=== PATIENT | female | born 1940 | race Caucasian/White ===

== ENCOUNTER 2018-10-04 12:28 | Emergency (ER) | payer OTHER ==
--- OUTSIDE RECORDS SUMMARY | 2018-10-04 12:30 | XMS REPORT | Clinical Summary ---
:1940 Author Organization [facility] Address [address] [place] [address] Care Team Providers Name Role Phone Unavailable Primary Care Provider Unavailable Allergies Not on File Medications Not on file Active Problems Not on file Social History Tobacco Use Types Packs/Day Years Used Date Never Assessed Sex Assigned at Date Recorded Not on file Job Start Date Occupation Industry Not on file Not on file Not on file Travel History Travel Start Travel End No recent travel history available. Last Filed Vital Signs Not on file Plan of Treatment Not on file Results Not on fileafter 10/03/2017 Insurance Payer Benefit Plan / Group Subscriber ID Type Phone Address MEDICARE MEDICARE A B xxxxxxxxx Medicare AETNA - MGD CARE AETNA INDEMNITY NON CONTR xxxxxxxxx Comm
--- OUTSIDE RECORDS SUMMARY | 2018-10-04 12:30 | XMS REPORT | Clinical Summary ---
:1940 Author Organization [facility] Address [address] [place] [id number] Care Team Providers Name Role Phone Asked, No Pcp Primary Care Provider Unavailable Allergies Active Allergy Reactions Severity Noted Date Comments Morphine 04/05/2016 Red spots on the skin Oxycodone [id number] 04/05/2016 Red spots on the face and body Cholestyramine (With Sugar) GI Intolerance High 04/06/2016 NAUSEA AND BLOATING Seldane High 04/05/2016 Medications Medication Sig Dispensed Refills Start Date End Date Status aspirin (ECOTRIN) 81 Take 81 mg by mouth 0 Active MG enteric coated daily. tablet cholecalciferol, Take 5,000 Units by 0 Active vitamin D3, (VITAMIN mouth daily. D3) 5,000 unit capsule temazepam (RESTORIL) Take 30 mg by mouth 0 Active 30 mg capsule nightly as needed for sleep. simethicone (MYLICON) Chew 1 tablet (80 30 tablet 1 04/09/2016 Active 80 MG chewable tablet mg total) every 6 (six) hours as needed for flatulence for up to 30 doses. Active Problems Problem Noted Date COPD (chronic obstructive pulmonary disease) with acute bronchitis 10/24/2016 Orthostatic hypotension 04/07/2016 Chest pain 04/05/2016 COPD (chronic obstructive pulmonary disease) 04/05/2016 HTN (hypertension) 04/05/2016 Neuropathy 04/05/2016 Diarrhea due to malabsorption 04/05/2016 Hypokalemia 04/05/2016 Immunizations Name Dates Previously Given Next Due INFLUENZA QUAD PF 04/09/2016 Pneumococcal Conjugate 13-Valent 04/09/2016 Family History Medical History Relation Name Comments Aortic aneurysm Brother Cancer Brother Heart disease Brother Cancer Father Aortic aneurysm Mother Arrhythmia Sister Relation Name Status Comments Brother Alive Father Mother Sister Alive Social History Tobacco Use Types Packs/Day Years Used Date Former Smoker Quit: 04/05/2004 Smokeless Tobacco: Never Used Alcohol Use Drinks/Week oz/Week Comments No Sex Assigned at Date Recorded Not on file Job Start Date Occupation Industry Not on file Not on file Not on file Travel History Travel Start Travel End No recent travel history available. Last Filed Vital Signs Not on file Plan of Treatment Health Maintenance Due Date Last Done Comments SHINGLES VACCINES (#1) 02/23/1988 PNEUMOCOCCAL POLYSACCHARIDE VACCINE AGE 65 AND OVER 2003 65+ PNEUMOCOCCAL VACCINE (2 of 2 - PPSV23) 04/09/2017 04/09/2016 INFLUENZA VACCINE 12/23/2018 04/09/2016 Implants Implanted Type Area Industrial Chemist Device Identifier Shelf Expiration Model / Serial Date / Lot Staple Staple Results Not on fileafter 10/03/2017 Insurance Payer Benefit Plan / Group Subscriber ID Type Phone Address AETNA AETNA HMO,POS,EPO, MC/EC xxxxxxxxx HMO MEDICARE MEDICARE PART A AND B xxxxxxxxxx Medicare [place], [place] Advance Directives Patient has advance care planning documents, and code status on file. For more information, please contact:Jose Luis Blackman[address] [place] [address] Code Status Date Activated Date Inactivated Comments Full Code 10/24/2016 12:22 AM 10/25/2016 12:21 AM Code Status decision reached by: Patient Full Code 04/05/2016 12:37 AM 04/09/2016 5:26 PM Code Status decision reached by: Patient
[2018-10-04 14:12] LABS: Absolute Lymphocytes (CBC) 1.6 K/uL (0.7-4.9); Absolute Monocytes 0.7 K/uL (0.1-1.3); Absolute Neutrophil 3.2 K/uL (1.8-8.0); Eosinophils % 3.4 % (0-4.4); Hematocrit 45.5 % (36.0-45.0); Lymphocytes % 28.6 % (15.3-44.8); MPV 8.1 fL (7.6-11.3); Monocytes % 11.5 % (3.3-12.3); RBC Red Blood Cell Count 4.88 M/uL (3.86-4.86)
[2018-10-04 14:13] LABS: ALT/SGPT 21 U/L (12-78); AST/SGOT 18 U/L (15-37); Albumin 3.9 g/dL (3.4-5.0); Alkaline Phosphatase 88 U/L (45-117); BUN Blood Urea Nitrogen 14 mg/dL (7-18); Bicarbonate 32 mmol/L (21-32); Bilirubin Direct < 0.1 mg/dL (0-0.2); Bilirubin Total 0.4 mg/dL (0.2-1.0); Glucose Level 119 mg/dL (74-106); Lipase 101 U/L (73-393); Potassium 4.5 mmol/L (3.5-5.1); Protein, Total 7.3 g/dL (6.4-8.2); Sodium Level 139 mmol/L (136-145)
[2018-10-04] MEDS ORDERED: FAMOTIDINE 20 MG/2 ML VIAL IV ONE (14:16)
[2018-10-04] MEDS ORDERED: ONDANSETRON 4 MG/2 ML VIAL ONE (14:16)
[2018-10-04] MEDS ORDERED: NA CHLORIDE 0.9% 500 ML ONE ×2 (14:16→19:35)
--- NOTE | 2018-10-04 15:02 | RAD REPORT ---
EXAM DESCRIPTION: CTAbdomen Pelvis W Contrast - 10/04/2018 2:48 pm CLINICAL HISTORY: Abdominal pain. ABD PAIN COMPARISON: Abdomen Pelvis W Contrast dated 07/22/2016; Abdomen Pelvis W Contrast dated 05/27/2016; Abdomen Pelvis W Contrast dated 05/20/2016; Abdomen Pelvis W Contrast dated 05/02/2016 TECHNIQUE: Biphasic CT imaging of the abdomen and pelvis was performed with 100 ml non-ionic IV cont rast. All CT scans are performed using dose optimization technique as appropriate and may include automated exposure control or mA/KV adjustment according to patient size. FINDINGS: Emphysematous changes are present. Multiple liver cysts are present of varying size. No aggressive liver lesion. Cholecystectomy clips. The spleen, pancreas, adrenal glands and kidneys are within normal limits. Infrarenal abdominal aortic aneurysm is present measuring 4.6 cm in AP dimension, increased from 06/26 at which time it measured 3.9 cm. No bowel obstruction, free air, free fluid or abscess. Prominent sigmoid diverticulosis coli is prese nt without diverticulitis. The appendix is not identified as a discrete structure, however, no second brian findings of appendicitis are identified. No evidence of significant lymphadenopathy. Moderate lumbar degenerative changes. IMPRESSION: Interval increase in size of infrarenal abdominal aortic aneurysm since comparative stud y. There is no CT evidence of aneurysm leakage at this time. Prominent sigmoid diverticulosis coli without diverticulitis.
[2018-10-04 15:22] LABS: Urine Bacteria <20 /HPF (<20); Urine Culture Reflex Order NOT NEEDED; Urine RBC <5 /HPF (NONE SEEN)
[2018-10-04 16:31] LABS: Urine Blood NEGATIVE (NEG); Urine Glucose NEGATIVE (NEG); Urine Protein NEGATIVE (NEG); Urine Specific Gravity 1.015 (1.005-1.030)
[2018-10-04] MEDS ORDERED: PROMETHAZINE 25 MG/ML VIAL ONE (16:42)
[2018-10-04] MEDS ORDERED: NA CHLORIDE 0.9% 100 ML IV ONE (16:42)
[2018-10-04 16:47] LABS: Protime INR 1.05
[2018-10-04 17:05] LABS: Magnesium 2.1 mg/dL (1.8-2.4); NT PRO-BNP 174 pg/mL (<450); Troponin (Emerg Dept Use Only) < 0.02 ng/mL (0.0-0.045)
--- NOTE | 2018-10-04 17:27 | RAD REPORT ---
EXAM DESCRIPTION: RAD - Chest Single View - 10/04/2018 5:21 pm CLINICAL HISTORY: weakness, low sats Chest pain. COMPARISON: Chest Single View dated 05/27/2016; Chest Single View dated 05/19/2016; CHEST PA AND LAT 2 VIEW dated 03/08/2013 FINDINGS: Portable technique limits examination quality. The lungs are grossly clear. The heart is normal in size. No displaced fractures. IMPRESSION: No acute intrathoracic process suspected.
--- NOTE | 2018-10-04 19:09 | EKG ---
Test Date: 2018-10-04 Test Time: 16:59:49 Bow Maker Gift Wrapping: STEWART MEASUREMENT RESULTS: Intervals: Rate: 68 WY: 172 QRSD: 70 QT: 384 QTc: 408 Blanchard: P: 76 WY: 172 QRS: 75 T: 76 INTERPRETIVE STATEMENTS: Normal sinus rhythm Normal ECG Compared to ECG 05/27/2016 20:56:16 Ventricular premature complex(es) no longer present Electronically Signed On 10-04-18 19:09:18 CDT by Ronny De La Fuente
--- NOTE | 2018-10-04 19:40 | EDPHYS ---
Physician Documentation [facility] Name: Rena Schuler Age: 78 yrs Sex: Female : 1940 Arrival Date: 10/04/2018 Time: 12:30 Bed 23 Private MD: Marlys Worrell R ED Physician Leo Cox HPI: 10/04 17:46 This 78 yrs old Female presents to ER via Ambulatory with complaints of wa Abdominal Pain, Vomiting. 17:46 The patient presents to the emergency department with nausea, that is moderate. Onset: wa The symptoms/episode began/occurred 1 week(s) ago, vomit x 1 yesterday. Possible causes: unknown. The symptoms are aggravated by nothing. The symptoms are alleviated by nothing. Associated signs and symptoms: Pertinent positives: nausea, generalized weakness, Pertinent negatives: fever. Severity of symptoms: At their worst the symptoms were moderate in the emergency department the symptoms are unchanged. The patient has experienced a previous episode, per daughter, was dx'd with diverticulitis at that time. The patient has not recently seen a physician. states has not felt well all week. Historical: - Allergies: 12:52 Codeine; rb1 12:52 Morphine; rb1 12:52 All pain medications; rb1 - PMHx: 12:52 Hypertension; TIA; rb1 12:55 COPD; rb1 - PSHx: 12:52 back surgery; Hysterectomy; Cholecystectomy; Thyroidectomy; eye sx; stomach; stem cells;rb1 - Immunization history:: Adult Immunizations up to date. - Social history:: Smoking status: Patient/guardian denies using tobacco. - Ebola Screening: : No symptoms or risks identified at this time. - Family history:: not pertinent. - Hospitalizations: : No recent hospitalization is reported. ROS: 18:02 Constitutional: Negative for fever, chills, and weight loss, Eyes: Negative for injury, wa pain, redness, and discharge, ENT: Negative for injury, pain, and discharge, Neck: Negative for injury, pain, and swelling, Cardiovascular: Negative for chest pain, palpitations, and edema, Respiratory: Negative for shortness of breath, cough, wheezing, and pleuritic chest pain, Back: Negative for injury and pain, : Negative for injury, bleeding, discharge, and swelling, MS/Extremity: Negative for injury and deformity, Skin: Negative for injury, rash, and discoloration, Neuro: Negative for headache, weakness, numbness, tingling, and seizure, Psych: Negative for depression, anxiety, suicide ideation, homicidal ideation, and hallucinations. 18:02 Abdomen/GI: Positive for nausea, vomiting, Negative for abdominal pain, diarrhea. 18:02 All other systems are negative. Exam: 18:04 Constitutional: This is a well developed, well nourished patient who is awake, alert, wa and in no acute distress. Head/Face: Normocephalic, atraumatic. Eyes: Pupils equal round and reactive to light, extra-ocular motions intact. Lids and lashes normal. Conjunctiva and sclera are non-icteric and not injected. Cornea within normal limits. Periorbital areas with no swelling, redness, or edema. ENT: Nares patent. No nasal discharge, no septal abnormalities noted. Tympanic membranes are normal and external auditory canals are clear. Oropharynx with no redness, swelling, or masses, exudates, or evidence of obstruction, uvula midline. Mucous membranes moist. Neck: Trachea midline, no thyromegaly or masses palpated, and no cervical lymphadenopathy. Supple, full range of motion without nuchal rigidity, or vertebral point tenderness. No Meningismus. Chest/axilla: Normal chest wall appearance and motion. Nontender with no deformity. No lesions are appreciated. Cardiovascular: Regular rate and rhythm with a normal S1 and S2. No gallops, murmurs, or rubs. Normal PMI, no JVD. No pulse deficits. Respiratory: Lungs have equal breath sounds bilaterally, clear to auscultation and percussion. No rales, rhonchi or wheezes noted. No increased work of breathing, no retractions or nasal flaring. Back: No spinal tenderness. No costovertebral tenderness. Full range of motion. Skin: Warm, dry with normal turgor. Normal color with no rashes, no lesions, and no evidence of cellulitis. MS/ Extremity: Pulses equal, no cyanosis. Neurovascular intact. Full, normal range of motion. Neuro: Awake and alert, GCS 15, oriented to person, place, time, and situation. Cranial nerves II-XII grossly intact. Motor strength 5/5 in all extremities. Sensory grossly intact. Cerebellar exam normal. Normal gait. Psych: Awake, alert, with orientation to person, place and time. Behavior, mood, and affect are within normal limits. 18:04 Abdomen/GI: Inspection: abdomen appears normal, Bowel sounds: normal, in all quadrants, Palpation: abdomen is soft and non-tender, in all quadrants, soft, nontender, in all quadrants. Vital Signs: 12:52 BP 147 / 97; Pulse 73; Resp 17; Temp 97.6(O); Pulse Ox 94% on R/A; Weight 70.76 kg; rb1 Height 5 ft. 9 in. (175.26 cm); Pain 3/10; 16:44 BP 162 / 94 RA Supine; Pulse 72; Resp 17 S; Pulse Ox 94% on R/A; rv 16:56 Temp 98.5(O); lt1 17:00 BP 168 / 85 RA Supine; Pulse 69; Resp 18 S; Pulse Ox 94% on R/A; rv 17:30 BP 146 / 99; Pulse 66; Resp 15; Pulse Ox 94% ; rv 18:00 BP 164 / 90; Pulse 67; Resp 15; Pulse Ox 94% ; rv 18:30 BP 158 / 81; Pulse 66; Resp 15; Pulse Ox 94% ; rv 19:30 BP 163 / 79 Supine; Pulse 68; Resp 16 S; Pulse Ox 94% on R/A; rv 12:52 Body Mass Index 23.04 (70.76 kg, 175.26 cm) rb1 MDM: 13:22 Patient medically screened. wa 18:05 Differential diagnosis: Nonspecific abd pain, gastritis, cholecystitis, pancreatitis, wa diverticulitis. Data reviewed: vital signs, nurses notes. 19:34 Test interpretation: by ED physician or midlevel provider: EKG: HR 68. nml sinus. no wa zonal ischemia. axis nml. 19:36 Test interpretation: by ED physician or midlevel provider: labs noted wnl. CT wa abd/pelvis: no acute process. diverticulosis. Response to treatment: the patient's symptoms have markedly improved after treatment. ED course: improved with IV phenergan. fluid bolus given. will d/c with close f/u. has appt with Dr. Garner (GI) in 2 days. understands to return for rapidly worsening concerns. . 10/04 13:23 Order name: Basic Metabolic Panel; Complete Time: 16:08 aj 10/04 13:23 Order name: CBC with Diff; Complete Time: 16:08 10/04 13:23 Order name: Creatinine for Radiology; Complete Time: 16:08 10/04 13:23 Order name: Hepatic Function; Complete Time: 16:08 10/04 13:23 Order name: Lipase; Complete Time: 16:08 10/04 13:59 Order name: Urine Microscopic Only; Complete Time: 16:08 in 10/04 14:00 Order name: CT Abd/Pelvis - W/Contrast; Complete Time: 15:06 in 10/04 15:03 Order name: Urine Dipstick--Ancillary (enter results); Complete Time: 17:27 10/04 16:24 Order name: Magnesium; Complete Time: 17:27 in 10/04 16:24 Order name: NT PRO-BNP; Complete Time: 17:27 in 10/04 16:24 Order name: PT-INR; Complete Time: 17:27 in 10/04 16:24 Order name: Troponin (emerg Dept Use Only); Complete Time: 17:27 in 10/04 16:24 Order name: XRAY Chest (1 view); Complete Time: 17:46 10/04 13:23 Order name: IV Saline Lock; Complete Time: 13:44 10/04 13:23 Order name: Labs collected and sent; Complete Time: 13:44 10/04 13:59 Order name: Urine Dipstick-Ancillary (obtain specimen); Complete Time: 15:06 in 10/04 16:24 Order name: EKG; Complete Time: 16:25 in 10/04 16:24 Order name: Cardiac monitoring; Complete Time: 16:49 in 10/04 16:24 Order name: EKG - Nurse/Tech; Complete Time: 17:15 in 10/04 16:24 Order name: O2 Per Protocol; Complete Time: 16:48 in 10/04 16:24 Order name: O2 Sat Monitoring; Complete Time: 16:48 in Administered Medications: 14:07 Drug: Pepcid 20 mg Route: IVP; Site: left antecubital; aj 16:00 Follow up: Response: Nausea is decreased rv 14:08 Drug: NS 0.9% 500 ml Route: IV; Rate: bolus; Site: left antecubital; aj 17:15 Follow up: IV Status: Completed infusion; IV Intake: 500ml rv 14:08 Drug: Zofran 4 mg Route: IVP; Site: left antecubital; aj 17:16 Follow up: Response: Nausea is decreased rv 16:36 Drug: Phenergan 12.5 mg {Note: incorporated in 100ml of NS, run as bolus.} Route: IVP; rv Site: left antecubital; 17:19 Follow up: Response: Marked relief of symptoms rv 19:22 Drug: NS 0.9% 500 ml Route: IV; Rate: bolus; Site: left antecubital; ca1 20:09 Follow up: Urine output 310 ml; Response: No adverse reaction; IV Status: Completed ca1 infusion 20:19 Follow up: IV Status: Completed infusion; IV Intake: 500ml rv Disposition: 10/04/18 19:39 Discharged to Home. Impression: Acute abdominal pain, acute nausea. - Condition is Stable. - Discharge Instructions: Nausea and Vomiting, Adult, [id number], Nausea, Adult, [id number]. - Prescriptions for promethazine 12.5 mg Oral tablet - take 1 tablet by ORAL route 3 times per day As needed; 20 tablet. Pepcid 20 mg Oral Tablet - take 1 tablet by ORAL route once daily for 10 days; 10 tablet. - Medication Reconciliation Form, Thank You Letter, Antibiotic Education, Prescription Opioid Use form. - Follow up: Parth Garner MD; When: 1 - 2 days; Reason: Re-evaluation by your physician. - Problem is new. - Symptoms have improved. - Notes: follow up with Dr. Garner per your appointment in 2 days. return here immediately if rapidly worsening concerns Signatures: Dispatcher [employer] Augusta Marinelli RN RN aj Barber, Rebecca RN RN rb1 Leo Cox MD MD wa Vicente, Ronaldo, RN RN rv Veronica Browne RN RN ca1 Corrections: (The following items were deleted from the chart) 20:20 19:39 10/04/2018 19:39 Discharged to Home. Impression: Acute abdominal pain; acute rv nausea. Condition is Stable. Forms are Medication Reconciliation Form, Thank You Letter, Antibiotic Education, Prescription Opioid Use. Follow up: Parth Garner; When: 1 - 2 days; Reason: Re-evaluation by your physician. Problem is new. Symptoms have improved. wa
--- NOTE | 2018-10-04 19:40 | ER ---
Nurse's Notes [facility] Name: Rena Schuler Age: 78 yrs Sex: Female : 1940 Arrival Date: 10/04/2018 Time: 12:30 Bed 23 Private MD: Marlys Worrell R Diagnosis: Acute abdominal pain;acute nausea Presentation: 10/04 12:49 Presenting complaint: Patient states: c/o abdominal pain RUQ and RLQ radiates to the rb1 back, nausea, vomiting started last night x 2, diarrhea. Diarrhea normal for pt. Denies fever. Transition of care: patient was not received from another setting of care. Onset of symptoms was September 27, 2018. Risk Assessment: Do you want to hurt yourself or someone else? Patient reports no desire to harm self or others. 12:49 Method Of Arrival: Ambulatory rb1 12:49 Acuity: THIEN 3 rb1 16:48 Initial Sepsis Screen: Does the patient meet any 2 criteria? No. Patient's initial rv sepsis screen is negative. Does the patient have a suspected source of infection? No. Patient's initial sepsis screen is negative. Care prior to arrival: None. Triage Assessment: 12:52 General: Appears in no apparent distress. comfortable, Behavior is calm, cooperative. rb1 12:55 Neuro: Level of Consciousness is awake, alert, obeys commands, Oriented to person, rb1 place, time, situation. Cardiovascular: Capillary refill < 3 seconds is brisk in bilateral fingers. Respiratory: Airway is patent Respiratory effort is even, unlabored, Respiratory pattern is regular, symmetrical. GI: Reports diarrhea, nausea, vomiting. Derm: Skin is pink, warm \T\ dry. Historical: - Allergies: 12:52 Codeine; rb1 12:52 Morphine; rb1 12:52 All pain medications; rb1 - PMHx: 12:52 Hypertension; TIA; rb1 12:55 COPD; rb1 - PSHx: 12:52 back surgery; Hysterectomy; Cholecystectomy; Thyroidectomy; eye sx; stomach; stem cells;rb1 - Immunization history:: Adult Immunizations up to date. - Social history:: Smoking status: Patient/guardian denies using tobacco. - Ebola Screening: : No symptoms or risks identified at this time. - Family history:: not pertinent. - Hospitalizations: : No recent hospitalization is reported. Screenin:47 Abuse screen: Denies threats or abuse. Denies injuries from another. Nutritional rv screening: No deficits noted. Tuberculosis screening: No symptoms or risk factors identified. Fall Risk None identified. Assessment: 13:49 General: Appears in no apparent distress. comfortable, Behavior is calm, cooperative, aj appropriate for age. Pain: Complains of pain in abdomen. Neuro: Level of Consciousness is awake, alert, obeys commands, Oriented to person, place, time, situation, Appropriate for age. Respiratory: Airway is patent Respiratory effort is even, unlabored, Respiratory pattern is regular, symmetrical. GI: Abdomen is flat, Bowel sounds present X 4 quads. Abd is soft Abdomen is tender to palpation in right lower quadrant and left lower quadrant. Derm: Skin is intact, is healthy with good turgor, Skin is pink, warm \T\ dry. normal. 16:46 Reassessment: Patient appears in no apparent distress at this time. Patient and/or rv family updated on plan of care and expected duration. Pain level reassessed. Patient is alert, oriented x 3, equal unlabored respirations, skin warm/dry/pink. nausea starting to comeback again. doing cardiac work up after Dr. Cox explained the results and plan of care. 18:51 Reassessment: Patient appears in no apparent distress at this time. Patient and/or rv family updated on plan of care and expected duration. Pain level reassessed. Patient is alert, oriented x 3, equal unlabored respirations, skin warm/dry/pink. awaiting for Dr Cox to talk to patient and family. Patient states feeling better. Vital Signs: 12:52 BP 147 / 97; Pulse 73; Resp 17; Temp 97.6(O); Pulse Ox 94% on R/A; Weight 70.76 kg; rb1 Height 5 ft. 9 in. (175.26 cm); Pain 3/10; 16:44 BP 162 / 94 RA Supine; Pulse 72; Resp 17 S; Pulse Ox 94% on R/A; rv 16:56 Temp 98.5(O); lt1 17:00 BP 168 / 85 RA Supine; Pulse 69; Resp 18 S; Pulse Ox 94% on R/A; rv 17:30 BP 146 / 99; Pulse 66; Resp 15; Pulse Ox 94% ; rv 18:00 BP 164 / 90; Pulse 67; Resp 15; Pulse Ox 94% ; rv 18:30 BP 158 / 81; Pulse 66; Resp 15; Pulse Ox 94% ; rv 19:30 BP 163 / 79 Supine; Pulse 68; Resp 16 S; Pulse Ox 94% on R/A; rv 12:52 Body Mass Index 23.04 (70.76 kg, 175.26 cm) rb1 ED Course: 12:30 Patient arrived in ED. mr 12:30 Marlys Worrell MD is Private Physician. mr 12:51 Triage completed. rb1 12:55 Arm band placed on right wrist. rb1 13:07 Augusta Ibanez, RN is Primary Nurse. aj 13:22 Leo Cox MD is Attending Physician. wa 13:44 Initial lab(s) drawn, by ma, sent to lab. Inserted saline lock: 22 gauge in left lt1 forearm, using aseptic technique. 14:[address] vm2 14:48 CT Abd/Pelvis - W/Contrast In Process Unspecified. EDMS 14:50 CT completed. Patient tolerated procedure well. Patient moved back from CT. vm2 15:00 Patient has correct armband on for positive identification. Bed in low position. Call rv light in reach. Side rails up X 1. Adult w/ patient. court recording monitor on. Pulse ox on. NIBP on. 15:05 Urine Dipstick--Ancillary (enter results) Sent. lt1 15:06 Urine Microscopic Only Sent. lt1 16:39 by ma, sent to lab. additional blood work. rv 16:59 EKG done, by mathematical engineering technician. reviewed by Leo Cox MD. sm3 17:21 XRAY Chest (1 view) In Process Unspecified. EDMS 19:38 Parth Garner MD is Referral Physician. wa 20:14 No provider procedures requiring assistance completed. IV discontinued, intact, ca1 bleeding controlled, No redness/swelling at site. Pressure dressing applied. Administered Medications: 14:07 Drug: Pepcid 20 mg Route: IVP; Site: left antecubital; aj 16:00 Follow up: Response: Nausea is decreased rv 14:08 Drug: NS 0.9% 500 ml Route: IV; Rate: bolus; Site: left antecubital; aj 17:15 Follow up: IV Status: Completed infusion; IV Intake: 500ml rv 14:08 Drug: Zofran 4 mg Route: IVP; Site: left antecubital; aj 17:16 Follow up: Response: Nausea is decreased rv 16:36 Drug: Phenergan 12.5 mg {Note: incorporated in 100ml of NS, run as bolus.} Route: IVP; rv Site: left antecubital; 17:19 Follow up: Response: Marked relief of symptoms rv 19:22 Drug: NS 0.9% 500 ml Route: IV; Rate: bolus; Site: left antecubital; ca1 20:09 Follow up: Urine output 310 ml; Response: No adverse reaction; IV Status: Completed ca1 infusion 20:19 Follow up: IV Status: Completed infusion; IV Intake: 500ml rv Intake: 17:15 IV: 500ml; Total: 500ml. rv 20:19 IV: 500ml; Total: 1000ml. rv Output: 20:09 Urine: 310ml; Total: 310ml. ca1 Outcome: 19:39 Discharge ordered by . co 20:14 Discharged to home via wheelchair. ca1 20:14 Condition: stable 20:14 Discharge instructions given to patient, Instructed on discharge instructions, follow up and referral plans. medication usage, Demonstrated understanding of instructions, follow-up care, medications, Prescriptions given X 2. 20:20 Patient left the ED. rv Signatures: Dispatcher [employer] Augusta Marinelli, Elidia Guaman RN, Rebecca RN RN rb1 Yuliet Guzmán 2 Leo Cox MD MD wa Montes, Shakira 3 Trevor Ortega RN RN rv Acob, Cheryl, RN RN ca1 Tran, Leah 1
[2018-10-05 03:32] VITALS: O2SAT 94
[2018-10-05 03:34] VITALS: TEMP 98.5
[2018-10-05 03:41] VITALS: BP 163/79
== END 2018-10-04 20:20 | disposition home or self-care (01) ==
LOC: ER 12:28
DX: R10.9 Unspecified abdominal pain (principal); I10 Essential (primary) hypertension; Z88.5 Allergy status to narcotic agent
CPT/HCPCS: 96361; 93005; 85025; 80048; 36415; 83735; 85610; 80076; 84484; 83690; 83880; 74177; 71045; 96375; 96374; 99285; Q9967; J2550; J2405; 81003; 81015

== ENCOUNTER 2019-04-17 09:28 | Emergency (ER) | payer OTHER ==
[2019-04-17] MEDS ORDERED: PROMETHAZINE 25 MG TABLET ONE (09:51)
[2019-04-17] MEDS ORDERED: HYDROMORPHONE HCL 0.5 MG/0.5 ML INJ ONE ×2 (10:22→14:27)
[2019-04-17 12:06] LABS: Absolute Lymphocytes (CBC) 1.3 K/uL (0.7-4.9); Basophils % 0.9 % (0-1.3); Hematocrit 41.7 % (36.0-45.0); Lymphocytes % 16.3 % (15.3-44.8); MPV 8.1 fL (7.6-11.3); RBC Red Blood Cell Count 4.36 M/uL (3.86-4.86)
[2019-04-17 13:04] LABS: ALT/SGPT 31 U/L (12-78); AST/SGOT 37 U/L (15-37); Albumin 3.3 g/dL (3.4-5.0); Alkaline Phosphatase 72 U/L (45-117); BUN Blood Urea Nitrogen 13 mg/dL (7-18); Bicarbonate 32 mmol/L (21-32); Bilirubin Total 0.4 mg/dL (0.2-1.0); Glucose Level 123 mg/dL (74-106); Potassium 4.1 mmol/L (3.5-5.1); Protein, Total 6.3 g/dL (6.4-8.2); Sodium Level 139 mmol/L (136-145); Troponin (Emerg Dept Use Only) < 0.02 ng/mL (0.0-0.045)
--- NOTE | 2019-04-17 13:05 | RAD REPORT ---
EXAM DESCRIPTION: RAD - Elbow Right 3 View - 04/17/2019 10:32 am CLINICAL HISTORY: Fall, right elbow pain COMPARISON: None. FINDINGS: No fracture is identified and no elevated posterior fat pad. There is no dislocation or pe riosteal reaction noted. No foreign body or other soft tissue abnormality. Subtle cortical changes to the articular surface of the radius are noted but not sufficient for fracture diagnosis at this time . IMPRESSION: Negative right elbow examination. Repeat imaging in 7 days recommended if the patient continues to have symptoms concerning for fractur e.
--- NOTE | 2019-04-17 13:10 | RAD REPORT ---
EXAM DESCRIPTION: RAD - Forearm Left - 04/17/2019 10:32 am CLINICAL HISTORY: Fall, left arm and wrist pain COMPARISON: None. FINDINGS: Distal radius and ulna fractures are detailed on wrist report. Remainder the left forearm shows no acute finding. No suspicious finding at the elbow joint.
--- NOTE | 2019-04-17 13:21 | RAD REPORT ---
EXAM DESCRIPTION: RAD - Wrist Left 3 View - 04/17/2019 10:32 am CLINICAL HISTORY: Fall, wrist pain COMPARISON: None. FINDINGS: Transverse fractures of the distal radius and ulna are present. Radius fracture fragment s hows 40 degree dorsal angulation and impaction on the dorsal margin. There is no dislocation or perio steal reaction noted. No foreign body or other soft tissue abnormality. IMPRESSION: Distal radius and ulna fractures as detailed.
--- NOTE | 2019-04-17 14:26 | RAD REPORT ---
EXAM DESCRIPTION: CT - Head C Spine Hai Ybarra - 04/17/2019 1:52 pm CLINICAL HISTORY: Fall, head, neck, chest and abdomen pain COMPARISON: None. TECHNIQUE: Axial [address] head images were obtained. Axial [address] cervical spine images were obtaine d with sagittal and coronal reconstruction images reviewed. During dynamic enhancement of 100mL non-i onic contrast, axial 5 mm images of the chest, abdomen and pelvis were obtained. All CT scans are performed using dose optimization technique as appropriate and may include automated exposure control or mA/KV adjustment according to patient size. FINDINGS: No intracranial hemorrhage, mass or edema. No midline shift or abnormal fluid collection. Prominent atrophy and chronic ischemic changes are present. Ventricles are in proportion to volume lo ss. Chronic ischemic change can mask nonhemorrhagic CVA. Mastoid air cells and paranasal sinuses are clear. No skull fracture. CT cervical spine imaging shows normal height. Normal alignment of the vertebrae. Disc space narrowin g is present throughout the cervical spine. Posterior endplate spurring at C4-5 and C5-6 causes centr al canal narrowing. There is significant bony foraminal encroachment at C5-6 bilaterally and on the l eft at C6-7. No paraspinal mass or hematoma seen. Central canal detail is inherently limited. Concern s for traumatic disc herniation or traumatic cord injury can be further addressed with MR imaging. Thyroid nodularity is present not fully assessed. Left lobe of the thyroid may be absent. CT chest sh ows no pneumothorax, pulmonary contusion or pleural fluid collection. No mediastinal hematoma and the aorta and pulmonary arteries are unremarkable. No chest will mass or abnormal axillary finding. No d isplaced rib fracture or other significant bony finding. The patient has nonacute thrombus change in the aortic arch. No acute thoracic aortic finding seen. No pericardial thickening or effusion. Air d ensities are present in the soft tissues lateral aspect of each proximal upper extremity. This could be from puncture wound or from medication administration. This needs correlation with history. CT abdomen and pelvis show no injury to solid abdominal viscera. Gallbladder is absent. No abnormal b iliary tree dilatation. No acute bowel injury. Diverticulosis is present without diverticulitis. No f ree air, free fluid or abnormal stranding in the peritoneal or retroperitoneal spaces. Mural thrombus is scattered in the abdominal aorta. There is a large infrarenal abdominal aortic aneurysm. Mural th rombus fills approximately 80% of the aneurysm cross-sectional area. Aneurysm is 4.9 cm AP x 4.7 cm T R. No aneurysm leakage or rupture findings. Right common iliac origins stenosis is present. No iliac aneurysm. . No urinary bladder abnormality. Disc and bony degenerative changes are present. Moderately prominent L4-5 and L5-S1 disc, endplate an d facet degenerative changes are present. No pathologic bone process. IMPRESSION: Moderate atrophy and advanced chronic ischemic changes are present with no hemorrhage, e tabitha or acute intracranial finding. Chronic ischemic change can mask nonhemorrhagic CVA. Cervical spine degenerative changes are present with no acute finding seen. No acute traumatic CT chest finding. Patient has air densities in the bilateral upper extremities. Th is could be penetrating injury if this matches history. These may be medication injection sites as we ll. No traumatic injury in the abdomen or pelvis. Patient has a 4.9 centimeter abdominal aortic aneurysm with mural thrombus filling the majority of the lumen. No acute aortic finding seen.
[2019-04-17] MEDS ORDERED: PROMETHAZINE 25 MG/ML VIAL ONE (14:43)
[2019-04-17] MEDS ORDERED: PROPOFOL 200 MG/20 ML VIAL IV ONE (14:54)
[2019-04-17] MEDS ORDERED: NA CHLORIDE 0.9% 500 ML ONE (15:20)
[2019-04-17] MEDS ORDERED: TETANUS & DIPHTHERIA TOX,ADULT 0.5 ML VIAL ONE (17:37)
--- NOTE | 2019-04-17 17:40 | RAD REPORT ---
EXAM DESCRIPTION: RAD - Wrist Left 3 View - 04/17/2019 4:59 pm CLINICAL HISTORY: Distal radius and ulna fracture COMPARISON: Left wrist same date FINDINGS: A three-view left wrist examination was performed. Reduction maneuvers have been performed . Cast material is in place. Distal radius and ulna fracture again identified. Reduction maneuvers result in improved alignment an d positioning of the fracture fragments. IMPRESSION: Post reduction maneuver show improved anatomic alignment and position of the fracture fr agments.
--- NOTE | 2019-04-17 18:00 | EDPHYS ---
Physician Documentation [facility] Name: Rena Schuler Age: 79 yrs Sex: Female : 1940 Arrival Date: 04/17/2019 Time: 09:32 Bed 16 Private MD: ED Physician Rakesh Jovel HPI: 04/17 09:37 This 79 yrs old Female presents to ER via EMS with complaints of Fall Injury. jmm 09:37 Details of fall: The patient fell from an upright position. Onset: The symptoms/episode jmm began/occurred acutely, just prior to arrival. Associated injuries: The patient sustained. This is an 79 year old female with a history of COPD, HTN, TIA, diverticulitis that presents to the ED with complaints of left wrist pain, right elbow pain after a fall which occurred just prior to arrival. 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 Denies LOC, denies headache. Patient does not take anticoagulants. . Historical: - Allergies: 09:41 all pain medications; sv 09:41 Codeine; sv 09:41 Morphine; sv 09:41 "I can have Dilaudid for a couple of days and then it makes me nauseous"; sv - PMHx: 09:41 COPD; Hypertension; TIA; Diverticulitis; sv - PSHx: 09:41 Hysterectomy; Cholecystectomy; Thyroidectomy; back surgery; eye sx; stomach; stem cells;sv - Immunization history:: Adult Immunizations up to date. - Social history:: Smoking status: Patient/guardian denies using tobacco. - Immunization history: Last tetanus immunization: unknown. - Ebola Screening: : No symptoms or risks identified at this time. ROS: 09:37 Constitutional: Negative for fever, chills, and weight loss, Neck: Negative for injury, jmm pain, and swelling, Cardiovascular: Negative for chest pain, palpitations, and edema, Respiratory: Negative for shortness of breath, cough, wheezing, and pleuritic chest pain, Abdomen/GI: Negative for abdominal pain, nausea, vomiting, diarrhea, and constipation, Back: Negative for injury and pain. 09:37 MS/extremity: Positive for injury or acute deformity, pain. 09:37 All other systems are negative. Exam: 09:37 Constitutional: This is a well developed, well nourished patient who is awake, alert, jmm and in no acute distress. Head/Face: atraumatic. Eyes: EOMI, no conjunctival erythema appreciated ENT: Moist Mucus Membranes 09:37 Neck: C-spine: appears grossly normal. 09:37 Cardiovascular: Rate: normal, Rhythm: regular, Pulses: no pulse deficits are appreciated. 09:37 Respiratory: the patient does not display signs of respiratory distress, Respirations: normal, Breath sounds: are clear throughout. 09:37 Abdomen/GI: Inspection: abdomen appears normal, Bowel sounds: normal, Palpation: abdomen is soft and non-tender, in all quadrants. 09:37 Back: ROM is normal. 09:37 Musculoskeletal/extremity: ROM: intact in all extremities, deformity noted to the left forearm, full radial pulse, compartments are soft, NVI. . 09:37 Skin: Appearance: Color: normal in color. 09:37 Neuro: Orientation: is normal, Mentation: is normal, Memory: is normal. 09:37 Psych: Behavior/mood is pleasant, cooperative. Vital Signs: 09:37 BP 138 / 112; Pulse 83; Resp 20; Temp 97.3; Pulse Ox 97% ; Weight 68.95 kg; Height 5 sv ft. 9 in. (175.26 cm); Pain 10/10; 11:12 BP 139 / 65; Pulse 66; Resp 20; Temp 97.8; Pulse Ox 98% on R/A; mh5 12:05 BP 139 / 82; Pulse 66; Resp 18; Pulse Ox 99% on R/A; mh5 13:17 BP 146 / 84; Pulse 65; Resp 17 S; Pulse Ox 98% on R/A; ca1 14:30 BP 136 / 74; Pulse 71; Resp 18 S; Pulse Ox 96% on R/A; ca1 15:06 BP 155 / 68; Pulse 69; Resp 17; Temp 97.5(TE); Pulse Ox 97% on R/A; lt1 16:16 BP 159 / 75; Pulse 71; Resp 24; Temp 97.6(TE); Pulse Ox 95% on 4 lpm NC; ca1 16:40 BP 133 / 68; Pulse 64; Resp 17 S; Pulse Ox 100% on 4 lpm NC; ca1 17:30 BP 136 / 75; Pulse 66; Resp 20 S; Pulse Ox 100% on 3 lpm NC; ca1 18:17 BP 142 / 68; Pulse 65; Resp 17 S; Pulse Ox 100% on R/A; ca1 09:37 Body Mass Index 22.45 (68.95 kg, 175.26 cm) sv 16:16 Pre-procedure VS ca1 16:40 post procedure VS ca1 Layland Coma Score: 09:38 Eye Response: spontaneous(4). Verbal Response: oriented(5). Motor Response: obeys sv commands(6). Total: 15. Trauma Score (Adult): 09:38 Eye Response: spontaneous(1); Verbal Response: oriented(1); Motor Response: obeys sv commands(2); Systolic BP: > 89 mm Hg(4); Respiratory Rate: 10 to 29 per min(4); Cirstina Score: 15; Trauma Score: 12 Procedures: 16:35 Splinting: Splint applied to dorsal aspect of left wrist using francisco wrap, sling, wrist [facility] splint, sugar tong. applied by tech. Examined by me, post splint application: neurovascular intact, 2+ distal pulses palpable, brisk capillary refill noted, Patient tolerated well. 16:35 Reduction: of the left wrist, using traction, manipulation, Immobilized with wrist m splint, Patient tolerated well. Post reduction film - reveals improved alignment. MDM: 09:37 Patient medically screened. [facility] 17:55 Data reviewed: vital signs, nurses notes. Counseling: I had a detailed discussion with stefanie the patient and/or guardian regarding: the historical points, exam findings, and any diagnostic results supporting the discharge/admit diagnosis, lab results, radiology results, the need for outpatient follow up, to return to the emergency department if symptoms worsen or persist or if there are any questions or concerns that arise at home. ED course: After administration of dilaudid patient developed chest pain and abdominal pain which she described as gas like. Ct imaging did not reveal an acute processes. I discussed the AAA with the patient whom had previous knowledge of similar sized anerysm. Reduction went well with improved aligned. Family given compartment syndrome return precautions. They will follow up with ortho otherwise for further evaluation. . 04/17 11:32 Order name: CBC with Diff; Complete Time: 12:09 [facility] 04/17 11:32 Order name: CMP; Complete Time: 13:09 [facility] 04/17 09:43 Order name: Forearm Left XRAY; Complete Time: 13:22 [facility] 04/17 09:43 Order name: Wrist Left (3 View) XRAY; Complete Time: 13:22 [facility] 04/17 10:03 Order name: Elbow Right 3 View XRAY; Complete Time: 13:09 [facility] 04/17 11:32 Order name: Troponin (emerg Dept Use Only); Complete Time: 13:09 [facility] 04/17 11:32 Order name: CT Traumagram (Head C Spine CAP W Con); Complete Time: 14:25 [facility] 04/17 16:35 Order name: Wrist Left (3 View) XRAY; Complete Time: 17:50 [facility] 04/17 11:32 Order name: Saline Lock; Complete Time: 11:42 [facility] 04/17 12:10 Order name: Labs - recollect needed; Complete Time: 12:35 ms 04/17 14:38 Order name: Conscious Sedation; Complete Time: 15:13 [facility] Administered Medications: 09:55 Drug: Promethazine 25 mg Route: PO; sv 10:25 Follow up: Response: No adverse reaction; Pain is unchanged, physician notified ca1 10:27 Drug: Dilaudid 0.5 mg {Note: RASS - 0.} Route: IM; Site: right deltoid; ca1 11:00 Follow up: Response: No adverse reaction; Pain is decreased; RASS: Alert and Calm (0) ca1 14:30 Drug: Dilaudid 0.5 mg {Note: RASS - 0.} Route: IVP; Site: right upper arm; ca1 15:30 Follow up: Response: No adverse reaction; Pain is decreased; RASS: Alert and Calm (0) ca1 14:34 CANCELLED (Duplicate Order): Propranolol 1 mg IVP once; over 1 minute [facility] 14:43 Drug: Phenergan 12.5 mg Route: IVP; Site: right antecubital; ca1 16:49 Follow up: Response: No adverse reaction; Nausea is decreased ca1 16:19 Drug: Propofol 0.5 mg/kg {Note: 30mg given per VO.} Route: IVP; Site: right upper arm; ca1 17:29 Follow up: Response: No adverse reaction ca1 17:35 Drug: Tetanus-Diphtheria Toxoid Adult 0.5 ml {Lining [employer]rap [employer]: [employer] Exp: ca1 10/28/2020. Lot #: [id number]. } Route: IM; Site: right deltoid; 17:56 Follow up: Response: No adverse reaction ca1 Disposition: 04/18 07:33 Co-signature as Attending Physician, Rakesh Jovel MD I agree with the assessment and kdr plan of care. PA/DIGITAL FORENSICS EXAMINER's history reviewed, patient interviewed, and examined. Disposition: 04/17/19 17:59 Discharged to Home. Impression: Colles' fracture of left radius, Ulnar Fracture. - Condition is Stable. - Discharge Instructions: Radial Fracture, Ulnar Fracture. - Prescriptions for Tylenol- Codeine #3 300-30 mg Oral Tablet - take 0.5 tablet by ORAL route every 6 hours As needed; 20 tablet. promethazine 25 mg Oral Tablet - take 1 tablet by ORAL route every 6 hours As needed; 20 tablet. - Medication Reconciliation Form, Thank You Letter, Antibiotic Education, Prescription Opioid Use form. - Follow up: Lane Salmon MD; When: 2 - 3 days; Reason: Recheck today's complaints, Continuance of care, Re-evaluation by your physician. Signatures: Dispatcher [employer] Antoinette Barahona, RN RN Rakesh Munguia MD MD kdr Mickail, Joel, PA PA jmm Villarreal, Maria ms Acob, Cheryl, RN RN ca1 Corrections: (The following items were deleted from the chart) 04/17 14:34 14:33 Propranolol 1 mg IVP once; over 1 minute ordered. stefanie watts 18:21 17:59 04/17/2019 17:59 Discharged to Home. Impression: Colles' fracture of left radius; ca1 Ulnar Fracture. Condition is Stable. Forms are Medication Reconciliation Form, Thank You Letter, Antibiotic Education, Prescription Opioid Use. Follow up: Dr. Lane Salmon; When: 2 - 3 days; Reason: Recheck today's complaints, Continuance of care, Re-evaluation by your physician. amanda
--- NOTE | 2019-04-17 18:00 | ER ---
Nurse's Notes [facility] Name: Rena Schuler Age: 79 yrs Sex: Female : 1940 Arrival Date: 04/17/2019 Time: 09:32 Bed 16 Private MD: Diagnosis: Colles' fracture of left radius;Ulnar Fracture Presentation: 04/17 09:24 Presenting complaint: EMS states: is moving and she tripped over her bed frame and fell sv straight forward and hit her left wrist and arm, laceration noted to the left upper arm and swelling to the left wrist. Denies LOC. Care prior to arrival: Splint applied. Mechanism of Injury: Fall from standing position. Trauma event details: Injury occurred in the [facility], Injury occurred: at home. Injury occurred: April 17, 2019. 09:24 Acuity: THIEN 2 sv 09:24 Method Of Arrival: EMS: [facility] sv 09:45 Transition of care: patient was not received from another setting of care. Onset of sv symptoms was April 17, 2019. Risk Assessment: Do you want to hurt yourself or someone else? Patient reports no desire to harm self or others. Initial Sepsis Screen: Does the patient meet any 2 criteria? No. Patient's initial sepsis screen is negative. Does the patient have a suspected source of infection? No. Patient's initial sepsis screen is negative. Trauma Activation: Not Applicable Physician: ED Physician; Name: ; Notified At: ; Arrived At: Physician: General Surgeon; Name: ; Notified At: ; Arrived At: Physician: Radiology; Name: ; Notified At: ; Arrived At: Physician: Respiratory; Name: ; Notified At: ; Arrived At: Physician: Lab; Name: ; Notified At: ; Arrived At: Historical: - Allergies: 09:41 all pain medications; sv 09:41 Codeine; sv 09:41 Morphine; sv 09:41 "I can have Dilaudid for a couple of days and then it makes me nauseous"; sv - PMHx: 09:41 COPD; Hypertension; TIA; Diverticulitis; sv - PSHx: 09:41 Hysterectomy; Cholecystectomy; Thyroidectomy; back surgery; eye sx; stomach; stem cells;sv - Immunization history:: Adult Immunizations up to date. - Social history:: Smoking status: Patient/guardian denies using tobacco. - Immunization history: Last tetanus immunization: unknown. - Ebola Screening: : No symptoms or risks identified at this time. Screenin:47 Abuse screen: Denies threats or abuse. Denies injuries from another. Nutritional sv screening: No deficits noted. Tuberculosis screening: No symptoms or risk factors identified. Fall Risk No fall in past 12 months (0 pts). No secondary diagnosis (0 pts). No IV (0 pts). Ambulatory Aid- None/Bed Rest/Nurse Assist (0 pts). Gait- Normal/Bed Rest/Wheelchair (0 pts) Mental Status- Oriented to own ability (0 pts). Total Ashby Fall Scale indicates No Risk (0-24 pts). Primary Survey: 09:24 NO uncontrolled hemorrhage observed. A: The patient is alert. Airway: patent, No sv supplemental oxygen in use on arrival. Oral cavity: clear, Trachea midline. Breathing/Chest: Respiratory pattern: regular, Respiratory effort: spontaneous, unlabored, Chest inspection: symmetrical rise and fall of the chest. Circulation: Pulses: palpable right radial artery and left radial artery. Skin color: pink, Skin temperature: warm, dry. Disability Alert. Exposure/Environment: All clothing and personal items were removed. Forensic evidence collection is not deemed to be indicated at this time. Items placed in patient belonging bag. There is no evidence of uncontrolled external bleeding. No obvious injuries are noted at this time. A warming method has been applied: A warm blanket has been provided to the patient. 10:30 Reassessment Airway Airway Patent Breathing/Chest Respiratory pattern Regular ca1 Respiratory effort Spontaneous Unlabored Breath sounds Clear Chest inspection Symmetrical Circulation Heart tones Present Pulses Palpable Color [place] Temperature Warm Dry Disability Alert. Secondary Survey: 09:24 HEENT: No deficits noted. Gastrointestinal: No deficits noted. : No deficits noted. sv No signs and/or symptoms were reported regarding the genitourinary system. Musculoskeletal: Range of motion: limited in left wrist Swelling present in dorsal aspect of left wrist. Injury Description: Abrasion sustained to anterior aspect of left ankle was sustained 30-60 minutes ago. Laceration sustained to left bicep is clean, 0.5 to 2.5 cm long, not bleeding, was sustained 30-60 minutes ago. Assessment: 09:55 Reassessment: Pt reporting that she cannot bend her right arm and family is requesting sv an xray. Informed Mack MARY. 10:00 General: Appears in no apparent distress. Behavior is calm, cooperative, appropriate ca1 for age. Pain: Complains of pain in left arm Pain currently is 10 out of 10 on a pain scale. 10:05 Reassessment: Patient appears in no apparent distress at this time. Patient is alert, ca1 oriented x 3, equal unlabored respirations, skin warm/dry/pink. Xray at bedside. 10:25 Reassessment: Pt c/o pain on L arm, requested for a shot of pain meds. Notified ca1 provider. Meds ordered and given. 11:22 Reassessment: Pt c/o abdominal discomfort. Stated, "I think its gas, I belched but it's ca1 still there". Notified provider, no order at this time. 11:24 Reassessment: Patient appears in no apparent distress at this time. Patient and/or ca1 family updated on plan of care and expected duration. Pain level reassessed. Patient is alert, oriented x 3, equal unlabored respirations, skin warm/dry/pink. Pending Xray reading. 11:25 Reassessment: USMAN Giron at bedside. ca1 12:29 Reassessment: denture laboratory technician at bedside for recollect. ca1 12:42 Reassessment: Patient appears in no apparent distress at this time. Patient is alert, ca1 oriented x 3, equal unlabored respirations, skin warm/dry/pink. 13:40 Reassessment: Patient appears in no apparent distress at this time. Patient is alert, ca1 oriented x 3, equal unlabored respirations, skin warm/dry/pink. 14:32 Reassessment: Patient appears in no apparent distress at this time. Patient is alert, ca1 oriented x 3, equal unlabored respirations, skin warm/dry/pink. C/O L arm pain. 10. Notified provider, order given. 14:40 Reassessment: PT vomited once after adm of Dilaudid. Notified provider. Order given. ca1 15:15 Reassessment: Conscious sedation consent signed. ca1 16:00 Reassessment: Patient appears in no apparent distress at this time. Patient is alert, ca1 oriented x 3, equal unlabored respirations, skin warm/dry/pink. Pending close reduction with conscious sedation. 16:40 Reassessment: Conscious sedation done. Monitored pt at bedside. Pt tolerated procedure ca1 well. See conscious sedation flow sheet. 16:55 Reassessment: Xray at bedside for post reduction Xrays. ca1 17:10 Reassessment: Pt states, "left hand and fingers are bluer than the R and feels like it ca1 has less circulation". Checked for cap refill, <3 sec., motion and sensation intact. Notified provider. Removed fracnisco wrap at this time. 17:57 Reassessment: Patient appears in no apparent distress at this time. Splint redone by ca1 Cathy ergonomics technician per order by provider. Pt tolerated well. Circulation, sensation, motion intact. Cap refill <3 sec. Skin pink, warm and dry. Reassessment:. Vital Signs: 09:37 BP 138 / 112; Pulse 83; Resp 20; Temp 97.3; Pulse Ox 97% ; Weight 68.95 kg; Height 5 sv ft. 9 in. (175.26 cm); Pain 10/10; 11:12 BP 139 / 65; Pulse 66; Resp 20; Temp 97.8; Pulse Ox 98% on R/A; mh5 12:05 BP 139 / 82; Pulse 66; Resp 18; Pulse Ox 99% on R/A; mh5 13:17 BP 146 / 84; Pulse 65; Resp 17 S; Pulse Ox 98% on R/A; ca1 14:30 BP 136 / 74; Pulse 71; Resp 18 S; Pulse Ox 96% on R/A; ca1 15:06 BP 155 / 68; Pulse 69; Resp 17; Temp 97.5(TE); Pulse Ox 97% on R/A; lt1 16:16 BP 159 / 75; Pulse 71; Resp 24; Temp 97.6(TE); Pulse Ox 95% on 4 lpm NC; ca1 16:40 BP 133 / 68; Pulse 64; Resp 17 S; Pulse Ox 100% on 4 lpm NC; ca1 17:30 BP 136 / 75; Pulse 66; Resp 20 S; Pulse Ox 100% on 3 lpm NC; ca1 18:17 BP 142 / 68; Pulse 65; Resp 17 S; Pulse Ox 100% on R/A; ca1 09:37 Body Mass Index 22.45 (68.95 kg, 175.26 cm) sv 16:16 Pre-procedure VS ca1 16:40 post procedure VS ca1 Cristina Coma Score: 09:38 Eye Response: spontaneous(4). Verbal Response: oriented(5). Motor Response: obeys sv commands(6). Total: 15. Trauma Score (Adult): 09:38 Eye Response: spontaneous(1); Verbal Response: oriented(1); Motor Response: obeys sv commands(2); Systolic BP: > 89 mm Hg(4); Respiratory Rate: 10 to 29 per min(4); Cristina Score: 15; Trauma Score: 12 ED Course: 09:30 Thermoregulation: warm blanket given to patient. sv 09:32 Patient arrived in ED. sv 09:34 Antoinette Polanco, RN is Primary Nurse. sv 09:36 Mack Do PA is PHCP. jmm 09:36 Rakesh Jovel MD is Attending Physician. jmm 09:37 Triage completed. sv 09:41 Nurse Practitioner and/or Physician Video Technician to see patient. sv 09:45 Patient has correct armband on for positive identification. Bed in low position. Call sv light in reach. Side rails up X2. Adult w/ patient. 09:46 Arm band placed on. sv 09:46 Patient maintains SpO2 saturation greater than 95% on room air. sv 10:02 Report given to Veronica CHOWDHURY. sv 10:05 Veronica Browne, RN is Primary Nurse. ca1 10:33 Forearm Left XRAY In Process Unspecified. EDMS 10:33 Wrist Left (3 View) XRAY In Process Unspecified. EDMS 10:33 Elbow Right 3 View XRAY In Process Unspecified. EDMS 11:38 Initial lab(s) drawn, by me, sent to lab. Inserted saline lock: 22 gauge in right upper ca1 arm, using aseptic technique. Blood collected. 11:43 Radiology exam delayed due to lab results not completed at this time. (BUN/Creatinine). mw3 12:35 Lab(s) recollected, by laborer drying department, sent to lab. ca1 12:36 Radiology exam delayed due to lab results not completed at this time. (BUN/Creatinine). mw3 13:52 CT completed. Patient tolerated procedure well. Patient moved back from CT. mw3 13:53 CT Traumagram (Head C Spine CAP W Con) In Process Unspecified. EDMS 15:19 Consent for conscious sedation explained by physician, signed by patient. ca1 16:38 Orthoglass splint: Sugar tong splint applied on left arm. 5 16:39 Assist provider with fracture care of left arm Fracture is closed. Obvious deformity is ca1 noted. Circulation, motor and sensation is intact. Set up for procedure. Performed by Mack MARY Reduced with physical manipulation. Immobilized with cast Post immobilization, circulation, motor and sensation remain intact. Patient tolerated well. 16:39 Assist provider with reduction of left wrist using manipulation, Set up for procedure. ca1 Performed by Mack MARY Immobilized with Sugar tong splint Patient tolerated well. 17:00 Wrist Left (3 View) XRAY In Process Unspecified. EDMS 17:26 Wound care: to abrasion, located on anterior aspect of left shoulder was cleaned with ca1 Betadine, Patient tolerated well. Applied steri-strips on lac. 17:58 Lane Salmon MD is Referral Physician. jmm 18:15 IV discontinued, intact, bleeding controlled, No redness/swelling at site. Pressure ca1 dressing applied. Administered Medications: 09:55 Drug: Promethazine 25 mg Route: PO; sv 10:25 Follow up: Response: No adverse reaction; Pain is unchanged, physician notified ca1 10:27 Drug: Dilaudid 0.5 mg {Note: RASS - 0.} Route: IM; Site: right deltoid; ca1 11:00 Follow up: Response: No adverse reaction; Pain is decreased; RASS: Alert and Calm (0) ca1 14:30 Drug: Dilaudid 0.5 mg {Note: RASS - 0.} Route: IVP; Site: right upper arm; ca1 15:30 Follow up: Response: No adverse reaction; Pain is decreased; RASS: Alert and Calm (0) ca1 14:34 CANCELLED (Duplicate Order): Propranolol 1 mg IVP once; over 1 minute m 14:43 Drug: Phenergan 12.5 mg Route: IVP; Site: right antecubital; ca1 16:49 Follow up: Response: No adverse reaction; Nausea is decreased ca1 16:19 Drug: Propofol 0.5 mg/kg {Note: 30mg given per VO.} Route: IVP; Site: right upper arm; ca1 17:29 Follow up: Response: No adverse reaction ca1 17:35 Drug: Tetanus-Diphtheria Toxoid Adult 0.5 ml {Engineering Operator: [employer]. Exp: ca1 10/28/2020. Lot #: [id number]. } Route: IM; Site: right deltoid; 17:56 Follow up: Response: No adverse reaction ca1 Intake: 09:38 PO: 0ml; Total: 0ml. sv Output: 09:38 Urine: 0ml; Total: 0ml. sv Outcome: 17:59 Discharge ordered by MD. watts 18:18 Discharged to home via wheelchair, with family. ca1 18:18 Condition: stable 18:18 Discharge instructions given to patient, family, Instructed on discharge instructions, follow up and referral plans. medication usage, wound care. 18:18 Patient's length of stay in the Emergency Department was greater than 2 hours. Pt c/o abdominal pain, additional tests ordered. Also waited for official xray resultsPatient's length of stay extended due to 18:21 Patient left the ED. ca1 Signatures: Dispatcher [employer] Antoinette Barahona RN RN Mack Cruz PA PA jmm Martinez, Maria 5 Kala Jones 3 Veronica Browne RN RN ca1 Alexandrea, Colette lt1 Corrections: (The following items were deleted from the chart) 11:43 11:42 Inserted saline lock: 22 gauge in right upper arm, using aseptic technique. Blood ca1 collected. ca1 11:43 11:42 Initial lab(s) drawn, by me, sent to lab. ca1 ca1 15:16 14:32 Reassessment: Patient appears in no apparent distress at this time. Patient is ca1 alert, oriented x 3, equal unlabored respirations, skin warm/dry/pink. ca1 16:53 16:46 Reassessment: ca1 ca1
[2019-04-17 19:51] VITALS: TEMP 97.6
[2019-04-17 19:53] VITALS: O2SAT 100
[2019-04-17 19:56] VITALS: BP 142/68
== END 2019-04-17 18:21 | disposition home or self-care (01) ==
LOC: ER 09:28
PROC: 0PSJXZZ Reposition Left Radius, External Approach (ICD-10-PCS; principal; 2019-04-17)
PROC: 0PSLXZZ Reposition Left Ulna, External Approach (ICD-10-PCS; 2019-04-17)
DX: S52.532A Colles' fracture of left radius, initial encounter for closed fracture (principal); S52.202A Unspecified fracture of shaft of left ulna, initial encounter for closed fracture; W19.XXXA Unspecified fall, initial encounter; Y93.89 Activity, other specified; Y92.009 Unspecified place in unspecified non-institutional (private) residence as the place of occurrence of the external cause; I10 Essential (primary) hypertension; J44.9 Chronic obstructive pulmonary disease, unspecified; Z23 Encounter for immunization; Z88.5 Allergy status to narcotic agent; Z88.6 Allergy status to analgesic agent
CPT/HCPCS: 85025; 36415; 84484; 80053; 70450; 72125; 71260; 74177; 73080; 73090; 73110 ×2; 90714; 96372; 99285; 25605; Q9967; J2704; J2550; J1170 ×2; J7040; Q0169

== ENCOUNTER 2020-06-01 11:38 | Inpatient (IN) | payer OTHER ==
--- OUTSIDE RECORDS SUMMARY | 2020-06-01 11:40 | XMS REPORT | Clinical Summary ---
:1940 Author Organization [facility] Address [address] [place] [id number] Care Team Providers Name Role Phone Unavailable Primary Care Provider Unavailable Allergies Not on File Medications Not on file Active Problems Not on file Social History Tobacco Use Types Packs/Day Years Used Date Never Assessed Sex Assigned at Date Recorded Not on file Last Filed Vital Signs Not on file Plan of Treatment Not on file Results Not on fileafter 06/01/2019 Insurance Payer Benefit Plan / Subscriber ID Effective Dates Phone Addre ss Type Group MEDICARE MEDICARE A B [id number] Effective for Med icare all dates [employer]ET[employer] - MGD CARE AETNA INDEMNITY [id number] 2013-Present Comm NON CONTR
--- OUTSIDE RECORDS SUMMARY | 2020-06-01 11:40 | XMS REPORT | Continuity of Care Document ---
:1940 Author Organization [facility] t Address [address] [place] [address] Care Team Providers Name Role Phone Asked, Pcp Primary Care Physician Unavailable Problems Condition Condition Condition Status Onset Resolution Last Treating Co mments Source Name Details Category Date Date Treatment Clinician Date COPD COPD Disease Active [place] (chronic (chronic 10-24 Method i obstructiv obstructiv 00:00: st e e 00 pulmonary pulmonary disease) disease) with acute with acute bronchitis bronchitis Orthostati Orthostati Disease Active 2015-05 H aggie rubio 06-07 [facility] hypotensio hypotensio 00:00: st n n 00 Chest pain Chest pain Disease Active 2015-05 H aggie 06-05 Methodi 00:00: st 00 COPD COPD Disease Active 2015-05 [place] (chronic (chronic 06-05 Method i obstructiv obstructiv 00:00: st e e 00 pulmonary pulmonary disease) disease) HTN HTN Disease Active 2015-05 [place] (hypertens (hypertens 06-05 Me thodi ion) ion) 00:00: st 00 Neuropathy Neuropathy Disease Active 2015-05 H aggie 06-05 Methodi 00:00: st 00 Diarrhea Diarrhea Disease Active 2015-05 [place] due to due to 06-05 [facility] malabsorpt malabsorpt 00:00: st ion ion 00 Hypokalemi Hypokalemi Disease Active 2015-05 H aggie melendez a 06-05 Methodi 00:00: st 00 Allergies, Adverse Reactions, Alerts Allergy Allergy Status Severity Reaction(s) Onset Inactive Treating Comm ents Source Name Type Date Date Clinician Mehul Propensi Active GI 2015-05 NAUSEA [place] ramine ty to Intolerance 06-06 AND Metho di (With adverse 00:00: BLOATING st Sugar) reaction 00 s to drug Morphine Propensi Active 2015-05 Red spots Meng ston ty to 06-05 on the Methodi adverse 00:00: skin st reaction 00 s to drug Oxycodon Propensi Active 2015-05 Red spots Meng ston e ty to 06-05 on the Methodi Hcl-Oxyc adverse 00:00: face and st odone-As reaction 00 body a s to drug Seldane Propensi Active Severe 2015-05 [place] ty to 06-05 Methodi adverse 00:00: st reaction 00 s to drug codeine Adverse Active Info Not [facility] Reaction Available [facility] ent [facility] MORPHINE Adverse Active Info Not [facility] Reaction Available [facility] [place][note 2] Family History Family Member Diagnosis Comments Start Date Stop Date Source Natural brother Aortic aneurysm [place] Yarsanism Natural brother Cancer [facility] ethodist Natural brother Heart disease [place] Yars[place] Natural father [facility] Natural mother Aortic aneurysm [place] Yarsanism Natural sister [facility] Social History Social Habit Start Date Stop Date Quantity Comments Source Sex Assigned At [facility] Tobacco use and 2016-10-24 2016-10-24 Never used [facility] ethodi exposure 00:00:00 00:00:00 Alcohol intake 2016-10-24 2016-10-24 [facility]:00 non-drinker of alcohol (finding) History of 2004-04-05 [facility] use 00:[facility]:00 Smoking Status Start Date Stop Date Source Former smoker 2016-10-24 00:00:00 2016-10-24 00:00:00 [facility] Medications Ordered Filled Start Stop Current Ordering Indication Dosage Frequency Signature Comments Components Source Medication Medication Date Date Medication? Clinician (SIG) Name Name aspirin Yes 81mg QD Take 81 mg [place] (ECOTRIN) 10-24 by mouth Method i 81 MG 20:16: daily. st enteric 06 coated tablet cholecalcif Yes 5000U QD Take 5,000 Amaya raven, 6-02 Units by Methodi vitamin D3, 20:16: mouth st (VITAMIN 06 daily. D3) 5,000 unit capsule temazepam Yes 30mg QD Take 30 mg [place] (RESTORIL) 6-02 by mouth Metho di 30 mg 20:16: nightly as st capsule 06 needed for sleep. simethicone 2015-05 Yes 80mg Q6H Chew 1 [place] (MYLICON) 1-16 tablet (80 Meth nils 80 MG 00:00: mg total) st chewable 00 every 6 tablet (six) hours as needed for flatulence for up to 30 doses. [address]icort Symbicort Yes Lane TAKE [address] [facility] [place] PUFFS BY [facility] TWICE A l DAY Outpati ent Clinics Potassium Potassium Yes Lane TAKE [address] [facility] [address] Chloride Chloride [place] TABLET BY [facility] MOUTH [facility] EVERY DAY l Outpati ent Clinics Promethazin Promethazin Yes Lane TAKE [address] [facility] e HCl e HCl [place] TABLET BY [facility] EVERY 6 l HOURS Outpati NEEDED FOR ent NAUSEA Clinics Famotidine Famotidine Yes Lane TAKE [address] [facility] [place] TABLET BY [facility] EVERY DAY l FOR 5 DAYS Outpati ent Clinics Metoprolol Metoprolol Yes Lane TAKE 1/[address] Succinate Succinate [place] TABLET BY [facility] ER ER MOUTH [facility] EVERY DAY l Outpati ent Clinics Amlodipine Amlodipine Yes Lane TAKE [address] [facility] [address] Besylate Besylate [place] TABLET BY [facility] - MOUTH [facility] EVERY l MORNING Outpati ent Clinics Gabapentin Gabapentin Yes Lane TAKE [address] [facility] [place] TABLET BY [facility] THREE l TIMES A Outpati DAY ent Clinics Ventolin Ventolin Yes Lane INHALE [address] [facility] HFA HFA [place] PUFFS BY [facility] EVERY 4 TO l 6 HOURS Outpati ent Clinics Acetaminoph Acetaminoph Yes Lane (Schedule [facility] en-Codeine en-Codeine [place] III Drug) [place] - #3 #3 TAKE 1/2 [facility] TABLET BY l MOUTH Outpati EVERY 6 ent HOURS Clinics NEEDED FOR PAIN CONTROL Temazepam Temazepam Yes Lane (Schedule [facility] IV Drug) [place] - TAKE ONE [facility] CAPSULE BY l MOUTH Outpati EVERY DAY ent Clinics Magnesium Magnesium Yes Lane TAKE [address] [facility] Oxide Oxide [place] TABLET BY [facility] EVERY DAY l Outpati ent Clinics Immunizations Ordered Immunization Filled Immunization Date Status Commen ts Source Name Name Pneumococcal 2016-04-09 Completed [place] Conjugate 13-[facility]ent 00:00:00 Metho dist FLUZONE QUAD PF 2016-04-09 Completed [place] 00:00:00 Yarsanism Procedures This patient has no known procedures. Plan of Care Planned Activity Planned Date Details Comments Source Future Scheduled 2019-12-24 INFLUENZA VACCINE [place] Y[place]ism Test 00:00:00 [code = INFLUENZA VACCINE] Future Scheduled 2017-04-09 65+ PNEUMOCOCCAL [place] Yarsanism Test 00:00:00 VACCINE (2 of 2 - PPSV23) [code = 65+ PNEUMOCOCCAL VACCINE (2 of 2 - PPSV23)] Future Scheduled 1988-02-23 SHINGLES VACCINES (#1) H [facility] Yarsanism Test 00:00:00 [code = SHINGLES VACCINES (#1)] Future Scheduled 1954 COVID-19 VACCINE (#1) Ho [facility] Yarsanism Test 00:00:00 [code = COVID-19 VACCINE (#1)] Encounters Start End Encounter Admission Attending Care Care Encounter Source Date/Time Date/Time Type Type Clinicians Facility Department ID 2020-05-21 2020-05-21 Outpatient [facility] [id number] [facility] 2020-04-27 2020-04-27 [facility] [id number] 2019-07-05 2019-07-05 Outpatient Andrew Rothman [id number] 11:[facility] 2019-06-02 2019-06-02 Outpatient Andrew Rothman [id number] 11:[facility]00 11:00[facility]00 [facility] 2019-05-13 2019-05-13 Outpatient Andrew Rothman [id number] 10:[facility]:00 10:00:00 [facility] 2019-04-26 2019-04-26 Outpatient Andrew Rothman [id number] 10:30:00 10:30:00 [facility] Clinics Results This patient has no known results.
--- OUTSIDE RECORDS SUMMARY | 2020-06-01 11:40 | XMS REPORT | Clinical Summary ---
:1940 Author Organization [facility] Address [address] [place] [id number] Care Team Providers Name Role Phone Asked, No Pcp Primary Care Provider Unavailable Allergies Active Allergy Reactions Severity Noted Date Comments Morphine 04/05/2016 Red spots on th e skin Oxycodone [id number] 04/05/2016 Red spots on the face and [...] Date COPD (chronic obstructive pulmonary disease) with acut e bronchitis 10/24/2016 Orthostatic hypotension 04/07/2016 Chest pain 04/05/2016 COPD (chronic obstructive pulmonary disease) 6 HTN (hypertension) 04/05/2016 Neuropathy 04/05/2016 Diarrhea due to malabsorption 04/05/2016 Hypokalemia 04/05/2016 Immunizations Name Administration Dates Next Due FLUZONE QUAD PF 04/09/2016 Pneumococcal Conjugate 13-Valent 04/09/2016 Surgical History Surgery Date Site/Laterality Comments BACK SURGERY ABDOMINAL SURGERY CHOLECYSTECTOMY EYE SURGERY Medical History Medical History Date Comments Hypertension COPD (chronic obstructive pulmonary disease) (HCC) Peptic ulceration TIA (transient ischemic attack) Back pain L4-L5 surgery Neuropathy of the right leg Aortic aneurysm (HCC) Family History Medical History Relation Name Comments Aortic aneurysm Brother Cancer Brother Heart disease Brother Cancer Father Aortic aneurysm Mother Arrhythmia Sister Relation Name Status Comments Brother Alive Father Mother Sister Alive Social History Tobacco Use Types Packs/Day Years Used Date Former Smoker Quit: 04/05/20 04 Smokeless Tobacco: Never Used Alcohol Use Drinks/Week oz/Week Comments No Sex Assigned at Date Recorded Not on file Last Filed Vital Signs Not on file Plan of Treatment Health Maintenance Due Date Last Done Comments COVID-19 VACCINE (#1) 1956 SHINGLES VACCINES (#1) 02/23/1988 65+ PNEUMOCOCCAL VACCINE (2 of 2 - PPSV23) 04/09/201704/09 INFLUENZA VACCINE 12/24/2019 04/09/2016 Implants Implanted Type Area [facility] Manager Device Identifier Shelf Exp iration Model / Serial Date / Lot Staple Staple Results Not on fileafter 06/01/2019 Insurance Payer Benefit Plan / Subscriber ID Effective Dates Phone Addre ss Type Group AETNA AETNA HMO,POS,EPO, [id number] 2002-Present HMO [facility] MEDICARE MEDICARE PART A [id number] 2003-Present [place] B Advance Directives For more information, please contact: [phone] Type Date Recorded Patient Cashier Payments Received Explanati on Advance Directives, Living Will and Medical Power of Oyster Planter Advance Directives, 02/17/2020 2:54 AM Living Will and Medical Power of Oyster Planter Code Status Date Activated Date Inactivated Comments Full Code 10/24/2016 12:22 AM 10/25/2016 12:21 AM Code Status decision reached by: Patient Full Code 04/05/2016 12:37 AM 04/09/2016 5:26 PM Code Status decision reached by: Patient
--- OUTSIDE RECORDS SUMMARY | 2020-06-01 11:40 | XMS REPORT ---
:1940 Author Organization [facility] Address [address] , [address] [place] [address] Care Team Providers Name Role Phone Lane Salmon Unavailable [phone] PROBLEMS No Information ALLERGIES Allergen (clinical drug Drug/Non Drug Allergy Reaction Allergy Type Onset Date Status ingredient) documented on EMR Sulfa Unknown Drug Allergy Active meperidine Demerol([facility] Unknown Drug Allergy Active Code:[address]-12) NSAIDS Unknown Drug Allergy Active morphine MORPHINE Unknown Drug Allergy Active codeine codeine Unknown Drug Allergy Active ENCOUNTERS from 1940 to 2020-04-30 Encounter Location Date Provider Diagnosis [facility] [address], [address] [place] Pain in joint of [facility] [address] [place], left foot M25.572 [facility] [address] and Closed displaced fract ure of proximal pha lanx of lesser toe o f left foot, init ial encounter S92.5 12A IMMUNIZATIONS No Information SOCIAL HISTORY Tobacco Use: Social History Observation Description Date Details (start date - stop date) Former Smoker Sex Assigned At : Social History Observation Description Sex Assigned At Unknown Alcohol Screen Question Answer Notes Did you have a drink containing alcohol in the past year? No Points 0 Interpretation Negative Tobacco Use/Smoking Question Answer Notes Are you a former smoker Additional Findings: Tobacco Non-User Current non-smoker REASON FOR REFERRAL No Information VITAL SIGNS Height 69 in Apr, Weight 153 lbs Apr, Temperature 97.3 degrees Fahrenheit Apr, BMI 22.59 kg/m2 Apr, Blood pressure systolic 122 mm Hg Apr, Blood pressure diastolic 84 mm Hg Apr, MEDICATIONS Medication SIG (Take, Route, Notes Start Date End Date Status Frequency, Duration) MAGnesium-Oxide Not-Takin g Magnesium Oxide 400 MG TAKE 1 TABLET BY MOUTH Not-Taking EVERY DAY Oral for 90 Acetaminophen-Codeine #3 (Schedule III Drug) Not-Taking 300-30 MG TAKE 1/2 TABLET BY MOUTH EVERY 6 HOURS NEEDED FOR PAIN CONTROL Oral for 10 Promethazine HCl 25 MG TAKE 1 TABLET BY MOUTH Active EVERY 6 HOURS NEEDED FOR NAUSEA Oral for 5 Ventolin HFA 108 (90 Base) INHALE 2 PUFFS BY Not-Taking MCG/ACT MOUTH EVERY 4 TO 6 HOURS Inhalation for 90 Nitrofurantoin Monohyd No t-Taking Macro Symbicort 160-4.5 MCG/ACT TAKE 2 PUFFS BY MOUTH Not-Taking TWICE A DAY Inhalation for 90 Famotidine 20 MG TAKE 1 TABLET BY MOUTH Not-Taking EVERY DAY FOR 5 DAYS Oral for 5 Metoprolol Succinate ER 25 TAKE 1/2 TABLET BY Active MG MOUTH EVERY DAY Oral for 90 Potassium Chloride Belinda ER TAKE 1 TABLET BY MOUTH Not-Taking 20 MEQ EVERY DAY Oral for 90 Amlodipine Besylate 2.5 MG TAKE 1 TABLET BY MOUTH Active EVERY MORNING Oral for 90 Temazepam 30 MG (Schedule IV Drug) A ctive TAKE ONE CAPSULE BY MOUTH EVERY DAY Oral for 30 Tylenol # 3 Active Gabapentin 600 MG TAKE 1 TABLET BY MOUTH Not-Taking THREE TIMES A DAY Oral for 90 PROCEDURES No Information RESULTS No Results REASON FOR VISIT F/U NEW PROB: LT FOOT FX- XRAT AT ALTUS +1 MEDICAL (GENERAL) HISTORY Type Description Date Medical History COPD Medical History HTN Medical History TIA Medical History diverticulitis Medical History kidney Surgical History hysterectomy Surgical History thyroidectomy Surgical History cholecystectomy Surgical History back surgery x 2 L4/5 & stem cells Surgical History eye surgery Surgical History stomach sx Goals Section No Information Health Concerns No Information MEDICAL EQUIPMENT No Information MENTAL STATUS No Information FUNCTIONAL STATUS No Information ASSESSMENTS Encounter Date Diagnosis Assessment Notes Treatment Notes Treatm ent Clinical Notes Apr, Pain in joint of left foot (ICD-10 - M25.572) Apr, Closed displaced -proceed with closed fracture of treatment proximal phalanx -3-5th toes charles of lesser toe of taped and placed in left foot, hard sole shoe initial encounter -f/u in 2 weeks for (ICD-10 - reevaluation and S92.512A) xrays of the left foot PLAN OF TREATMENT Treatment Notes Assessment Notes Clinical Notes Closed displaced fracture of -proceed with closed treatment- 3-5th proximal phalanx of lesser toe of toes charles taped and place d in hard left foot, initial encounter sole shoe-f/u in 2 weeks for reevaluation and xrays of the left foot Treatment Notes Test Name Order Date X-RAY EXAM FOOT MIN 3 VIEWS ([id number]) 2020-04-30 Next Appt Details 3 Weeks Reason: Provider Name:Lane Salmon, 2020-05-21 1 1:15:00 AM, [address], [address], [place], [address], Insurance Providers Payer Name Payer Address Payer Insured Patient Coverage Cover age Phone Name Relationship to Start Date End Date Insured MEDICARE Attn Part B [id number] Selina Schuler [employer] Claims [id number] [facility] [id number] AETNA [address] [phone] Selina Schuler [facility] [address] [phone]
--- OUTSIDE RECORDS SUMMARY | 2020-06-01 11:40 | XMS REPORT ---
:1940 Author Organization [facility] Address [address] [facility] [address], [address] [place] [address] Care Team Providers Name Role Phone aLne Salmon Unavailable [phone] PROBLEMS No Information ALLERGIES Allergen (clinical drug Drug/Non Drug Allergy Reaction Allergy Type Onset Date Status ingredient) documented on EMR Sulfa Unknown Drug Allergy Active meperidine Demerol([facility] NAMED [facility] Unknown Drug Allergy Active Code:[address]-96) NSAIDS Unknown Drug Allergy Active morphine MORPHINE Unknown Drug Allergy Active codeine codeine Unknown Drug Allergy Active ENCOUNTERS from 1940 to 2020-05-21 Encounter Location Date Provider Diagnosis [facility] [address] [facility] [address] [facility] [place] [address] IMMUNIZATIONS No Information SOCIAL HISTORY Tobacco Use: [...] REASON FOR REFERRAL No Information VITAL SIGNS No information MEDICATIONS Medication SIG (Take, Route, Notes Start [...] Information RESULTS No Results REASON FOR VISIT No Information MEDICAL (GENERAL) HISTORY Type Description Date Medical [...] No Information FUNCTIONAL STATUS No Information ASSESSMENTS No Information PLAN OF TREATMENT Next Appt Details Provider Name:Lane Salmon, 2020-06-12 1 1:00:00 AM, [address], [place], [address], Insurance Providers Payer Name Payer Address Payer Insured Patient Coverage Cover age Phone Name Relationship to Start Date End Date Insured AETNA [address] [phone] [place] self [place] [address] [phone] MEDICARE Attn Part B [id number] [employer] self [employer] Claims [address] [facility] [phone]
[2020-06-01 13:19] LABS: Basophils % 0.5 % (0-1.3); Hematocrit 38.7 % (36.0-45.0); Lymphocytes % 28.9 % (15.3-44.8); MPV 8.2 fL (7.6-11.3); RBC Red Blood Cell Count 4.05 M/uL (3.86-4.86)
[2020-06-01 13:24] LABS: ALT/SGPT 32 U/L (12-78); Albumin 2.8 g/dL (3.4-5.0); Alkaline Phosphatase 60 U/L (45-117); BUN Blood Urea Nitrogen 14 mg/dL (7-18); Bicarbonate 27 mmol/L (21-32); Bilirubin Direct < 0.1 mg/dL (0-0.2); Bilirubin Total 0.4 mg/dL (0.2-1.0); Glucose Level 110 mg/dL (74-106); Lipase 236 U/L (73-393); Protein, Total 6.7 g/dL (6.4-8.2); Sodium Level 136 mmol/L (136-145)
[2020-06-01 13:27] LABS: AST/SGOT 37 U/L (15-37); Potassium 3.4 mmol/L (3.5-5.1)
--- NOTE | 2020-06-01 13:27 | RAD REPORT ---
EXAM DESCRIPTION: RAD - Chest Single View - 06/01/2020 1:03 pm CLINICAL HISTORY: DYSPNEA Chest pain. COMPARISON: Chest Single View dated 10/04/2018; Chest Single View dated 05/27/2016; Chest Single View d ated 05/19/2016; CHEST PA AND LAT 2 VIEW dated 03/08/2013 FINDINGS: Portable technique limits examination quality. Mild interstitial opacities are present in both lung bases, greater on the right likely representing viral pneumonitis. The heart is normal in size. No displaced fractures.
[2020-06-01 13:42] LABS: Blood Morphology Comment NOT SEEN (NOT SEEN); Platelet Estimate ADEQ
--- NOTE | 2020-06-01 14:02 | EDPHYS ---
Physician Documentation [facility] Name: Rena Schuler Age: 80 yrs Sex: Female : 1940 Arrival Date: 06/01/2020 Time: 11:41 Bed 17 Private MD: ED Physician Ernst Sheldon HPI: 06/01 13:48 This 80 yrs old Female presents to ER via EMS with complaints of Weakness, jr8 hypotension, COPD Exacerbation. 13:49 The patient has shortness of breath at rest. Onset: The symptoms/episode began/occurred jr8 gradually, 1 week(s) ago. Duration: The symptoms are continuous. The patient's shortness of breath is aggravated by exertion. Associated signs and symptoms: The patient has no apparent associated signs or symptoms. Severity of symptoms: At their worst the symptoms were moderate in the emergency department the symptoms are unchanged. The patient has not experienced similar symptoms in the past. The patient has not recently seen a physician. Patient diagnosed with COVID 5 days ago. Stated since then has had increased difficulty with breathing, fatigue, and diarrhea. EMS called today after family got concerned that she was having extreme difficulty with walking. Family was having to help her everywhere in the house . Historical: - Allergies: 11:53 "I can have Dilaudid for a couple of days and then it makes me nauseous"; tw2 11:53 all pain medications; tw2 11:53 Codeine; tw2 11:53 Morphine; tw2 - PMHx: 11:53 COPD; Diverticulitis; Hypertension; TIA; tw2 - PSHx: 11:53 Hysterectomy; Cholecystectomy; Thyroidectomy; back surgery; eye sx; stomach; stem cells;tw2 - Immunization history:: Adult Immunizations. - Social history:: Smoking status: . ROS: 13:49 Eyes: Negative for injury, pain, redness, and discharge, ENT: Negative for injury, jr8 pain, and discharge, Neck: Negative for injury, pain, and swelling, Cardiovascular: Negative for chest pain, palpitations, and edema, Back: Negative for injury and pain, MS/Extremity: Negative for injury and deformity, Skin: Negative for injury, rash, and discoloration. 13:49 Constitutional: Positive for fatigue, malaise. 13:49 Respiratory: Positive for cough, dyspnea on exertion, shortness of breath. 13:49 Abdomen/GI: Positive for diarrhea. 13:49 Neuro: Positive for dizziness. Exam: 13:49 Eyes: Pupils equal round and reactive to light, extra-ocular motions intact. Lids and jr8 lashes normal. Conjunctiva and sclera are non-icteric and not injected. Cornea within normal limits. Periorbital areas with no swelling, redness, or edema. ENT: Nares patent. No nasal discharge, no septal abnormalities noted. Tympanic membranes are normal and external auditory canals are clear. Oropharynx with no redness, swelling, or masses, exudates, or evidence of obstruction, uvula midline. Mucous membranes moist. Neck: Trachea midline, no thyromegaly or masses palpated, and no cervical lymphadenopathy. Supple, full range of motion without nuchal rigidity, or vertebral point tenderness. No Meningismus. Cardiovascular: Regular rate and rhythm with a normal S1 and S2. No gallops, murmurs, or rubs. Normal PMI, no JVD. No pulse deficits. Abdomen/GI: Soft, non-tender, with normal bowel sounds. No distension or tympany. No guarding or rebound. No evidence of tenderness throughout. Back: No spinal tenderness. No costovertebral tenderness. Full range of motion. Skin: Warm, dry with normal turgor. Normal color with no rashes, no lesions, and no evidence of cellulitis. MS/ Extremity: Pulses equal, no cyanosis. Neurovascular intact. Full, normal range of motion. Neuro: Awake and alert, GCS 15, oriented to person, place, time, and situation. Cranial nerves II-XII grossly intact. Motor strength 5/5 in all extremities. Sensory grossly intact. Cerebellar exam normal. Normal gait. 13:49 Respiratory: the patient does not display signs of respiratory distress, Respirations: tachypnea, that is mild, Breath sounds: are clear throughout. Vital Signs: 11:45 BP 119 / 72; Pulse 85; Resp 19; Temp 99.1(TE); Pulse Ox 98% on R/A; tw2 12:24 BP 136 / 68 LA Supine; Pulse 78; Resp 18; Pulse Ox 93% on R/A; dh3 12:26 BP 123 / 73 LA Sitting; Pulse 88; Resp 19; Pulse Ox 95% on R/A; dh3 12:28 BP 104 / 59 LA Standing; Pulse 93; Resp 23; Pulse Ox 92% on R/A; dh3 12:50 BP 104 / 59; Pulse 81; Resp 17; Pulse Ox 90% on R/A; tw2 13:50 BP 116 / 71; Pulse 79; Resp 19; Pulse Ox 100% on 2 lpm NC; tw2 14:50 BP 118 / 99; Pulse 74; Resp 19; Pulse Ox 100% on 2 lpm NC; tw2 15:50 BP 109 / 56; Pulse 76; Resp 17; Pulse Ox 95% on 2 lpm NC; tw2 16:50 BP 109 / 56; Pulse 79; Resp 17; Pulse Ox 98% on 2 lpm NC; tw2 17:50 BP 125 / 76; Pulse 76; Resp 19; Pulse Ox 98% on 2 lpm NC; tw2 18:32 BP 126 / 77; Pulse 100; Resp 18; Pulse Ox 89% on 2 lpm NC; tw2 12:50 provider notified. placed on o2 via nc at 2L at this time, will continue to monitor. tw2 MDM: 11:41 Patient medically screened. jr8 13:56 Data reviewed: vital signs, nurses notes, lab test result(s), EKG, radiologic studies, jr8 plain films. 13:58 Data interpreted: Pulse oximetry: on room air is 90 %. Interpretation: hypoxia. jr8 Counseling: I had a detailed discussion with the patient and/or guardian regarding: the historical points, exam findings, and any diagnostic results supporting the discharge/admit diagnosis, lab results, radiology results, the need for further work-up and treatment in the hospital. 06/01 11:53 Order name: Urine Microscopic Only 8 06/01 11:53 Order name: Lactate; Complete Time: 13:46 8 06/01 11:53 Order name: BMP; Complete Time: 13:46 jr8 06/01 11:53 Order name: C-Reactive Protein; Complete Time: 13:46 8 06/01 11:53 Order name: CBC with Diff; Complete Time: 13:46 8 06/01 11:53 Order name: LFT's; Complete Time: 13:46 jr8 06/01 11:53 Order name: Lipase; Complete Time: 13:46 jr8 06/01 13:42 Order name: Manual Differential; Complete Time: 13:46 EDMS 06/01 16:07 Order name: C-Reactive Protein EDMS 06/01 16:07 Order name: C-Reactive Protein EDMS 06/01 16:07 Order name: Ferritin EDMS 06/01 16:07 Order name: Ferritin EDMS 06/01 16:43 Order name: COVID-19 em1 06/01 18:19 Order name: CORONAVIRUS EDMS 06/01 11:53 Order name: CXR XRAY; Complete Time: 13:46 jr8 06/01 11:53 Order name: Cardiac monitoring; Complete Time: 13:08 8 06/01 11:53 Order name: Droplet/Contact Precautions; Complete Time: 12:25 jr8 06/01 11:53 Order name: IV Start; Complete Time: 13:8 06/01 11:53 Order name: Labs collected and sent; Complete Time: 13:10 8 06/01 11:53 Order name: O2 Per Protocol; Complete Time: 12:25 jr8 06/01 11:53 Order name: O2 Sat Monitoring; Complete Time: 13:8 06/01 11:53 Order name: Orthostatics; Complete Time: 13:00 Administered Medications: 14:14 Drug: SOLU-Medrol 125 mg Route: IVP; Site: left hand; tw2 15:06 Follow up: Response: No adverse reaction tw2 Disposition: 06/02 07:01 Co-signature as Attending Physician, Ernst Sheldon MD. rn Disposition: 06/01/20 14:01 Hospitalization ordered by Uriah Obrien for Inpatient Admission. Preliminary diagnosis are Coronavirus infection, unspecified, Viral pneumonia, unspecified, Dehydration, Hypoxia. - Bed requested for Telemetry/MedSurg (Inpatient). - Status is Inpatient Admission. tw2 - Condition is Stable. - Problem is new. - Symptoms have improved. Signatures: Dispatcher [employer] [facility] Ernst Sheldon MD MD rn Roszak, Josh, PA PA jr8 Ariane Hobson RN RN tw2 Enriqueta Head Corrections: (The following items were deleted from the chart) 06/01 17:11 14:01 Hospitalization Ordered by Uriah Obrien DO for Inpatient Admission. Preliminary eb diagnosis is Coronavirus infection, unspecified; Viral pneumonia, unspecified; Dehydration; Hypoxia. Bed requested for Telemetry/MedSurg (Inpatient). Status is Inpatient Admission. Condition is Stable. Problem is new. Symptoms have improved. jr8 19:02 17:11 06/01/2020 14:01 Hospitalization Ordered by Uriah Obrien DO for Inpatient tw2 Admission. Preliminary diagnosis is Coronavirus infection, unspecified; Viral pneumonia, unspecified; Dehydration; Hypoxia. Bed requested for Telemetry/MedSurg (Inpatient). Status is Inpatient Admission. Condition is Stable. Problem is new. Symptoms have improved. eb
--- NOTE | 2020-06-01 14:02 | ER ---
Nurse's Notes [facility] Name: Rena Schuler Age: 80 yrs Sex: Female : 1940 Arrival Date: 06/01/2020 Time: 11:41 Bed 17 Private MD: Diagnosis: Coronavirus infection, unspecified;Viral pneumonia, unspecified;Dehydration;Hypoxia Presentation: 06/01 11:45 Chief complaint: EMS states: pt from home states she is not feeling well for a few days tw2 now, she is weak and tired, tested POSITIVE for Covid 5 days ago, she has hx of COPD, does not use oxygen at home, but she desats really quick with any movement, she is orthostatic positive, we started NS she got about 100 ml, we put her on 2l NC. Coronavirus screen: Client presents with at least one sign or symptom that may indicate coronavirus-19. Standard/surgical mask placed on the client. Provider contacted for isolation considerations. Client reports previous positive COVID test result. tested positive 5 days ago. Coronavirus screen: diarrhea, difficulty breathing, fatigue, muscle pain. Ebola Screen: Patient denies travel to an Ebola-affected area in the 21 days before illness onset. Initial Sepsis Screen: Does the patient meet any 2 criteria? Yes Does the patient have a suspected source of infection? No. Patient's initial sepsis screen is negative. Risk Assessment: Do you want to hurt yourself or someone else? Patient reports no desire to harm self or others. Onset of symptoms was June 01, 2020. 11:45 Method Of Arrival: EMS: [facility] tw2 11:45 Acuity: THIEN 3 tw2 11:46 Note provider at bedside at this time. tw2 Triage Assessment: 11:53 General: Appears in no apparent distress. pt texting on phone, sitting up in bed, nad. tw2 General: Behavior is calm, cooperative, appropriate for age. Pain: Denies pain. 11:53 EENT: No signs and/or symptoms were reported regarding the EENT system. Neuro: Level of tw2 Consciousness is awake, alert, obeys commands, Oriented to person, place, time, situation. Cardiovascular: Capillary refill < 3 seconds Patient's skin is warm and dry. Respiratory: Reports shortness of breath at rest on exertion cough that is non-productive, persistent. GI: Reports nausea, vomiting, "weakness from going to the bathroom so much". : No signs and/or symptoms were reported regarding the genitourinary system. Derm: Skin is fragile, is thin, Skin is dry. Musculoskeletal: Range of motion: intact in all extremities. Historical: - Allergies: 11:53 "I can have Dilaudid for a couple of days and then it makes me nauseous"; tw2 11:53 all pain medications; tw2 11:53 Codeine; tw2 11:53 Morphine; tw2 - PMHx: 11:53 COPD; Diverticulitis; Hypertension; TIA; tw2 - PSHx: 11:53 Hysterectomy; Cholecystectomy; Thyroidectomy; back surgery; eye sx; stomach; stem cells;tw2 - Immunization history:: Adult Immunizations. - Social history:: Smoking status: . Screenin:51 Abuse screen: Denies threats or abuse. Nutritional screening: No deficits noted. tw2 Tuberculosis screening: No symptoms or risk factors identified. Fall Risk Secondary diagnosis (15 points) impaired mobility. Assessment: 12:49 Reassessment: see triage assessment. tw2 12:50 Reassessment: Patient appears in no apparent distress at this time. Patient and/or tw2 family updated on plan of care and expected duration. Pain level reassessed. 13:50 Reassessment: Patient appears in no apparent distress at this time. Patient and/or tw2 family updated on plan of care and expected duration. Pain level reassessed. with the oxygen on Patient states feeling better. 14:27 Reassessment: provider Dr. Obrien at bedside at this time. tw2 15:30 Reassessment: Patient appears in no apparent distress at this time. Patient and/or tw2 family updated on plan of care and expected duration. Pain level reassessed. 16:30 Reassessment: Patient appears in no apparent distress at this time. Patient and/or tw2 family updated on plan of care and expected duration. Pain level reassessed. 17:30 Reassessment: Patient appears in no apparent distress at this time. No changes from tw2 previously documented assessment. Patient and/or family updated on plan of care and expected duration. Pain level reassessed. 18:16 Reassessment: Patient appears in no apparent distress at this time. Patient and/or tw2 family updated on plan of care and expected duration. Pain level reassessed. Patient states feeling better. 19:00 Reassessment: Patient appears in no apparent distress at this time. No changes from tw2 previously documented assessment. Patient and/or family updated on plan of care and expected duration. Pain level reassessed. Vital Signs: 11:45 BP 119 / 72; Pulse 85; Resp 19; Temp 99.1(TE); Pulse Ox 98% on R/A; tw2 12:24 BP 136 / 68 LA Supine; Pulse 78; Resp 18; Pulse Ox 93% on R/A; dh3 12:26 BP 123 / 73 LA Sitting; Pulse 88; Resp 19; Pulse Ox 95% on R/A; dh3 12:28 BP 104 / 59 LA Standing; Pulse 93; Resp 23; Pulse Ox 92% on R/A; dh3 12:50 BP 104 / 59; Pulse 81; Resp 17; Pulse Ox 90% on R/A; tw2 13:50 BP 116 / 71; Pulse 79; Resp 19; Pulse Ox 100% on 2 lpm NC; tw2 14:50 BP 118 / 99; Pulse 74; Resp 19; Pulse Ox 100% on 2 lpm NC; tw2 15:50 BP 109 / 56; Pulse 76; Resp 17; Pulse Ox 95% on 2 lpm NC; tw2 16:50 BP 109 / 56; Pulse 79; Resp 17; Pulse Ox 98% on 2 lpm NC; tw2 17:50 BP 125 / 76; Pulse 76; Resp 19; Pulse Ox 98% on 2 lpm NC; tw2 18:32 BP 126 / 77; Pulse 100; Resp 18; Pulse Ox 89% on 2 lpm NC; tw2 12:50 provider notified. placed on o2 via nc at 2L at this time, will continue to monitor. tw2 ED Course: 11:41 Patient arrived in ED. tw2 11:41 Bertrand Garcia PA is PHCP. jr8 11:41 Ernst Sheldon MD is Attending Physician. jr8 11:50 Call light in reach. Side rails up X 1. Side rails up X2. Pulse ox on. NIBP on. tw2 11:52 Triage completed. tw2 11:54 Arm band placed on. tw2 11:55 Ariane Hobson, LUCIANA is Primary Nurse. tw2 12:52 Initial lab(s) drawn, by me, sent to lab. 3 13:04 CXR XRAY In Process Unspecified. EDMS 13:08 Maintain EMS IV. Dressing intact. Site clean \\T\\ dry. Gauge \\T\\ site: 22 g LEFT hand. tw 2 13:58 Uriah Obrien DO is Hospitalizing Provider. jr8 18:52 Report given to LUCIANA Vizcarra. tw2 19:02 No provider procedures requiring assistance completed. Patient admitted, IV remains in tw2 place. Administered Medications: 14:14 Drug: SOLU-Medrol 125 mg Route: IVP; Site: left hand; tw2 15:06 Follow up: Response: No adverse reaction tw2 Outcome: 14:01 Decision to Hospitalize by Provider. jr8 19:02 Patient left the ED. tw2 19:02 Admitted to Med/surg accompanied by tech, via wheelchair, Report called to LUCIANA Vizcarra tw2 19:02 Condition: stable 19:02 Instructed on the need for admit. Signatures: Dispatcher [employer] EDMS Bertrand Garcia PA PA jr8 Ariane Hobson RN RN tw2 Elaine Guardado 3 Corrections: (The following items were deleted from the chart) 12:55 12:50 BP 104 / 59; Pulse 81bpm; Resp 17bpm; Pulse Ox 90% RA; provider notified.; tw2 tw2 13:00 11:53 Pain: Denies pain. tw2 tw2 18:33 18:16 Reassessment: Patient appears in no apparent distress at this time. Patient tw2 and/or family updated on plan of care and expected duration. Pain level reassessed. tw2
[2020-06-01] MEDS ORDERED: METHYLPREDNISOLONE 125 MG INJ ONE (14:21)
--- NOTE | 2020-06-01 16:11 | P.HP ---
Certification for Inpatient Patient admitted to: Observation With expected LOS: <2 Midnights Patient will require the following post-hospital care: None Practitioner: I am a practitioner with admitting privileges, knowledge of patient current condition, hospital course, and medical plan of care. Services: Services provided to patient in accordance with Admission requirements found in Title 42 Section 412.3 of the Code of Federal Regulations Patient History Date of Service: 06/01/20 Primary Care Provider: Dr. Brown Reason for admission: Shortness of breath History of Present Illness: 80-year-old female with history of COPD, hypertension. Patient presented with increasing shortness of breath, diarrhea. Patient recently found positive for COVID. Patient reports some recent fever, chills. Poor intake noted. Patient came to the ER for further evaluation. In the ER patient was evaluated. Patient was somewhat tachypneic. Patient required oxygen in the ER. Chest x-ray showed evidence of COVID infection. CRP 49. White count 3.5, hemoglobin 13. Sodium 136, potassium 3.4. GFR 50 poor. Glucose 110. Patient was treated in the emergency room. Patient admitted for observation. When I saw the patient ER, patient appeared stable. Somewhat dehydrated. Allergies acetaminophen [From Lortab] Allergy (Verified 07/25/16 08:39) Nausea/Vomiting aspirin [From Percodan] Allergy (Verified 07/25/16 08:39) Hives/Rash codeine Allergy (Verified 05/03/16 00:40) Hives/Rash hydrocodone [From Lortab] Allergy (Verified 07/25/16 08:39) Nausea/Vomiting meloxicam Allergy (Verified 07/25/16 08:39) Nausea/Vomiting morphine Allergy (Verified 05/03/16 00:40) Hives/Rash oxycodone [From Percodan] Allergy (Verified 07/25/16 08:39) Hives/Rash propoxyphene [From Darvocet-N] Allergy (Verified 07/25/16 08:39) Nausea/Vomiting pseudoephedrine [From Seldane-D] Allergy (Verified 07/25/16 08:39) Anaphylaxis terfenadine [From Seldane-D] Allergy (Verified 07/25/16 08:39) Anaphylaxis zolpidem [From Ambien] Allergy (Verified 07/25/16 08:39) Nausea/Vomiting pentazocine [From Talwin] Adverse Reaction (Verified 07/25/16 08:39) Nausea/Vomiting Home medications list reviewed: Yes Home Medications: Aspirin [Adult Low Dose Aspirin EC] 1 tab PO BEDTIME 05/03/16 Metoprolol Succinate [Toprol Xl*] 12.5 mg PO BEDTIME 05/03/16 Temazepam 1 tab PO BEDTIME 05/03/16 Vit D3` 1,000 mg PO BEDTIME 05/03/16 Magnesium Oxide [Mag 0X*] 400 mg PO BID #60 tab 05/07/16 Potassium Bicarbonate/Cit AC [Potassium 25 Meq Tablet Eff] 25 meq PO BID #60 tablet.eff 05/07/16 Pantoprazole [Protonix Tab*] 40 mg PO DAILYAC #30 tab 05/29/16 Albuterol Sulfate [Proair Hfa] 1 puff PO Q6HR PRN 07/25/16 - Past Medical/Surgical History Diabetic: No -: Hypertension -: COPD -: abd aneurysm -: back surgery -: hysterectomy -: cholecystectomy -: thryroidectomy -: eye surgery Psychosocial/ Personal History: Patient lives at home - Family History Family History: Reviewed- Non-Contributory - Family History Father Notes: aneurysm Mother Notes: aneurysm - Social History Smoking Status: Unknown if ever smoked Alcohol use: No CD- Drugs: No Caffeine use: No Place of Residence: Home Review of Systems General: Fever, Weakness, Malaise, As per HPI Eyes: Unremarkable ENT: Unremarkable Respiratory: Cough, Shortness of Breath, SOB with Excertion, As per HPI Cardiovascular: Unremarkable Gastrointestinal: Diarrhea, As per HPI Genitourinary: Unremarkable Musculoskeletal: Unremarkable Integumentary: Unremarkable Neurological: Unremarkable Lymphatics: Unremarkable Physical Examination - Physical Exam General: Alert, In no apparent distress, Oriented x3, Cooperative HEENT: Atraumatic, Other (Dry mucous membranes) Neck: Supple Respiratory: Expiratory wheezes Cardiovascular: Normal pulses, Regular rate/rhythm Gastrointestinal: Normal bowel sounds, Soft and benign, Non-distended, No tenderness, No masses, No rebound, No guarding Musculoskeletal: No erythema, No tenderness, No warmth Integumentary: No tenderness/swelling Neurological: Normal speech, Normal strength at 5/5 x4 extr, Normal tone, Normal affect - Studies Laboratory Data (last 24 hrs) 06/01/20 12:52: WBC 3.5 L, Hgb 13.0, Hct 38.7, Plt Count 235 06/01/20 12:52: Sodium 136, Potassium 3.4 L, BUN 14, Creatinine 0.99, Glucose 110 H, Total Bilirubin 0.4, AST 37, ALT 32, Alkaline Phosphatase 60, Lipase 236 Assessment and Plan - Plan Impression: Shortness of breath secondary to Bilateral COVID pneumonia and COPD exacerbation Diarrhea likely viral Hypertension Plan: Patient will be admitted for further evaluation and observation. Will continue oxygen. Wean off oxygen. Maintain sats above 93%. Will provide incentive spirometer. Will start IV fluids. Will continue with IV steroids and COPD treatment. Provide medication for blood pressure. Will start lactobacillus and vitamin supplementation. Will continue monitor and assess. Anticipate improvement over the next 24 hr. If patient improved consider discharge tomorrow with the possibility of home oxygen. Will consult pulmonology to further evaluate. Discharge Plan: Home Plan to discharge in: 24 Hours - Advance Directives Does patient have a Living Will: Yes Does patient have a Durable POA for Healthcare: Yes - Code Status/Comfort Care Code Status Assessed: Yes (Patient full code) Time Spent Managing Pts Care (In Minutes): 55
[2020-06-01] MEDS ORDERED: ONDANSETRON 4 MG/2 ML VIAL IV PRN (19:30)
[2020-06-01] MEDS ORDERED: TEMAZEPAM 15 MG CAP PO PRN (19:30)
[2020-06-01] MEDS ORDERED: ALBUTEROL 2.5 MG/3 ML NEB SOL NEB PRN (19:30)
[2020-06-01] MEDS ORDERED: IPRATROPIUM BROM 0.5MG/2.5ML NEB PRN (19:30)
[2020-06-01] MEDS: ASCORBIC ACID 500 MG TABLET PO SCH (20:57)
[2020-06-01] MEDS: DULERA 100/5 (MOMETASONE/FORMOTEROL) INHALER IH SCH (21:00)
[2020-06-01] MEDS: NA CHLORIDE 0.9% 1,000 ML IV SCH (21:16)
[2020-06-01] MEDS: LACTOBACILLUS/ACIDOPHILUS TAB PO SCH (23:23)
[2020-06-02] MEDS: METHYLPREDNISOLONE 40 MG INJ IV SCH ×3 (00:11→22:32)
[2020-06-02 01:32] VITALS: BMI 22.2
[2020-06-02 04:44] LABS: Absolute Lymphocytes (CBC) 0.4 K/uL (0.7-4.9); Basophils % 0.4 % (0-1.3); Hematocrit 36.9 % (36.0-45.0); Lymphocytes % 30.7 % (15.3-44.8); MPV 8.1 fL (7.6-11.3); RBC Red Blood Cell Count 3.87 M/uL (3.86-4.86)
[2020-06-02 05:10] LABS: Ferritin 214.8 ng/mL (8-388); Potassium 4.4 mmol/L (3.5-5.1)
[2020-06-02] MEDS ORDERED: METOPROLOL TAR 25 MG TAB PO SCH (06:00)
[2020-06-02] MEDS ORDERED: LOPERAMIDE HCL 2 MG CAPSULE PO PRN (06:07)
--- NOTE | 2020-06-02 08:46 | P.DS ---
Admission Date: 06/01/20 Discharge Date: 06/02/20 Primary Care Provider: Dr. Brown Disposition: ROUTINE DISCHARGE Discharge Condition: GOOD Reason for Admission: Shortness of breath Consultations: Pulmonary-Dr. Chan Procedures: COVID: Positive CXR: FINDINGS: Portable technique limits examination quality. Mild interstitial opacities are present in both lung bases, greater on the right likely representing viral pneumonitis. The heart is normal in size. No displaced fractures. Medical problem list: Shortness of breath secondary to Bilateral COVID pneumonia and COPD exacerbation Chronic diarrhea likely IBS Hypertension GERD Brief History of Present Illness: 80-year-old female with history of COPD, hypertension. Patient presented with increasing shortness of breath, diarrhea. Patient recently found positive for COVID. Patient reports some recent fever, chills. Poor intake noted. Patient came to the ER for further evaluation. In the ER patient was evaluated. Patient was somewhat tachypneic. Patient required oxygen in the ER. Chest x-ray showed evidence of COVID infection. CRP 49. White count 3.5, hemoglobin 13. Sodium 136, potassium 3.4. GFR 50 poor. Glucose 110. Patient was treated in the emergency room. Patient admitted for observation. When I saw the patient ER, patient appeared stable. Somewhat dehydrated. Hospital Course: Patient presented with dyspnea and diarrhea. Patient found to be positive for COVID pneumonia. Patient with underlying COPD. Patient reports chronic history of diarrhea. She is seen multiple specialists for this. Patient was admitted for treatment. This included IV fluids, IV steroids and COPD medication. The patient has improved. Diarrhea stable. Patient not requiring any oxygen. At discharge patient will continue with prednisone 10 mg 1 pill twice daily for 7 days then 1 pill once daily for 7 days. For her COPD patient will continue with Dulera 2 puffs twice daily and Pro air 2 puffs 3 times a day as needed for shortness of breath. Patient may continue with folic acid 1 mg daily, vitamin-C 3 times a day, vitamin-D once daily, zinc once daily. Patient will continue with COVID guidelines on isolation. Recommend follow up with pulmonology in 1 week to follow up this hospitalization and continue her care. As mentioned above patient with chronic diarrhea/GERD. Patient has seen multiple specialists including GI. Recommend to continue with Protonix 40 mg daily. Will also recommend to continue lactobacillus twice daily or patient may continue with yogurt at home. Recommend follow the patient to further address her condition and likely evaluate for IBS. Encourage oral intake. Patient with hypertension. This appears stable this time. Patient may continue with metoprolol XL 12.5 mg at bedtime. Recommend to maintain blood pressure less than 130/80. Hold blood pressure medication if systolic less than 110 or heart rate less than 50. Patient may continue her other medications including temazepam 30 mg at bedtime. May hold if with increase sedation. list Vital Signs/Physical Exam: Temp Pulse Resp BP Pulse Ox 97.3 F 74 18 133/76 95 06/02/20 04:00 06/02/20 05:15 06/02/20 04:00 06/02/20 05:15 06/02/20 04:00 General: Alert, In no apparent distress, Oriented x3, Cooperative HEENT: Atraumatic Neck: Supple Respiratory: Other (Patient breathing appropriately. No need for supplemental oxygen) Cardiovascular: Normal pulses, Regular rate/rhythm Gastrointestinal: Normal bowel sounds, Soft and benign, Non-distended Neurological: Normal speech, Normal strength at 5/5 x4 extr, Normal tone, Normal affect Laboratory Data at Discharge: WBC 1.2 K/uL (4.3-10.9) L* D 06/02/20 04:00 Hgb 12.4 g/dL (12.0-15.0) 06/02/20 04:00 Hct 36.9 % (36.0-45.0) 06/02/20 04:00 Plt Count 214 K/uL (152-406) 06/02/20 04:00 Sodium 137 mmol/L (136-145) 06/02/20 04:00 Potassium 4.4 mmol/L (3.5-5.1) 06/02/20 04:00 BUN 15 mg/dL (7-18) 06/02/20 04:00 Creatinine 0.84 mg/dL (0.55-1.3) 06/02/20 04:00 Glucose 181 mg/dL (74-106) H 06/02/20 04:00 Magnesium 2.0 mg/dL (1.8-2.4) 06/02/20 04:00 Total Bilirubin 0.4 mg/dL (0.2-1.0) 06/01/20 12:52 AST 37 U/L (15-37) 06/01/20 12:52 ALT 32 U/L (12-78) 06/01/20 12:52 Alkaline Phosphatase 60 U/L (45-117) 06/01/20 12:52 Lipase 236 U/L (73-393) 06/01/20 12:52 Home Medications: Aspirin [Adult Low Dose Aspirin EC] 1 tab PO BEDTIME 05/03/16 Metoprolol Succinate [Toprol Xl*] 12.5 mg PO BEDTIME 05/03/16 Temazepam 1 tab PO BEDTIME 05/03/16 Magnesium Oxide [Mag 0X*] 400 mg PO BID #60 tab 05/07/16 Pantoprazole [Protonix Tab*] 40 mg PO DAILYAC #30 tab 05/29/16 Albuterol Sulfate [Proair Hfa] 2 puff PO Q6HR PRN #1 06/02/20 Ascorbic Acid [Vitamin C*] 500 mg PO TID #90 tablet 06/02/20 Cholecalciferol (Vitamin D3) [Vitamin D 1000 Iu Tab*] 2,000 unit PO DAILY #60 tab 06/02/20 Folic Acid 1 mg PO DAILY #30 tablet 06/02/20 Lactobacillus Acidophilus [Acidophilus Lactobacilli] 1 each PO BID #30 capsule 06/02/20 Mometasone/Formoterol [Dulera 100 Mcg/5 Mcg Inhaler] 2 puff IH BID #1 inhaler 06/02/20 Zinc Sulfate [Zinc Sulfate*] 220 mg PO DAILY #30 cap 06/02/20 predniSONE [Deltasone*] 10 mg PO SEECOM #21 tab 06/02/20 New Medications: Lactobacillus Acidophilus [Acidophilus Lactobacilli] 1 each PO BID #30 capsule predniSONE [Deltasone*] 10 mg PO SEECOM #21 tab Mometasone/Formoterol [Dulera 100 Mcg/5 Mcg Inhaler] 2 puff IH BID #1 inhaler Folic Acid 1 mg PO DAILY #30 tablet Albuterol Sulfate [Proair Hfa] 2 puff PO Q6HR PRN #1 PRN Reason: Wheezing Ascorbic Acid [Vitamin C*] 500 mg PO TID #90 tablet Cholecalciferol (Vitamin D3) [Vitamin D 1000 Iu Tab*] 2,000 unit PO DAILY #60 tab Zinc Sulfate [Zinc Sulfate*] 220 mg PO DAILY #30 cap Patient Discharge Instructions: Follow up with PCP in 1 week to follow up hospitalization. Patient presented with dyspnea and diarrhea. Patient found to be positive for COVID pneumonia. Patient with underlying COPD. Patient reports chronic history of diarrhea. She is seen multiple specialists for this. Patient was admitted for treatment. This included IV fluids, IV steroids and COPD medication. The patient has improved. Diarrhea stable. Patient not requiring any oxygen. At discharge patient will continue with prednisone 10 mg 1 pill twice daily for 7 days then 1 pill once daily for 7 days. For her COPD patient will continue with Dulera 2 puffs twice daily and Pro air 2 puffs 3 times a day as needed for shortness of breath. Patient may continue with folic acid 1 mg daily, vitamin-C 3 times a day, vitamin-D once daily, zinc once daily. Patient will continue with COVID guidelines on isolation. Recommend follow up with pulmonology in 1 week to follow up this hospitalization and continue her care. As mentioned above patient with chronic diarrhea/GERD. Patient has seen multiple specialists including GI. Recommend to continue with Protonix 40 mg daily. Will also recommend to continue lactobacillus twice daily or patient may continue with yogurt at home. Recommend follow the patient to further address her condition and likely evaluate for IBS. Encourage oral intake. Patient with hypertension. This appears stable this time. Patient may continue with metoprolol XL 12.5 mg at bedtime. Recommend to maintain blood pressure less than 130/80. Hold blood pressure medication if systolic less than 110 or heart rate less than 50. Patient may continue her other medications including temazepam 30 mg at bedtime. May hold if with increase sedation. list Diet: AHA Activity: Fall precautions Followup: Unknown,U [Primary Care Provider] - Time spent managing pt's care (in minutes): 55
[2020-06-02] MEDS ORDERED: AMLODIPINE 5 MG TAB PO SCH (09:00)
[2020-06-02] MEDS ORDERED: NA CHLORIDE 0.9% 250 ML IV ONE (11:06)
[2020-06-02] MEDS: DULERA 100/5 (MOMETASONE/FORMOTEROL) INHALER IH SCH (11:15)
[2020-06-02] MEDS: LACTOBACILLUS/ACIDOPHILUS TAB PO SCH ×2 (11:16→22:31)
[2020-06-02] MEDS: FAMOTIDINE 20 MG TAB PO SCH (11:16)
[2020-06-02] MEDS: VITAMIN D 1000 UNIT TAB PO SCH (11:16)
[2020-06-02] MEDS: ASCORBIC ACID 500 MG TABLET PO SCH ×3 (11:17→22:32)
[2020-06-02] MEDS: ENOXAPARIN 40 MG/0.4 ML SQ SCH (11:17)
[2020-06-02] MEDS: ZINC SULFATE 220 MG CAP PO SCH (11:17)
[2020-06-02] MEDS: FOLIC ACID 1 MG TABLET PO SCH (11:17)
[2020-06-02] MEDS: ACETAMINOPHEN 500 MG TAB PO PRN ×2 (13:14→22:32)
[2020-06-02] MEDS: PROMETHAZINE INJ 25 MG/ML AMP IV PRN (13:14)
[2020-06-02] MEDS: NA CHLORIDE 0.9% 1,000 ML IV SCH (13:53)
[2020-06-02] MEDS ORDERED: DIPHENOX/ATROP SULF 1 TAB PO PRN (14:19)
[2020-06-02 20:52] LABS: Urine Appearance CLEAR; Urine Bilirubin NEGATIVE (NEG); Urine Blood NEGATIVE (NEG); Urine Color YELLOW; Urine Glucose TRACE (NEG); Urine Protein TRACE (NEG); Urine Specific Gravity 1.015 (1.005-1.030); Urine Urobilinogen 0.2 mg/dL (0.2-1.0)
[2020-06-02 20:54] LABS: Urine Microscopic Reflex ORDER UMIC
[2020-06-02] MEDS ORDERED: MIDODRINE HCL 5 MG TABLET PO SCH (21:00)
[2020-06-02 21:22] LABS: Urine Bacteria <20 /HPF (<20); Urine RBC <5 /HPF (NONE SEEN)
[2020-06-02] MEDS: MAGNESIUM OXIDE 400 MG TAB PO SCH (22:31)
[2020-06-03] MEDS: NA CHLORIDE 0.9% 1,000 ML IV SCH (03:02)
[2020-06-03 05:08] LABS: Absolute Lymphocytes (CBC) 0.4 K/uL (0.7-4.9); Basophils % 0.2 % (0-1.3); Hematocrit 33.3 % (36.0-45.0); Lymphocytes % 6.9 % (15.3-44.8); MPV 8.2 fL (7.6-11.3); RBC Red Blood Cell Count 3.54 M/uL (3.86-4.86)
[2020-06-03 05:25] LABS: C-Reactive Protein 18.3 mg/L (<3.00); Ferritin 164.3 ng/mL (8-388); Potassium 3.2 mmol/L (3.5-5.1)
--- NOTE | 2020-06-03 07:26 | EKG ---
Test Date: 2020-06-02 Test Time: 10:14:42 Physical Therapy Aides Teacher: ARIT MEASUREMENT RESULTS: Intervals: Rate: 93 DC: 168 QRSD: 138 QT: 428 QTc: 532 [place]: P: 89 DC: 168 QRS: -36 T: 114 INTERPRETIVE STATEMENTS: Sinus rhythm with fusion complexes Left axis deviation Left bundle branch block Abnormal ECG Compared to ECG 10/04/2018 16:59:49 Fusion complex(es) now present Left-axis deviation now present Left bundle-branch block now present Electronically Signed On 06-03-20 07:24:11 WHEEL TRUER by Tanner Sorensen
[2020-06-03] MEDS ORDERED: NA CHLORIDE 0.9% 250 ML IV ONE (08:00)
[2020-06-03] MEDS: LACTOBACILLUS/ACIDOPHILUS TAB PO SCH (08:22)
[2020-06-03] MEDS: FAMOTIDINE 20 MG TAB PO SCH (08:22)
[2020-06-03] MEDS: ENOXAPARIN 40 MG/0.4 ML SQ SCH (08:22)
[2020-06-03] MEDS: FOLIC ACID 1 MG TABLET PO SCH (08:23)
[2020-06-03] MEDS: METHYLPREDNISOLONE 40 MG INJ IV SCH (08:23)
[2020-06-03] MEDS: ZINC SULFATE 220 MG CAP PO SCH (08:23)
[2020-06-03] MEDS: ASCORBIC ACID 500 MG TABLET PO SCH ×2 (08:23→14:00)
[2020-06-03] MEDS: MAGNESIUM OXIDE 400 MG TAB PO SCH (08:23)
[2020-06-03] MEDS: MIDODRINE HCL 5 MG TABLET PO SCH ×2 (08:23→14:01)
[2020-06-03] MEDS: VITAMIN D 1000 UNIT TAB PO SCH (08:24)
[2020-06-03] MEDS: DULERA 100/5 (MOMETASONE/FORMOTEROL) INHALER IH SCH (08:25)
[2020-06-03] MEDS: PROMETHAZINE INJ 25 MG/ML AMP IV PRN (08:54)
[2020-06-03] MEDS ORDERED: POTASSIUM CL SA 10 MEQ TAB PO ONE (09:00)
[2020-06-03 11:19] VITALS: O2SAT 97
--- NOTE | 2020-06-03 13:06 | P.PN ---
Subjective Date of Service: 06/03/20 Primary Care Provider: Dr. Brown Chief Complaint: Shortness of breath Subjective: Improving Physical Examination - Vital Signs Temperature: 97.7 F Blood Pressure: 132/71 Pulse: 76 Respirations: 18 Pulse Ox (%): 91 - Physical Exam General: Alert, In no apparent distress, Oriented x3, Cooperative HEENT: Atraumatic Neck: Supple Respiratory: Clear to auscultation bilaterally, Normal air movement Cardiovascular: Normal pulses, Regular rate/rhythm Gastrointestinal: Normal bowel sounds, Soft and benign, Non-distended Neurological: Normal speech, Normal strength at 5/5 x4 extr, Normal tone, Normal affect - Studies Medications List Reviewed: Yes Assessment & Plan Discharge Plan: Home Plan to discharge in: 24 Hours Physician Review Additional Text: Medical problem list: Shortness of breath secondary to Bilateral COVID pneumonia and COPD exacerbation Orthostatic hypotension Chronic diarrhea likely IBS Hypertension GERD Plan: Shortness of breath secondary to Bilateral COVID pneumonia and COPD exacerbation: Patient has done well. Patient on room-air. Continue with current medications. Patient with orthostatic hypotension history. Norvasc and metoprolol have been discontinued. Midodrine has been added. Blood pressure improved. Patient given IV fluids last night. Continue to encourage oral intake. Physical therapy to assess today. If stable and moving appropriately without significant dizziness and no significant orthostatic changes then will discharge home. Case discussed with patient. If the patient remains then will continue with current plan of care and discharge tomorrow with home health and physical therapy. I will turn the service over to the hospitalist team tomorrow. I will go plan of care with him. Orthostatic hypotension: Patient now on Midodrine. The patient off amlodipine and metoprolol. Physical therapy to evaluate. Possible discharge later today.. Chronic diarrhea likely IBS: This has resolved. Continue with current management Hypertension: Amlodipine and metoprolol have been discontinued. GERD: Continue medication Time Spent Managing Pts Care (In Minutes): 55
--- NOTE | 2020-06-03 15:44 | P.DS ---
Admission Date: 06/02/20 Discharge Date: 06/03/20 Primary Care Provider: Dr. Brown Disposition: ROUTINE DISCHARGE Discharge Condition: GOOD Reason for Admission: Shortness of breath Consultations: Pulmonary-Dr. Chan Procedures: COVID: Positive CXR: FINDINGS: Portable technique limits examination quality. Mild interstitial opacities are present in both lung bases, greater on the right likely representing viral pneumonitis. The heart is normal in size. No displaced fractures. Medical problem list: Shortness of breath secondary to Bilateral COVID pneumonia and COPD exacerbation Orthostatic hypotension Chronic diarrhea likely IBS Hypertension GERD LBBB Brief History of Present Illness: 80-year-old female with history of COPD, hypertension. Patient presented with increasing shortness of breath, diarrhea. Patient r ecently found positive for COVID. Patient reports some recent fever, chills. Poor intake noted. Patient came to the ER for further evaluation. In the ER patient was evaluated. Patient was somewhat tachypneic. Patient required oxygen in the ER. Chest x-ray showed evidence of COVID infection. CRP 49. White count 3.5, hemoglobin 13. Sodium 136, potassium 3.4. GFR 50 poor. Glucose 110. Patient was treated in the emergency room. Patient admitted for observation. When I saw the patient ER, patient appeared stable. Somewhat dehydrated. Hospital Course: Patient presented with dyspnea and diarrhea. Patient found to be positive for COVID pneumonia. Patient with underlying COPD. Patient reports chronic history of diarrhea. She is seen multiple specialists for this. Patient was admitted for treatment. This included IV fluids, IV steroids and COPD medication. The patient has improved. Diarrhea stable. Patient not requiring any oxygen. At discharge patient will continue with prednisone 10 mg 1 pill twice daily for 7 days then 1 pill once daily for 7 days. For her COPD patient will continue with Dulera 2 puffs twice daily and Pro air 2 puffs 3 times a day as needed for shortness of breath. Patient may continue with folic acid 1 mg daily, vitamin-C 3 times a day, vitamin-D once daily, zinc once daily. Patient will continue with COVID guidelines on isolation. Recommend follow up with pulmonology in 1 week to follow up this hospitalization and continue her care. Patient has history of orthostatic hypotension. Patient was orthostatic during the course of her stay. Patient received IV fluids. Medications reviewed. Patient has been taking blood pressure medication including amlodipine and metoprolol. Both medications were discontinued. Midodrine 10 mg one pill 3 times a day was added. Blood pressure is now stable. Recommend to monitor blood pressure daily. If blood pressure is above 140/90 then she may need to hold her dose of Midodrine. Patient worked with physical therapy. Patient has recovered well. Physical therapy recommends walker at home. Education on orthostatics hypotension will be provided. Patient will need to be deliberate when sitting or standing. When she sits up to stand or gets out of bed to stand she will need to wait for at least 30 seconds to a min before she ambulates. Patient may require assistance initially then utilize walker. Recommend follow up with her PCP to consider home health and physical therapy at home. As mentioned above patient with chronic diarrhea/GERD. Patient has seen multiple specialists including GI. Recommend to continue with Protonix 40 mg daily. Will also recommend to continue lactobacillus twice daily or patient may continue with yogurt at home. Recommend follow the patient to further address her condition and likely evaluate for IBS. Encourage oral intake. Patient with history of hypertension. Both medications amlodipine and metoprolol have been discontinued due to orthostatic hypotension. Recommend to monitor blood pressure daily. Patient now on Midodrine. If blood pressure remains elevated then patient may be taken off Midodrine and 1 medication can be restarted but will need to monitor this closely with the help of her PCP. Patient may continue her other medications including temazepam 30 mg at bedtime. May hold if with increase sedation. Vital Signs/Physical Exam: Temp Pulse Resp BP Pulse Ox 97.7 F 76 18 132/71 91 06/03/20 13:06 06/03/20 13:06 06/03/20 13:06 06/03/20 13:06 06/03/20 13:06 General: Alert, In no apparent distress, Oriented x3, Cooperative HEENT: Atraumatic Neck: Supple Respiratory: Clear to auscultation bilaterally, Normal air movement Cardiovascular: Normal pulses, Regular rate/rhythm Gastrointestinal: Normal bowel sounds, Soft and benign, Non-distended, No masses, No rebound, No guarding Neurological: Normal speech, Normal strength at 5/5 x4 extr, Normal tone, Normal affect Laboratory Data at Discharge: WBC 5.9 K/uL (4.3-10.9) D 06/03/20 04:42 Hgb 11.3 g/dL (12.0-15.0) L 06/03/20 04:42 Hct 33.3 % (36.0-45.0) L 06/03/20 04:42 Plt Count 242 K/uL (152-406) 06/03/20 04:42 Sodium 140 mmol/L (136-145) 06/03/20 04:42 Potassium 3.2 mmol/L (3.5-5.1) L 06/03/20 04:42 BUN 15 mg/dL (7-18) 06/03/20 04:42 Creatinine 0.92 mg/dL (0.55-1.3) 06/03/20 04:42 Glucose 203 mg/dL (74-106) H 06/03/20 04:42 Magnesium 2.0 mg/dL (1.8-2.4) 06/02/20 04:00 Total Bilirubin 0.4 mg/dL (0.2-1.0) 06/01/20 12:52 AST 37 U/L (15-37) 06/01/20 12:52 ALT 32 U/L (12-78) 06/01/20 12:52 Alkaline Phosphatase 60 U/L (45-117) 06/01/20 12:52 Troponin I < 0.02 ng/mL (0.0-0.045) 06/02/20 10:45 Lipase 236 U/L (73-393) 06/01/20 12:52 Home Medications: Aspirin [Adult Low Dose Aspirin EC] 1 tab PO BEDTIME 05/03/16 Temazepam 1 tab PO BEDTIME 05/03/16 Magnesium Oxide [Mag 0X*] 400 mg PO BID #60 tab 05/07/16 Pantoprazole [Protonix Tab*] 40 mg PO DAILYAC #30 tab 05/29/16 Albuterol Sulfate [Proair Hfa] 2 puff PO Q6HR PRN #1 06/02/20 Ascorbic Acid [Vitamin C*] 500 mg PO TID #90 tablet 06/02/20 Cholecalciferol (Vitamin D3) [Vitamin D 1000 Iu Tab*] 2,000 unit PO DAILY #60 tab 06/02/20 Folic Acid 1 mg PO DAILY #30 tablet 06/02/20 Lactobacillus Acidophilus [Acidophilus Lactobacilli] 1 each PO BID #30 capsule 06/02/20 Mometasone/Formoterol [Dulera 100 Mcg/5 Mcg Inhaler] 2 puff IH BID #1 inhaler 06/02/20 Zinc Sulfate [Zinc Sulfate*] 220 mg PO DAILY #30 cap 06/02/20 predniSONE [Deltasone*] 10 mg PO SEECOM #21 tab 06/02/20 Midodrine HCl 10 mg PO TID #90 tablet 06/03/20 New Medications: Lactobacillus Acidophilus [Acidophilus Lactobacilli] 1 each PO BID #30 capsule predniSONE [Deltasone*] 10 mg PO SEECOM #21 tab Mometasone/Formoterol [Dulera 100 Mcg/5 Mcg Inhaler] 2 puff IH BID #1 inhaler Folic Acid 1 mg PO DAILY #30 tablet Midodrine HCl 10 mg PO TID #90 tablet Albuterol Sulfate [Proair Hfa] 2 puff PO Q6HR PRN #1 PRN Reason: Wheezing Ascorbic Acid [Vitamin C*] 500 mg PO TID #90 tablet Cholecalciferol (Vitamin D3) [Vitamin D 1000 Iu Tab*] 2,000 unit PO DAILY #60 tab Zinc Sulfate [Zinc Sulfate*] 220 mg PO DAILY #30 cap Patient Discharge Instructions: Patient presented with dyspnea and diarrhea. Patient found to be positive for COVID pneumonia. Patient with underlying COPD. Patient reports chronic history of diarrhea. She is seen multiple specialists for this. Patient was admitted for treatment. This included IV fluids, IV steroids and COPD medication. The patient has improved. Diarrhea stable. Patient not requiring any oxygen. At discharge patient will continue with prednisone 10 mg 1 pill twice daily for 7 days then 1 pill once daily for 7 days. For her COPD patient will continue with Dulera 2 puffs twice daily and Pro air 2 puffs 3 times a day as needed for shortness of breath. Patient may continue with folic acid 1 mg daily, vitamin-C 3 times a day, vitamin-D once daily, zinc once daily. Patient will continue with COVID guidelines on isolation. Recommend follow up with pulmonology in 1 week to follow up this hospitalization and continue her care. Patient has history of orthostatic h ypotension. Patient was orthostatic during the course of her stay. Patient received IV fluids. Medications reviewed. Patient has been taking blood pressure medication including amlodipine and metoprolol. Both medications were discontinued. Midodrine 10 mg one pill 3 times a day was added. Blood pressure is now stable. Recommend to monitor blood pressure daily. If blood pressure is above 140/90 then she may need to hold her dose of Midodrine. Patient worked with physical therapy. Patient has recovered well. Physical therapy recommends walker at home. Education on orthostatic hypotension will be provided. Patient will need to be deliberate when sitting or standing. When she sits up to stand or gets out of bed to stand she will need to wait for at least 30 seconds to a min before she ambulates. Patient may require assistance initially then utilize walker. Recommend follow up with her PCP to consider home health and physical therapy at home. As mentioned above patient with chronic diarrhea/GERD. Patient has seen multiple specialists including GI. Recommend to continue with Protonix 40 mg daily. Will also recommend to continue lactobacillus twice daily or patient may continue with yogurt at home. Recommend follow the patient to further address her condition and likely evaluate for IBS. Encourage oral intake. Patient with history of hypertension. Both medications amlodipine and metoprolol have been discontinued due to orthostatics hypotension. Recommend to monitor blood pressure daily. Patient now on Midodrine. If blood pressure remains elevated then patient may be taken off Midodrine and 1 medication can be restarted but will need to monitor this closely with the help of her PCP. Patient may continue her other medications including temazepam 30 mg at bedtime. May hold if with increase sedation. Diet: AHA Activity: Fall precautions Followup: Unknown,U [Primary Care Provider] - Time spent managing pt's care (in minutes): 55
[2020-06-03 18:24] VITALS: BP 136/72; TEMP 97.8
== END 2020-06-03 18:19 | disposition home or self-care (01) | DRG 177 ==
LOC: ER 11:38 → ERHOLD 16:00 → 4TH 18:52 → OBSVTOIN 06-02 15:24
PROVIDERS: ADMIT Family Medicine; ATTEND Family Medicine
DX: U07.1 COVID-19 (principal); J12.82 Pneumonia due to coronavirus disease 2019; J44.1 Chronic obstructive pulmonary disease with (acute) exacerbation; J44.0 Chronic obstructive pulmonary disease with (acute) lower respiratory infection; I10 Essential (primary) hypertension; I45.4 Nonspecific intraventricular block; I95.1 Orthostatic hypotension; K21.9 Gastro-esophageal reflux disease without esophagitis; K58.0 Irritable bowel syndrome with diarrhea; I44.7 Left bundle-branch block, unspecified; Z86.73 Personal history of transient ischemic attack (TIA), and cerebral infarction without residual deficits; Z90.710 Acquired absence of both cervix and uterus; Z90.49 Acquired absence of other specified parts of digestive tract; Z88.5 Allergy status to narcotic agent; Z88.6 Allergy status to analgesic agent; Z88.8 Allergy status to other drugs, medicaments and biological substances; Z79.82 Long term (current) use of aspirin; Z79.899 Other long term (current) drug therapy; Z79.52 Long term (current) use of systemic steroids
CPT/HCPCS: 36415; 71045; 80048; 80076; 81003; 81015; 82728; 83605; 83690; 83735; 84484; 85025; 86140; 93005; 96374; 97116; 97161; 99285; G0378; J1650; J2550; J2920; J2930; J7030; J7050; J7606; U0003

== ENCOUNTER 2021-06-03 05:52 | Inpatient (IN) | payer OTHER ==
--- OUTSIDE RECORDS SUMMARY | 2021-06-03 05:55 | XMS REPORT | Continuity of Care Document ---
:1940 Author Organization [facility] t Address [address] [place] [address] Care Team Providers Name Role Phone ERINN Attending Clinician Unavailable MD CECIL PLASENCIA Attending Clinician Unavailable Niko TRINH Attending Clinician Unavailable ERINN Admitting Clinician Unavailable MD CECIL PLASENCIA Admitting Clinician Unavailable Problems This patient has no known problems. Allergies, Adverse Reactions, Alerts Allergy Allergy Status Severity Reaction(s) Onset Inactive Treating Comm ents Source Name Type Date Date Clinician TALWIN DRUG Active N/V [facility] COMPOUND 1-25 ity of 00:00: [place] [facility] ZOLPIDEM DRUG Active Other-Cmnt Univ ers INGREDI 1-25 ity of 00:00: [place] 00 [facility] PROPOXYP DRUG Active N/V Univers HENE 1-25 ity of N-ACETAM 00:00: [place] INOPHEN 00 [facility] HYDROCOD DRUG Active Unknown-Cmnt Un gonzalez ONE-ACET 7-25 ity of AMINOPHE 00:00: [place] N 00 [facility] MELOXICA DRUG Active Unknown-Cmnt Un gonzalez M INGREDI 7-25 ity of 00:00: [place] 00 [facility] OPIOIDS Drug Active Rash Univers - Class 7-25 ity of MORPHINE 00:00: [place] ANALOGUE 00 Medical S Branch SULFASAL DRUG Active Unknown-Cmnt Un gonzalez AZINE INGREDI 7-25 ity of 00:00: [place] 00 [facility] MEPERIDI DRUG Active Rash Univers NE INGREDI 7-25 ity of 00:00: [place] 00 [facility] OXYCODON DRUG Active Unknown-Cmnt 2015-05 Un gonzalez E 06-05 ity of HCL-OXYC 00:00: [place] ODONE- 00 Medical A Branch SELDANE DRUG Active Unknown-Cmnt 2015-05 Uni vers 06-05 ity of 00:00: [place] 00 [facility] MORPHINE DRUG Active Unknown-Cmnt 2015-05 Un gonzalez INGREDI 06-05 ity of 00:00: [address] Branch codeine Adverse Active Info Not [facility] Reaction [facility] MORPHINE Adverse Active Info Not [facility] Medications Ordered Filled Start Stop Current Ordering Indication Dosage Frequency Signature Comments Components Source Medication Medication Date Date Medication? Clinician (SIG) Name Name Symbicort Symbicort Yes Lane TAKE [address] [facility] [place] PUFFS BY [facility] Potassium Potassium Yes Lane TAKE [...] [facility] EVERY DAY l [facility] Metoprolol Metoprolol Yes Lane TAKE [...] Lane (Schedule [facility] IV Drug) [facility] ONE [facility] CAPSULE BY l MOUTH [facility]pat[facility] EVERY DAY ent Clinics Magnesium Magnesium Yes Lane TAKE [address] [facility] Oxide Oxide [place] TABLET BY [facility] EVERY DAY [facility] Clin[facility] Procedures This patient has no known procedures. Encounters Start End Encounter Admission Attending Care Care Encounter Source Date/Time Date/Time Type Type Clinicians Facility Department ID 2021-05-01 2021-05-01 Outpatient [facility] [id number] [place] 00:00:00 00:00:00 THELMA 745 [facility] 2021-04-26 2021-04-26 Outpatient [facility] [id number] [place] 00:00:00 00:00:00 THELMA 592 [facility] 2021-04-26 2021-04-26 Outpatient [facility] [id number] [place] 00:00:00 00:00:00 THELMA 591 [facility] i 2021-04-26 2021-04-26 Outpatient [facility] [id number] [place] 00:00:00 00:00:00 THELMA 402 [facility] 2021-03-28 2021-03-29 Inpatient [facility] [id number] [place] 00:00:00 00:00:00 THELMA 967 [facility] i 2021-03-25 2021-03-25 Outpatient [facility] [id number] [place] 00:00:00 00:00:00 THELMA 949 [facility] i 2021-03-25 2021-03-25 Outpatient [facility] [id number] [place] 00:00:00 00:00:00 THELMA 646 [facility] i 2021-01-23 2021-01-24 Outpatient [facility] [id number] [place] 00:00:00 00:00:00 THELMA 772 [facility] i 2021-01-10 2021-01-10 Outpatient [facility] [id number] [place] 00:00:00 00:00:00 THELMA 831 Method i 2021-01-10 2021-01-10 Outpatient [facility] [id number] [place] 00:00:00 00:00:00 THELMA 044 [facility] i 2020-12-26 2020-12-26 Outpatient ERINN, [facility] [id number] [place] 00:00:00 00:00:00 THELMA [address] 2020-12-26 2020-12-26 Outpatient ERINN [facility] [id number] [place] 00:00:00 00:00:00 THELMA [address] 2020-12-17 2020-12-17 Outpatient [facility] [id number] [facility] 2020-12-17 2020-12-17 Outpatient [facility] [id number] [facility] 2020-12-17 2020-12-17 ambulatory [facility] [id number] [facility] 2020-08-28 2020-08-28 Outpatient Sheyla TRINH [facility] [id number] [facility] 08:00:00 08:00:00 YURI [id number] [facility] 2020-08-16 2020-08-16 Outpatient [facility] [id number] [facility] 2020-08-14 2020-08-14 Outpatient [facility] [id number] [facility] 2020-06-07 2020-06-07 Outpatient [facility] [id number] [facility] 2020-05-21 2020-05-21 Outpatient [facility] [id number] [facility] 2020-04-27 2020-04-27 Outpatient [facility] [id number] [facility] 2019-07-05 2019-07-05 [facility] [id number] [facility] 11:[facility]00 11[facility] 2019-06-02 2019-06-02 Outpatient Andrew Rothman [id number] [facility] 11:00:00 11:00:00 [facility] 2019-05-13 2019-05-13 Outpatient Andrew Rothman [id number] 10:00:00 10:00:00 [facility] 2019-04-26 2019-04-26 Outpatient Andrew Rothman [id number] [facility] 10:30:00 10:30:00 [facility] Results Test Description Test Time Test Comments Results Result Comments Source SARS-CoV-2 (COVID-19) RNA [Presence] in Respiratory sp ecimen by 2021-03-25 19:02:20 [facility] with probe detection Test Item Value Reference Range Interpretation Comme nts SARS-CoV-2 (COVID-19) RNA [Presence] in Respiratory Not detected No t-Detected specimen by JESE with probe detection (test code = 91322-9) Whether patient is employed in a healthcare setting (test code = 95734-4) Whether the patient has symptoms related to condition of interest (test code = 95799-8) Patient was hospitalized because of this condition (test code = 65785-0) Whether the patient was admitted to intensive care unit (ICU) for condition of interest (test code = 26871-4) Whether patient resides in a congregate care setting (test code = 64124-1)
[2021-06-03 06:34] LABS: Absolute Lymphocytes (CBC) 1.1 K/uL (0.7-4.9); Hematocrit 44.4 % (36.0-45.0); Lymphocytes % 7.9 % (15.3-44.8); MPV 7.5 fL (7.6-11.3); RBC Red Blood Cell Count 4.56 M/uL (3.86-4.86)
[2021-06-03 06:41] LABS: Protime INR 0.96
[2021-06-03 06:58] LABS: ALT/SGPT 19 U/L (12-78); Albumin 3.8 g/dL (3.4-5.0); Alkaline Phosphatase 82 U/L (45-117); BUN Blood Urea Nitrogen 12 mg/dL (7-18); Bicarbonate 25 mmol/L (21-32); Bilirubin Direct < 0.1 mg/dL (0-0.2); Bilirubin Total 0.3 mg/dL (0.2-1.0); Glucose Level 181 mg/dL (74-106); Lipase 163 U/L (73-393); NT PRO-BNP 373 pg/mL (<450); Protein, Total 7.5 g/dL (6.4-8.2); Sodium Level 137 mmol/L (136-145); Troponin (Emerg Dept Use Only) < 0.02 ng/mL (0.0-0.045)
[2021-06-03 06:59] LABS: AST/SGOT 16 U/L (15-37); Magnesium 2.1 mg/dL (1.8-2.4); Potassium 4.4 mmol/L (3.5-5.1)
[2021-06-03 07:38] LABS: Blood Morphology Comment NOT SEEN (NOT SEEN); Platelet Estimate ADEQ
[2021-06-03] MEDS ORDERED: DIPHENOX/ATROP SULF 1 TAB PO ONE (07:39)
--- NOTE | 2021-06-03 07:49 | RAD REPORT ---
EXAM DESCRIPTION: Jimenez Single View06/03/2021 6:33 am CLINICAL HISTORY: Shortness of breath COMPARISON: May 2020 FINDINGS: The lungs are hyperaerated. Lungs appear clear of acute infiltrate. Heart is normal size
[2021-06-03] MEDS ORDERED: ONDANSETRON 4 MG/2 ML VIAL ONE (08:03)
[2021-06-03] MEDS ORDERED: PROMETHAZINE INJ 25 MG/ML AMP ONE (08:26)
[2021-06-03] MEDS ORDERED: NA CHLORIDE 0.9% 500 ML ONE (08:26)
--- NOTE | 2021-06-03 08:31 | EDPHYS ---
Physician Documentation [facility] Name: Rena Schuler Age: 81 yrs Sex: Female : 1940 Arrival Date: 06/03/2021 Time: 06:01 Bed 1 Private MD: ED Physician Karan Pruitt HPI: 06/03 07:27 This 81 yrs old Female presents to ER via EMS with complaints of Diarrhea. jr8 07:27 Onset: The symptoms/episode began/occurred acutely. Possible causes: unknown. The jr8 symptoms are aggravated by nothing. The symptoms are alleviated by nothing. Associated signs and symptoms: Pertinent positives: nausea, vomiting, Pertinent negatives: abdominal pain. Severity of symptoms: At their worst the symptoms were moderate in the emergency department the symptoms are unchanged. The patient has experienced similar episodes in the past, a few times. The patient has not recently seen a physician. 07:28 This is a 81-year-old female patient who presented to the emergency room with jr8 complaints of general fatigue and altered mentation. EMS stated that patient has been having several bouts of nausea, vomiting, diarrhea. On scene they stated that patient was initially altered and was hypotensive with a systolic blood pressure in the 60s. Patient upon arrival to the emergency room is alert and oriented to person, place, time, event. No acute distress at this time and feeling much better. Subsequently found out that patient is also COVID positive. Initial assessment of oxygen saturation upon arrival revealed hypoxia. Patient was put on oxygen upon arrival.. - Immunization history:: Adult Immunizations up to date. - Social history:: Smoking status: Patient reports the use of cigarette tobacco products. ROS: 07:28 Constitutional: Negative for fever, chills, and weight loss, Cardiovascular: Negative jr8 for chest pain, palpitations, and edema, Respiratory: Negative for shortness of breath, cough, wheezing, and pleuritic chest pain, Back: Negative for injury and pain, MS/Extremity: Negative for injury and deformity, Skin: Negative for injury, rash, and discoloration, Neuro: Negative for headache, weakness, numbness, tingling, and seizure. 07:28 Abdomen/GI: Positive for nausea, vomiting, and diarrhea, Negative for abdominal pain. Exam: 07:28 Constitutional: This is a well developed, well nourished patient who is awake, alert, jr8 and in no acute distress. ENT: Nares patent. No nasal discharge, no septal abnormalities noted. Tympanic membranes are normal and external auditory canals are clear. Oropharynx with no redness, swelling, or masses, exudates, or evidence of obstruction, uvula midline. Mucous membranes moist. Cardiovascular: Regular rate and rhythm with a normal S1 and S2. No gallops, murmurs, or rubs. Normal PMI, no JVD. No pulse deficits. Respiratory: Lungs have equal breath sounds bilaterally, clear to auscultation and percussion. No rales, rhonchi or wheezes noted. No increased work of breathing, no retractions or nasal flaring. Abdomen/GI: Soft, non-tender, with normal bowel sounds. No distension or tympany. No guarding or rebound. No evidence of tenderness throughout. Skin: Warm, dry with normal turgor. Normal color with no rashes, no lesions, and no evidence of cellulitis. MS/ Extremity: Pulses equal, no cyanosis. Neurovascular intact. Full, normal range of motion. Neuro: Awake and alert, GCS 15, oriented to person, place, time, and situation. Cranial nerves II-XII grossly intact. Motor strength 5/5 in all extremities. Sensory grossly intact. Vital Signs: 06:09 BP 145 / 68; Pulse 77; Resp 18; Pulse Ox 99% on 100% Non-rebreather mask; mk 07:46 BP 135 / 80 Supine; Pulse 83; vg1 07:48 BP 136 / 82 Sitting; Pulse 84; vg1 07:50 BP 139 / 95 Standing; Pulse 90; vg1 08:30 BP 142 / 65; Pulse 82; Resp 20; Pulse Ox 98% on R/A; vg1 09:30 BP 143 / 80; Pulse 86; Resp 22; Pulse Ox 97% on R/A; vg1 10:06 Weight 64.64 kg; Height 5 ft. 8 in. (172.72 cm); vg1 13:17 BP 139 / 66; Pulse 88; Resp 22; Pulse Ox 96% ; jd3 14:00 BP 111 / 59; Pulse 83; Resp 19; Temp 98.3; Pulse Ox 93% on R/A; vg1 15:00 BP 111 / 58; Pulse 80; Resp 20; Pulse Ox 94% on R/A; vg1 16:00 BP 119 / 59; Pulse 79; Resp 22; Pulse Ox 96% on R/A; vg1 17:00 BP 139 / 69; Pulse 83; Resp 21; Pulse Ox 97% on R/A; vg1 10:06 Body Mass Index 21.67 (64.64 kg, 172.72 cm) vg1 07:50 pt became dizzy, sat back down on bed and began to vomit. Provider notified. 1 MDM: 06:11 Patient medically screened. jr8 08:28 Data reviewed: vital signs, nurses notes, lab test result(s), EKG, radiologic studies, jr8 plain films. Data interpreted: Pulse oximetry: on room air is 91 %. Interpretation: borderline. Counseling: I had a detailed discussion with the patient and/or guardian regarding: the historical points, exam findings, and any diagnostic results supporting the discharge/admit diagnosis, lab results, radiology results, the need for further work-up and treatment in the hospital. ED course: Patient became hypoxic while standing up. Became dizzy and started to vomit. Unstable to go home at this time to take care of herself as she is significant fall risk. Discussed with medicine that she has had similar episodes in past. Has Link device implanted at this time but currently has not seen any arrhythmia . 06/03 06:12 Order name: Basic Metabolic Panel 06/03 06:12 Order name: CBC with Diff 06/03 06:12 Order name: LFT's; Complete Time: 07:25 8 06/03 06:12 Order name: Magnesium; Complete Time: 07:25 06/03 06:12 Order name: NT PRO-BNP; Complete Time: 07:25 06/03 06:12 Order name: PT-INR; Complete Time: 07:25 06/03 06:12 Order name: Troponin (emerg Dept Use Only); Complete Time: 07:25 06/03 06:12 Order name: Lipase; Complete Time: 07:25 06/03 06:12 Order name: COVID-19 SARS RT PCR (Document "Date of Onset" if Symptomatic); Complete [facility] Time: 08:30 06/03 06:13 Order name: Basic Metabolic Panel; Complete Time: 07:25 EDMS 06/03 07:38 Order name: Manual Differential EDMS 06/03 08:23 Order name: Urine Microscopic Only jr8 06/03 08:23 Order name: Urine Microscopic Only; Complete Time: 09:54 EDMS 06/03 08:59 Order name: Urine Dipstick-Ancillary; Complete Time: 09:04 EDMS 06/03 06:12 Order name: XRAY Chest (1 view); Complete Time: 08:03 jr8 06/03 06:12 Order name: EKG; Complete Time: 06:13 jr8 06/03 06:12 Order name: Cardiac monitoring; Complete Time: 06:19 jr8 06/03 10:16 Order name: Heart Healthy EDMS 06/03 10:16 Order name: Echo with Doppler EDMS 06/03 10:16 Order name: Echo with Doppler EDMS 06/03 10:16 Order name: CBC with Automated Diff EDMS 06/03 10:16 Order name: CBC with Automated Diff EDMS 06/03 10:16 Order name: Comprehensive Metabolic Panel EDMS 06/03 10:16 Order name: Comprehensive Metabolic Panel EDMS 06/03 10:19 Order name: C.difficile GDH Ag EDMS 06/03 10:19 Order name: Fecal Leukocyte Stain; Complete Time: 14:42 EDMS 06/03 10:19 Order name: Stool Culture EDMS 06/03 06:12 Order name: EKG - Nurse/Tech; Complete Time: 06:19 jr8 06/03 06:12 Order name: IV Saline Lock; Complete Time: 06:19 jr8 06/03 06:12 Order name: Labs collected and sent; Complete Time: 06:19 jr8 06/03 06:12 Order name: O2 Per Protocol; Complete Time: 06:19 jr8 06/03 06:12 Order name: O2 Sat Monitoring; Complete Time: 06:19 jr8 06/03 07:30 Order name: Orthostatics; Complete Time: 08:04 jr8 06/03 08:23 Order name: Urine Dipstick-Ancillary (obtain specimen); Complete Time: 09:00 8 Administered Medications: 07:45 Drug: LoMOTIL (diphenoxylate-atropine) 2 tabs Route: PO; vg1 17:07 Follow up: Response: No adverse reaction vg1 09:16 Drug: Promethazine 6.25 mg Route: IVP; Site: left antecubital; vg1 10:00 Follow up: Response: No adverse reaction; Nausea is decreased vg1 09:16 Drug: NS 0.9% 500 ml Route: IV; Rate: bolus; Site: left antecubital; vg1 10:00 Follow up: IV Status: Completed infusion; IV Intake: 500ml vg1 Disposition: 06/04 12:17 Co-signature as Attending Physician, Karan Pruitt MD I agree with the assessment and carson plan of care. Disposition Summary: 06/03/21 08:30 Hospitalization Ordered Hospitalization Status: Observation jr8 Provider: Duane Rincon Condition: Stable jr8 Problem: new jr8 Symptoms: have improved jr8 Bed/Room Type: Standard jr8 Location: Telemetry/MedSurg (observation)(06/03/21 17:58) bd Room Assignment: [facility](06/03/21 17:58) Diagnosis - Idiopathic hypotension jr8 - Diarrhea, unspecified jr8 - Vomiting jr8 Forms: - Medication Reconciliation Form jr8 - SBAR form jr8 Signatures: Dispatcher [employer] EDMarlene Cisneros Corey, MD MD cha Williams, Irene, RN LUCIANA iw Bertrand Garcia PA PA jr8 Yuliet Cunningham RN RN vg1 Darling Barnard RN RN mk Corrections: (The following items were deleted from the chart) 06/03 07:29 07:27 Associated signs and symptoms: Pertinent negatives: abdominal pain, vomiting, jr8 jr8 13:41 08:30 Telemetry/MedSurg (observation) jr8 iw 13:41 08:30 jr8 iw 13:44 13:41 iw iw 17:58 13:41 [facility] ER HOLD iw bd 17:58 13:44 ERHOLD- iw bd
--- NOTE | 2021-06-03 08:31 | ER ---
Nurse's Notes [facility] Name: Rena Schuler Age: 81 yrs Sex: Female : 1940 Arrival Date: 06/03/2021 Time: 06:01 Bed 1 Private MD: Diagnosis: Idiopathic hypotension;Diarrhea, unspecified;Vomiting Presentation: 06/03 06:09 Chief complaint: EMS states: Family called for weakness/AMS. Pt had been having N/V/D mk throughout the night and became progressively weaker. When EMS arrived BP was 60/30 and pt altered. At time of tirage GCS 15. 1L NS and 4zofran IVP given en route. Hx HTN, HDL, 'heart issues', 'colon issues'. Upon arrival pt SpO2 52% on 4L per EMS it 'dropped just service captain'. Coronavirus screen: Vaccine status: Patient reports receiving the 2nd dose of the covid vaccine. Ebola Screen: Patient negative for fever greater than or equal to 101.5 degrees Fahrenheit, and additional compatible Ebola Virus Disease symptoms. 06:09 Method Of Arrival: EMS: [facility] 06:19 Acuity: THIEN 2 mk 08:07 Risk Assessment: Do you want to hurt yourself or someone else? Patient reports no vg1 desire to harm self or others. Triage Assessment: 06:18 General: Appears uncomfortable, Behavior is calm, cooperative. Pain: Denies pain. GI: Abdomen is flat, non-distended. - Immunization history:: Adult Immunizations up to date. - Social history:: Smoking status: Patient reports the use of cigarette tobacco products. Screenin:17 Abuse screen: Denies threats or abuse. Nutritional screening: No deficits noted. Tuberculosis screening: No symptoms or risk factors identified. Fall Risk No fall in past 12 months (0 pts). Secondary diagnosis (15 points) impaired mobility, IV access (20 points). Ambulatory Aid- None/Bed Rest/Nurse Assist (0 pts). Gait- Weak (10 pts.). Mental Status- Oriented to own ability (0 pts). Total Ashby Fall Scale indicates High Risk Score (45 or more points). Fall prevention measures have been instituted. Side Rails Up X 2 Placed Close to Nursing Station Family Present and informed to notify staff if the need to leave the bedside. Assessment: 07:45 General: Appears in no apparent distress. uncomfortable, Behavior is calm, cooperative. vg1 Pain: Denies pain. Neuro: Level of Consciousness is awake, alert, obeys commands, Oriented to person, place, time, situation. Cardiovascular: Patient's skin is warm and dry. Respiratory: Airway is patent Respiratory effort is even, unlabored, Respiratory pattern is tachypnea. GI: Abdomen is flat, non-distended, Reports diarrhea, nausea, vomiting, since today at 0330. : No signs and/or symptoms were reported regarding the genitourinary system. EENT: No signs and/or symptoms were reported regarding the EENT system. Derm: Skin is intact, Skin is pink, warm \\T\\ dry. Musculoskeletal: Circulation, motion, and sensation intact. 07:50 Reassessment: during orthostatics, while upon standing pt became dizzy, sat down on bed vg1 and began to vomit; provider notified. 08:45 Reassessment: Patient appears in no apparent distress at this time. No changes from vg1 previously documented assessment. Patient and/or family updated on plan of care and expected duration. Pain level reassessed. Patient is alert, oriented x 3, equal unlabored respirations, skin warm/dry/pink. 10:03 Reassessment: Patient appears in no apparent distress at this time. No changes from vg1 previously documented assessment. Patient is alert, oriented x 3, equal unlabored respirations, skin warm/dry/pink. 11:00 Reassessment: Patient appears in no apparent distress at this time. Patient and/or vg1 family updated on plan of care and expected duration. Pain level reassessed. Patient is alert, oriented x 3, equal unlabored respirations, skin warm/dry/pink. Vital Signs: 06:09 BP 145 / 68; Pulse 77; Resp 18; Pulse Ox 99% on 100% Non-rebreather mask; mk 07:46 BP 135 / 80 Supine; Pulse 83; vg1 07:48 BP 136 / 82 Sitting; Pulse 84; vg1 07:50 BP 139 / 95 Standing; Pulse 90; vg1 08:30 BP 142 / 65; Pulse 82; Resp 20; Pulse Ox 98% on R/A; vg1 09:30 BP 143 / 80; Pulse 86; Resp 22; Pulse Ox 97% on R/A; vg1 10:06 Weight 64.64 kg; Height 5 ft. 8 in. (172.72 cm); vg1 13:17 BP 139 / 66; Pulse 88; Resp 22; Pulse Ox 96% ; jd3 14:00 BP 111 / 59; Pulse 83; Resp 19; Temp 98.3; Pulse Ox 93% on R/A; vg1 15:00 BP 111 / 58; Pulse 80; Resp 20; Pulse Ox 94% on R/A; vg1 16:00 BP 119 / 59; Pulse 79; Resp 22; Pulse Ox 96% on R/A; vg1 17:00 BP 139 / 69; Pulse 83; Resp 21; Pulse Ox 97% on R/A; vg1 10:06 Body Mass Index 21.67 (64.64 kg, 172.72 cm) vg1 07:50 pt became dizzy, sat back down on bed and began to vomit. Provider notified. vg1 ED Course: 06:01 Patient arrived in ED. tw5 06:09 Darling Barnard, RN is Primary Nurse. mk 06:11 Bertrand Garcia PA is PHCP. jr8 06:11 Karan Pruitt MD is Attending Physician. jr8 06:18 Arm band placed on. EKG completed in triage. Results shown to MD. 06:19 Indigo Berrios, RN is Primary Nurse. sm5 06:19 Triage completed. 06:19 Patient has correct armband on for positive identification. Allergy band placed. Placed mk in gown. Bed in low position. Call light in reach. Side rails up X 1. quenching machine operator on. Pulse ox on. NIBP on. 06:19 Basic Metabolic Panel Sent. sm5 06:19 Lipase Sent. sm5 06:19 COVID-19 SARS RT PCR (Document "Date of Onset" if Symptomatic) Sent. sm5 06:19 Basic Metabolic Panel Sent. sm5 06:33 XRAY Chest (1 view) In Process Unspecified. EDMS 07:28 Primary Nurse role handed off by Indigo Berrios, LUCIANA bd 07:30 Yuliet Cunningham, RN is Primary Nurse. vg1 08:30 Duane Rincon MD is Hospitalizing Provider. jr8 11:48 No provider procedures requiring assistance completed. Inserted saline lock: 20 gauge vg1 in left antecubital area, using aseptic technique. ,using aseptic technique. ED staff. 11:51 Patient admitted, IV remains in place. vg1 Administered Medications: 07:45 Drug: LoMOTIL (diphenoxylate-atropine) 2 tabs Route: PO; vg1 17:07 Follow up: Response: No adverse reaction vg1 09:16 Drug: Promethazine 6.25 mg Route: IVP; Site: left antecubital; vg1 10:00 Follow up: Response: No adverse reaction; Nausea is decreased vg1 09:16 Drug: NS 0.9% 500 ml Route: IV; Rate: bolus; Site: left antecubital; vg1 10:00 Follow up: IV Status: Completed infusion; IV Intake: 500ml vg1 Intake: 10:00 IV: 500ml; Total: 500ml. vg1 Outcome: 08:30 Decision to Hospitalize by Provider. jr8 11:49 Admitted to ER Hold. Please see [facility] for further documentation. vg1 11:49 Condition: good 11:49 Instructed on the need for admit. 18:36 Patient left the ED. iw Signatures: Dispatcher [employer] EDMS Marlene Marks Irene, RN RN iw Bertrand Garcia PA PA jr8 Chuck Jackson RN Yuliet Lozoya RN RN vg1 Hilary Barrett tw5 Indigo Berrios RN RN sm5 Darling Barnard RN RN mk
[2021-06-03 08:59] LABS: Urine Blood 2+ (Negative); Urine Glucose Negative (Negative); Urine Protein Negative (Negative); Urine Specific Gravity 1.015 (1.005-1.030)
[2021-06-03 09:14] LABS: Urine Bacteria NONE SEEN /HPF (<20); Urine RBC <5 /HPF (NONE SEEN)
[2021-06-03] MEDS ORDERED: ONDANSETRON 4 MG/2 ML VIAL IV PRN (10:14)
[2021-06-03] MEDS ORDERED: MORPHINE 2 MG/ML SYR IV PRN (10:14)
[2021-06-03] MEDS ORDERED: SUCCINYLCHOLINE 20 MG/ML (10 ML) IV ONE (10:16)
[2021-06-03] MEDS ORDERED: ROCURONIUM 50 MG/5 ML VIAL IV ONE (10:16)
[2021-06-03] MEDS: NA CHLORIDE 0.9% 1,000 ML IV SCH ×2 (11:00→21:10)
[2021-06-03] MEDS ORDERED: NA CHLORIDE 0.9% 1,000 ML ONE (11:35)
[2021-06-03 11:39] VITALS: BMI 21.6
[2021-06-03] MEDS ORDERED: FENTANYL CITR 100 MCG/2 ML IV PRN (12:10)
[2021-06-03] MEDS ORDERED: PROMETHAZINE 25 MG TABLET PO PRN (17:17)
[2021-06-03] MEDS ORDERED: PROMETHAZINE 25 MG TABLET ONE (17:27)
--- NOTE | 2021-06-03 18:45 | P.HP ---
Certification for Inpatient Patient admitted to: Observation With expected LOS: <2 Midnights Patient will require the following post-hospital care: None Practitioner: I am a practitioner with admitting privileges, knowledge of patient current condition, hospital course, and medical plan of care. Services: Services provided to patient in accordance with Admission requirements found in Title 42 Section 412.3 of the Code of Federal Regulations Patient History Date of Service: 06/03/21 Reason for admission: Hypotension secondary to diarrhea History of Present Illness: Patient is an 81yo who was admitted to the hospital with Allergies aspirin [From Percodan] Allergy (Verified 07/25/16 08:39) Hives/Rash codeine Allergy (Verified 05/03/16 00:40) Hives/Rash hydrocodone [From Lortab] Allergy (Verified 07/25/16 08:39) Nausea/Vomiting meloxicam Allergy (Verified 07/25/16 08:39) Nausea/Vomiting morphine Allergy (Verified 05/03/16 00:40) Hives/Rash oxycodone [From Percodan] Allergy (Verified 07/25/16 08:39) Hives/Rash propoxyphene [From Darvocet-N] Allergy (Verified 07/25/16 08:39) Nausea/Vomiting pseudoephedrine [From Seldane-D] Allergy (Verified 07/25/16 08:39) Anaphylaxis terfenadine [From Seldane-D] Allergy (Verified 07/25/16 08:39) Anaphylaxis zolpidem [From Ambien] Allergy (Verified 07/25/16 08:39) Nausea/Vomiting pentazocine [From Talwin] Adverse Reaction (Verified 07/25/16 08:39) Nausea/Vomiting Home Medications: Aspirin [Adult Low Dose Aspirin EC] 1 tab PO BEDTIME 05/03/16 Temazepam 1 tab PO BEDTIME 05/03/16 Magnesium Oxide [Mag 0X*] 400 mg PO BID #60 tab 05/07/16 Pantoprazole [Protonix Tab*] 40 mg PO DAILYAC #30 tab 05/29/16 Albuterol Sulfate [Proair Hfa] 2 puff PO Q6HR PRN #1 06/02/20 Ascorbic Acid [Vitamin C*] 500 mg PO TID #90 tablet 06/02/20 Cholecalciferol (Vitamin D3) [Vitamin D 1000 Iu Tab*] 2,000 unit PO DAILY #60 tab 06/02/20 Folic Acid 1 mg PO DAILY #30 tablet 06/02/20 Lactobacillus Acidophilus [Acidophilus Lactobacilli] 1 each PO BID #30 capsule 06/02/20 Mometasone/Formoterol [Dulera 100 Mcg/5 Mcg Inhaler] 2 puff IH BID #1 inhaler 06/02/20 Zinc Sulfate [Zinc Sulfate*] 220 mg PO DAILY #30 cap 06/02/20 predniSONE [Deltasone*] 10 mg PO SEECOM #21 tab 06/02/20 Albuterol Sulfate [Proair Hfa] 8.5 gm IH Q6HP PRN #1 hfa.aer.ad 06/03/20 Midodrine HCl 10 mg PO TID #90 tablet 06/03/20 - Past Medical/Surgical History Has patient received pneumonia vaccine in the past: Yes Diabetic: No -: Hypertension -: COPD -: abd aneurysm -: "colon issues" -: back surgery -: hysterectomy -: cholecystectomy -: thryroidectomy -: eye surgery Psychosocial/ Personal History: Patient lives at home - Family History Father Medical History: Hypertension Notes: aneurysm Mother Notes: aneurysm - Social History Smoking Status: Never smoker Alcohol use: No CD- Drugs: No Caffeine use: No Place of Residence: Home Review of Systems 10-point ROS is otherwise unremarkable Physical Examination - Vital Signs Temperature: 98.3 F Blood Pressure: 119/59 Pulse: 79 Respirations: 22 Pulse Ox (%): 96 - Physical Exam General: Alert, In no apparent distress, Oriented x3 HEENT: Atraumatic, PERRLA, Mucous membr. moist/pink, EOMI, Sclerae nonicteric Neck: Supple, 2+ carotid pulse no bruit, No LAD, Without JVD or thyroid abnormality Respiratory: Clear to auscultation bilaterally, Normal air movement Cardiovascular: Regular rate/rhythm, Normal S1 S2 Gastrointestinal: Normal bowel sounds, Soft and benign, Non-distended, No tenderness Musculoskeletal: No tenderness Integumentary: No rashes Neurological: Normal gait, Normal speech, Normal strength at 5/5 x4 extr, Normal tone, Normal affect Lymphatics: No axilla or inguinal lymphadenopathy - Studies Laboratory Data (last 24 hrs) 06/03/21 06:17: PT 11.0, INR 0.96 06/03/21 06:17: WBC 14.20 H, Hgb 14.5, Hct 44.4, Plt Count 229 06/03/21 06:17: Sodium 137, Potassium 4.4, BUN 12, Creatinine 1.44 H, Glucose 181 H, Magnesium 2.1, Total Bilirubin 0.3, AST 16, ALT 19, Alkaline Phosphatase 82, Lipase 163 Assessment & Plan - Problems (Diagnosis) (1) Hypotension Current Visit: Yes Status: Acute (2) Diarrhea Current Visit: No Status: Acute (3) Hypokalemia Onset Date: 05/28/16 Current Visit: No Status: Acute (4) Hypomagnesemia Onset Date: 05/28/16 Current Visit: No Status: Acute - Advance Directives Does patient have a Living Will: Yes Does patient have a Durable POA for Healthcare: Yes
[2021-06-03 19:04] VITALS: O2SAT 97
[2021-06-03] MEDS ORDERED: HYDRALAZINE HCL 20 MG/ML VIAL IV PRN (20:15)
[2021-06-03] MEDS: ACETAMINOPHEN 500 MG TAB PO PRN (21:06)
[2021-06-03] MEDS: TEMAZEPAM 15 MG CAP PO PRN (21:06)
[2021-06-04] MEDS: NA CHLORIDE 0.9% 1,000 ML IV SCH ×2 (04:16→07:00)
[2021-06-04 06:17] LABS: Absolute Lymphocytes (CBC) 1.4 K/uL (0.7-4.9); Hematocrit 32.7 % (36.0-45.0); Lymphocytes % 23.1 % (15.3-44.8); MPV 7.1 fL (7.6-11.3)
[2021-06-04 06:45] LABS: Albumin 2.6 g/dL (3.4-5.0); Bilirubin Total 0.2 mg/dL (0.2-1.0); Potassium 3.9 mmol/L (3.5-5.1); Protein, Total 5.4 g/dL (6.4-8.2)
[2021-06-04] MEDS: ACETAMINOPHEN 500 MG TAB PO PRN (10:37)
[2021-06-04 10:49] LABS: C.diff Antigen/Toxin Ag neg : Tox neg (NEG : NEG)
[2021-06-04] MEDS: TEMAZEPAM 15 MG CAP PO PRN (21:09)
[2021-06-05 05:50] VITALS: TEMP 97.6
[2021-06-05] MEDS: NA CHLORIDE 0.9% 1,000 ML IV SCH (06:45)
--- NOTE | 2021-06-05 07:54 | EKG ---
Test Date: 2021-06-03 Test Time: 06:04:54 Data Processing Equipment Repairer: SUE MEASUREMENT RESULTS: Intervals: Rate: 76 CA: 172 QRSD: 114 QT: 430 QTc: 483 [place]: P: 101 CA: 172 QRS: -87 T: 89 INTERPRETIVE STATEMENTS: Sinus rhythm with premature supraventricular complexes Left axis deviation Pulmonary disease pattern Nonspecific ST and T wave abnormality Prolonged QT Abnormal ECG Compared to ECG 06/02/2020 10:14:42 Atrial premature complex(es) now present ST (T wave) deviation now present Prolonged QT interval now present Fusion complex(es) no longer present Left bundle-branch block no longer present Electronically Signed On 06-05-21 07:46:24 EDGE BLACKER by Tanner Sorensen
--- NOTE | 2021-06-05 08:23 | ECHO ---
HEIGHT: 5 ft 8 in WEIGHT: 142 lb 6.698 oz DATE OF STUDY: 06/04/[address]: Duane Rincon MD 2-DIMENSIONAL: YES M.MODE: YES DOPPLER: YES COLOR FLOW: YES TDS: NO PORTABLE: NO DEFINITY: NO BUBBLE STUDY: NO DIAGNOSIS: HYPOTENSION CARDIAC HISTORY: CATHERIZATION: NO SURGERY: NO PROSTHETIC VALVE: NO PACEMAKER: NO MEASUREMENTS (cm) DIASTOLIC (NORMALS) SYSTOLIC (NORMALS) IVSd 1.0 (0.6-1.2) LA Diam 2.6 (1.9-4.0) LVEF 51% LVIDd 3.8 (3.5-5.7) LVIDs 2.8 (2.0-3.5) %FS 25% LVPWd 1.2 (0.6-1.2) Ao Diam 3.0 (2.0-3.7) 2 DIMENSIONAL ASSESSMENT: RIGHT ATRIUM: NORMAL LEFT ATRIUM: NORMAL RIGHT VENTRICLE: NORMAL LEFT VENTRICLE: NORMAL TRICUSPID VALVE: NORMAL MITRAL VALVE: NORMAL PULMONIC VALVE: NORMAL AORTIC VALVE: NORMAL PERICARDIAL EFFUSION: NONE AORTIC ROOT: NORMAL LEFT VENTRICULAR WALL MOTION: NORMAL. DOPPLER/COLOR FLOW: MILD TRICUSPID REGURGITATION. COMMENTS: MILD TRICUSPID REGURGITATION. NORMAL LEFT VENTRICULAR SIZE AND FUNCTION. NO EFFUSION. TECHNOLOGIST: FIONA LANE
[2021-06-05] MEDS ORDERED: ALBUTEROL INHALER 60 PUFF/8 GM IH PRN (12:20)
[2021-06-05 12:30] VITALS: BP 147/59
[2021-06-05] MEDS ORDERED: MIDODRINE HCL 5 MG TABLET PO ONE (13:00)
[2021-06-05] MEDS ORDERED: HOME MED 1 EA UNK (Midodrine Hcl [Midodrine Hcl] 10 MG Tablet) PO SCH (14:00)
[2021-06-05] MEDS ORDERED: ASCORBIC ACID 500 MG TABLET PO SCH (14:00)
[2021-06-05] MEDS ORDERED: predniSONE 10 MG TAB PO SCH (21:00)
[2021-06-05] MEDS ORDERED: DULERA 100/5 (MOMETASONE/FORMOTEROL) INHALER IH SCH (21:00)
[2021-06-05] MEDS ORDERED: ASPIRIN EC 81 MG TAB PO SCH (21:00)
[2021-06-05] MEDS ORDERED: TEMAZEPAM 30 MG PO SCH (21:00)
[2021-06-05] MEDS ORDERED: LACTOBACILLUS/ACIDOPHILUS TAB PO SCH (21:00)
[2021-06-05] MEDS ORDERED: MAGNESIUM OXIDE 400 MG TAB PO SCH (21:00)
[2021-06-05] MEDS ORDERED: MIDODRINE HCL 5 MG TABLET PO SCH (21:00)
[2021-06-06] MEDS ORDERED: FOLIC ACID 1 MG TABLET PO SCH (09:00)
[2021-06-06] MEDS ORDERED: VITAMIN D 1000 UNIT TAB PO SCH (09:00)
[2021-06-06] MEDS ORDERED: ZINC SULFATE 220 MG CAP PO SCH (09:00)
== END 2021-06-05 14:58 | disposition home health service (06) | DRG 316 ==
LOC: ER 05:52 → ERHOLD 10:15 → 2ND 18:21 → OBSVTOIN 06-05 07:53
PROVIDERS: ADMIT Hospitalist; ATTEND Hospitalist
DX: I95.0 Idiopathic hypotension (principal); J44.9 Chronic obstructive pulmonary disease, unspecified; E83.42 Hypomagnesemia; E87.6 Hypokalemia; I10 Essential (primary) hypertension; Z88.5 Allergy status to narcotic agent; Z88.8 Allergy status to other drugs, medicaments and biological substances; Z79.82 Long term (current) use of aspirin; Z79.52 Long term (current) use of systemic steroids; Z79.899 Other long term (current) drug therapy; Z90.710 Acquired absence of both cervix and uterus; Z90.49 Acquired absence of other specified parts of digestive tract
CPT/HCPCS: 36415; 71045; 80048; 80053; 80076; 81003; 81015; 83690; 83735; 83880; 84145; 84484; 85025; 85610; 87045; 87046; 87324; 87449; 89055; 93005; 93306; 96361; 96374; 97116; 97161; 99285; G0378; J0330; J2405; J2550; J7030; J7040; J7606; Q0169; U0003

== ENCOUNTER 2021-09-06 21:37 | Inpatient (IN) | payer OTHER ==
[2021-09-06] MEDS ORDERED: ONDANSETRON 4 MG/2 ML VIAL ONE (22:00)
[2021-09-06] MEDS ORDERED: NA CHLORIDE 0.9% 1,000 ML ONE (22:00)
--- OUTSIDE RECORDS SUMMARY | 2021-09-06 23:43 | XMS REPORT | Continuity of Care Document ---
:1940 Author Organization [facility] t Address [address] [place] [address] Care Team Providers Name Role Phone ERINN [...] Univ ers INGREDI 1-25 ity of 00:00: [place] 00 [facility] PROPOXYP DRUG Active N/V Univers HENE 1-25 ity of N-ACETAM 00:00: [place] INOPHEN 00 Medical Branch SULFASAL DRUG Active Unknown-Cmnt Un gonzalez AZINE INGREDI 7-25 ity of 00:00: [place] 00 [facility] MEPERIDI DRUG Active Rash Univers NE INGREDI 7-25 ity of 00:00: [place] 00 [facility] HYDROCOD DRUG Active Unknown-Cmnt Un gonzalez ONE-ACET 7-25 ity of AMINOPHE 00:00: [place] N 00 Medical Branch MELOXICA DRUG Active Unknown-Cmnt Un gonzalez M INGREDI 7-25 ity of 00:00: [place] 00 [facility] OPIOIDS Drug Active Rash Univers - Class 7-25 ity of MORPHINE 00:00: [place] ANALOGUE 00 Medical S Branch OXYCODON DRUG Active Unknown-Cmnt 2015-05 Un gonzalez E 06-05 ity of HCL-OXYC 00:00: [place] ODONE- 00 Medical A Branch SELDANE DRUG Active Unknown-Cmnt 2015-05 Uni vers 06-05 ity of 00:00: [place] 00 [facility] Branch MORPHINE DRUG Active Unknown-Cmnt 2015-05 Un gonzalez INGREDI 06-05 ity of 00:00: [place] 00 [facility] Branch codeine Adverse Active Info Not [facility] Reaction Available [facility] MORPHINE Adverse Active Info Not [facility] Medications Ordered Filled Start Stop [...] Famotidine Yes Lane TAKE [address] [facility] TABLET BY [facility] EVERY [...] Date/Time Type Type Clinicians Facility Department ID 2021-06-19 Outpatient [facility]58 [id number] [facility] 2021-06-19 Outpatient [facility] [id number] [facility] 12[facility]42:51 [id number] [facility] 2021-06-19 Outpatient [facility] 12:10:28 [id number] [facility] 2021-05-01 2021-05-01 Outpatient [facility] [id number] [place] 00:00:00 00:00:00 [facility] 745 [facility] 2021-04-26 2021-04-26 Outpatient [facility] [id number] [place] 00:00:00 00:00:00 THELMA 591 [facility] i 2021-04-26 2021-04-26 Outpatient [facility] [id number] [place] 00:00:00 00:00:00 THELMA 402 [facility] 2021-04-26 2021-04-26 Outpatient [facility] [id number] [place] 00:00:00 00:00:00 THELMA 592 [facility] i 2021-03-28 2021-03-29 Inpatient [facility] [id number] [place] 00:00:00 00:00:00 THELMA 967 [facility] i 2021-03-25 2021-03-25 Outpatient [facility] [id number] [place] 00:00:00 00:00:00 THELMA 949 [facility] i 2021-03-25 2021-03-25 Outpatient [facility] [id number] [place] 00:00:00 00:00:00 THELMA 646 [facility] i 2021-01-23 2021-01-24 Outpatient ERINN, [facility] [id number] [place] 00:00:00 00:00:00 THELMA [address] 2021-01-10 2021-01-10 Outpatient ERINN, [facility] [id number] [place] 00:00:00 00:00:00 THELMA [address] 2021-01-10 2021-01-10 Outpatient [facility] [id number] [place] 00:00:00 00:00:00 THELMA [address] 2020-12-26 2020-12-26 Outpatient ERINN, [facility] [id number] [place] 00:00:00 00:00:00 THELMA [address] 2020-12-26 2020-12-26 Outpatient ERINN, [facility] [id number] [place] 00:00:00 00:00:00 THELMA [address] 2020-12-17 2020-12-17 Outpatient [facility] [id number] [facility] 2020-12-17 2020-12-17 Outpatient [facility] [id number] [facility] 2020-12-17 2020-12-17 ambulatory [facility] [id number] [facility] 2020-08-28 2020-08-28 Outpatient Sheyla TRINH [facility] [id number] [facility] 08:00:00 08:00:00 YURI [id number] [facility] 2020-08-16 2020-08-16 Outpatient [facility] [id number] [facility] 2020-08-14 2020-08-14 Outpatient [facility] [id number] [facility] 2020-06-07 2020-06-07 Outpatient [facility] [id number] [facility] 2020-05-21 2020-05-21 Outpatient [facility] [id number] [facility] 2020-04-27 2020-04-27 [facility] [id number]00 [facility] 2019-07-05 2019-07-05 [place] [id number] 11:00:00 11:00:00 [facility] 2019-06-02 2019-06-02 [facility] [id number] 11:00:00 11:00:00 [facility] 2019-05-13 2019-05-13 [facility] [id number] [facility] 10:00:00 10:00:00 [facility] 2019-04-26 2019-04-26 [facility] [id number] 10:30:00 10:30:00 [facility] Results Test Description Test Time Test Comments Results Result Comments Source HEMOGLOBIN A1c 2021-08-08 06:33:28 Test Item Value Reference Range Interpretation Comme nts HEMOGLOBIN A1c (test code = 13250) 5.8 % 4.2-5.6 H LIPID [id number] 06:11:17 Test Item Value Reference Range Interpretation Comments CHOLESTEROL (test 251 MG/DL <200 H code = 2210) TRIGLYCERIDES (test 155 MG/DL <150 H code = 2232) HDL CHOLESTEROL (test 50 MG/DL >39 code = 2220) CALC LDL CHOL (test 171 MG/DL <100 H NOTE: C ALCULATED LDL code = 2237) IS BASED ON TOÑA-ARVIZU METHOD WHICHINCLUDES ADJUSTABLE TRIGLYCERIDE:VL DL CHOLESTEROL RAT IO.THIS FACTOR VARIES B Y MEASURED TRIGLY CERIDE AND NON-HDLCHOL ESTEROL CONCENTRATIONS WITH INCREASED CALCU LATED LDL SEENIN HIGH ER TRIGLYCERIDE OR LOWER NON-HDL SPECIME NS. FOR MOREINFORMATION , SEE CLIENT ANNOUNCE MENT AT [email or web address] [email or web address] RATIO LDL/HDL 3.42 RATIO <3.22 H (test code = 2238) COMPREHENSIVE METABOLIC [id number] 06:11:17 Test Item Value Reference Range Interpretation Comments GLUCOSE (test code = 123 MG/DL 70-99 H 2216) BUN (test code = 14 MG/DL 8-23 2207) CREATININE (test 1.09 MG/DL 0.60-1.30 code = 221) eGFR (2020 CKD-EPI) 50 >60 L (test code = 64433) ML/MIN/1.73 CALC BUN/CREAT (test 13 RATIO 6-28 code = 2235) SODIUM (test code = 139 MEQ/L 659-160 1255) POTASSIUM (test code 4.3 MEQ/L 3.5-5.4 = 2227) CHLORIDE (test code 98 MEQ/L 95-107 = 2214) CARBON DIOXIDE (test 27 MEQ/L 19-31 code = 2206) CALCIUM (test code = 9.5 MG/DL 8.5-10.5 2208) PROTEIN, TOTAL (test 7.1 G/DL 6.1-8.3 code = 222) ALBUMIN (test code = 4.4 G/DL 3.5-5.2 2200) CALC GLOBULIN (test 2.7 G/DL 1.9-3.7 code = 2240) CALC A/G RATIO (test 1.6 RATIO 1.0-2.6 code = 2234) BILIRUBIN, TOTAL 0.3 MG/DL See_Comment [Automated message] (test code = 2207) The syste m which generated this result transmitted ref erence range: <=1.2. T he reference range was not used to int erpret this result as normal/abnormal . ALKALINE PHOSPHATASE 84 U/L 40-142 (test code = 220) AST (test code = 17 U/L 9-40 2217) ALT (test code = 11 U/L 5-40 UNLE SS 2218) OTHERWISE INDIC ATED, ALL TESTING PER [facility], [place] [address] [place] [address] LABORATORY DIRE CTOR: DARCY CARPIO M.D. CLIA NUMBER [id number] CAP ACCREDITATION N O. [id number] SARS-CoV-2 (COVID-19) RNA [Presence] in Respiratory specimen by JESE with probe [id number] 19:02:20 Test Item Value Reference Range Interpretation Comments SARS-CoV-2 (COVID-19) RNA Not detected Not-Detected [Presence] in Respiratory specimen by JESE with probe detection (test code = 39255-0) Whether patient is employed in a healthcare setting (test code = 84559-4) Whether the patient has symptoms related to condition of interest (test code = 80436-0) Patient was hospitalized because of this condition (test code = 78082-9) Whether the patient was admitted to intensive care unit (ICU) for condition of interest (test code = 82720-4) Whether patient resides in a congregate care setting (test code = 81654-3)
[2021-09-07 00:04] LABS: Urine Blood Negative (Negative); Urine Glucose Negative (Negative); Urine Protein Negative (Negative)
[2021-09-07] MEDS ORDERED: CEFTRIAXONE 1000 MG/VIAL ONE (01:39)
[2021-09-07] MEDS ORDERED: NA CHLORIDE 0.9% 50 ML ONE (01:39)
[2021-09-07 02:41] VITALS: BMI 21.5
--- NOTE | 2021-09-07 03:00 | P.HP ---
Certification for Inpatient Patient admitted to: Inpatient With expected LOS: >2 Midnights Patient will require the following post-hospital care: None Practitioner: I am a practitioner with admitting privileges, knowledge of patient current condition, hospital course, and medical plan of care. Services: Services provided to patient in accordance with Admission requirements found in Title 42 Section 412.3 of the Code of Federal Regulations Patient History Date of Service: 09/07/21 History of Present Illness: 81-year-old female with history of COPD, hypertension, abdominal aortic aneurysm with repair, TIA and diverticulosis presents emergency department with lower abdominal pain, nausea/vomiting/diarrhea. Patient was seen in the emergency department in [place] on 08/16/2021 and prescribed cefdinir for UTI she was then seen again by another PCP in [place] on 08/19/2021 and prescribed Macrobid/Levaquin which she reportedly completed. Patient was then seen by her PCP here in [place] yesterday who prescribed her Macrobid which she took 1 dose of yesterday. Patient noted to still have urinary tract infection in the emergency department mild leukocytosis present as well given Rocephin ED provider wishes to admit for UTI failed outpatient management. CT negative for other acute findings. Allergies codeine Allergy (Verified 05/03/16 00:40) Hives/Rash hydrocodone [From Lortab] Allergy (Verified 07/25/16 08:39) Nausea/Vomiting meloxicam Allergy (Verified 07/25/16 08:39) Nausea/Vomiting morphine Allergy (Verified 05/03/16 00:40) Hives/Rash oxycodone [From Percodan] Allergy (Verified 07/25/16 08:39) Hives/Rash propoxyphene [From Darvocet-N] Allergy (Verified 07/25/16 08:39) Nausea/Vomiting pseudoephedrine [From Seldane-D] Allergy (Verified 07/25/16 08:39) Anaphylaxis terfenadine [From Seldane-D] Allergy (Verified 07/25/16 08:39) Anaphylaxis zolpidem [From Ambien] Allergy (Verified 07/25/16 08:39) Nausea/Vomiting pentazocine [From Talwin] Adverse Reaction (Verified 07/25/16 08:39) Nausea/Vomiting Home Medications: Aspirin [Adult Low Dose Aspirin EC] 1 tab PO BEDTIME 05/03/16 Temazepam 1 tab PO BEDTIME 05/03/16 Magnesium Oxide [Mag 0X*] 400 mg PO BID #60 tab 05/07/16 Pantoprazole [Protonix Tab*] 40 mg PO DAILYAC #30 tab 05/29/16 Albuterol Sulfate [Proair Hfa] 2 puff PO Q6HR PRN #1 06/02/20 Ascorbic Acid [Vitamin C*] 500 mg PO TID #90 tablet 06/02/20 Cholecalciferol (Vitamin D3) [Vitamin D 1000 Iu Tab*] 2,000 unit PO DAILY #60 tab 06/02/20 Folic Acid 1 mg PO DAILY #30 tablet 06/02/20 Lactobacillus Acidophilus [Acidophilus Lactobacilli] 1 each PO BID #30 capsule 06/02/20 Mometasone/Formoterol [Dulera 100 Mcg/5 Mcg Inhaler] 2 puff IH BID #1 inhaler 06/02/20 Zinc Sulfate [Zinc Sulfate*] 220 mg PO DAILY #30 cap 06/02/20 predniSONE [Deltasone*] 10 mg PO SEECOM #21 tab 06/02/20 Albuterol Sulfate [Proair Hfa] 8.5 gm IH Q6HP PRN #1 hfa.aer.ad 06/03/20 Midodrine HCl 10 mg PO TID #90 tablet 06/03/20 - Past Medical/Surgical History Diabetic: No -: Hypertension -: COPD -: abd aneurysm -: "colon issues" -: back surgery -: hysterectomy -: cholecystectomy -: thryroidectomy -: eye surgery Psychosocial/ Personal History: Patient lives at home - Family History Father -: Hypertension Notes: aneurysm Mother Notes: aneurysm - Social History Alcohol use: No CD- Drugs: No Caffeine use: No Review of Systems 10-point ROS is otherwise unremarkable Gastrointestinal: Nausea, Abdominal Pain Genitourinary: Dysuria Physical Examination - Vital Signs Temperature: 97.9 F Blood Pressure: 196/88 Pulse: 70 Respirations: 19 Pulse Ox (%): 98 - Physical Exam General: Alert, In no apparent distress, Oriented x3 HEENT: Atraumatic, PERRLA, Mucous membr. moist/pink, EOMI, Sclerae nonicteric Neck: Supple, 2+ carotid pulse no bruit, No LAD, Without JVD or thyroid abnormality Respiratory: Clear to auscultation bilaterally, Normal air movement Cardiovascular: Regular rate/rhythm, Normal S1 S2 Gastrointestinal: Normal bowel sounds, No tenderness Musculoskeletal: No tenderness Integumentary: No rashes Neurological: Normal speech, Normal strength at 5/5 x4 extr, Normal tone, Normal affect Assessment and Plan - Plan Assessment: UTIfailed outpatient therapy COPD Hypertension AAA with repair Plan: UTIfailed outpatient therapy: Continue Rocephin, urine/blood cultures obtained. Continue IV fluids. Await results from urine culture. COPD: Stable as needed inhaler Hypertension: Continue home meds AAA with repair: Stable DVT PPX: Lovenox Code status: Full Discharge Plan: Home Plan to discharge in: 48 Hours - Advance Directives Does patient have a Living Will: Yes Does patient have a Durable POA for Healthcare: Yes Critical Care: No Time Spent Managing Pts Care (In Minutes): 55
[2021-09-07 03:48] LABS: Albumin 3.4 g/dL (3.4-5.0); Bilirubin Total 0.3 mg/dL (0.2-1.0); Potassium 4.1 mmol/L (3.5-5.1); Protein, Total 7.2 g/dL (6.4-8.2)
[2021-09-07 03:49] LABS: Absolute Lymphocytes (CBC) 0.9 K/uL (0.7-4.9); Hematocrit 39.5 % (36.0-45.0); Lymphocytes % 6.8 % (15.3-44.8); MPV 6.7 fL (7.6-11.3); RBC Red Blood Cell Count 4.16 M/uL (3.86-4.86)
[2021-09-07 03:50] LABS: SARS-COV-2 RT PCR NEGATIVE (NEGATIVE)
[2021-09-07] MEDS ORDERED: PHENAZOPYRIDINE 100MG TAB PO PRN (04:03)
[2021-09-07 04:11] LABS: Absolute Lymphocytes (CBC) 0.6 K/uL (0.7-4.9); Lymphocytes % 8.4 % (15.3-44.8); MPV 7.2 fL (7.6-11.3); RBC Red Blood Cell Count 3.68 M/uL (3.86-4.86)
[2021-09-07] MEDS: AMLODIPINE 2.5 MG TAB PO SCH ×2 (04:14→22:40)
[2021-09-07] MEDS: ACETAMINOPHEN 500 MG TAB PO PRN ×2 (04:15→17:54)
[2021-09-07] MEDS: NA CHLORIDE 0.9% 1,000 ML IV SCH ×2 (04:15→17:57)
[2021-09-07] MEDS: METOPROLOL XL 25 MG TAB PO SCH ×2 (04:16→22:42)
[2021-09-07 04:30] LABS: Albumin 2.8 g/dL (3.4-5.0); Bilirubin Total 0.3 mg/dL (0.2-1.0); Protein, Total 6.3 g/dL (6.4-8.2)
[2021-09-07] MEDS: PROMETHAZINE INJ 25 MG/ML AMP IV PRN ×2 (05:50→20:16)
[2021-09-07] MEDS: CEFTRIAXONE 1,000 MG in NA CHLORIDE 0.9% 50 ML IVPB SCH (08:13)
[2021-09-07] MEDS: ENOXAPARIN 40 MG/0.4 ML SQ SCH (08:14)
--- NOTE | 2021-09-07 12:39 | RAD REPORT ---
EXAM DESCRIPTION: CT - Abdomen Pelvis W Contrast - 09/07/2021 4:55 am CLINICAL HISTORY: 81 years, Female, DIFFUSE ABD PAIN COMPARISON: 10/04/2018 PROCEDURE: Contrast-enhanced images of the abdomen and pelvis were performed utilizing 5 mm slice thickness at 5 mm interval reconstruction from the lung bases to the ischial tuberosities after the administration of IV contrast. In addition multiplanar reformats in the coronal and sagittal plane were obtained and reviewed. This exam was performed according to our departmental dose-optimization protocol, which includes auto mated exposure control, adjustment of the mA and/or kV according to patient size and/or use of iterat mahendra reconstruction technique. FINDINGS: The lung bases demonstrate to be clear. The liver, pancreas, spleen and adrenal glands demonstrate to be unremarkable, no focal lesions are n oted. Surgical clips within the gallbladder fossa correspond to previous cholecystomy. The common dejuan e duct is slightly prominent. No significant biliary duct dilatation. The kidneys demonstrate normal uptake of contrast media. No evidence for nephrolithiasis and/or hydro nephrosis. Grossly the unopacified stomach, small bowel and large bowel demonstrate to be within normal limits. There is no evidence for bowel dilatation/or free air. The large bowel is minimally fluid-filled fo r which the possibility of intermittent diarrhea could be of consideration. There is diverticulosis w ithin the sigmoid colon. The appendix is normal. The urinary bladder demonstrate to be unremarkable. The uterus is absent. There is no retroperito maddison lymphadenopathy. There is no evidence for ascites or and/or significant abnormal fluid collectio ns. There is minimal degenerative changes lower lumbar spine. There is aortic endograft stent in good position. No definitive significant endograft leak could be i dentified. The residual sac measured 4.8 x 4.[address] series #501 image 34/91 previously measured 4 .6 cm, perhaps slightly increased. IMPRESSION: No acute intra-abdominal pathology. Minimal fluid-filled large bowel for which the possibility of intermittent diarrhea could be of consi deration. Status post cholecystectomy and hysterectomy. Aortic endograft stent in good position. No definitive significant endograft leak could be identified . The residual sac measured 4.8 x 4.[address] series #501 /91 previously measured 4.6 cm slight incr eased in comparison. Electronically signed by: Ryder Wilkerson MD 09/07/2021 12:24 AM CDT Due to temporary technical issues with the PACS/Fluency reporting system, reports are being signed by the in house radiologists without review as a courtesy to insure prompt reporting. The interpreting radiologist is fully responsible for the content of the report.
--- NOTE | 2021-09-07 12:52 | EDPHYS ---
Physician Documentation [facility] Name: Rena Schuler Age: 81 yrs Sex: Female : 1940 Arrival Date: 09/06/2021 Time: 21:46 Bed 6 Private MD: ED Physician Ernst Sheldon HPI: 09/06 21:53 This 81 yrs old Female presents to ER via EMS with complaints of rn Vomiting/Diarrhea, abd pain. 21:53 The patient presents to the emergency department with nausea, vomiting, diarrhea, rn abdominal pain, of the left lower quadrant, described as sharp, and does not radiate. Onset: The symptoms/episode began/occurred today. Possible causes: unknown. The symptoms are aggravated by movement, pressure, The symptoms are alleviated by nothing. Severity of symptoms: At their worst the symptoms were moderate in the emergency department the symptoms are unchanged. The patient has experienced a previous episode. The patient has been recently seen by a physician:. Pt reports abd pain, nausea/vomiting/diarrhea, began today about 3 hours ago, reports recently seen and diagnosed with UTI, taking abx for this, has noticed small amount of blood in urine. Denies blood in stool. No fever. No hematemesis.. Historical: - Allergies: 21:51 "I can have Dilaudid for a couple of days and then it makes me nauseous"; as6 21:51 all pain medications; as6 21:51 Codeine; as6 21:51 Morphine; as6 - PMHx: 21:51 COPD; Hypertension; Diverticulitis; TIA; as6 - Immunization history:: Client reports receiving the 2nd dose of the Covid vaccine, moderna. - Social history:: Smoking status: Patient/guardian denies using tobacco, but has a distant history of tobacco abuse. - Family history:: not pertinent. - Hospitalizations: : No recent hospitalization is reported. ROS: 21:53 Constitutional: Negative for fever, chills, and weight loss, Eyes: Negative for injury, rn pain, redness, and discharge, Neck: Negative for injury, pain, and swelling, Cardiovascular: Negative for chest pain, palpitations, and edema, Respiratory: Negative for shortness of breath, cough, wheezing, and pleuritic chest pain, Abdomen/GI: + abd pain/nausea/vomiting/diarrhea Back: Negative for injury and pain, : Negative for injury, discharge, and swelling, + hematuria MS/Extremity: Negative for injury and deformity, Skin: Negative for injury, rash, and discoloration, Neuro: Negative for numbness, tingling, and seizure. 21:53 All other systems are negative. rn Exam: 21:53 Constitutional: This is a well developed, well nourished patient who is awake, alert, rn and in no acute distress. Head/Face: Normocephalic, atraumatic. Eyes: Periorbital areas with no swelling, redness, or edema. ENT: dry MM Cardiovascular: Regular rate and rhythm. No pulse deficits. Respiratory: No increased work of breathing, no retractions or nasal flaring. Abdomen/GI: soft, + LLQ tenderness, with guarding, no rebound. Skin: Warm, dry MS/ Extremity: Pulses equal, no cyanosis. Neuro: Awake and alert, GCS 15 Vital Signs: 21:46 BP 150 / 78; Pulse 96; Resp 20 S; Temp 98.0; Pulse Ox 97% on R/A; Weight 64.86 kg (R); as6 Height 5 ft. 9 in. (175.26 cm) (R); Pain 3/10; 22:49 BP 144 / 64; Pulse 91; Resp 18 S; Pulse Ox 96% on R/A; as6 09/07 01:00 BP 139 / 70; Pulse 98; Resp 20 S; Pulse Ox 95% on R/A; as6 02:12 BP 153 / 73; Pulse 93; Resp 18 S; Pulse Ox 94% on R/A; as6 09/06 21:46 Body Mass Index 21.12 (64.86 kg, 175.26 cm) as6 MDM: 09/06 21:48 Patient medically screened. rn 22:45 ED course: Orders not crossing over, in downtime, possible delay in care. rn 09/07 01:15 Differential diagnosis: Nonspecific abd pain, diverticulitis, viral gastroenteritis, rn gastroenteritis, UTI. Data reviewed: vital signs, nurses notes, lab test result(s), radiologic studies, CT scan, and as a result, I will discharge patient. Counseling: I had a detailed discussion with the patient and/or guardian regarding: the historical points, exam findings, and any diagnostic results supporting the discharge/admit diagnosis, lab results, radiology results, the need for further work-up and treatment in the hospital. Response to treatment: the patient's symptoms have mildly improved after treatment, and as a result, I will admit patient. Admission orders: after a detailed discussion of the patient's condition and case, the admit orders are written by me. ED course: Ct no acute findings, fluid filled intestine, no obstruction, + UTI with nitrate +, likely viral gut infection on top of UTI. Normal h/h. Admitted to hospitalist service.. ED course: . 09/06 21:50 Order name: IV Saline Lock; Complete Time: 21:53 rn 09/06 21:50 Order name: Labs collected and sent; Complete Time: 21:59 rn 09/06 21:50 Order name: Urine Dipstick-Ancillary (obtain specimen); Complete Time: 00:03 rn Administered Medications: 09/06 21:59 Not Given (Patient Refused): Zofran (Ondansetron) 4 mg IVP once; over 2 minutes as6 21:59 Drug: NS 0.9% 1000 ml Route: IV; Rate: 1000 ml; Site: left forearm; as6 09/07 01:25 Follow up: Response: No adverse reaction; IV Status: Completed infusion; IV Intake: as6 1000ml 01:40 Drug: Rocephin - (cefTRIAXone) 1 grams Route: IVPB; Infused Over: 30 mins; Site: left as6 forearm; 02:15 Follow up: Response: No adverse reaction; IV Status: Completed infusion; IV Intake: [id number] Disposition Summary: 09/07/21 01:16 Hospitalization Ordered Hospitalization Status: Inpatient Admission rn [facility] rn Condition: Stable rn Problem: new rn Symptoms: are unchanged rn Bed/Room Type: Standard rn Provider: Romeo Everett(09/07/21 01:21) la1 Room Assignment: [facility](09/07/21 02:11) Diagnosis - UTI/ Urinary tract infection, site not specified - Failure of outpatient treatment rn - Infectious gastroenteritis and colitis, unspecified rn - Dehydration rn - Muscle weakness (generalized) rn Forms: - Medication Reconciliation Form rn - SBAR form rn Signatures: Ernst Sheldon MD MD rn Attema, Lee, MARA-C REAL ESTATE DIRECTOR-Flory Pedersen RN RN aaron Oracio Montero RN RN as6 Corrections: (The following items were deleted from the chart) 01:21 01:16 Jesus Sheldon rn la1 02:11 01:16 shawn walker
--- NOTE | 2021-09-07 12:53 | ER ---
Nurse's Notes [facility] Name: Rena Schuler Age: 81 yrs Sex: Female : 1940 Arrival Date: 09/06/2021 Time: 21:46 Bed 6 Private MD: Diagnosis: UTI/ Urinary tract infection, site not specified-Failure of outpatient treatment;Infectious gastroenteritis and colitis, unspecified;Dehydration;Muscle weakness (generalized) Presentation: 09/06 21:46 Chief complaint: EMS states: nausea, vomiting, diarrhea. has been happening as6 intermittently for weeks. Coronavirus screen: At this time, the client does not indicate any symptoms associated with coronavirus-19. Ebola Screen: No symptoms or risks identified at this time. Initial Sepsis Screen: Does the patient meet any 2 criteria? No. Patient's initial sepsis screen is negative. Does the patient have a suspected source of infection? No. Patient's initial sepsis screen is negative. Risk Assessment: Do you want to hurt yourself or someone else? Patient reports no desire to harm self or others. Onset of symptoms was September 06, 2021. Care prior to arrival: Medication(s) given: Normal saline infusion, Phenergan, 12.5 mg, zofran 4 mg, IV initiated. 22 GA, in the left forearm. 21:46 Method Of Arrival: EMS: [facility] as6 21:46 Acuity: THIEN 3 as6 Historical: - Allergies: 21:51 "I can have Dilaudid for a couple of days and then it makes me nauseous"; as6 21:51 all pain medications; as6 21:51 Codeine; as6 21:51 Morphine; as6 - PMHx: 21:51 COPD; Hypertension; Diverticulitis; TIA; as6 - Immunization history:: Client reports receiving the 2nd dose of the Covid vaccine, moderna. - Social history:: Smoking status: Patient/guardian denies using tobacco, but has a distant history of tobacco abuse. - Family history:: not pertinent. - Hospitalizations: : No recent hospitalization is reported. Screenin:52 Abuse screen: Denies threats or abuse. Denies injuries from another. Nutritional as6 screening: No deficits noted. Tuberculosis screening: No symptoms or risk factors identified. Fall Risk Fall in past 12 months (25 points). Secondary diagnosis (15 points) TIA, IV access (20 points). Gait- Weak (10 pts.). Mental Status- Oriented to own ability (0 pts). Total Ashby Fall Scale indicates High Risk Score (45 or more points). Fall prevention measures have been instituted. Side Rails Up X 2 Frequent Obs/Assessments Occuring As available patient and family educated on Fall Prevention Program and Strategies. Assessment: 21:45 General: Appears in no apparent distress. uncomfortable, Behavior is calm, cooperative. as6 21:45 Pain: Complains of pain in left lower quadrant. Neuro: Level of Consciousness is awake, as6 alert, obeys commands, Oriented to person, place, time, situation. GI: Reports lower abdominal pain, diarrhea, nausea, vomiting. Vital Signs: 21:46 BP 150 / 78; Pulse 96; Resp 20 S; Temp 98.0; Pulse Ox 97% on R/A; Weight 64.86 kg (R); as6 Height 5 ft. 9 in. (175.26 cm) (R); Pain 3/10; 22:49 BP 144 / 64; Pulse 91; Resp 18 S; Pulse Ox 96% on R/A; as6 09/07 01:00 BP 139 / 70; Pulse 98; Resp 20 S; Pulse Ox 95% on R/A; as6 02:12 BP 153 / 73; Pulse 93; Resp 18 S; Pulse Ox 94% on R/A; as6 09/06 21:46 Body Mass Index 21.12 (64.86 kg, 175.26 cm) as6 ED Course: 09/06 21:46 Patient arrived in ED. cs9 21:46 Oracio Montero, LUCIANA is Primary Nurse. as6 21:48 Ernst Sheldon MD is Attending Physician. rn 21:51 Triage completed. as6 21:52 Arm band placed on. as6 22:32 Primary Nurse role handed off by Oracio Montero RN as6 22:47 Oracio Montero RN is Primary Nurse. as6 09/07 01:01 Bed in low position. Call light in reach. Side rails up X2. Adult w/ patient. Pulse ox as6 on. NIBP on. 01:16 Jesus Sheldon MD is Hospitalizing Provider. rn 01:21 Romeo Everett MD is Hospitalizing Provider. la1 02:19 No provider procedures requiring assistance completed. Maintain EMS IV. Dressing as6 intact. Good blood return noted. Site clean \\T\\ dry. Gauge \\T\\ site: 22g LFA. Patient admitted, IV remains in place. Administered Medications: 09/06 21:59 Not Given (Patient Refused): Zofran (Ondansetron) 4 mg IVP once; over 2 minutes as6 21:59 Drug: NS 0.9% 1000 ml Route: IV; Rate: 1000 ml; Site: left forearm; as6 09/07 01:25 Follow up: Response: No adverse reaction; IV Status: Completed infusion; IV Intake: as6 1000ml 01:40 Drug: Rocephin - (cefTRIAXone) 1 grams Route: IVPB; Infused Over: 30 mins; Site: left as6 forearm; 02:15 Follow up: Response: No adverse reaction; IV Status: Completed infusion; IV Intake: [id number] Intake: 01:25 IV: 1000ml; Total: 1000ml. as6 02:15 IV: 50ml; Total: 1050ml. as6 Outcome: 01:16 Decision to Hospitalize by Provider. rn 02:20 Condition: stable as6 02:20 Instructed on the need for admit. 02:30 Admitted to Med/surg accompanied by tech, family with patient, via stretcher, room 209, as6 with chart, Report called to Lela CHOWDHURY 02:30 Patient left the ED. as6 Signatures: Ernst Sheldon MD MD rn Attema, Lee, FINISHING AND SHIPPING SUPERVISOR-C FINISHING AND SHIPPING SUPERVISOR-Cla1 Sabrina Velasquez cs9 Oracio Montero RN RN as6
[2021-09-07] MEDS: ONDANSETRON 4 MG/2 ML VIAL IV PRN (19:26)
[2021-09-07] MEDS ORDERED: ACETAMINOPHEN 500 MG TAB PO ONE (19:43)
[2021-09-07] MEDS: TEMAZEPAM 15 MG CAP PO SCH (22:41)
[2021-09-08 05:42] LABS: Absolute Lymphocytes (CBC) 1.4 K/uL (0.7-4.9); Hematocrit 29.1 % (36.0-45.0); Lymphocytes % 36.2 % (15.3-44.8); MPV 6.6 fL (7.6-11.3); RBC Red Blood Cell Count 3.06 M/uL (3.86-4.86)
[2021-09-08 06:31] LABS: Albumin 2.3 g/dL (3.4-5.0); Bilirubin Total 0.2 mg/dL (0.2-1.0); Potassium 3.8 mmol/L (3.5-5.1); Protein, Total 5.1 g/dL (6.4-8.2)
--- NOTE | 2021-09-08 07:43 | P.PN ---
Subjective Date of Service: 09/08/21 Subjective: No new changes, Improving Physical Examination - Vital Signs Temperature: 97.1 F Blood Pressure: 109/52 Pulse: 57 Respirations: 16 Pulse Ox (%): 94 - Physical Exam General: Alert HEENT: Atraumatic, Normocephalic Neck: Supple Respiratory: Normal air movement Cardiovascular: Regular rate/rhythm, Normal S1 S2 Gastrointestinal: Soft and benign Musculoskeletal: No swelling Neurological: Normal speech Assessment And Plan - Plan UTIfailed outpatient therapy COPD Hypertension AAA with repair Plan: UTIfailed outpatient therapy: Continue Rocephin, urine/blood cultures obtained. Continue IV fluids. Await results from urine culture. COPD: Stable as needed inhaler Hypertension: Continue home meds AAA with repair: Stable. Disposition: For possible discharge in next 24hrs.
[2021-09-08] MEDS ORDERED: POTASSIUM CL SA 10 MEQ TAB PO ONE (08:00)
[2021-09-08] MEDS: CEFTRIAXONE 1,000 MG in NA CHLORIDE 0.9% 50 ML IVPB SCH (10:36)
[2021-09-08] MEDS: ENOXAPARIN 40 MG/0.4 ML SQ SCH (10:37)
[2021-09-08] MEDS: NA CHLORIDE 0.9% 1,000 ML IV SCH ×2 (10:40→18:31)
[2021-09-08] MEDS: ONDANSETRON 4 MG/2 ML VIAL IV PRN (11:27)
[2021-09-08 17:10] LABS: Urine Appearance CLEAR (Clear); Urine Bilirubin NEGATIVE (Negative); Urine Blood NEGATIVE (Negative); Urine Color DK YELLOW (Yellow); Urine Glucose NEGATIVE (Negative); Urine Protein NEGATIVE (Negative); Urine Specific Gravity 1.025 (1.005-1.030); Urine Urobilinogen 0.2 mg/dL (0.2-1.0); Urine pH 5.5 (5.0-7.0)
[2021-09-08 17:23] LABS: Urine Microscopic Reflex NO UMIC
[2021-09-08] MEDS: AMLODIPINE 2.5 MG TAB PO SCH (20:55)
[2021-09-08] MEDS: TEMAZEPAM 15 MG CAP PO SCH (20:55)
[2021-09-08] MEDS: METOPROLOL XL 25 MG TAB PO SCH (20:56)
[2021-09-08] MEDS ORDERED: FAMOTIDINE 20 MG/2 ML VIAL IV ONE (22:52)
[2021-09-09] MEDS: NA CHLORIDE 0.9% 1,000 ML IV SCH (05:15)
[2021-09-09 05:59] LABS: Potassium 3.8 mmol/L (3.5-5.1)
[2021-09-09] MEDS: CEFTRIAXONE 1,000 MG in NA CHLORIDE 0.9% 50 ML IVPB SCH (08:32)
[2021-09-09] MEDS: ENOXAPARIN 40 MG/0.4 ML SQ SCH (08:33)
[2021-09-09] MEDS ORDERED: POTASSIUM CL SA 10 MEQ TAB PO ONE (09:00)
[2021-09-09 11:00] VITALS: O2SAT 92
[2021-09-09] MEDS: ONDANSETRON 4 MG/2 ML VIAL IV PRN (11:55)
[2021-09-09 12:37] VITALS: BP 141/63; TEMP 97.5
[2021-09-09 14:08] LABS: C.diff Antigen/Toxin Ag neg : Tox neg (NEG : NEG)
[2021-09-09] MEDS ORDERED: CEFDINIR 300 MG CAP PO SCH (21:00)
== END 2021-09-09 14:35 | disposition home or self-care (01) | DRG 690 ==
LOC: ER 21:37 → ERHOLD 09-07 02:03 → 2ND 09-07 02:13
PROVIDERS: ADMIT Internal Medicine Nephrology; ATTEND Internal Medicine Nephrology
DX: N39.0 Urinary tract infection, site not specified (principal); J44.9 Chronic obstructive pulmonary disease, unspecified; I10 Essential (primary) hypertension; Z79.82 Long term (current) use of aspirin; Z90.710 Acquired absence of both cervix and uterus; Z90.49 Acquired absence of other specified parts of digestive tract; Z20.822 Contact with and (suspected) exposure to COVID-19
CPT/HCPCS: 0240U; 36415; 74177; 80048; 80053; 81003; 83605; 83690; 84145; 85025; 87324; 87449; 93005; 96361; 96365; 99285; J1650; J2405; J2550; J7030; Q9967

== ENCOUNTER 2023-03-01 22:51 | Emergency (ER) | payer OTHER ==
--- NOTE | 2023-03-01 23:59 | ER ---
Nurse's Notes [facility] Name: Rena Schuler Age: 83 yrs Sex: Female : 1940 Arrival Date: 03/01/2023 Time: 22:51 Bed 19 Private MD: Diagnosis: Sprain of ribs Presentation: 03/01 22:58 Chief complaint: EMS states: fall from standing position landing on right side onto lg3 marble table. complaints of right rib pain on movement and palpation. denies LOC/SOB. Coronavirus screen: Client denies travel out of the [place] in the last 14 days. At this time, the client does not indicate any symptoms associated with coronavirus-19. Ebola Screen: No symptoms or risks identified at this time. Initial Sepsis Screen: Does the patient meet any 2 criteria? No. Patient's initial sepsis screen is negative. Does the patient have a suspected source of infection? No. Patient's initial sepsis screen is negative. Risk Assessment: Do you want to hurt yourself or someone else? Patient reports no desire to harm self or others. Onset of symptoms was March 01, 2023. 22:58 Method Of Arrival: EMS: [facility] lg3 22:58 Acuity: THIEN 4 lg3 Triage Assessment: 23:01 General: Appears in no apparent distress. comfortable, Behavior is calm, cooperative. lg3 Pain: Complains of pain in right rib area Aggravated by increased activity, repositioning. EENT: No deficits noted. No signs and/or symptoms were reported regarding the EENT system. Neuro: No deficits noted. Wayne Agitation-Sedation Scale (RASS): 0 - Alert and Calm Level of Consciousness is awake, alert, obeys commands, Oriented to person, place, time, situation, Appropriate for age. Cardiovascular: No deficits noted. Denies chest pain, shortness of breath, Capillary refill < 3 seconds Clubbing of nail beds is absent JVD is absent Patient's skin is warm and dry. Respiratory: No deficits noted. Airway is patent Respiratory effort is even, unlabored, Respiratory pattern is regular, symmetrical, Denies shortness of breath. GI: No deficits noted. No signs and/or symptoms were reported involving the gastrointestinal system. : No deficits noted. No signs and/or symptoms were reported regarding the genitourinary system. Derm: No deficits noted. No signs and/or symptoms reported regarding the dermatologic system. Skin is intact, is thin, Skin is dry, Skin is normal, Skin temperature is warm. Musculoskeletal: Circulation, motion, and sensation intact. Range of motion: intact in all extremities, Reports pain in right rib area. Historical: - Allergies: 23:01 all pain medications; lg3 - Home Meds: 23:01 amlodipine oral [Active]; Temazepam Oral [Active]; Metaproterenol Sulfate Oral [Active];lg3 - PMHx: 23:01 COPD; Diverticulitis; Hypertension; TIA; lg3 - PSHx: 23:01 Total abdominal hysterectomy; Cholecystectomy; Appendectomy; left wrist; thyroid; lg3 bilateral cataract; - Immunization history:: Adult Immunizations up to date, Client reports receiving the 2nd dose of the Covid vaccine, Flu vaccine is not up to date. It has been more than one year since last vaccine. - Social history:: Smoking status: Patient denies any tobacco usage or history of. Patient/guardian denies using alcohol, street drugs. Screenin:06 [facility] ED Fall Risk Assessment (Adult) History of falling in the last 3 months, lg3 including since admission Yes- single mechanical fall (1 pt) Confusion or Disorientation No (0 pts) Intoxicated or Sedated No (0 pts) Impaired Gait No (0 pts) Mobility Assist Device Used Yes (1 pt) Altered Elimination No (0 pt) Score/Fall Risk Level 0 - 2 = Low Risk Oriented to surroundings, Maintained a safe environment, Educated pt \T\ family on fall prevention, incl call for assistance when getting out of bed, Assessed \T\ reinforced patient's understanding of fall precautions. Abuse screen: Denies threats or abuse. Denies injuries from another. Nutritional screening: No deficits noted. Tuberculosis screening: No symptoms or risk factors identified. Assessment: 23:06 General: see triage assessment. lg3 23:51 Reassessment: Patient appears in no apparent distress at this time. No changes from lg3 previously documented assessment. Patient and/or family updated on plan of care and expected duration. Pain level reassessed. Patient is alert, oriented x 3, equal unlabored respirations, skin warm/dry/pink. 03/02 00:44 Reassessment: Patient appears in no apparent distress at this time. No changes from km8 previously documented assessment. Patient and/or family updated on plan of care and expected duration. Pain level reassessed. Patient is alert, oriented x 3, equal unlabored respirations, skin warm/dry/pink. Vital Signs: 03/01 22:58 BP 197 / 87; Pulse 80; Resp 18 S; Temp 97.9(O); Pulse Ox 100% on R/A; Weight 64.41 kg lg3 (R); Height 5 ft. 9 in. (R); Pain 0/10; 23:51 BP 186 / 83; Pulse 68; Resp 16 S; Pulse Ox 99% on R/A; lg3 22:58 Body Mass Index 20.97 (64.41 kg, 175.26 cm) lg3 22:58 Pain Scale: Adult lg3 ED Course: 22:54 Patient arrived in ED. rv1 22:55 Sheila Guerrero PA-C is PHCP. sb4 22:55 Karan Pruitt MD is Attending Physician. sb4 22:58 Patricia Bales, LUCIANA is Primary Nurse. lg3 23:01 Triage completed. lg3 23:01 Arm band placed on right wrist. lg3 23:06 Patient has correct armband on for positive identification. Placed in gown. Bed in low lg3 position. Call light in reach. Side rails up X 1. Client placed on continuous cardiac and pulse oximetry monitoring. NIBP monitoring applied. Door closed. Noise minimized. Warm blanket given. Family accompanied patient. 23:06 Patient maintains SpO2 saturation greater than 95% on room air. lg3 23:23 Ribs Right XRAY In Process Unspecified. EDMS 03/02 00:44 Provided Education on: IS teaching. km8 00:44 No provider procedures requiring assistance completed. km8 00:44 Patient did not have IV access during this emergency room visit. km8 Administered Medications: 00:08 Drug: Acetaminophen PO 1000 mg PO once Route: PO; km8 00:43 Follow up: Response: No adverse reaction; Marked relief of symptoms; Pain is decreased km8 00:08 Drug: Cyclobenzaprine PO 10 mg PO once Route: PO; km8 00:44 Follow up: Response: No adverse reaction; Marked relief of symptoms; Pain is decreased; km8 RASS: Alert and Calm (0) Medication: 00:44 VIS not applicable for this client. km8 Outcome: 03/01 23:58 Discharge ordered by MD. frias 03/02 00:44 Discharged to home via wheelchair, with family, km8 Condition: good Discharge instructions given to patient, family, Instructed on discharge instructions, follow up and referral plans. medication usage, Demonstrated understanding of instructions, follow-up care, medications, IS teaching Prescriptions given X 1, 00:47 Patient left the ED. km8 Signatures: Dispatcher [employer] EDPatricia Martinez, RN RN [id number] Sheila Guerrero, PA-C PA-C sb4 Faith Oviedo rv1 Any Flores, RN RN km8
--- NOTE | 2023-03-01 23:59 | EDPHYS ---
Physician Documentation [facility] Name: Rena Schuler Age: 83 yrs Sex: Female : 1940 Arrival Date: 03/01/2023 Time: 22:51 Bed 19 Private MD: ED Physician Karan Pruitt HPI: 03/01 23:17 This 83 yrs old Female presents to ER via EMS with complaints of Fall Injury. sb4 23:17 patient states that she was at home when she tripped and fell onto a marble table, sb4 hitting her right ribs. she is unsure why she fell, she thinks she tripped, as she frequently does. she is only complaining of pain to her right rib cage, no pain when she is sitting still, but pain with palpation and with deep inspiration . Historical: - Allergies: 23:01 all pain medications; lg3 - Home Meds: 23:01 amlodipine oral [Active]; Temazepam Oral [Active]; Metaproterenol Sulfate Oral [Active];lg3 - PMHx: 23:01 COPD; Diverticulitis; Hypertension; TIA; lg3 - PSHx: 23:01 Total abdominal hysterectomy; Cholecystectomy; Appendectomy; left wrist; thyroid; lg3 bilateral cataract; - Immunization history:: Adult Immunizations up to date, Client reports receiving the 2nd dose of the Covid vaccine, Flu vaccine is not up to date. It has been more than one year since last vaccine. - Social history:: Smoking status: Patient denies any tobacco usage or history of. Patient/guardian denies using alcohol, street drugs. ROS: 23:17 Constitutional: Negative for fever, chills, and weight loss, sb4 23:17 MS/extremity: Positive for injury or acute deformity, pain, of the right lateral anterior chest, 23:17 All other systems are negative, Exam: 23:17 Constitutional: This is a well developed, well nourished patient who is awake, alert, sb4 and in no acute distress. Head/Face: Normocephalic, atraumatic. Eyes: Extra-ocular motions intact. Periorbital areas with no swelling, redness, or edema. ENT: Mucous membranes moist. Cardiovascular: Regular rate and rhythm with a normal S1 and S2. Respiratory: Lungs have equal breath sounds bilaterally, clear to auscultation and percussion. No rales, rhonchi or wheezes noted. No increased work of breathing, no retractions or nasal flaring. Skin: Warm, dry with normal turgor. Normal color with no rashes, no lesions, and no evidence of cellulitis. MS/ Extremity: Pulses equal, no cyanosis. Neurovascular intact. Full, normal range of motion. Neuro: Awake and alert, GCS 15, oriented to person, place, time, and situation. Motor strength 5/5 in all extremities. Sensory grossly intact. 23:17 Chest/axilla: Inspection: normal, no acute changes, assymetry, is not appreciated, deformity, is not appreciated, ecchymosis, is not appreciated, Palpation: tenderness, that is moderate, of the right sixth rib and right seventh rib, that totally reproduces the patient's complaints, Vital Signs: 22:58 BP 197 / 87; Pulse 80; Resp 18 S; Temp 97.9(O); Pulse Ox 100% on R/A; Weight 64.41 kg lg3 (R); Height 5 ft. 9 in. (R); Pain 0/10; 23:51 BP 186 / 83; Pulse 68; Resp 16 S; Pulse Ox 99% on R/A; lg3 22:58 Body Mass Index 20.97 (64.41 kg, 175.26 cm) lg3 22:58 Pain Scale: Adult lg3 MDM: 22:55 Patient medically screened. sb4 23:17 Differential diagnosis: contusion, fracture. sb4 23:57 Data reviewed: vital signs, nurses notes, radiologic studies, and as a result, I will sb4 discharge patient. Independent interpretation of the following test(s) in the Emergency Department X-Ray: My interpretation is my interpretation of the rib xray series are no acute fracture or dislocation. Historians other than the Patient: Daughter/Son: daughter. Care significantly affected by the following chronic conditions: Hypertension, Chronic Obstructive Pulmonary Disease. Counseling: I had a detailed discussion with the patient and/or guardian regarding the historical points, exam findings, and any diagnostic results supporting the discharge/admit diagnosis, radiology results, to return to the emergency department if symptoms worsen or persist or if there are any questions or concerns that arise at home. 03/01 23:03 Order name: Ribs Right XRAY sb4 03/01 23:57 Order name: Libby. Order: incentive spirometer for patient to go home with; Complete sb4 Time: 00:43 Administered Medications: 03/02 00:08 Drug: Acetaminophen PO 1000 mg PO once Route: PO; 00:43 Follow up: Response: No adverse reaction; Marked relief of symptoms; Pain is decreased km8 00:08 Drug: Cyclobenzaprine PO 10 mg PO once Route: PO; km8 00:44 Follow up: Response: No adverse reaction; Marked relief of symptoms; Pain is decreased; km8 RASS: Alert and Calm (0) Disposition Summary: 03/01/23 23:58 Discharge Ordered Notes: Location: Home sb4 Problem: new sb4 Symptoms: have improved sb4 Condition: Stable sb4 Diagnosis - Sprain of ribs sb4 Followup: sb4 - With: Private Physician - When: As needed - Reason: Recheck today's complaints, Re-evaluation by your physician Discharge Instructions: - Discharge Summary Sheet sb4 - Rib Contusion sb4 - How to Use an Incentive Spirometer sb4 Forms: - Medication Reconciliation Form sb4 - Thank You Letter sb4 - Antibiotic Education sb4 - Prescription Opioid Use sb4 - Patient Portal Instructions sb4 - Leadership Thank You Letter sb4 Prescriptions: - Cyclobenzaprine 5 mg Oral Tablet - take 1 tablet ORAL route 3 times per day As needed; 15 tablet; Refills: 0, sb4 Product Selection Permitted Signatures: Dispatcher [employer] Patricia Contreras, LUCIANA RN lg3 Sheila Guerrero PA-C PARose sb4 Any Flores RN RN km8
[2023-03-02] MEDS ORDERED: CYCLOBENZAPRINE 10 MG TAB ONE (00:18)
[2023-03-02] MEDS ORDERED: ACETAMINOPHEN 500 MG TAB ONE (00:19)
[2023-03-02 01:09] VITALS: TEMP 97.9
[2023-03-02 01:10] VITALS: BP 186/83; O2SAT 99
--- NOTE | 2023-03-02 11:26 | RAD REPORT ---
EXAM DESCRIPTION: XR Right Ribs, 2 Views CLINICAL HISTORY: Fall, rib pain TECHNIQUE: Frontal and oblique views of the right ribs. COMPARISON: No relevant prior studies available. FINDINGS: Lungs: Unremarkable as visualized. No consolidation. Pleural space: Unremarkable. No pneumothorax. Bones/joints: Unremarkable. No acute fracture. Vasculature: Thoracic aortic atherosclerosis. Upper abdomen: Upper and mid abdominal radiographs. Tubes, lines and devices: Left chest wall cardiac loop recorder. IMPRESSION: No acute injury. Electronically signed by: Levy Campos MD 03/01/2023 11:54 PM CDT Due to temporary technical issues with the PACS/Fluency reporting system, reports are being signed by the in house radiologist without review as a courtesy to ensure prompt reporting. The interpreting r adiologist is fully responsible for the content of the report.
== END 2023-03-02 00:47 | disposition home or self-care (01) ==
LOC: ER 22:51
DX: S23.41XA Sprain of ribs, initial encounter (principal)
CPT/HCPCS: 99284

== ENCOUNTER 2023-07-11 04:20 | Inpatient (IN) | payer OTHER ==
[2023-07-11] MEDS ORDERED: TDAP (DIPHTH,PERTUSS(ACELL),TET VAC) 0.5 ML VIAL IMVAC ONE (05:08)
[2023-07-11 05:33] LABS: Potassium 4.2 mEq/L (3.5-5.1)
[2023-07-11 05:46] LABS: Absolute Lymphocytes (CBC) 1.5 K/uL (0.7-4.9); Hematocrit 41.3 % (36.0-45.0); Lymphocytes % 17.1 % (15.3-44.8); MCV 90.8 fL (80-100); MPV 7.2 fL (7.6-11.3); Platelets 224 thou/uL (152-406); RBC Red Blood Cell Count 4.54 M/uL (3.86-4.86)
[2023-07-11 06:32] LABS: Specific Gravity 1.015 (1.005-1.030); Urine Bacteria None Seen /HPF (<20); Urine Bilirubin NEGATIVE (Negative); Urine Blood Negative (Negative); Urine Clarity Clear (Clear); Urine Color Colorless (Yellow); Urine Glucose NEGATIVE (Negative); Urine Mucus Slight /HPF (None Seen); Urine Protein NEGATIVE (Negative); Urine RBC None Seen /HPF (None Seen); Urine Urobilinogen Normal (Normal)
[2023-07-11] MEDS ORDERED: ACETAMINOPHEN 500 MG TAB ONE (06:34)
--- NOTE | 2023-07-11 06:56 | ER ---
Nurse's Notes [facility] Name: Rena Schuler Age: 83 yrs Sex: Female : 1940 Arrival Date: 07/11/2023 Time: 04:20 Bed 7 Private MD: Diagnosis: Fall on same level, unspecified;Fracture of one rib Presentation: 07/11 04:40 Chief complaint: Patient states: fall X2. denies hitting head or LOC. pin to right lg3 ribs. increased pain on inspiration. Coronavirus screen: Client denies travel out of the [place] in the last 14 days. At this time, the client does not indicate any symptoms associated with coronavirus-19. Ebola Screen: No symptoms or risks identified at this time. Initial Sepsis Screen: Does the patient meet any 2 criteria? No. Patient's initial sepsis screen is negative. Does the patient have a suspected source of infection? No. Patient's initial sepsis screen is negative. Risk Assessment: Do you want to hurt yourself or someone else? Patient reports no desire to harm self or others. Onset of symptoms was July 11, 2023. 04:40 Method Of Arrival: Wheelchair lg3 04:40 Acuity: THIEN 3 lg3 Triage Assessment: 04:42 General: Appears in no apparent distress. uncomfortable, Behavior is calm, cooperative. lg3 Pain: Complains of pain in right ribs Pain radiates to back Pain currently is 5 out of 10 on a pain scale. EENT: No deficits noted. No signs and/or symptoms were reported regarding the EENT system. Neuro: No deficits noted. Wayne Agitation-Sedation Scale (RASS): 0 - Alert and Calm Level of Consciousness is awake, alert, obeys commands, Oriented to person, place, time, situation. Cardiovascular: No deficits noted. Denies chest pain, shortness of breath, Heart tones S1 S2 present Capillary refill < 3 seconds Clubbing of nail beds is absent JVD is absent Patient's skin is warm and dry. Respiratory: Reports pain with respiration Breath sounds are clear bilaterally. GI: No deficits noted. No signs and/or symptoms were reported involving the gastrointestinal system. Abdomen is round non-distended. : No deficits noted. No signs and/or symptoms were reported regarding the genitourinary system. Derm: No signs and/or symptoms reported regarding the dermatologic system. Skin is intact, is healthy with good turgor, Skin is dry, Skin is normal, Skin temperature is warm Wound noted left tricep. Musculoskeletal: No deficits noted. Circulation, motion, and sensation intact. Range of motion: intact in all extremities. Historical: - Allergies: 04:42 all pain medications; lg3 04:42 Codeine; lg3 04:42 Morphine; lg3 - Home Meds: 04:42 temazepam 30 mg oral capsule [Active]; metoprolol tartrate 25 mg Oral tablet [Active]; lg3 amlodipine 2.5 mg tablet [Active]; - PMHx: 04:42 COPD; Diverticulitis; Hypertension; TIA; lg3 - PSHx: 04:42 Appendectomy; Cholecystectomy; bilateral cataract; Left wrist; thyroid; Total abdominal lg3 hysterectomy; - Immunization history:: Adult Immunizations up to date, Client reports receiving the 2nd dose of the Covid vaccine, Flu vaccine is up to date. - Social history:: Smoking status: Patient denies any tobacco usage or history of. Patient/guardian denies using alcohol, street drugs. Screenin:[facility] ED Fall Risk Assessment (Adult) History of falling in the last 3 months, lg3 including since admission Yes- fall prone (multiple falls) (3 pts). Abuse screen: Denies threats or abuse. Denies injuries from another. Nutritional screening: No deficits noted. Tuberculosis screening: No symptoms or risk factors identified. Assessment: 04:54 General: see triage assessment. lg3 05:58 Reassessment: Patient appears in no apparent distress at this time. No changes from lg3 previously documented assessment. Patient and/or family updated on plan of care and expected duration. Pain level reassessed. Patient is alert, oriented x 3, equal unlabored respirations, skin warm/dry/pink. 06:27 Reassessment: Patient and/or family updated on plan of care and expected duration. Pain ha1 level reassessed. Patient is alert, oriented x 3, equal unlabored respirations, skin warm/dry/pink. Vital Signs: 04:40 BP 175 / 88; Pulse 78; Resp 16 S; Temp 97.6(TE); Pulse Ox 97% on R/A; Weight 64.86 kg lg3 (R); Height 5 ft. 8 in. (R); Pain 8/10; 05:58 BP 173 / 76; Pulse 67; Resp 17 S; Pulse Ox 98% ; lg3 06:27 BP 188 / 87; Pulse 75; Resp 17 S; Pulse Ox 98% on R/A; ha1 06:38 BP 176 / 90; Pulse 77; Resp 20 S; Pulse Ox 98% on R/A; ha1 19:35 BP 178 / 91; Pulse 71; Resp 16; Pulse Ox 100% on 2 lpm NC; jb4 04:40 Body Mass Index 21.74 (64.86 kg, 172.72 cm) lg3 04:40 Pain Scale: Adult lg3 ED Course: 04:24 Patient arrived in ED. gm2 04:24 Sam Alejo MD is Attending Physician. ec2 04:35 Radiology exam delayed due to lab results not completed at this time. (BUN/Creatinine) eh4 IV insertion attempt and/or patient not having appropriate IV at this time. 04:42 Triage completed. lg3 04:42 Arm band placed on right wrist. lg3 04:54 Patient has correct armband on for positive identification. Placed in gown. Bed in low lg3 position. Call light in reach. Side rails up X2. Client placed on continuous cardiac and pulse oximetry monitoring. NIBP monitoring applied. salvage inspector on. Door closed. Noise minimized. Warm blanket given. Family accompanied patient. 04:54 Patient maintains SpO2 saturation greater than 95% on room air. lg3 05:06 Patricia Rodney, RN is Primary Nurse. lg3 05:06 Inserted saline lock: 22 gauge in right antecubital area, using aseptic technique. lg3 Blood collected. 05:06 Basic Metabolic Panel Sent. lg3 05:07 CBC with Diff Sent. lg3 05:07 Troponin HS Sent. lg3 05:09 XRAY Chest (1 view) In Process Unspecified. EDMS 05:09 Humerus Left XRAY In Process Unspecified. EDMS 06:12 CT Traumagram (Head C Spine CAP W Con) In Process Unspecified. EDMS 06:23 UAM Sent. ha1 06:55 Romina Blackmon MD is Hospitalizing Provider. ec2 Administered Medications: 05:09 Drug: Boostrix Tdap IM 0.5 ml IM once; as a single dose Route: IM; Site: right deltoid; lg3 05:09 Follow up: Response: (VIS) Vaccine information sheet provided today. Questions and/or lg3 concerns addressed. VIS edition date: Dec 28, 2020.; No adverse reaction 06:38 Drug: Acetaminophen PO 1000 mg PO once Route: PO; ha1 06:53 Follow up: Response: No adverse reaction; Pain is unchanged, physician notified ha1 07:03 Drug: fentaNYL (PF) IVP 25 mcg IVP once Route: IVP; Site: right antecubital; ha1 Medication: 05:10 Vaccine Information Statement (VIS) provided today. Questions and/or concerns lg3 addressed. VIS edition date: December 28, 2020. Outcome: 06:55 Decision to Hospitalize by Provider. ec2 19:59 Admitted to Tele accompanied by tech, via stretcher, room 410, with oxygen, Report jb4 called to LUCIANA Higginbotham 20:47 Patient left the ED. jb4 Signatures: Dispatcher [employer] EDTrenton Farris RN RN jb4 Patricia Rodney RN RN lg3 Yumiko Patel RN RN 1 Audelia Leon [facility] Sam Alejo MD MD ec2 Carmita Fernandez 2 Corrections: (The following items were deleted from the chart) 04:56 04:42 Derm: No deficits noted. No signs and/or symptoms reported regarding the lg3 dermatologic system. Skin is intact, is healthy with good turgor, Skin is dry, Skin is normal, Skin temperature is warm lg3 05:10 04:40 BP 200 / 77; Pulse 78bpm; Resp 16bpm; Spontaneous; Pulse Ox 97% RA; Temp 97.6F lg3 Temporal; 64.86 kg Reported; Height 5 ft. 8 in. Reported; BMI: 21.7; Pain 8/10, Adult; lg3
--- NOTE | 2023-07-11 06:56 | EDPHYS ---
Physician Documentation [facility] Name: Rena Schuler Age: 83 yrs Sex: Female : 1940 Arrival Date: 07/11/2023 Time: 04:20 Bed 7 Private MD: ED Physician Sam Alejo HPI: 07/11 04:31 This 83 yrs old Female presents to ER via Unassigned with complaints of Fall ec2 Injury. 04:31 Patient arrives today for evaluation after multiple falls over the past couple of ec2 hours. Patient with neuropathy, general weakness. No blood thinners, no nausea or vomiting, no fevers or chills.. Historical: - Allergies: 04:42 all pain medications; lg3 04:42 Codeine; lg3 04:42 Morphine; lg3 - Home Meds: 04:42 temazepam 30 mg oral capsule [Active]; metoprolol tartrate 25 mg Oral tablet [Active]; lg3 amlodipine 2.5 mg tablet [Active]; - PMHx: 04:42 COPD; Diverticulitis; Hypertension; TIA; lg3 - PSHx: 04:42 Appendectomy; Cholecystectomy; bilateral cataract; Left wrist; thyroid; Total abdominal lg3 hysterectomy; - Immunization history:: Adult Immunizations up to date, Client reports receiving the 2nd dose of the Covid vaccine, Flu vaccine is up to date. - Social history:: Smoking status: Patient denies any tobacco usage or history of. Patient/guardian denies using alcohol, street drugs. ROS: 04:31 Constitutional: as per hpi ec2 Exam: 04:31 Constitutional: GEN: No acute distress HEENT: -Head: no deformities -Eyes: EOMI CV: ec2 regular rate LUNGS: no respiratory distress ABD: non-tender SKIN: Skin tear to the left upper arm MSK: No C/T/L spine deformities RUE w/o bony deformity LUE w/o bony deformity RLE w/o bony deformity LLE w/o bony deformity NEURO: moves all extremities equally, GCS 15 (E4, V5, M6) Vital Signs: 04:40 BP 175 / 88; Pulse 78; Resp 16 S; Temp 97.6(TE); Pulse Ox 97% on R/A; Weight 64.86 kg lg3 (R); Height 5 ft. 8 in. (R); Pain 8/10; 05:58 BP 173 / 76; Pulse 67; Resp 17 S; Pulse Ox 98% ; lg3 06:27 BP 188 / 87; Pulse 75; Resp 17 S; Pulse Ox 98% on R/A; ha1 06:38 BP 176 / 90; Pulse 77; Resp 20 S; Pulse Ox 98% on R/A; ha1 19:35 BP 178 / 91; Pulse 71; Resp 16; Pulse Ox 100% on 2 lpm NC; jb4 04:40 Body Mass Index 21.74 (64.86 kg, 172.72 cm) lg3 04:40 Pain Scale: Adult lg3 MDM: 04:25 Patient medically screened. ec2 04:31 Data reviewed: vital signs. ED course: Patient arrives today for evaluation after a ec2 fall. Examination remarkable for well-appearing nontoxic in which was otherwise in no acute distress. Will obtain lab work, CT imaging and assess the patient for traumatic injuries. Will also assess for underlying weakness causes including urinary tract infection, anemia, dehydration. . 06:10 ED course: Metabolic profile reassuring, CBC reassuring, troponin within normal ranges. ec2 Pending CT imaging and Xrays. . 06:36 ED course: Urine noninfectious appearing.. ec2 06:55 ED course: CT of the head, C-spine, chest abdomen pelvis shows single right sided ec2 seventh rib fracture. Patient ultimately requires admission for placement, weakness, recurrent falls as she has a significant fall risk. Discussed case with hospitalist, pending admission. . 07/11 04:31 Order name: Basic Metabolic Panel; Complete Time: 06:10 ec2 07/11 04:31 Order name: CBC with Diff; Complete Time: 06:10 ec2 07/11 04:31 Order name: Troponin HS; Complete Time: 06:10 ec2 07/11 04:31 Order name: UAM; Complete Time: 06:36 ec2 07/11 08:25 Order name: Urinalysis w/ reflexes EDMS 07/11 08:25 Order name: Basic Metabolic Panel EDMS 07/11 08:25 Order name: Basic Metabolic Panel EDMS 07/11 08:25 Order name: CBC with Automated Diff EDMS 07/11 08:25 Order name: CBC with Automated Diff EDMS 07/11 08:25 Order name: Magnesium EDMS 07/11 08:25 Order name: Magnesium EDND 07/11 16:15 Order name: Vitamin D, 25 (OH), TOTAL EDMS 07/11 04:31 Order name: XRAY Chest (1 view) ec2 07/11 04:31 Order name: Humerus Left XRAY ec2 07/11 04:31 Order name: CT Traumagram (Head C Spine CAP W Con) ec2 07/11 04:31 Order name: EKG; Complete Time: 04:31 ec2 07/11 08:25 Order name: Physical Therapy Consult EDMS 07/11 08:25 Order name: Social Service Consult EDND 07/11 04:31 Order name: Cardiac monitoring; Complete Time: 04:41 ec2 07/11 04:31 Order name: EKG - Nurse/Tech; Complete Time: 05:09 ec2 07/11 04:31 Order name: IV Saline Lock; Complete Time: 05:06 ec2 07/11 04:31 Order name: Labs collected and sent; Complete Time: 05:06 ec2 07/11 04:31 Order name: O2 Per Protocol; Complete Time: 04:41 ec2 07/11 04:31 Order name: O2 Sat Monitoring; Complete Time: 04:41 ec2 Administered Medications: 05:09 Drug: Boostrix Tdap IM 0.5 ml IM once; as a single dose Route: IM; Site: right deltoid; lg3 05:09 Follow up: Response: (VIS) Vaccine information sheet provided today. Questions and/or lg3 concerns addressed. VIS edition date: Dec 28, 2020.; No adverse reaction 06:38 Drug: Acetaminophen PO 1000 mg PO once Route: PO; ha1 06:53 Follow up: Response: No adverse reaction; Pain is unchanged, physician notified ha1 07:03 Drug: fentaNYL (PF) IVP 25 mcg IVP once Route: IVP; Site: right antecubital; ha1 Disposition Summary: 07/11/23 06:55 Hospitalization Ordered Notes: Hospitalization Status: Inpatient Admission ec2 Provider: Romina Blackmon ec2 Condition: Stable ec2 Problem: an ongoing problem ec2 Symptoms: have improved ec2 Bed/Room Type: Standard ec2 Location: Telemetry/MedSurg (Inpatient)(07/11/23 19:03) Room Assignment: [facility](07/11/23 19:03) cg Diagnosis - Fall on same level, unspecified ec2 - Fracture of one rib ec2 Forms: - Medication Reconciliation Form ec2 - SBAR form ec2 - Leadership Thank You Letter ec2 Signatures: Dispatcher [employer] Flory Eason, RN RN cg Enriqueta Head Lacie, RN RN 3 Yumiko Patel RN RN ha1 Sam Alejo MD MD ec2 Corrections: (The following items were deleted from the chart) 08: 06:55 Telemetry/MedSurg (Inpatient) ec2 eb 08:25 06:55 ec2 eb 19:03 08:25 [facility] ER HOLD eb cg 19: 08:25 ERHOLD- eb cg
[2023-07-11] MEDS ORDERED: FENTANYL CITR 100 MCG/2 ML ONE ×2 (06:58→12:57)
--- NOTE | 2023-07-11 07:29 | RAD REPORT ---
EXAM DESCRIPTION: RAD - Humerus Left - 07/11/2023 5:07 am CLINICAL HISTORY: fall COMPARISON: No comparisons FINDINGS/IMPRESSION: No acute fracture. No malalignment. No significant focal degenerative changes.
--- NOTE | 2023-07-11 07:29 | RAD REPORT ---
EXAM DESCRIPTION: RAD - Chest Single View - 07/11/2023 5:07 am CLINICAL HISTORY: fall COMPARISON: Chest Single View dated 06/03/2021; Chest Single View dated 06/01/2020; Chest Single View d ated 10/04/2018; Chest Single View dated 05/27/2016; Head C Spine Cap W Con dated 07/11/2023 FINDINGS: Lines: None. Lungs: No evidence of edema or pneumonia. Apical scarring. Pleural: No significant pleural effusions or pneumothorax. Cardiac: The heart size is within normal limits. Mediastinum: Within normal limits. Bones: Right posterior seventh and eighth rib fractures which may be acute. Other: Loop recorder IMPRESSION: No acute cardiopulmonary disease. Minimally displaced right posterior seventh and eighth rib fractures.
[2023-07-11] MEDS: AMLODIPINE 2.5 MG TAB PO SCH ×2 (08:51→23:17)
[2023-07-11 09:28] VITALS: BMI 21.7
--- NOTE | 2023-07-11 10:28 | P.HP ---
Certification for Inpatient With expected LOS: >2 Midnights Patient will require the following post-hospital care: Rehabilitation Practitioner: I am a practitioner with admitting privileges, knowledge of patient current condition, hospital course, and medical plan of care. Services: Services provided to patient in accordance with Admission requirements found in Title 42 Section 412.3 of the Code of Federal Regulations <Benita Gómez - Last Filed: 07/11/23 10:38> Patient History Date of Service: 07/11/23 Reason for admission: Frequent falls, weakness History of Present Illness: Ms. Rena Bingham is a resident [facility]. Over the last she has sustained several falls, the most recent being 2 falls yesterday. She states she does not know she is going to fall but then feels that she is falling, no loss of consciousness. She does have a history of some peripheral neuropathy but says that most recently it is just that her feet do not work. She was evaluated in the emergency room. Laboratory evaluation is normal. Trauma evaluation is normal except for 1 isolated right rib fracture. She and family request evaluation for placement in inpatient rehab. Home medications list reviewed: Yes - Past Medical/Surgical History Has patient received pneumonia vaccine in the past: No Diabetic: No -: Hypertension -: COPD -: abd aneurysm -: "colon issues" -: Diverticulitis -: TIA -: back surgery -: hysterectomy -: cholecystectomy -: thryroidectomy -: cataract surgery -: AA repair -: Bleeding gastric and duodenal ulcer management Psychosocial/ Personal History: Patient lives at [facility] - Family History Father -: Heart disease, Hypertension Notes: aneurysm Mother -: Heart disease, Hypertension, Other (see notes) (AAA) Notes: aneurysm - Social History Smoking Status: Former smoker Alcohol use: No CD- Drugs: No Caffeine use: No Place of Residence: Home (assisted living) <Benita Gómez - Last Filed: 07/11/23 10:38> Date of Service: 07/11/23 <Romina Blackmon - Last Filed: 07/11/23 12:17> Allergies codeine Allergy (Verified 05/03/16 00:40) Hives/Rash hydrocodone [From Lortab] Allergy (Verified 07/25/16 08:39) Nausea/Vomiting meloxicam Allergy (Verified 07/25/16 08:39) Nausea/Vomiting morphine Allergy (Verified 05/03/16 00:40) Hives/Rash oxycodone [From Percodan] Allergy (Verified 07/25/16 08:39) Hives/Rash propoxyphene [From Darvocet-N] Allergy (Verified 07/25/16 08:39) Nausea/Vomiting pseudoephedrine [From Seldane-D] Allergy (Verified 07/25/16 08:39) Anaphylaxis terfenadine [From Seldane-D] Allergy (Verified 07/25/16 08:39) Anaphylaxis zolpidem [From Ambien] Allergy (Verified 07/25/16 08:39) Nausea/Vomiting pentazocine [From Talwin] Adverse Reaction (Verified 07/25/16 08:39) Nausea/Vomiting Home Medications: Amlodipine Besylate [Norvasc] 2.5 mg PO BEDTIME 09/07/21 Metoprolol Succinate [Toprol Xl] 25 mg PO BEDTIME 09/07/21 Temazepam [Restoril] 30 mg PO BEDTIME 09/07/21 Review of Systems 10-point ROS is otherwise unremarkable General: As per HPI Eyes: Unremarkable ENT: Unremarkable Respiratory: Pleuritic Pain, Other (with deep inspiration) Cardiovascular: Unremarkable Gastrointestinal: Unremarkable Genitourinary: Unremarkable Musculoskeletal: Other (peripheral neuropathy) Integumentary: Unremarkable Neurological: Unremarkable Lymphatics: Unremarkable <Benita Gómez - Last Filed: 07/11/23 10:38> Physical Examination - Vital Signs Temperature: 98.0 F Blood Pressure: 167/83 Pulse: 69 Respirations: 14 Pulse Ox (%): 97 - Physical Exam General: Alert, In no apparent distress, Oriented x3 HEENT: Atraumatic, Normocephalic, PERRLA Neck: 2+ carotid pulse no bruit Respiratory: Clear to auscultation bilaterally, Normal air movement, Other (right rib tenderness) Cardiovascular: Regular rate/rhythm Capillary refill: <2 Seconds Gastrointestinal: Soft and benign Musculoskeletal: No clubbing, No swelling Integumentary: No rashes, No breakdown, Other (scattered echymosis) Neurological: Normal speech, Other (gait not tested) Lymphatics: Inguinal lymphadenopathy External genitalia: Deferred Rectal: Deferred - Studies Laboratory Data (last 24 hrs) 07/11/23 07/11/23 05:05 05:05 WBC 8.90 Hgb 13.8 Hct 41.3 Plt Count 224 Sodium 136 Potassium 4.2 BUN 9 Creatinine 0.94 Glucose 145 H <Benita Gómez - Last Filed: 07/11/23 10:38> - Studies Laboratory Data (last 24 hrs) 07/11/23 07/11/23 05:05 05:05 WBC 8.90 Hgb 13.8 Hct 41.3 Plt Count 224 Sodium 136 Potassium 4.2 BUN 9 Creatinine 0.94 Glucose 145 H <Romina Blackmon C - Last Filed: 07/11/23 12:17> Assessment and Plan - Plan Frequent Falls/Weakness: Assist with ADLs and see if pt is approved for inpatient rehab (they would prefer to stay here at [facility]) Consult Register Clerk Rib Fracture: pain relief, pt allergic to most analgesics. Fentanyl prn severe pain TC&DB, Incentive spirometry Essential Hypertension: Continue amlodipine and metoprolol trend VS DVT prophylaxis: SCDs (hx of anticoagulant GIB) Discharge Plan: Other (inpatient rehab) Plan to discharge in: 48 Hours - Advance Directives Does patient have a Living Will: Yes Does patient have a Durable POA for Healthcare: Yes <GómezBenita - Last Filed: 07/11/23 10:38> - Plan Pt seen and examined. I agree with the note by the MEDICAL INSTRUCTOR. Pt is an 83 yo female resident of [facility] with past medical history of Htn and peripheral neuropathy who presents in the ER after multiple falls at home. Pt reports that her legs gave out. She denies feeling dizzy before the fall. On admission, lab studies showed Na 136, K 4.2, Cr 0.94, CXR is right 7th and 8th rib fracture. X- ray of the left humerus is unremarkable. At bed side is in NAD. A/P: Multiple falls: Will continue fall precaution. Will check vitamin D level. Consulted PT. Htn: Continue amlodipine and metoprolol Right &th and 8th rib fracture: Will continue prn pain med. Pt denies any SOB. DVT ppx: SCD Code: full <Romina Blackmon C - Last Filed: 07/11/23 12:17>
[2023-07-11] MEDS: FENTANYL CITR 100 MCG/2 ML IV PRN (13:01)
[2023-07-11] MEDS ORDERED: ONDANSETRON 4 MG/2 ML VIAL ONE (13:35)
[2023-07-11] MEDS: ONDANSETRON 4 MG/2 ML VIAL IV ONE (13:44)
[2023-07-11] MEDS ORDERED: DIAZEPAM 10 MG/2 ML INJ SYRINGE ONE (17:43)
[2023-07-11] MEDS: DIAZEPAM 10 MG/2 ML INJ SYRINGE IV ONE (17:45)
--- NOTE | 2023-07-11 19:41 | RAD REPORT ---
EXAM DESCRIPTION: CT - Head C Spine Cap Bhavesh Ybarra - 07/11/2023 6:55 am CLINICAL HISTORY: The patient is 83 years old and is Female; fall injury TECHNIQUE: Axial computed tomography images of the head/brain and cervical spine with intravenous co ntrast. Sagittal and coronal reformatted images were created and reviewed. This CT exam was perfo rmed using one or more of the following dose reduction techniques: automated exposure control, adju stment of the mA and/or kV according to patient size, and/or use of iterative reconstruction techniqu e. COMPARISON: No relevant prior studies available. FINDINGS: Brain: Mild to moderate age related periventricular white matter microangiopathic change s. No hemorrhage. Ventricles: Unremarkable. No ventriculomegaly. Skull: No acute skull fracture. Sinuses: Unremarkable as visualized. No acute sinusitis. Mastoid air cells: Unremarkable as visualized. No mastoid fluid. Vertebrae: No acute cervical spine fracture visualized. 2 to 3 mm anterolisthesis. Multilevel degenerative facet arthropathy, mild. Discs/spinal canal/neural foramina: Degenerative disc disease C3-4 to C6-7. Mild central canal st enosis C4-5 and C5-6. Other bones/joints: No acute skull fracture. Soft tissues: Unremarkable. Lung apices: Biapical pleuroparenchymal scarring. Pleural space: No apical pneumothorax. * A single impression for all exams can be found at the end of this report EXAM DESCRIPTION: CT Chest, Abdomen and Pelvis With Intravenous Contrast CLINICAL HISTORY: The patient is 83 years old and is Female; fall injury TECHNIQUE: Axial computed tomography images of the chest, abdomen and pelvis with intravenous contra st. Sagittal and coronal reformatted images were created and reviewed. This CT exam was performed using one or more of the following dose reduction techniques: automated exposure control, adjustme nt of the mA and/or kV according to patient size, and/or use of iterative reconstruction technique. COMPARISON: CT abdomen and pelvis July 10, 2022. FINDINGS: CHEST: Lungs: Centrilobular emphysema. Pleural space: No pleural effusion or pneumothorax. Heart: No cardiomegaly or significant pericardial fluid. No significant coronary artery calcifications. Mediastinum: No pneumomediastinum. ABDOMEN: Liver: No hepatic injury. Gallbladder and bile ducts: Cholecystectomy with mild biliary dilatation, likely reservoir effect . No choledocholithiasis. Pancreas: No findings to suggest acute pancreatitis. No mass visualized. No ductal dilation. Spleen: No splenic injury. No splenomegaly. Adrenals: Unremarkable. No mass. Kidneys and ureters: Unremarkable. No hydronephrosis. No solid mass. Stomach and bowel: Colonic diverticulosis. No bowel dilatation or obstruction. No bowel wall thickening. Small amount of fluid in the gastric lumen. PELVIS: Appendix: No findings to suggest acute appendicitis. Bladder: No bladder wall thickening. Reproductive: Hysterectomy. No adnexal mass. CHEST, ABDOMEN and PELVIS: Intraperitoneal space: Unremarkable. No significant fluid collection. No free air. Bones/joints: Acute right lateral seventh rib fracture. Degenerative changes in the right hip. No hip dislocation. No acute fracture in the pelvis or proximal femora. Degenerative disc dis ease L4-5 and L5-S1. No vertebral compression fracture. No acute sternal fracture. No sternoclavicular joint dislocation. Old fractures in the right lateral seventh through ninth ribs. Soft tissues: Unremarkable. Vasculature: Endovascular stent graft in the abdominal aorta. Endovascular stent graft in the sup rarenal abdominal aorta, with the [place] aortic size is 3.6 x 3.4 cm. There is also an endovascular s tent graft within an infrarenal abdominal aortic aneurysm, 5.0 x 4.9 cm in size. No evidence of graft leak. Lymph nodes: Unremarkable. No enlarged lymph nodes. * A single impression for all exams can be found at the end of this report IMPRESSION: CT Head and Cervical Spine With Intravenous Contrast: 1. No intracranial hemorrhage. No acute skull fracture. 2. Mild to moderate age related periventricular white matter microangiopathic changes. 3. No acute cervical spine fracture visualized. 4. 2 to 3 mm anterolisthesis. 5. Degenerative disc disease C3-4 to C6-7. Mild central canal stenosis C4-5 and C5-6. CT Chest, Abdomen and Pelvis With Intravenous Contrast: 1. Acute right lateral seventh rib fracture. Old right rib fractures are also present. 2. No acute intra-abdominal injury identified. 3. Centrilobular emphysema. 4. Cholecystectomy with mild biliary dilatation, likely reservoir effect. No choledocholithiasis. 5. Colonic diverticulosis. 6. Endovascular stent grafts in the abdominal aorta. Endovascular stent graft in the suprarenal abd ominal aorta, with the [place] aortic size is 3.6 x 3.4 cm. There is also an endovascular stent graft within an infrarenal abdominal aortic aneurysm, 5.0 x 4.9 cm in size. No evidence of graft leak. 7. Additional non-emergent findings as above. Electronically signed by: Antoinette Thurston MD 07/11/2023 06:46 AM CRAB MEAT PROCESSOR Due to temporary technical issues with the PACS/Fluency reporting system, reports are being signed by the in house radiologists without review as a courtesy to insure prompt reporting. The interpreting radiologist is fully responsible for the content of the report.
[2023-07-11] MEDS: METOPROLOL XL 25 MG TAB PO SCH (22:04)
[2023-07-11] MEDS: ONDANSETRON 4 MG/2 ML VIAL IV PRN (22:06)
[2023-07-11] MEDS: AMLODIPINE 2.5 MG TAB ONE (23:14)
[2023-07-12] MEDS: HYDRALAZINE HCL 20 MG/ML VIAL IV PRN (02:35)
[2023-07-12] MEDS: PROMETHAZINE INJ 25 MG/ML AMP IV ONE (04:17)
[2023-07-12] MEDS ORDERED: METOPROLOL XL 25 MG TAB PO SCH (06:00)
[2023-07-12 07:11] LABS: Absolute Lymphocytes (CBC) 0.8 K/uL (0.7-4.9); Hematocrit 42.9 % (36.0-45.0); MCV 91.3 fL (80-100); MPV 7.5 fL (7.6-11.3); Platelets 214 thou/uL (152-406)
[2023-07-12 07:23] LABS: Magnesium 2.1 mg/dL (1.6-2.4); Potassium 3.7 mEq/L (3.5-5.1)
[2023-07-12] MEDS: NA CHLORIDE 0.9% 500 ML IV ONE (08:47)
[2023-07-12] MEDS: KETOROLAC 30 MG/ML INJ IV ONE ×2 (08:48→21:38)
[2023-07-12] MEDS: VITAMIN D 5,000 UNIT CAP PO SCH (08:58)
--- NOTE | 2023-07-12 09:04 | P.PN ---
Subjective Date of Service: 07/12/23 Chief Complaint: Frequent falls, weakness Subjective: Other (Ms. Schuler did not have a good night, she had nausea and vomiting and a headache all night.) <GómezArlety - Last Filed: 07/12/23 08:59> Date of Service: 07/12/23 <AbbicyrilankitRomina Rashmi - Last Filed: 07/12/23 11:41> Review of Systems 10-point ROS is otherwise unremarkable General: Weakness, Malaise Eyes: Unremarkable ENT: Unremarkable Respiratory: Pleuritic Pain, As per HPI Cardiovascular: Unremarkable Gastrointestinal: Nausea, Vomiting Genitourinary: Unremarkable Musculoskeletal: As per HPI Integumentary: Unremarkable Neurological: As per HPI Lymphatics: Unremarkable <DaliaBenita - Last Filed: 07/12/23 08:59> Physical Examination - Vital Signs Temperature: 97.6 F Blood Pressure: 122/62 Pulse: 70 Respirations: 16 Pulse Ox (%): 98 - Physical Exam General: Alert, Mild distress, Other (headache, nausea, vomiting) HEENT: Atraumatic, Normocephalic, PERRLA Neck: Supple, 2+ carotid pulse no bruit Respiratory: Clear to auscultation bilaterally, Normal air movement Cardiovascular: No edema, Normal pulses Capillary refill: <2 Seconds Gastrointestinal: Normal bowel sounds Musculoskeletal: No clubbing Integumentary: No rashes, No breakdown Neurological: Normal speech Lymphatics: No axilla or inguinal lymphadenopathy External genitalia: Deferred Rectal: Deferred <GómezBenita - Last Filed: 07/12/23 08:59> Assessment And Plan - Plan Frequent Falls/Weakness: Assist with ADLs and see if pt is approved for inpatient rehab (they would prefer to stay here at [facility]) Consult Martial Arts Instructor Rib Fracture: pain relief, pt allergic to most analgesics. Fentanyl prn severe pain ( pt did not do well with pain medication overnight), will try toradol, give phenergan, and reassess. TC&DB, Incentive spirometry Essential Hypertension: Continue amlodipine and metoprolol trend VS DVT prophylaxis: SCDs (hx of anticoagulant GIB) Discharge Plan: Other (higher level of care than [facility]) Plan to discharge in: 24 Hours <Benita Gómez - Last Filed: 07/12/23 08:59> - Plan Pt seen and examined. I agree with the note by the NETWORK MANAGEMENT SPECIALIST. Pt complains of nausea athat resolved after taking phenergan. Waiting for placement. Consulted PT. Pt sustained right rib fracture. No SOB. Continue amlodipine and metoprolol. <Romina Blackmon - Last Filed: 07/12/23 11:41>
[2023-07-12] MEDS ORDERED: AMLODIPINE 2.5 MG TAB PO SCH (21:00)
[2023-07-12] MEDS: PROMETHAZINE INJ 25 MG/ML AMP IV PRN (21:40)
[2023-07-12] MEDS: TEMAZEPAM 15 MG CAP PO PRN (22:54)
[2023-07-13 06:28] LABS: Absolute Lymphocytes (CBC) 1.3 K/uL (0.7-4.9); Lymphocytes % 20.7 % (15.3-44.8); MCV 91.8 fL (80-100); MPV 7.1 fL (7.6-11.3); Platelets 208 thou/uL (152-406); RBC Red Blood Cell Count 4.03 M/uL (3.86-4.86)
[2023-07-13 06:30] LABS: Potassium 3.9 mEq/L (3.5-5.1)
[2023-07-13] MEDS: POTASSIUM CL SA 10 MEQ TAB PO ONE (08:39)
--- NOTE | 2023-07-13 09:35 | P.PN ---
Subjective Date of Service: 07/13/23 Chief Complaint: Frequent falls, weakness Here for frequent falls, rib fracture, pain control as needed analgesic with plan for admission and inpatient rehab, PT eval ordered - Physical Exam General: Alert, oriented x 3 HEENT: Atraumatic, Normocephalic, PERRLA Neck: Supple, 2+ carotid pulse no bruit Respiratory: Clear to auscultation bilaterally, Normal air movement Cardiovascular: No edema, Normal pulses Capillary refill: <2 Seconds Gastrointestinal: Normal bowel sounds Musculoskeletal: No clubbing Integumentary: No rashes, No breakdown Neurological: Normal speech Lymphatics: No axilla or inguinal lymphadenopathy External genitalia: Deferred Review of Systems PER HPI Physical Examination - Vital Signs Temperature: 98 F Blood Pressure: 126/58 Pulse: 59 Respirations: 15 Pulse Ox (%): 90 Assessment And Plan - Plan Assessment plan Frequent falls Generalized weakness Rib fractures Fall precautions, PT, OT eval, as needed analgesia Social service consult pending inpatient rehab Incentive spirometer Acute on chronic kidney injury likely from dehydration BUN 26, creatinine 1.25 Gentle IV fluids Trend kidney function Essential hypertension Resume appropriate home meds Diet cardiac Full code DVT SCDs history of GI bleed Disposition: acute inpatient rehab from [facility] Discharge Plan: Other (Inpatient rehab) - Code Status/Comfort Care Code Status: Full Code Critical Care: No Time Spent Managing PTS Care (In Minutes): 35
[2023-07-13] MEDS: NA CHLORIDE 0.9% 1,000 ML IV SCH (09:57)
--- NOTE | 2023-07-13 11:01 | EKG ---
Test Date: 2023-07-11 Test Time: 05:18:20 Differential Repairer: ESTUARDO MEASUREMENT RESULTS: Intervals: Rate: 68 ND: 182 QRSD: 122 QT: 434 QTc: 461 [place]: P: 93 ND: 182 QRS: -59 T: 163 INTERPRETIVE STATEMENTS: Normal sinus rhythm Left axis deviation Left bundle branch block Abnormal ECG Compared to ECG 09/07/2021 02:35:47 Left bundle-branch block now present Incomplete right bundle-branch block no longer present ST (T wave) deviation no longer present Possible ischemia no longer present Prolonged QT interval no longer present Electronically Signed On 07-13-23 10:57:33 ASSISTANT DIRECTOR OF RESIDENCE LIFE by Liborio Smith
[2023-07-13] MEDS: TRAMADOL HCL 50 MG TAB PO PRN (18:23)
[2023-07-13] MEDS: ACETAMINOPHEN 500 MG TAB PO ONE (18:24)
[2023-07-13] MEDS: AMLODIPINE 5 MG TAB PO SCH (18:29)
[2023-07-13] MEDS: METOPROLOL XL 25 MG TAB PO SCH (19:36)
[2023-07-13] MEDS: BACLOFEN 10 MG TAB PO SCH (19:37)
[2023-07-13] MEDS: LIDOCAINE 4% PATCH TOP SCH (19:37)
[2023-07-14 07:22] LABS: Potassium 4.3 mEq/L (3.5-5.1)
--- NOTE | 2023-07-14 08:08 | P.PN ---
Subjective Date of Service: 07/14/23 Chief Complaint: Frequent falls, weakness Here for frequent falls, rib fracture, pain control as needed analgesic Consult for [facility] PT eval ordered - Physical Exam General: Alert, oriented x 3 HEENT: Atraumatic, Normocephalic, PERRLA Neck: Supple, 2+ carotid pulse no bruit Respiratory: Clear to auscultation bilaterally, Normal air movement Cardiovascular: No edema, Normal pulses Capillary refill: <2 Seconds Gastrointestinal: Normal bowel sounds Musculoskeletal: No clubbing Integumentary: No rashes, No breakdown Neurological: Normal speech Lymphatics: No axilla or inguinal lymphadenopathy External genitalia: Deferred Review of Systems per HPI Physical Examination - Vital Signs Temperature: 97.7 F Blood Pressure: 140/87 Pulse: 70 Respirations: 15 Pulse Ox (%): 90 Assessment And Plan - Plan Assessment plan Frequent falls Generalized weakness Rib fractures Fall precautions, PT, OT eval, as needed analgesia Social service consult [facility] facility Incentive spirometer Ambulating with physical therapy, fall precaution Acute on chronic kidney injury likely from dehydration BUN 26, creatinine 1.25, BUN 23, CR 0.99 Gentle IV fluids Trend kidney function Essential hypertension Resume appropriate home meds Diet cardiac Full code DVT SCDs history of GI bleed Disposition: acute inpatient rehab from [facility] Discharge Plan: Other (residential facility) - Code Status/Comfort Care Code Status: Full Code Critical Care: No Time Spent Managing PTS Care (In Minutes): 35
[2023-07-14] MEDS: MAGNESIUM HYDROXIDE 8% 30 ML PO PRN (16:23)
--- NOTE | 2023-07-15 07:12 | P.PN ---
Subjective Date of Service: 07/15/23 Chief Complaint: Frequent falls, weakness Here for frequent falls, rib fracture, pain control as needed analgesic Consult for custodial facility PT eval ordered - Physical Exam General: Alert, oriented x 3 HEENT: Atraumatic, Normocephalic, PERRLA Neck: Supple, 2+ carotid pulse no bruit Respiratory: Clear to auscultation bilaterally, Normal air movement Cardiovascular: No edema, Normal pulses Capillary refill: <2 Seconds Gastrointestinal: Normal bowel sounds Musculoskeletal: No clubbing Integumentary: No rashes, No breakdown Neurological: Normal speech Lymphatics: No axilla or inguinal lymphadenopathy External genitalia: Deferred Physical Examination - Vital Signs Temperature: 97.7 F Blood Pressure: 184/88 Pulse: 80 Respirations: 20 Pulse Ox (%): 94 Assessment And Plan - Plan Assessment plan Frequent falls Generalized weakness Rib fractures Fall precautions, PT, OT eval, as needed analgesia Social service consult custodial facility Incentive spirometer Ambulating with physical therapy, fall precaution Acute on chronic kidney injury likely from dehydration BUN 26, creatinine 1.25, BUN 23, CR 0.99 Gentle IV fluids Trend kidney function Essential hypertension Resume appropriate home meds Diet cardiac Full code DVT SCDs history of GI bleed Disposition: acute inpatient rehab from [facility]
[2023-07-15] MEDS: SENOSIDES 8.6 MG TAB PO PRN (13:26)
--- NOTE | 2023-07-15 18:07 | P.DS ---
Admission Date: 07/11/23 Discharge Date: 07/15/23 Disposition: TRANSFER TO INPATIENT REHAB Discharge Condition: FAIR Reason for Admission: Frequent falls, weakness Brief History of Present Illness: Ms. Rena Bingham is a resident [facility]. Over the last she has sustained several falls, the most recent being 2 falls yesterday. She states she does not know she is going to fall but then feels that she is falling, no loss of consciousness. She does have a history of some peripheral neuropathy but says that most recently it is just that her feet do not work. She was evaluated in the emergency room. Laboratory evaluation is normal. Trauma evaluation is normal except for 1 isolated right rib fracture. She and family request evaluation for placement in inpatient rehab. - Physical Exam General: Alert, In no apparent distress, Oriented x3 HEENT: Atraumatic, Normocephalic, PERRLA Neck: 2+ carotid pulse no bruit Respiratory: Clear to auscultation bilaterally, Normal air movement, Other (right rib tenderness) Cardiovascular: Regular rate/rhythm Capillary refill: <2 Seconds Gastrointestinal: Soft and benign Musculoskeletal: No clubbing, No swelling Integumentary: No rashes, No breakdown, Other (scattered echymosis) Neurological: Normal speech, Other (gait not tested) Lymphatics: Inguinal lymphadenopathy External genitalia: Deferred Rectal: Deferred Hospital Course: 83year-old female patient with a past medical history of peripheral neuropathy, hypertension, COPD, presented with unsteady gait, falls, rib fractures. Was noted to have right rib fracture. Condition improved with as needed analgesics, physical therapy, fall precautions. Patient tolerating diet, stable for discharge to acute inpatient rehab. PROBLEM: Frequent/multiple falls Rib fractures-7th and 8th rib fracture Unsteady gait Peripheral neuropathy COPD GOAL: Clear understanding of disease process INSTRUCTIONS: Physician Discharge Instructions: -DC to acute inpatient rehab -Follow-up with PCP in 1 to 2 weeks after discharge from acute inpatient rehab -Please call nursing station at [phone] if any nursing or medication questions -Return to the emergency room if symptoms worsen Diet: ADA, low sodium Activity: Fall precautions Vital Signs/Physical Exam: Temp Pulse Resp BP Pulse Ox 98.0 F 85 18 146/73 H 91 07/15/23 16:00 07/15/23 16:00 07/15/23 16:00 07/15/23 16:00 07/15/23 16:00 Laboratory Data at Discharge: WBC 6.30 thou/uL (4.3-10.9) 07/13/23 05:30 Hgb 12.4 g/dL (12.0-15.0) D 07/13/23 05:30 Hct 37.0 % (36.0-45.0) 07/13/23 05:30 Plt Count 208 thou/uL (152-406) 07/13/23 05:30 Sodium 132 mEq/L (136-145) L 07/14/23 06:42 Potassium 4.3 mEq/L (3.5-5.1) 07/14/23 06:42 BUN 23 mg/dL (7-18) H 07/14/23 06:42 Creatinine 0.99 mg/dL (0.55-1.02) 07/14/23 06:42 Glucose 115 mg/dL (74-106) H 07/14/23 06:42 Magnesium 2.1 mg/dL (1.6-2.4) 07/12/23 06:07 Home Medications: Amlodipine Besylate [Norvasc] 2.5 mg PO BEDTIME 09/07/21 Metoprolol Succinate [Toprol Xl] 25 mg PO BEDTIME 09/07/21 Temazepam [Restoril] 30 mg PO BEDTIME 09/07/21 Diet: AHA Activity: Fall precautions Followup: Dago Worrell MD [Primary Care Provider] - Time spent managing pt's care (in minutes): 55
[2023-07-16] MEDS: POLYETHYL GLY 3350 17 GM/DOSE PO ONE (08:16)
[2023-07-16 10:48] VITALS: O2SAT 94
[2023-07-16] MEDS: FLEET ENEMA ADULT PR PRN (11:18)
[2023-07-16 13:06] VITALS: BP 153/80; TEMP 97.7
[2023-07-16] MEDS: LACTULOSE 20 GM/30 ML UCUP PO PRN (13:11)
--- NOTE | 2023-07-16 15:17 | RAD REPORT ---
EXAM DESCRIPTION: RAD - Abdomen 1 View (KUB) - 07/16/2023 1:50 pm CLINICAL HISTORY: no bm x6 days COMPARISON: No comparisons TECHNIQUE: Single AP view of the abdomen. FINDINGS: Nonobstructive bowel gas pattern. No air-fluid levels, free air, or pneumatosis. Mild stool burden along the distal colon. No suspicious calcifications. Aortic endograft in place. No significant bony abnormality. IMPRESSION: Nonobstructive bowel gas pattern.
== END 2023-07-16 16:00 | DRG 184 ==
LOC: ER 04:20 → ERHOLD 08:17 → 4TH 19:12
PROVIDERS: ADMIT Hospitalist; ATTEND Hospitalist
DX: S22.41XA Multiple fractures of ribs, right side, initial encounter for closed fracture (principal); N17.9 Acute kidney failure, unspecified; I12.9 Hypertensive chronic kidney disease with stage 1 through stage 4 chronic kidney disease, or unspecified chronic kidney disease; N18.9 Chronic kidney disease, unspecified; D63.1 Anemia in chronic kidney disease; E86.0 Dehydration; G62.9 Polyneuropathy, unspecified; J44.9 Chronic obstructive pulmonary disease, unspecified; R29.6 Repeated falls; Z88.8 Allergy status to other drugs, medicaments and biological substances; Z88.6 Allergy status to analgesic agent; Z88.5 Allergy status to narcotic agent; Z90.49 Acquired absence of other specified parts of digestive tract; Z86.73 Personal history of transient ischemic attack (TIA), and cerebral infarction without residual deficits; Z91.81 History of falling; Z79.899 Other long term (current) drug therapy; Z87.891 Personal history of nicotine dependence; Z90.710 Acquired absence of both cervix and uterus; W19.XXXA Unspecified fall, initial encounter; Y93.9 Activity, unspecified; Y92.099 Unspecified place in other non-institutional residence as the place of occurrence of the external cause
CPT/HCPCS: 36415; 70450; 71045; 71260; 72125; 74018; 74177; 80048; 81001; 82306; 83735; 84484; 85025; 93005; 94010; 96372; 96374; 97116; 97161; 97165; 97530; 99285; J0360; J2001; J2405; J2550; J3010; J3360; J7030; J7040; Q9967

== ENCOUNTER 2023-07-27 20:16 | Inpatient (IN) | payer OTHER ==
[2023-07-27] MEDS ORDERED: NA CHLORIDE 0.9% 1,000 ML ONE (20:48)
[2023-07-27] MEDS ORDERED: ONDANSETRON 4 MG/2 ML VIAL ONE (20:48)
[2023-07-27 21:13] LABS: Absolute Eosinophils 0.2 K/uL (0-0.5); Absolute Lymphocytes (CBC) 1.2 K/uL (0.7-4.9); Basophils % 0.4 % (0-1.3); Eosinophils % 2.7 % (0-4.4); Hematocrit 37.3 % (36.0-45.0); Hemoglobin 12.6 g/dL (12.0-15.0); Lymphocytes % 14.6 % (15.3-44.8); MCV 90.2 fL (80-100); Platelets 348 thou/uL (152-406); RBC Red Blood Cell Count 4.13 M/uL (3.86-4.86)
[2023-07-27 21:41] LABS: Albumin/Globulin Ratio 0.7 (1.1-1.8); Anion Gap 9.6 mEq/L (5.0-15.0); Bilirubin Direct 0.1 mg/dL (0-0.2); Bilirubin Indirect, Calculated 0.1 mg/dL (0.2-0.8); Bilirubin Total 0.2 mg/dL (0.2-1.0); Globulin 4.2 g/dL (2.3-3.5); Magnesium 1.9 mg/dL (1.6-2.4); Potassium 3.6 mEq/L (3.5-5.1); Protein, Total 7.2 g/dL (6.4-8.2); Troponin High Sensitivity 15.2 pg/mL (<58.9)
[2023-07-27] MEDS ORDERED: ACETAMINOPHEN 325 MG TABLET ONE (21:49)
[2023-07-28] MEDS ORDERED: CEFTRIAXONE 1000 MG/VIAL ONE ×2 (00:22→09:27)
--- NOTE | 2023-07-28 00:58 | EDPHYS ---
Physician Documentation [facility] Name: Rena Schuler Age: 83 yrs Sex: Female : 1940 Arrival Date: 07/27/2023 Time: 20:16 Bed 20 Private MD: ED Physician Rabia Polo HPI: 07/26 21:03 This 83 yrs old Female presents to ER via EMS with complaints of vomitng and abdominal sp3 cramping. 21:03 83-year-old female with a history of COPD, diverticulitis, hypertension, TIA, and sp3 recent admission for rib fracture now presents to the ED with chief complaint vomiting and nausea and mild abdominal cramping. Symptoms are going on since yesterday progressively getting worse. She denies any mucus or blood in the emesis or coffee grounds. She also denies headache, fever, URI symptoms, back pain, chest pain, shortness of breath, lower abdominal pain, diarrhea, rash, syncope, near syncope, focal neurological deficit, or any other signs or symptoms on ROS at this time.. Historical: - Allergies: 20:34 all pain medications; rv 20:34 Codeine; rv 20:34 Morphine; rv - Home Meds: 20:36 amlodipine 2.5 mg tablet [Active]; metoprolol tartrate 25 mg Oral tablet [Active]; rv temazepam 30 mg Oral capsule [Active]; - PMHx: 20:34 COPD; Diverticulitis; Hypertension; TIA; rv - PSHx: 20:34 Appendectomy; bilateral cataract; Cholecystectomy; Left wrist; thyroid; Total abdominal rv hysterectomy; - Immunization history:: Adult Immunizations up to date. - Social history:: Smoking status: Patient denies any tobacco usage or history of. ROS: 21:06 Constitutional: Negative for fever, chills, and weight loss, Eyes: Negative for injury, sp3 pain, redness, and discharge, ENT: Negative for injury, pain, and discharge, Neck: Negative for injury, pain, and swelling, Cardiovascular: Negative for chest pain, palpitations, and edema, Respiratory: Negative for shortness of breath, cough, wheezing, and pleuritic chest pain, Back: Negative for injury and pain, MS/Extremity: Negative for injury and deformity, Skin: Negative for injury, rash, and discoloration, Neuro: Negative for headache, weakness, numbness, tingling, and seizure, Psych: Negative for depression, anxiety, suicide ideation, homicidal ideation, and hallucinations, Allergy/Immunology: Negative for hives, rash, and allergies, Endocrine: Negative for neck swelling, polydipsia, polyuria, polyphagia, and marked weight changes, Hematologic/Lymphatic: Negative for swollen nodes, abnormal bleeding, and unusual bruising, 21:06 All other systems are negative, Exam: 21:06 Constitutional: This is a well developed, well nourished patient who is awake, alert, sp3 and in no acute distress. Head/Face: Normocephalic, atraumatic. Eyes: Pupils equal round and reactive to light, extra-ocular motions intact. Lids and lashes normal. Conjunctiva and sclera are non-icteric and not injected. Cornea within normal limits. Periorbital areas with no swelling, redness, or edema. Neck: Trachea midline, no thyromegaly or masses palpated, and no cervical lymphadenopathy. Supple, full range of motion without nuchal rigidity, or vertebral point tenderness. No Meningismus. Chest/axilla: Normal chest wall appearance and motion. Nontender with no deformity. No lesions are appreciated. Cardiovascular: Regular rate and rhythm with a normal S1 and S2. No gallops, murmurs, or rubs. Normal PMI, no JVD. No pulse deficits. Respiratory: Lungs have equal breath sounds bilaterally, clear to auscultation and percussion. No rales, rhonchi or wheezes noted. No increased work of breathing, no retractions or nasal flaring. Back: No spinal tenderness. No costovertebral tenderness. Full range of motion. Skin: Warm, dry with normal turgor. Normal color with no rashes, no lesions, and no evidence of cellulitis. MS/ Extremity: Pulses equal, no cyanosis. Neurovascular intact. Full, normal range of motion. Neuro: Awake and alert, GCS 15, oriented to person, place, time, and situation. Cranial nerves II-XII grossly intact. Motor strength 5/5 in all extremities. Sensory grossly intact. Cerebellar exam normal. Normal gait. Psych: Awake, alert, with orientation to person, place and time. Behavior, mood, and affect are within normal limits. 21:06 Abdomen/GI: No peritoneal signs, rebound or guarding noted. Patient is nauseated with dry heaves., 22:02 ECG was reviewed by the Attending Physician. EKG demonstrates atrial fibrillation at a sp3 ventricular capture at 86 bpm with multiple PVCs left bundle branch block. This is unchanged from her prior EKG dated July 11, 2023. Vital Signs: 20:30 BP 181 / 76; Pulse 88; Resp 18; Temp 98; Pulse Ox 96% ; Weight 66 kg; rv 21:15 BP 171 / 76; Pulse 87; Resp 16; Pulse Ox 98% ; jj7 22:00 BP 159 / 84; Pulse 90; Resp 17; Pulse Ox 97% ; jj7 23:00 BP 177 / 85; Pulse 95; Resp 17; Pulse Ox 97% ; jj7 07/27 00:00 BP 169 / 94; Pulse 108; Resp 21; Pulse Ox 95% ; jj7 MDM: 07/26 20:22 Patient medically screened. sp3 21:07 Data reviewed: vital signs, nurses notes, lab test result(s), EKG, radiologic studies. sp3 ED course: 83-year-old female with PMH above now with vomiting, nausea and mild abdominal cramping. Differential diagnosis is broad and includes viral syndrome, gastritis, biliary pathology and to lesser extent acute coronary syndrome and/or other anginal equivalent, or other abdominal pathology. I am not highly suspicious for or SALES ADVISOR pathology, aortic pathology, sepsis or shock. Workup will include laboratory values, EKG, CT scan of the abdomen pelvis and treatment with antinausea agents. Disposition pending workup and patient course.. 07/27 00:55 ED course: Patient has 2 to 3 mm stones in the left ureter causing hydroureter and sp3 hydronephrosis on that side. Also inflammation consistent with infection. Will go ahead and treat with Rocephin IV, and admit patient here with Dr. Siddiqui urology consultation in the morning since he is on at 7 AM. No emergent consultation required. I discussed this with Dr. Gregory who is on board with the plan and if any reason we are unable to contact Dr. Siddiqui, we will transfer to [place].. 07/26 20:27 Order name: Basic Metabolic Panel; Complete Time: 21:45 sp3 07/26 20:27 Order name: CBC with Diff; Complete Time: 21:45 sp3 07/26 20:27 Order name: LFT's; Complete Time: 21:45 sp3 07/26 20:27 Order name: Magnesium; Complete Time: 21:45 sp3 07/26 20:27 Order name: NT PRO-BNP; Complete Time: 21:45 sp3 07/26 20:27 Order name: Troponin HS; Complete Time: 21:45 sp3 07/26 20:27 Order name: Lipase; Complete Time: 21:45 sp3 07/27 00:07 Order name: UAM; Complete Time: 06:24 sp3 07/27 01:09 Order name: Protime (+INR); Complete Time: 06:24 EDMS 07/27 01:09 Order name: Basic Metabolic Panel EDMS 07/27 01:09 Order name: Basic Metabolic Panel EDMS 07/27 01:09 Order name: Basic Metabolic Panel EDMS 07/27 01:09 Order name: CBC with Automated Diff EDMS 07/27 01:09 Order name: CBC with Automated Diff EDMS 07/27 01:09 Order name: CBC with Automated Diff EDMS 07/26 20:27 Order name: CT Abd/Pelvis - IV Contrast Only sp3 07/26 20:27 Order name: EKG; Complete Time: 20:28 sp3 07/27 01:09 Order name: CONS Physician Consult EDMS 07/26 20:27 Order name: Cardiac monitoring; Complete Time: 21:00 sp3 07/26 20:27 Order name: EKG - Nurse/Tech; Complete Time: 21:00 sp3 07/26 20:27 Order name: IV Saline Lock; Complete Time: 21:00 sp3 07/26 20:27 Order name: Labs collected and sent; Complete Time: 21:00 sp3 07/26 20:27 Order name: O2 Sat Monitoring; Complete Time: 21:23 sp3 Administered Medications: 07/26 20:55 Drug: NS 0.9% IV 1000 ml IV at 1 bolus Per protocol; 1000 mL bolus Route: IV; Rate: 1 jj7 bolus; Site: left antecubital; 07/27 07:00 Follow up: Response: No adverse reaction; IV Status: Completed infusion db 07/26 20:55 Drug: Ondansetron IVP 4 mg IVP once; over 2 minutes Route: IVP; Site: left antecubital; jj7 07/27 07:00 Follow up: Response: No adverse reaction db 07/26 21:52 Drug: Acetaminophen PO 650 mg PO once Route: PO; jj7 22:50 Follow up: Response: Pain is decreased jj7 07/27 00:32 Drug: Rocephin IV 1 grams IV at calculated rate once; Given slow IV push per pharmacy jj7 instructions Route: IV; Rate: calculated rate; Site: left antecubital; 07:00 Follow up: Response: No adverse reaction; IV Status: Completed infusion db 01:58 Drug: Promethazine IVP 12.5 mg IVP once Route: IVP; Site: left antecubital; jj7 07:00 Follow up: Response: No adverse reaction db Disposition Summary: 07/28/23 00:58 Hospitalization Ordered Notes: Hospitalization Status: Inpatient Admission sp3 Provider: Romeo Everett sp3 Condition: Stable sp3 Problem: new sp3 Symptoms: have worsened sp3 Bed/Room Type: Standard sp3 Location: Telemetry/MedSurg (Inpatient)(07/28/23 11:15) [facility] Room Assignment: [facility](07/28/23 11:15) ja Diagnosis - Ureterolithiasis, left hydronephrosis, probable UTI sp3 Forms: - Medication Reconciliation Form sp3 - SBAR form sp3 - Leadership Thank You Letter sp3 Signatures: Dispatcher [employer] Flory Eason, RN RN Pietro Post RN LUCIANA ja1 Trevor Ortega RN RN Rabia Renteria MD MD sp3 Ermias Bashir RN RN jj7 Faith Oviedo rv1 Pau Eastman RN db Corrections: (The following items were deleted from the chart) 07/26 22:14 22:02 ECG was reviewed by the Attending Physician. EKG demonstrates atrial fibrillation sp3 at a ventricular capture at 86 bpm with multiple PVCs left bundle branch block. sp3 07/27 01:10 00:58 Telemetry/MedSurg (Inpatient) sp3 rv1 01:10 00:58 sp3 rv1 01:22 01:10 [facility] ER HOLD rv1 cg 01:22 01:10 ERHOLD- rv1 cg :25 01:22 Intensive Care Unit cg cg :25 01:22 1- cg cg 01:25 01:25 cg cg 01:26 01:25 Telemetry/MedSurg (Inpatient) cg cg 01: 01:25 cg cg 11:15 01:26 [facility] ER HOLD cg ja1 11: 01:26 ERHOLD- cg ja1
--- NOTE | 2023-07-28 00:58 | ER ---
Nurse's Notes [facility] Name: Rena Schuler Age: 83 yrs Sex: Female : 1940 Arrival Date: 07/27/2023 Time: 20:16 Bed 20 Private MD: Diagnosis: Ureterolithiasis, left hydronephrosis, probable UTI Presentation: 07/26 20:30 Chief complaint: EMS states: RECENTLY DC THURSDAY FROM HOSPITAL BECAUSE OF BROKEN RIBS rv AND ELBOW INJURY. TODAY STARTED TO BE LETHARGIC AND VOMITING. 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 Coronavirus screen: At this time, the client does not indicate any symptoms associated with coronavirus-19. Ebola Screen: No symptoms or risks identified at this time. Initial Sepsis Screen: Does the patient meet any 2 criteria? No. Patient's initial sepsis screen is negative. Does the patient have a suspected source of infection? No. Patient's initial sepsis screen is negative. Risk Assessment: Do you want to hurt yourself or someone else? Patient reports no desire to harm self or others. Onset of symptoms was July 27, 2023. 20:30 Method Of Arrival: EMS: [facility] rv 20:30 Acuity: THIEN 3 rv Triage Assessment: 20:34 General: Appears uncomfortable, Behavior is calm, cooperative. Pain: Denies pain. rv Neuro: Level of Consciousness is awake, alert. Cardiovascular: Capillary refill < 3 seconds Patient's skin is warm and dry. Respiratory: Airway is patent Respiratory effort is even, unlabored. GI: Reports nausea, vomiting. : No signs and/or symptoms were reported regarding the genitourinary system. Derm: Skin is intact. Historical: - Allergies: 20:34 all pain medications; rv 20:34 Codeine; rv 20:34 Morphine; rv - Home Meds: 20:36 amlodipine 2.5 mg tablet [Active]; metoprolol tartrate 25 mg Oral tablet [Active]; rv temazepam 30 mg Oral capsule [Active]; - PMHx: 20:34 COPD; Diverticulitis; Hypertension; TIA; rv - PSHx: 20:34 Appendectomy; bilateral cataract; Cholecystectomy; Left wrist; thyroid; Total abdominal rv hysterectomy; - Immunization history:: Adult Immunizations up to date. - Social history:: Smoking status: Patient denies any tobacco usage or history of. Screenin:36 [facility] ED Fall Risk Assessment (Adult) History of falling in the last 3 months, rv including since admission Yes- single mechanical fall (1 pt) Score/Fall Risk Level 3 or more points = High Risk Oriented to surroundings, Maintained a safe environment, Educated pt \T\ family on fall prevention, incl call for assistance when getting out of bed, Assessed \T\ reinforced patient's understanding of fall precautions, Provided non-skid footwear. Abuse screen: Denies threats or abuse. Denies injuries from another. Nutritional screening: No deficits noted. Tuberculosis screening: No symptoms or risk factors identified. Assessment: 20:40 General: Appears in no apparent distress. uncomfortable, Behavior is calm, cooperative, jj7 appropriate for age. Pain: Complains of pain in abdomen. GI: Reports upper abdominal pain, nausea, vomiting. Vital Signs: 20:30 BP 181 / 76; Pulse 88; Resp 18; Temp 98; Pulse Ox 96% ; Weight 66 kg; rv 21:15 BP 171 / 76; Pulse 87; Resp 16; Pulse Ox 98% ; jj7 22:00 BP 159 / 84; Pulse 90; Resp 17; Pulse Ox 97% ; jj7 23:00 BP 177 / 85; Pulse 95; Resp 17; Pulse Ox 97% ; jj7 03/05 00:00 BP 169 / 94; Pulse 108; Resp 21; Pulse Ox 95% ; jj7 ED Course: 0304 20:22 Patient arrived in ED. rv1 20:22 Rabia Polo MD is Attending Physician. sp3 20:34 Triage completed. rv 20:34 Arm band placed on right wrist. rv 20:36 Patient has correct armband on for positive identification. Client placed on continuous rv cardiac and pulse oximetry monitoring. NIBP monitoring applied. engine monitor on. 20:36 No provider procedures requiring assistance completed. rv 20:46 Inserted saline lock: 24 gauge in left antecubital area, using aseptic technique. Blood jj7 collected. 20:50 Basic Metabolic Panel Sent. kmf 20:50 CBC with Diff Sent. kmf 20:50 LFT's Sent. kmf 20:50 Magnesium Sent. kmf 20:50 NT PRO-BNP Sent. kmf 20:50 Troponin HS Sent. kmf 20:50 Lipase Sent. kmf 20:57 Ermias Bashir, RN is Primary Nurse. jj7 22:34 CT Abd/Pelvis - IV Contrast Only In Process Unspecified. EDMS 07/27 00:15 Straight cath inserted, using sterile technique, 16 Fr. Returned clear yellow urine. jj7 Patient tolerated well. 00:16 UAM Sent. jj7 00:32 UAM Sent. jj7 00:58 Romeo Everett MD is Hospitalizing Provider. sp3 Administered Medications: 07/26 20:55 Drug: NS 0.9% IV 1000 ml IV at 1 bolus Per protocol; 1000 mL bolus Route: IV; Rate: 1 jj7 bolus; Site: left antecubital; 07/27 07:00 Follow up: Response: No adverse reaction; IV Status: Completed infusion db 07/26 20:55 Drug: Ondansetron IVP 4 mg IVP once; over 2 minutes Route: IVP; Site: left antecubital; jj7 07/27 07:00 Follow up: Response: No adverse reaction db 07/26 21:52 Drug: Acetaminophen PO 650 mg PO once Route: PO; jj7 22:50 Follow up: Response: Pain is decreased jj7 07/27 00:32 Drug: Rocephin IV 1 grams IV at calculated rate once; Given slow IV push per pharmacy jj7 instructions Route: IV; Rate: calculated rate; Site: left antecubital; 07:00 Follow up: Response: No adverse reaction; IV Status: Completed infusion db 01:58 Drug: Promethazine IVP 12.5 mg IVP once Route: IVP; Site: left antecubital; j7 07:00 Follow up: Response: No adverse reaction db Medication: 07/26 20:36 VIS not applicable for this client. rv Outcome: 07/27 00:58 Decision to Hospitalize by Provider. sp3 13:30 Patient left the ED. as6 Signatures: Dispatcher [employer] EDMS Trevor Ortega, RN RN rv Rabia Polo MD MD sp3 Oracio Montero RN RN as6 Ermias Bashir RN RN jj7 Pau Eastman RN RN db Faith Oviedo rv1 Joy Da Silva kmf
[2023-07-28 01:09] LABS: Renal Epithelial <5 /HPF (None Seen); Specific Gravity 1.022 (1.005-1.030); Urine Bacteria None Seen /HPF (<20); Urine Bilirubin NEGATIVE (Negative); Urine Blood Negative (Negative); Urine Clarity Clear (Clear); Urine Color Colorless (Yellow); Urine Glucose NEGATIVE (Negative); Urine Protein NEGATIVE (Negative); Urine RBC <5 /HPF (None Seen); Urine Urobilinogen Normal (Normal)
--- NOTE | 2023-07-28 01:09 | P.HP ---
Certification for Inpatient Patient admitted to: Observation With expected LOS: <2 Midnights Practitioner: I am a practitioner with admitting privileges, knowledge of patient current condition, hospital course, and medical plan of care. Services: Services provided to patient in accordance with Admission requirements found in Title 42 Section 412.3 of the Code of Federal Regulations Patient History Date of Service: 07/28/23 Reason for admission: Kidney stone, abdominal pain. History of Present Illness: 83-year-old female patient who was evaluated in the ED for episode of abdominal pain, chills and lethargy. She denies burning micturition. She has a history of hypertension, abdominal aortic aneurysm repair, COPD, hyperlipidemia. She was found to have significant imaging studies of hydronephrosis and kidney stones measured at 3 mm. UA was not overtly concerning for infection. She was admitted for urology evaluation secondary to her hydronephrosis episode. Allergies codeine Allergy (Verified 07/16/23 16:36) Hives/Rash hydrocodone [From Lortab] Allergy (Verified 07/16/23 16:36) Nausea/Vomiting meloxicam Allergy (Verified 07/16/23 16:36) Nausea/Vomiting morphine Allergy (Verified 07/16/23 16:36) Hives/Rash oxycodone [From Percodan] Allergy (Verified 07/16/23 16:36) Hives/Rash propoxyphene [From Darvocet-N] Allergy (Verified 07/16/23 16:36) Nausea/Vomiting pseudoephedrine [From Seldane-D] Allergy (Verified 07/16/23 16:36) Anaphylaxis terfenadine [From Seldane-D] Allergy (Verified 07/16/23 16:36) Anaphylaxis zolpidem [From Ambien] Allergy (Verified 07/16/23 16:36) Nausea/Vomiting pentazocine [From Talwin] Adverse Reaction (Verified 07/16/23 16:36) Nausea/Vomiting Home Medications: Amlodipine [Norvasc] 5 mg PO DAILY 07/16/23 Cholecalciferol (Vitamin D3) [Dialyvite Vitamin D3 Max] 50,000 unit PO UD 07/16/23 Docusate/Senna [Senokot-S] 2 tab PO BEDTIME 07/16/23 Lidocaine 4% Patch [Lidoderm 5% Patch] 1 patch TD DAILY 07/16/23 Mag Hydroxide 8% [Milk Of Magnesia] 30 ml PO DAILY PRN 07/16/23 Metoprolol Succinate [Toprol Xl] 25 mg PO BEDTIME 07/16/23 Ondansetron [Zofran] 4 mg PO Q6H PRN 07/16/23 Temazepam 30 mg PO BEDTIME PRN 07/16/23 Baclofen 5 mg PO BEDTIME #30 07/25/23 Levofloxacin [Levaquin] 750 mg PO DAILY #5 07/25/23 - Past Medical/Surgical History Diabetic: No -: Hypertension -: COPD -: abd aneurysm -: "colon issues" -: Diverticulitis -: TIA -: lift device in lt chest wall -: back surgery -: hysterectomy -: cholecystectomy -: thryroidectomy -: cataract surgery -: AA repair -: Bleeding gastric and duodenal ulcer management Psychosocial/ Personal History: Patient lives at [facility] - Family History Father -: Heart disease, Hypertension Notes: aneurysm Mother -: Heart disease, Hypertension, Other (see notes) Notes: aneurysm - Social History Alcohol use: No CD- Drugs: No Caffeine use: Yes Review of Systems General: Malaise Eyes: Unremarkable ENT: Unremarkable Respiratory: Unremarkable Cardiovascular: Unremarkable Gastrointestinal: Abdominal Pain Genitourinary: Unremarkable Musculoskeletal: Unremarkable Integumentary: Unremarkable Neurological: Unremarkable Lymphatics: Unremarkable Physical Examination - Physical Exam General: Alert, Oriented x3 HEENT: Atraumatic Neck: Supple Respiratory: Normal air movement Cardiovascular: Regular rate/rhythm, Normal S1 S2 Musculoskeletal: No swelling Neurological: Normal speech, Normal strength at 5/5 x4 extr - Studies Laboratory Data (last 24 hrs) 07/27/23 07/27/23 20:40 20:40 WBC 8.20 Hgb 12.6 Hct 37.3 Plt Count 348 Sodium 136 Potassium 3.6 BUN 13 Creatinine 1.08 H Glucose 89 Magnesium 1.9 Total Bilirubin 0.2 AST 12 L ALT 21 Alkaline Phosphatase 108 Lipase 44 Assessment and Plan - Plan Abdominal pain, kidney stone: Patient has imaging studies concerning for hydronephrosis on the right kidney and a 3 mm kidney stone. Empiric antibiotic therapy of Rocephin started. Tamsulosin therapy started for management of kidney stone. IV hydration started. Urology consultation placed for management recommendation. Hypertension: We will monitor vital signs per unit protocol and continue antihypertensive medications. Hyperlipidemia: Continue statin therapy. Prophylaxis: Lovenox for DVT prophylaxis. CODE STATUS: Full code. Disposition: We will treat her kidney stones, hydronephrosis and she will be discharged once urology clears her. - Advance Directives Does patient have a Living Will: No Does patient have a Durable POA for Healthcare: No
[2023-07-28] MEDS ORDERED: PROMETHAZINE INJ 25 MG/ML AMP ONE (01:50)
[2023-07-28 02:35] LABS: Protime INR 1.18
[2023-07-28] MEDS ORDERED: MORPHINE 2 MG/ML SYR IV PRN (05:12)
[2023-07-28] MEDS: TAMSULOSIN 0.4 MG SR CAP PO SCH (09:00)
[2023-07-28] MEDS: ENOXAPARIN 40 MG/0.4 ML SQ SCH (09:00)
[2023-07-28] MEDS ORDERED: NA CHLORIDE 0.9% 50 ML ONE (09:27)
[2023-07-28] MEDS ORDERED: TAMSULOSIN 0.4 MG SR CAP ONE (09:27)
[2023-07-28] MEDS ORDERED: ENOXAPARIN 40 MG/0.4 ML SQ ONE (09:27)
[2023-07-28] MEDS: CEFTRIAXONE 1,000 MG in NA CHLORIDE 0.9% 50 ML IVPB SCH (09:45)
[2023-07-28] MEDS: PROMETHAZINE INJ 25 MG/ML AMP IV PRN (09:49)
[2023-07-28] MEDS ORDERED: NA CHLORIDE 0.9% 1,000 ML ONE (09:50)
[2023-07-28] MEDS: NA CHLORIDE 0.9% 1,000 ML IV SCH (09:51)
--- NOTE | 2023-07-28 14:16 | P.PN ---
Date of Service: 07/28/23 Patient seen and examined. She reports nausea. No vomiting. She reports pain from prior right rib fracture. She had difficulty voiding this morning and had to be straight cath. She has not voided since straight cath. Diagnosis: Left hydroureteronephrosis Enteritis Plan: Insert Rodriguez catheter Empiric antibiotics-Zosyn. Supportive measures with antiemetics and analgesics as needed. Urology consulted to evaluate.
[2023-07-28] MEDS: HYDRALAZINE HCL 20 MG/ML VIAL IV PRN (14:55)
[2023-07-28] MEDS: PIPER TAZO 3.375 GM in NA CHLORIDE 0.9% 100 ML IV SCH (14:56)
--- NOTE | 2023-07-28 17:06 | EKG ---
Test Date: 2023-07-27 Test Time: 21:00:53 Salesperson Sheet Music: ALLAN MEASUREMENT RESULTS: Intervals: Rate: 86 MT: 168 QRSD: 120 QT: 402 QTc: 481 [place]: P: 88 MT: 168 QRS: 36 T: 98 INTERPRETIVE STATEMENTS: Sinus rhythm with premature supraventricular complexes Otherwise normal ECG Compared to ECG 07/11/2023 05:18:20 Atrial premature complex(es) now present Left-axis deviation no longer present Left bundle-branch block no longer present Electronically Signed On 07-28-23 17:03:10 MEDICAL LEADER by Harrison Duran
--- NOTE | 2023-07-28 17:25 | RAD REPORT ---
EXAM DESCRIPTION: CT - Abdomen Pelvis W Contrast - 07/28/2023 6:14 am CLINICAL HISTORY: Abdominal pain. Vomiting. TECHNIQUE: CT scan of the abdomen and pelvis was performed with intravenous contrast. 5 mm axial rose marie ges were obtained along with coronal and sagittal reformatted images. DOSE OPTIMIZATION: This facility uses dose optimization techniques as appropriate to perform exams, i ncluding at least one of the following techniques: 1. Automated exposure control. 2. Adjustment of the mA and/or kV according to patient size (this includes techniques or standardized protocols for targeted exams where dose is matched to the indication/reason for exam, i.e. extremiti es or head). 3. Use of iterative reconstructive technique. COMPARISON: None. FINDINGS: Lung Bases: Normal. Liver: There are small hepatic cysts within left hepatic lobe. Spleen: Normal. Pancreas: Normal. Gallbladder: Surgically absent. Adrenal Glands: Normal. Right Kidney: Normal. Left Kidney : There is moderately severe hydroureteronephrosis secondary to [address] ones in the proximal left ureter each measuring 0.3 cm. There is uroepithelial thickening within the pelvicalyceal system and proximal ureter suspicious for superimposed urinary tract infection. Retroperitoneal Structures: There is evidence of aortic aneurysm status post repair with an aortobiiliac endovascular stent. No endoleak identified. Bowel Survey: The stomach is mildly distended with gas and fluid. There are multiple distended small bowel loops with air-fluid levels. There is a moderate-sized diverticulum extending from the fourth portion of the duodenum measuring 2. 7 cm. The appendix is unremarkable. There is moderately severe distention of the colon filled with gas and liquefied stool. There is mild diverticulosis of the descending and sigmoid colon. Uterus and Adnexa: The uterus and ovaries are absent. Urinary Bladder: Normal. Peritoneal Cavity: Normal. Mesenteric Structures: Normal. Abdominal Wall: No hernia. Bony Structures: No suspicious lesions. IMPRESSION: 1. There is moderately severe hydroureteronephrosis secondary to 2 adjacent obstructin g stones in the proximal left ureter age measuring 0.3 cm. There is uroepithelial thickening within t he pelvicalyceal system and proximal ureter suspicious for superimposed urinary tract infection. 2. Findings suggestive of enteritis with diarrhea. 3. There is evidence of aortic aneurysm status post repair with a an aortobiiliac endovascular sten t. No endoleak identified. 4. 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 Electronically signed by: Ervin Thomas MD 07/27/2023 11:12 PM POTATO CHIP PROCESSING SUPERVISOR Due to temporary technical issues with the PACS/Fluency reporting system, reports are being signed by the in house radiologists without review as a courtesy to insure prompt reporting. The interpreting radiologist is fully responsible for the content of the report.
[2023-07-28] MEDS ORDERED: MIDAZOLAM HCL 2 MG/2 ML INJ ONE (19:07)
[2023-07-28] MEDS ORDERED: propofoL 200 MG/20 ML VIAL IV ONE (19:07)
[2023-07-28] MEDS ORDERED: FENTANYL CITR 100 MCG/2 ML ONE (19:07)
[2023-07-28] MEDS ORDERED: KETOROLAC 30 MG/ML INJ ONE (19:08)
[2023-07-28] MEDS ORDERED: ONDANSETRON 4 MG/2 ML VIAL ONE (19:08)
[2023-07-28] MEDS ORDERED: dexAMETHasone 10 MG/ML VIAL ONE (19:09)
[2023-07-28] MEDS ORDERED: LIDOCAINE 1% MPF 5 ML VIAL ONE (19:24)
--- NOTE | 2023-07-28 19:43 | P.CNS ---
Date of Consult: 07/28/23 Reason for Consult: Anorexia and hydronephrosis Requesting Physician: marcelina vargas Chief Complaint: Kidney stone, abdominal pain. History of Present Illness: 83-year-old woman with COPD, hypertension, CKD stage II, history of divertic ulosis, history of TIA, and recently discharged 2 days ago following a fall where she broke to right ribs, presents via the emergency department with weakness generalized. Associated with this, she had nausea with a degree of vomiting at home and some chills but no documented fevers. She denied any specific recognition of flank pain on the left, and mostly was complaining of right upper quadrant/rib pain on the right. She also complained of some mid epigastric pain. Past medical history: As above Past surgical history: Appendectomy, abdominal hysterectomy, cholecystectomy, left hemithyroidectomy Allergy profile: Codeine/morphine, hydrocodone/oxycodone, meloxicam and others per list Examination: Alert, awake, oriented in no acute distress No dyspnea or sign of respiratory distress No cervical/supraclavicular adenopathy Abdomen soft, nontender, nondistended, no masses No lower extremity tenderness 07/27/2023 WBC 8.2, hemoglobin 12.6, platelets 348, INR 1.18, creatinine 1.08 with EGFR 50, UA micro negative 07/28/2023 CT abdomen and pelvis with contrast: Moderate to severe hydroureteronephrosis secondary to 2 adjacent obstructing stones in the proximal left ureter each, each measuring 0.3 cm. Uroepithelial thickening within the pelvic calyceal system and proximal ureter suspicious for superimposed infection. Impression: Findings suggestive of enteritis with diarrhea. Aortic aneurysm status post repair with an aorto iliac endovascular stent. No endoleak identified. Severe osteoarthritis about the hip joints bilaterally. -I reviewed the images of the CT scan in detail, and there was marked tortuosity of the proximal ureter associated with the presence of sequential small obstructing proximal ureteral calculi with moderate hydroureteronephrosis and epithelial thickening of the renal pelvis pelvis. No significant intra or renal calculi noted. Assessment and recommendation: 83-year-old woman with COPD, hypertension, CKD stage II, history of diverticulosis, history of TIA, and recently discharged 2 days ago following a fall where she broke to right ribs, first-time stone former with left proximal obstructive ureterolithiasis with hydronephrosis, pyonephrosis and anorexia. -Operative management via cystoscopy with left retrograde pyelography and left ureteral stent placement recommended given the likelihood for a degree of acute kidney injury at her age despite the relatively "normal" creatinine level. I counseled the patient as well as her son and [id number] about the details of the procedure and the recommendation for the stent. I explained the purpose of the stent in detail and also explained its potential for causing a degree of urinary bother and discomfort. Risks of the procedure were discussed to include infection, bleeding, injury to the ureter, ureteral or urethral stricture, and failure to achieve desired result requiring percutaneous nephrostomy tube placement. Side effects to include gross hematuria and stent discomfort were discussed in detail. -She has been kept n.p.o. since midnight, and we will proceed this evening with urgent left ureteral stent placement. Allergies codeine Allergy (Verified 07/16/23 16:36) Hives/Rash hydrocodone [From Lortab] Allergy (Verified 07/16/23 16:36) Nausea/Vomiting meloxicam Allergy (Verified 07/16/23 16:36) Nausea/Vomiting morphine Allergy (Verified 07/16/23 16:36) Hives/Rash oxycodone [From Percodan] Allergy (Verified 07/16/23 16:36) Hives/Rash propoxyphene [From Darvocet-N] Allergy (Verified 07/16/23 16:36) Nausea/Vomiting pseudoephedrine [From Seldane-D] Allergy (Verified 07/16/23 16:36) Anaphylaxis terfenadine [From Seldane-D] Allergy (Verified 07/16/23 16:36) Anaphylaxis zolpidem [From Ambien] Allergy (Verified 07/16/23 16:36) Nausea/Vomiting pentazocine [From Talwin] Adverse Reaction (Verified 07/16/23 16:36) Nausea/Vomiting Home medications list reviewed: Yes Home Medications: Amlodipine [Norvasc] 5 mg PO DAILY 07/16/23 Cholecalciferol (Vitamin D3) [Dialyvite Vitamin D3 Max] 50,000 unit PO UD 07/16/23 Docusate/Senna [Senokot-S] 2 tab PO BEDTIME 07/16/23 Lidocaine 4% Patch [Lidoderm 5% Patch] 1 patch TD DAILY 07/16/23 Mag Hydroxide 8% [Milk Of Magnesia] 30 ml PO DAILY PRN 07/16/23 Metoprolol Succinate [Toprol Xl] 25 mg PO BEDTIME 07/16/23 Ondansetron [Zofran] 4 mg PO Q6H PRN 07/16/23 Temazepam 30 mg PO BEDTIME PRN 07/16/23 Levofloxacin [Levaquin] 750 mg PO DAILY #5 07/25/23 Baclofen 5 mg PO BEDTIME PRN 07/28/23 - Past Medical/Surgical History Diabetic: No -: Hypertension -: COPD -: abd aneurysm -: "colon issues" -: Diverticulitis -: TIA -: lift device in lt chest wall -: back surgery -: hysterectomy -: cholecystectomy -: thryroidectomy -: cataract surgery -: AA repair -: Bleeding gastric and duodenal ulcer management Psychosocial/ Personal History: Patient lives at [facility] - Family History Father Medical History: Heart disease, Hypertension Notes: aneurysm Mother Medical History: Heart disease, Hypertension, Other (see notes) Notes: aneurysm Brother Medical History: Cancer - Social History Smoking Status: Former smoker Alcohol use: No CD- Drugs: No Caffeine use: Yes Place of Residence: Home Physical Examination Temp Pulse Resp BP Pulse Ox 98.5 F 105 H 18 154/67 H 96 07/28/23 16:00 07/28/23 16:00 07/28/23 16:00 07/28/23 16:00 07/28/23 16:00 Laboratory Data (last 24 hrs) 07/28/23 07/27/23 07/27/23 02:12 20:40 20:40 WBC 8.20 Hgb 12.6 Hct 37.3 Plt Count 348 PT 12.9 H INR 1.18 Sodium 136 Potassium 3.6 BUN 13 Creatinine 1.08 H Glucose 89 Magnesium 1.9 Total Bilirubin 0.2 AST 12 L ALT 21 Alkaline Phosphatase 108 Lipase 44 - Problems (1) Hydronephrosis, left Current Visit: Yes Status: Acute (2) Acute pyonephrosis Current Visit: Yes Status: Acute (3) Ureterolithiasis Current Visit: Yes Status: Acute (4) Anorexia Current Visit: Yes Status: Acute Conclusions/Impression: see A&P in HPI Time Spent Managing Pts care (In Minutes): 45
[2023-07-28] MEDS: LABETALOL 20 MG/4ML SYRINGE IV ONE (20:15)
--- NOTE | 2023-07-28 20:16 | P.OP ---
Date of Service: 07/28/23 Preoperative diagnosis: Left ureterolithiasis Left hydronephrosis Pyelonephrosis Anorexia Postoperative diagnoses: Left ureterolithiasis Left hydronephrosis Pyelonephrosis Anorexia Large volume incomplete bladder emptying/urinary retention Principal procedures: Cystoscopy Left retrograde pyelography Left ureteral stent placement Urethral Rodriguez catheter placement Indication for procedure: 83-year-old woman with COPD, hypertension, CKD stage II, history of diverticulosis, history of TIA, and recently discharged 2 days ago following a fall where she broke to right ribs, first-time stone former with left proximal obstructive ureterolithiasis with hydronephrosis, pyonephrosis and anorexia. -Operative management via cystoscopy with left retrograde pyelography and left ureteral stent placement recommended given the likelihood for a degree of acute kidney injury at her age despite the relatively "normal" creatinine level. Procedure note: The patient was consented as an inpatient prior to being transferred to the preoperative holding area before ultimately to the operative suite where general anesthesia was induced. She was being given Zosyn IV antimicrobial therapy on the floor, and pneumoboots were provided for DVT prophylaxis. She was placed in the lithotomy position, padded and secured to the table appropriately. Her genitalia was prepped with Hibiclens and she was draped in standard fashion. The case was begun using a 22 Luxembourger rigid cystoscope to traverse the urethra and into the bladder with ease. The bladder was markedly capacious with significant volume of retained urine making visualization quite dark. I thus decompressed the bladder of a significant quantity of old stale smelling urine. I then refilled it with sterile saline and surveyed the bladder briefly. The ureteral orifices were orthotopic in location, and the left ureteral orifice was somewhat stenotic. As a result, I utilized the tip of the sensor wire to cannulate the ureteral orifice, and over the tip of the sensor wire, I advanced a 5 Luxembourger ureteral access catheter into the ureteral orifice. A retrograde pyelogram was then performed using fluoroscopic imagery. Left retrograde pyelography: Using a 70: 30 mixture of Omnipaque and saline, contrast was injected via the lumen of the 5 Luxembourger ureteral access catheter and did propagate up the distal into the mid and proximal ureter where some ureteral narrowing was noted before entry into the renal pelvis and calyces where there was mild to moderate pelvocaliectasis. No stone was fluoroscopically visible. So I then passed a sensor wire via the 5 Luxembourger ureteral access catheter and under live fluoroscopic imagery beyond the point of putative obstruction in the proximal ureter and coiled it within one of the mid lower pole calyces. Over the wire, I then remove the 5 Luxembourger ureteral access catheter and passed a new 6 Luxembourger by 24 cm double-J ureteral stent with a coil observed fluoroscopically in the renal pelvis, and 1 cystoscopically formed in her bladder. Because of the prior suspected incomplete emptying of the bladder/urinary retention, I then elected to place a 16 Luxembourger Rodriguez catheter, which I then passed via her urethra into her bladder with ease. 10 cc of sterile water was placed in the balloon, and her bladder was allowed to decompress. The catheter was then connected to a floor bag, and she was taken out of the lithotomy position. She was then awakened from general anesthesia, transferred to a stretcher, and then transferred to the recovery room in good condition. Complications: None Discharge disposition: She will require outpatient follow-up in the urology clinic for preoperative evaluation and discussion about definitive management of her stones to include left-sided ureteroscopy, likely with stone basketing and stent exchange, but possible need for laser lithotripsy. Recommend leaving the urethral Rodriguez catheter over the course of the next 24 to 48 hours while her acute illness improves, at which point her bladder function may also improve. After that, she may be given a voiding trial by removing the catheter promptly at 6 AM and allowing the patient till 1 PM to void. Recommend checking a bladder scan postvoid residual assessment, and if she fails to void more than she retains, or if she retains generally more than 250 to 300 cc, a urethral Rodriguez catheter should be immediately reinserted. In this case, outpatient urodynamics evaluation will be required. Findings and Operative Technique
[2023-07-28] MEDS: ACETAMINOPHEN 325 MG TABLET PO PRN (22:01)
--- NOTE | 2023-07-28 23:34 | RAD REPORT ---
EXAM DESCRIPTION: RAD - Cystography - 07/28/2023 8:14 pm CLINICAL HISTORY: STENT COMPARISON: None available. FINDINGS: Seven Images were sent to PACS, documenting fluoroscopy used during left ureteral stent pr ocedure. No radiologist was available for the procedure, nor will any image interpretation he provide d. Please refer to the procedural report for additional details. Fluoroscopy time: 29 seconds. IMPRESSION: Documentation of fluoroscopy utilization as above.
[2023-07-29 06:42] LABS: Absolute Lymphocytes (CBC) 0.6 K/uL (0.7-4.9); Basophils % 0.4 % (0-1.3); Hematocrit 33.5 % (36.0-45.0); Hemoglobin 11.2 g/dL (12.0-15.0); MCV 90.9 fL (80-100); MPV 7.1 fL (7.6-11.3); Platelets 306 thou/uL (152-406); RBC Red Blood Cell Count 3.68 M/uL (3.86-4.86)
[2023-07-29 07:00] LABS: Anion Gap 9.3 mEq/L (5.0-15.0); Potassium 3.3 mEq/L (3.5-5.1)
--- NOTE | 2023-07-29 18:41 | P.PN ---
Subjective Date of Service: 07/29/23 Chief Complaint: Kidney stone, abdominal pain. Status post cystoscopy and left ureteral stent yesterday. Patient currently has no complaints. She has no fever, she is tolerating diet. Rodriguez catheter has clear urine. Physical Examination - Vital Signs Temperature: 98.0 F Blood Pressure: 119/58 Pulse: 86 Respirations: 17 Pulse Ox (%): 94 Assessment And Plan - Current Problems (Diagnosis) (1) Hydronephrosis, left Current Visit: Yes Status: Acute (2) Ureterolithiasis Current Visit: Yes Status: Acute (3) Enterocolitis Current Visit: Yes Status: Acute - Plan Left hydronephrosis Left ureteral stone Urology Dr. Siddiqui input appreciated. Status post cystoscopy and left ureteral stent placement. Rodriguez catheter maintained. Voiding trial in a.m.. Continue tamsulosin Empiric IV Zosyn Diet as tolerated. IV hydration. Enterocolitis Continue IV Zosyn Supportive measures with IV fluid. Hypertension: Patient is currently normotensive without her home antihypertensives. Continue to hold home antihypertensive. Hyperlipidemia Continue statin therapy. Prophylaxis: Lovenox for DVT prophylaxis. CODE STATUS: Full code.
[2023-07-29] MEDS: TEMAZEPAM 15 MG CAP PO PRN (22:29)
[2023-07-30 06:56] LABS: Absolute Eosinophils 0.2 K/uL (0-0.5); Absolute Lymphocytes (CBC) 1.6 K/uL (0.7-4.9); Basophils % 0.5 % (0-1.3); Eosinophils % 2.1 % (0-4.4); Hemoglobin 10.6 g/dL (12.0-15.0); Lymphocytes % 21.1 % (15.3-44.8); MCV 90.5 fL (80-100); Platelets 278 thou/uL (152-406); RBC Red Blood Cell Count 3.43 M/uL (3.86-4.86)
--- NOTE | 2023-07-30 17:23 | P.PN ---
Subjective Date of Service: 07/30/23 Chief Complaint: Kidney stone, abdominal pain. Status post cystoscopy and left ureteral stent 07/28/2023 Patient currently has no complaints. She has no fever, she is tolerating diet. She has voided after Rodriguez catheter removal. Daughter report decreased mobility. Physical Examination - Vital Signs Temperature: 97.4 F Blood Pressure: 176/81 Pulse: 72 Respirations: 16 Pulse Ox (%): 95 Assessment And Plan - Current Problems (Diagnosis) (1) Hydronephrosis, left Current Visit: Yes Status: Acute (2) Ureterolithiasis Current Visit: Yes Status: Acute (3) Enterocolitis Current Visit: Yes Status: Acute - Plan Left hydronephrosis Left ureteral stone Urology Dr. Siddiqui input appreciated. Status post cystoscopy and left ureteral stent placement. Status post Rodriguez catheter. Patient is voiding after Rodriguez catheter removal Continue tamsulosin Continue IV Zosyn Diet as tolerated. Discontinue IV fluid. Enterocolitis Continue IV Zosyn Hypertension: Resume home antihypertensives for elevated blood pressure. Hyperlipidemia Continue statin therapy. Impaired mobility PT consult Prophylaxis: Lovenox for DVT prophylaxis. CODE STATUS: Full code.
[2023-07-30] MEDS: POTASSIUM CL SA 10 MEQ TAB PO ONE (17:55)
[2023-07-30] MEDS: ALBUTEROL 2.5 MG/3 ML NEB SOL NEB PRN (23:51)
[2023-07-30] MEDS: IPRATROPIUM BROM 0.5MG/2.5ML NEB PRN (23:51)
[2023-07-31 03:57] LABS: Absolute Basophils 0.1 K/uL (0-0.5); Absolute Eosinophils 0.2 K/uL (0-0.5); Absolute Lymphocytes (CBC) 1.3 K/uL (0.7-4.9); Basophils % 0.7 % (0-1.3); Eosinophils % 2.2 % (0-4.4); Hematocrit 30.9 % (36.0-45.0); Hemoglobin 10.6 g/dL (12.0-15.0); Lymphocytes % 14.3 % (15.3-44.8); MCV 89.7 fL (80-100); Platelets 256 thou/uL (152-406); RBC Red Blood Cell Count 3.45 M/uL (3.86-4.86)
[2023-07-31 04:12] LABS: Anion Gap 8.4 mEq/L (5.0-15.0); Potassium 3.4 mEq/L (3.5-5.1)
[2023-07-31] MEDS: POTASSIUM CL SA 10 MEQ TAB PO ONE (08:15)
[2023-07-31] MEDS ORDERED: POTASSIUM CL SA 10 MEQ TAB PO ONE (09:00)
--- NOTE | 2023-07-31 17:23 | P.PN ---
Subjective Date of Service: 07/31/23 Chief Complaint: Kidney stone, abdominal pain. Status post cystoscopy and left ureteral stent 07/28/2023 Patient currently has no complaints. She has voided after Rodriguez catheter removal. Issues overnight. Physical Examination - Vital Signs Temperature: 98.4 F Blood Pressure: 165/75 Pulse: 113 Respirations: 17 Pulse Ox (%): 94 Assessment And Plan - Current Problems (Diagnosis) (1) Hydronephrosis, left Current Visit: Yes Status: Acute (2) Ureterolithiasis Current Visit: Yes Status: Acute (3) Enterocolitis Current Visit: Yes Status: Acute - Plan Left hydronephrosis Left ureteral stone Urology Dr. Siddiqui input appreciated. Status post cystoscopy and left ureteral stent placement. Status post Rodriguez catheter. Patient is voiding after Rodriguez catheter removal Continue tamsulosin Continue IV Zosyn Diet as tolerated. Off IV fluid Enterocolitis Continue IV Zosyn Hypertension: Resume home antihypertensives for elevated blood pressure. Hyperlipidemia Continue statin therapy. Impaired mobility Patient with significantly decreased mobility. Anticipating skilled rehab placement. Prophylaxis: Lovenox for DVT prophylaxis. CODE STATUS: Full code.
[2023-07-31] MEDS: METOPROLOL XL 25 MG TAB PO SCH (21:47)
[2023-07-31] MEDS: AMLODIPINE 5 MG TAB PO SCH (21:48)
[2023-08-01 01:40] VITALS: BMI 21.6
[2023-08-01 08:24] LABS: Anion Gap 7.2 mEq/L (5.0-15.0); Potassium 3.2 mEq/L (3.5-5.1)
[2023-08-01] MEDS: POTASSIUM CL SA 10 MEQ TAB PO ONE (10:52)
--- NOTE | 2023-08-01 14:12 | P.PN ---
Subjective Date of Service: 08/01/23 Chief Complaint: Kidney stone, abdominal pain. Status post cystoscopy and left ureteral stent 07/28/2023 Patient currently has no new complaints except intermittent diarrhea. She is voiding without difficulty. Physical Examination - Vital Signs Temperature: 97.7 F Blood Pressure: 153/84 Pulse: 89 Respirations: 16 Pulse Ox (%): 94 Assessment And Plan - Current Problems (Diagnosis) (1) Hydronephrosis, left Current Visit: Yes Status: Acute (2) Ureterolithiasis Current Visit: Yes Status: Acute (3) Enterocolitis Current Visit: Yes Status: Acute - Plan Physical examination General: Alert and oriented x3, NAD, Neck: Supple, no elevated JVD Heart: Heart sounds 1 and 2 normal, regular rhythm, normal rate, no pedal edema Lungs: Clear to auscultation bilaterally, adequate breath sounds bilaterally, no rhonchi or crackles. Abdomen: Soft, nondistended, nontender, normal bowel sounds. Extremities: No tenderness, no deformity Skin: Normal skin turgor, no rash, no nodules or ulcers. Neuro: No focal motor deficit. Normal speech. Psychiatry: Normal mood, no agitation. Assessment and plan Left hydronephrosis Left ureteral stone Urology Dr. Siddiqui input appreciated. Status post cystoscopy and left ureteral stent placement. Status post Rodriguez catheter. Patient is voiding after Rodriguez catheter removal Continue tamsulosin Change IV Zosyn to oral Cipro and Flagyl. Diet as tolerated. Off IV fluid Enterocolitis Change IV Zosyn to oral Cipro and Flagyl. Hypertension: Resume home antihypertensives for elevated blood pressure. Impaired mobility Patient with significantly decreased mobility. Anticipating skilled rehab placement. Prophylaxis: Lovenox for DVT prophylaxis. CODE STATUS: Full code.
[2023-08-01] MEDS: CIPROFLOXACIN HCL 500 MG TAB PO SCH (20:51)
[2023-08-01] MEDS: metroNIDAZOLE 500 MG TABLET PO SCH (20:51)
[2023-08-02 05:49] LABS: Absolute Eosinophils 0.5 K/uL (0-0.5); Absolute Lymphocytes (CBC) 1.3 K/uL (0.7-4.9); Basophils % 0.5 % (0-1.3); Hemoglobin 11.3 g/dL (12.0-15.0); Lymphocytes % 15.9 % (15.3-44.8); MCV 90.4 fL (80-100); Platelets 230 thou/uL (152-406); RBC Red Blood Cell Count 3.65 M/uL (3.86-4.86)
[2023-08-02 06:03] LABS: Anion Gap 8.6 mEq/L (5.0-15.0); Potassium 3.6 mEq/L (3.5-5.1)
[2023-08-02] MEDS: POTASSIUM CL SA 10 MEQ TAB PO ONE (07:52)
--- NOTE | 2023-08-02 15:40 | P.PN ---
Subjective Date of Service: 08/02/23 Chief Complaint: Kidney stone, abdominal pain. Status post cystoscopy and left ureteral stent 07/28/2023 Patient reports intermittent diarrhea, 2 episodes since this morning. She is voiding without difficulty. She also reports generalized weakness and fatigue. Physical Examination - Vital Signs Temperature: 97.8 F Blood Pressure: 154/81 Pulse: 83 Respirations: 18 Pulse Ox (%): 95 Assessment And Plan - Current Problems (Diagnosis) (1) Hydronephrosis, left Current Visit: Yes Status: Acute (2) Ureterolithiasis Current Visit: Yes Status: Acute (3) Enterocolitis Current Visit: Yes Status: Acute - Plan Physical examination General: Alert and oriented x3, NAD, Heart: Heart sounds 1 and 2 normal, regular rhythm, normal rate, no pedal edema Lungs: Clear to auscultation bilaterally, adequate breath sounds bilaterally, no rhonchi or crackles. Abdomen: Soft, nondistended, nontender, normal bowel sounds. Extremities: No tenderness, no deformity Skin: Normal skin turgor, no rash, no nodules or ulcers. Neuro: No focal motor deficit. Normal speech. Psychiatry: Normal mood, no agitation. Assessment and plan Left hydronephrosis Left ureteral stone Urology Dr. Siddiqui input appreciated. Status post cystoscopy and left ureteral stent placement. Status post Rodriguez catheter. Patient is voiding after Rodriguez catheter removal Continue tamsulosin Follow-up with urology as outpatient. Status post IV Zosyn Zosyn changed to oral Cipro and Flagyl. Diet as tolerated. Off IV fluid Enterocolitis Change IV Zosyn to oral Cipro and Flagyl. Hypertension: Continue home antihypertensives. Impaired mobility Patient with significantly decreased mobility. Anticipating skilled rehab placement. Continue PT Prophylaxis: Lovenox for DVT prophylaxis. CODE STATUS: Full code.
[2023-08-03] MEDS: ONDANSETRON 4 MG (ODT) TAB PO PRN (07:54)
[2023-08-03 09:50] VITALS: O2SAT 93
[2023-08-03] MEDS: POTASSIUM CL SA 10 MEQ TAB PO ONE ×2 (10:57→14:56)
--- NOTE | 2023-08-03 15:47 | P.DS ---
Admission Date: 07/28/23 Discharge Date: 08/03/23 Disposition: TRANSFER TO SNF - REHAB Reason for Admission: Kidney stone, abdominal pain. - Problems (1) Hydronephrosis, left Current Visit: Yes Status: Acute (2) Ureterolithiasis Current Visit: Yes Status: Acute (3) Enterocolitis Current Visit: Yes Status: Acute Brief History of Present Illness: 83-year-old female patient who was evaluated in the ED for episode of abdominal pain, chills and lethargy. She denied burning micturition. She has a history of hypertension, abdominal aortic aneurysm repair, COPD, hyperlipidemia. She was found to have significant imaging studies of hydronephrosis and kidney stones measured at 3 mm. UA was not overtly concerning for infection. She was admitted for urology evaluation secondary to her hydronephrosis episode. Hospital Course: Patient was admitted to the medical floor and the following medical problems addressed, Left hydronephrosis Left ureteral stone Patient seen by urology Dr. Siddiqui. Status post cystoscopy and left ureteral stent placement. Status post Rodriguez catheter. Patient voiding without difficulty after Rodriguez catheter removal She was placed on tamsulosin by Dr. Siddiqui recommendation Follow-up with urology as outpatient. Dr. Siddiqui recommending evaluation for kidney stone removal. UA did not suggest the presence of UTI. Patient treated with IV Zosyn and transition to oral Cipro and Flagyl. She received 6 days of antibiotics. Post void urine is Diet as tolerated. Treated briefly with IV fluid. Patient discharged with oral Cipro Enterocolitis Change IV Zosyn to oral Cipro and Flagyl. Patient completed 6 days of antibiotics Hypertension: Continued home antihypertensives. Impaired mobility Patient with significantly decreased mobility. She was evaluated by PT who recommended continued rehab Patient has been accepted to [facility] for skilled rehab. Vitals are stable for discharge. Vital Signs/Physical Exam: Temp Pulse Resp BP Pulse Ox 98.6 F 80 17 148/67 H 93 08/03/23 08:00 08/03/23 08:00 08/03/23 08:00 08/03/23 08:00 08/03/23 08:00 General: Alert, In no apparent distress, Oriented x3 HEENT: Mucous membr. moist/pink Neck: Supple, JVD not distended Respiratory: Clear to auscultation bilaterally, Normal air movement Cardiovascular: Regular rate/rhythm, Normal S1 S2 Gastrointestinal: Normal bowel sounds, Soft and benign, Non-distended Musculoskeletal: No swelling Integumentary: No cyanosis Neurological: Normal strength at 5/5 x4 extr Laboratory Data at Discharge: WBC 7.90 thou/uL (4.3-10.9) 08/02/23 05:30 Hgb 11.3 g/dL (12.0-15.0) L 08/02/23 05:30 Hct 33.0 % (36.0-45.0) L 08/02/23 05:30 Plt Count 230 thou/uL (152-406) 08/02/23 05:30 PT 12.9 SECONDS (9.5-12.5) H 07/28/23 02:12 INR 1.18 07/28/23 02:12 Sodium 141 mEq/L (136-145) 08/02/23 05:30 Potassium 3.6 mEq/L (3.5-5.1) 08/02/23 05:30 BUN 9 mg/dL (7-18) 08/02/23 05:30 Creatinine 0.78 mg/dL (0.55-1.02) 08/02/23 05:30 Glucose 118 mg/dL (74-106) H 08/02/23 05:30 Magnesium 1.9 mg/dL (1.6-2.4) 07/27/23 20:40 Total Bilirubin 0.2 mg/dL (0.2-1.0) 07/27/23 20:40 AST 12 U/L (15-37) L 07/27/23 20:40 ALT 21 U/L (13-56) 07/27/23 20:40 Alkaline Phosphatase 108 U/L (45-117) 07/27/23 20:40 Lipase 44 U/L (13-75) 07/27/23 20:40 Home Medications: Amlodipine [Norvasc] 5 mg PO DAILY 07/16/23 Cholecalciferol (Vitamin D3) [Dialyvite Vitamin D3 Max] 50,000 unit PO UD 07/16/23 Lidocaine 4% Patch [Lidoderm 5% Patch] 1 patch TD DAILY 07/16/23 Mag Hydroxide 8% [Milk Of Magnesia] 30 ml PO DAILY PRN 07/16/23 Metoprolol Succinate [Toprol Xl] 25 mg PO BEDTIME 07/16/23 Ondansetron [Zofran] 4 mg PO Q6H PRN 07/16/23 Temazepam 30 mg PO BEDTIME PRN 07/16/23 Baclofen 5 mg PO BEDTIME PRN 07/28/23 Ciprofloxacin HCl [Cipro 500 MG Tablet] 500 mg PO BID #8 tab 08/03/23 Tamsulosin [Flomax*] 0.4 mg PO DAILY #0 cap 08/03/23 New Medications: Ciprofloxacin HCl [Cipro 500 MG Tablet] 500 mg PO BID #8 tab Physician Discharge Instructions: [address] [address] P:[phone]/ F:[phone] Diet: AHA Activity: Fall precautions Followup: Dago Worrell MD [Primary Care Provider] - Time spent managing pt's care (in minutes): 35
[2023-08-03 18:49] VITALS: BP 150/70; TEMP 98.7
== END 2023-08-03 19:00 | DRG 661 ==
LOC: ER 20:16 → ERHOLD 07-28 01:04 → 4TH 07-28 12:04 → OBSVTOIN 07-28 12:28
PROVIDERS: ADMIT Internal Medicine Nephrology; ATTEND Internal Medicine
PROC: BT1F1ZZ Fluoroscopy of Left Kidney, Ureter and Bladder using Low Osmolar Contrast (ICD-10-PCS; 2023-07-28)
PROC: 0T9B70Z Drainage of Bladder with Drainage Device, Via Natural or Artificial Opening (ICD-10-PCS; 2023-07-28)
PROC: 0T778DZ Dilation of Left Ureter with Intraluminal Device, Via Natural or Artificial Opening Endoscopic (ICD-10-PCS; principal; 2023-07-28 19:30)
DX: N13.6 Pyonephrosis (principal); N17.9 Acute kidney failure, unspecified; E78.5 Hyperlipidemia, unspecified; I12.9 Hypertensive chronic kidney disease with stage 1 through stage 4 chronic kidney disease, or unspecified chronic kidney disease; N18.2 Chronic kidney disease, stage 2 (mild); M16.0 Bilateral primary osteoarthritis of hip; K52.9 Noninfective gastroenteritis and colitis, unspecified; J44.9 Chronic obstructive pulmonary disease, unspecified; R33.9 Retention of urine, unspecified; R63.0 Anorexia; Z88.8 Allergy status to other drugs, medicaments and biological substances; Z88.5 Allergy status to narcotic agent; Z90.49 Acquired absence of other specified parts of digestive tract; Z68.21 Body mass index [BMI] 21.0-21.9, adult; Z86.73 Personal history of transient ischemic attack (TIA), and cerebral infarction without residual deficits; Z90.710 Acquired absence of both cervix and uterus; Z79.899 Other long term (current) drug therapy; Z87.891 Personal history of nicotine dependence
CPT/HCPCS: 36415; 51600; 51702; 74177; 74430; 80048; 80076; 81001; 83690; 83735; 83880; 84132; 84484; 85025; 85610; 93005; 94640; 96361; 96365; 96366; 96375; 97110; 97116; 97161; 97530; 99285; G0378; J0360; J0696; J1100; J1650; J2001; J2250; J2405; J2543; J2550; J2704; J3010; J7030; J7613; J7644; Q0162; Q9967

== ENCOUNTER 2023-09-17 08:35 | Inpatient (IN) | payer OTHER ==
[2023-09-01 14:09] LABS: Absolute Eosinophils 0.2 K/uL (0-0.5); Absolute Monocytes 0.8 K/uL (0.1-1.3); Absolute Neutrophil 4.8 K/uL (1.8-8.0); Basophils % 0.5 % (0-1.3); Eosinophils % 3.2 % (0-4.4); Hematocrit 37.4 % (36.0-45.0); Hemoglobin 11.9 g/dL (12.0-15.0); Lymphocytes % 25.1 % (15.3-44.8); MCH 28.5 pg (27.0-35.0); MCHC 31.9 g/dL (32.0-36.0); MCV 89.4 fL (80-100); MPV 7.8 fL (7.6-11.3); Monocytes % 9.9 % (3.3-12.3); Neutrophils % 61.3 % (41.7-73.7); PT Prothrombin Time 10.9 SECONDS (9.5-12.5); Platelets 284 thou/uL (152-406); Protime INR 0.99; RBC Red Blood Cell Count 4.18 M/uL (3.86-4.86); Red Cell Distribution Width 14.4 % (12.1-15.2)
[2023-09-01 14:16] LABS: Anion Gap 6.8 mEq/L (5.0-15.0); Potassium 3.8 mEq/L (3.5-5.1)
[2023-09-17] MEDS: Ringers Lactate 1,000 ML IV ONE ×2 (09:00→16:22)
[2023-09-17] MEDS ORDERED: LIDOCAINE 1% MPF 5 ML VIAL ONE (10:06)
[2023-09-17] MEDS ORDERED: propofoL 200 MG/20 ML VIAL IV ONE (10:06)
[2023-09-17] MEDS ORDERED: FENTANYL CITR 100 MCG/2 ML ONE (10:06)
[2023-09-17] MEDS ORDERED: ROCURONIUM 50 MG/5 ML VIAL IV ONE (10:08)
[2023-09-17] MEDS: CEFAZOLIN SODIUM 1 GM/VIAL ONE (11:16)
[2023-09-17] MEDS ORDERED: Mastisol Adhesive Liq ONE (12:23)
--- NOTE | 2023-09-17 12:56 | RAD REPORT ---
EXAM DESCRIPTION: RAD - Urethrocystogrphy Retrograde - 09/17/2023 12:39 pm CLINICAL HISTORY: BILAT RETRO PYELOGRAM COMPARISON: Cystography dated 07/28/2023 FINDINGS: Total fluoro time: 0.35 minutes
[2023-09-17] MEDS: FENTANYL CITR 100 MCG/2 ML ONE (13:25)
[2023-09-17] MEDS: ONDANSETRON 4 MG/2 ML VIAL ONE (14:05)
[2023-09-17] MEDS: PHENAZOPYRIDINE 100MG TAB PO ONE ×2 (14:31→16:50)
[2023-09-17] MEDS: ALBUTEROL 2.5 MG/3 ML NEB SOL ONE (14:52)
[2023-09-17] MEDS: PROMETHAZINE INJ 25 MG/ML AMP ONE (15:30)
[2023-09-17] MEDS: TRAMADOL 37.5mg/APAP 325mg PER TAB ONE (16:50)
[2023-09-17] MEDS: TRAMADOL 37.5mg/APAP 325mg PER TAB PO ONE (16:50)
--- NOTE | 2023-09-17 17:02 | RAD REPORT ---
EXAM DESCRIPTION: Joet Single View09/17/2023 4:48 pm CLINICAL HISTORY: post-op COMPARISON: Chest Single View dated 07/22/2023; Abdomen 1 View (KUB) dated 07/21/2023; Chest Single Vi ew dated 07/20/2023; Abdomen 1 View (KUB) dated 07/16/2023; Chest Single View dated 07/11/2023 TECHNIQUE: Portable AP view of the chest. FINDINGS: The lungs are clear. Stable chronic interstitial changes and hyperlucency suggesting COPD. Implantable rhythm monitoring device in place. No pneumothorax or effusion. The cardiomediastinal c ontours are unremarkable. IMPRESSION: No acute cardiopulmonary process.
--- NOTE | 2023-09-17 17:21 | P.PN ---
Subjective Date of Service: 09/17/23 Chief Complaint: I feel badly Subjective: Worsening 83-year-old woman with hypertension and asthma along with chronic nausea and pain s/p right retrograde pyelography and stent placement followed by uncomplicated left ureteroscopy with pyeloscopy, stone basketing, and stent exchange today, 09/17/2023, with significant issues with nausea and vomiting in the recovery area associated with a degree of tachycardia and elevated temperatures up to 99.8. The patient was also feeling badly with some bilateral back pain and also complaining of some pelvic discomfort, which was not unexpected given the cystoscopic intervention. Physical Examination - Vital Signs Temperature: 98.2 F Blood Pressure: 184/80 Pulse: 81 Respirations: 16 - Physical Exam General: Alert, Oriented x3, Mild distress HEENT: Atraumatic, Normocephalic, PERRLA Respiratory: Normal air movement Cardiovascular: Normal pulses Gastrointestinal: Soft and benign, Non-distended Neurological: Normal speech - Studies Laboratory Data (last 24 hrs) 09/17/23 09/17/23 16:25 16:25 WBC Cancelled Hgb Cancelled Hct Cancelled Plt Count Cancelled Sodium Cancelled Potassium Cancelled BUN Cancelled Creatinine Cancelled Glucose Cancelled Assessment And Plan - Current Problems (Diagnosis) (1) SIRS (systemic inflammatory response syndrome) Current Visit: Yes Status: Acute (2) Intractable nausea and vomiting Current Visit: Yes Status: Acute (3) Postoperative hypoxemia Current Visit: Yes Status: Acute - Plan 83-year-old woman with hypertension and asthma along with chronic nausea and pain s/p right retrograde pyelography and stent placement followed by uncomplicated left ureteroscopy with pyeloscopy, stone basketing, and stent exchange today, 09/17/2023, with postoperative intractable nausea/vomiting and elevated temperature consistent with SIRS, possible pyelonephritic sepsis, and hypoxemia. -CXR -Bolus 500 cc LR and reassess for persistent tachycardia. If still tachycardic but O2 sats stable, bolused an additional 500 cc LR. -Blood cultures and urine cultures if temperature >/= 100 Fahrenheit -Cefepime 1 g IV every 24 hours -Will request hospitalist assistance for overnight and inpatient management given her advanced age and respiratory deficiencies. Critical Care: Yes Time Spent Managing PTS Care (In Minutes): 45
[2023-09-17] MEDS: CEFEPIME 1 GM in NA CHLORIDE 0.9% 100 ML IV SCH (17:36)
[2023-09-17 17:44] LABS: Absolute Lymphocytes (CBC) 0.3 K/uL (0.7-4.9); Absolute Monocytes 0.3 K/uL (0.1-1.3); Absolute Neutrophil 8.8 K/uL (1.8-8.0); Basophils % 0.3 % (0-1.3); Eosinophils % 0.2 % (0-4.4); Hematocrit 38.1 % (36.0-45.0); Hemoglobin 12.4 g/dL (12.0-15.0); Lymphocytes % 3.3 % (15.3-44.8); MCH 28.8 pg (27.0-35.0); MCHC 32.5 g/dL (32.0-36.0); MCV 88.4 fL (80-100); MPV 7.2 fL (7.6-11.3); Monocytes % 2.7 % (3.3-12.3); Neutrophils % 93.5 % (41.7-73.7); Platelets 194 thou/uL (152-406); RBC Red Blood Cell Count 4.31 M/uL (3.86-4.86); Red Cell Distribution Width 14.8 % (12.1-15.2)
[2023-09-17] MEDS: CEFEPIME 1 GM/VIAL ONE (17:50)
[2023-09-17] MEDS: NA CHLORIDE 0.9% 100 ML ONE (17:51)
[2023-09-17 18:29] LABS: Blood Morphology Comment NOT SEEN (NOT SEEN); Platelet Estimate ADEQ; White Blood Cell Scan OK (OK)
[2023-09-17] MEDS: ACETAMINOPHEN 325 MG TABLET ONE (19:21)
[2023-09-17] MEDS ORDERED: FENTANYL CITR 100 MCG/2 ML IV PRN (20:01)
[2023-09-17] MEDS: D5 0.9 NS 1,000 ML IV SCH (21:29)
--- NOTE | 2023-09-17 21:40 | P.HP ---
Certification for Inpatient Patient admitted to: Inpatient With expected LOS: >2 Midnights Practitioner: I am a practitioner with admitting privileges, knowledge of patient current condition, hospital course, and medical plan of care. Services: Services provided to patient in accordance with Admission requirements found in Title 42 Section 412.3 of the Code of Federal Regulations Patient History Date of Service: 09/17/23 Reason for admission: Fever History of Present Illness: 83-year-old woman with a history of hypothyroidism, COPD, history of kidney stone underwent pyeloscopy/ureteroscopy with removal of kidney stones and stent exchange. Patient became febrile and briefly hypotensive immediate postoperative in PACU. She also vomited and became tachycardic. Urology Dr. Siddiqui started patient on IV cefepime, give a bolus of normal saline and her blood pressure improved. Fever was persistent, patient reported to be confused. Dr. Siddiqui called for patient to be admitted for further management of sepsis suspected to be related to pyelonephritis. Patient was alert and oriented, not confused during my examination, her blood pressure had improved to normal and sh e was complaining of intermittent bladder spasms. Allergies codeine Allergy (Verified 09/17/23 09:22) Hives/Rash hydrocodone [From Lortab] Allergy (Verified 09/17/23 09:22) Nausea/Vomiting meloxicam Allergy (Verified 09/17/23 09:22) Nausea/Vomiting morphine Allergy (Verified 09/17/23 09:22) Anaphylaxis oxycodone [From Percodan] Allergy (Verified 09/17/23 09:22) Hives/Rash propoxyphene [From Darvocet-N] Allergy (Verified 09/17/23 09:22) Nausea/Vomiting pseudoephedrine [From Seldane-D] Allergy (Verified 09/17/23 09:22) Anaphylaxis terfenadine [From Seldane-D] Allergy (Verified 09/17/23 09:22) Anaphylaxis zolpidem [From Ambien] Allergy (Verified 09/17/23 09:22) Nausea/Vomiting/Change in mental status pentazocine [From Talwin] Adverse Reaction (Verified 09/17/23 09:22) Nausea/Vomiting Home Medications: Amlodipine [Norvasc*] 2.5 mg PO BEDTIME 07/16/23 Metoprolol Succinate [Toprol Xl*] 25 mg PO BEDTIME 07/16/23 Ondansetron [Zofran (Odt)*] 4 mg PO Q6H PRN 07/16/23 Temazepam 30 mg PO BEDTIME PRN 07/16/23 Albuterol Inhaler [Ventolin Inhaler*] 2 puff IH Q6H PRN 09/01/23 Budesonide/Formoterol Fumarate [Symbicort 80-4.5 Mcg Inhaler] 2 puff IH BID 09/01/23 Oxybutynin Chloride [Oxybutynin Chloride ER] 2 tab PO DAILY 09/01/23 Promethazine HCl 12.5 mg PO Q8HP PRN 09/01/23 Simethicone [Phazyme] 2 cap PO DAILY 09/01/23 - Past Medical/Surgical History Diabetic: No -: Hypertension -: COPD -: abd aneurysm -: "colon issues" -: Diverticulitis -: TIA -: lift device in lt chest wall -: back surgery -: hysterectomy -: cholecystectomy -: thryroidectomy -: cataract surgery -: AA repair -: Bleeding gastric and duodenal ulcer management Psychosocial/ Personal History: Patient lives at [facility] - Family History Father -: Heart disease, Hypertension Notes: aneurysm Mother -: Heart disease, Hypertension, Other (see notes) Notes: aneurysm Brother -: Cancer - Social History Alcohol use: No CD- Drugs: No Caffeine use: Yes Review of Systems Other: Patient denied any diarrhea, no reported vomiting. She endorsed loss of appetite. She denied any headache, no limb weakness. Except as documented, all other systems reviewed and negative. Physical Examination - Vital Signs Temperature: 99.4 F Blood Pressure: 143/60 Pulse: 96 Respirations: 16 Pulse Ox (%): 94 - Physical Exam General: Alert, In no apparent distress, Oriented x3 HEENT: Mucous membr. moist/pink, Sclerae nonicteric Neck: Supple, JVD not distended Respiratory: Clear to auscultation bilaterally, Normal air movement Cardiovascular: No edema, Regular rate/rhythm, Normal S1 S2 Gastrointestinal: Normal bowel sounds, Soft and benign, Non-distended Musculoskeletal: No swelling, No tenderness Integumentary: No rashes, No cyanosis Neurological: Normal speech, Normal strength at 5/5 x4 extr, Cranial nerves 3-12 intact Lymphatics: No axilla or inguinal lymphadenopathy - Studies Laboratory Data (last 24 hrs) 09/17/23 09/17/23 09/17/23 17:20 16:25 16:25 WBC 9.40 Cancelled Hgb 12.4 Cancelled Hct 38.1 Cancelled Plt Count 194 Cancelled Sodium Cancelled Potassium Cancelled BUN Cancelled Creatinine Cancelled Glucose Cancelled Assessment and Plan - Problems (Diagnosis) (1) Sepsis Current Visit: Yes Status: Acute (2) Nephrolithiasis Current Visit: Yes Status: Acute (3) Pyelonephritis Current Visit: Yes Status: Acute (4) COPD (chronic obstructive pulmonary disease) Current Visit: Yes Status: Acute (5) Hypertension Onset Date: 05/05/16 Current Visit: No Status: Chronic Qualifiers: Hypertension type: essential hypertension - Plan Sepsis/Acute Pyelonephritis Nephrolithiasis status post ureteroscopy Status post ureteroscopy with removal of kidney stones. Admit patient to the medical floor Continue IV cefepime started in the PACU. Blood cultures and urine cultures ordered to be followed Supportive measures with analgesics as needed, antispasmodics as needed, antiemetics as needed. Monitor intake and output IV hydration for sepsis Serial lactate. COPD exacerbation/acute respiratory failure with hypoxia Patient had a brief COPD exacerbation postsurgery. Continue bronchodilator treatment No indication for steroids for now. Patient is on IV antibiotics. Essential hypertension Hold home antihypertensives given brief hypotension. Monitor BP and resume antihypertensives stepwise once patient is persistently hypertensive. DVT prophylaxis: Heparin SQ Advance directive: Full code. - Advance Directives Does patient have a Living Will: No Does patient have a Durable POA for Healthcare: No
[2023-09-17 23:20] VITALS: BMI 21.7
--- NOTE | 2023-09-18 00:10 | OP ---
Surgeon: LUL CARRASCO Preoperative Diagnoses: 1.Left ureterolithiasis. 2.Right flank pain. Postoperative Diagnoses: 1.Left nephrolithiasis. 2.Right flank pain. 3.Stenosis of the right ureteral orifice. Principal Procedures: 1.Cystoscopy. 2.Right retrograde pyelography. 3.Right 7-[place] [employer] ureteral stent placement. 4.Left ureteroscopy with pyeloscopy. 5.Left ureteroscopic stone basketing. 6.Left ureteral stent exchange. Indication For Procedure: Ms. Schuler presented via the emergency setting where she was found to have a suspected obstructing ureteral calculus causing hydronephrosis and decline in her kidney function. She underwent stent placement and presents for definitive management of that left ureterolithiasis. She also complained of some right-sided flank pain of uncertain etiology. Since no stones obstructin g or seen on the patient's right side, to investigate the potential for other anatomic abnormality ca using the pain related to her renal unit, I also recommended evaluation of the patient's right side. Procedure In Detail: The patient was consented in the preoperative holding area before being transfe rred to the operative suite where general anesthesia was induced. She was given Ancef 1 g IV antimic robial prophylaxis, and pneumo boots were provided for DVT prophylaxis. She was placed in the lithot anjali position, padded and secured to the table appropriately, and her genitalia were prepped with Hibi clens before being draped in standard fashion. The case was begun using a 22-[place] rigid cystoscope to traverse the urethra and into the bladder with ease. The bladder was decompressed of fluid and v omayra orange/peridium colored urine. There was some sediment in the base of the bladder and I refilled the bladder, irrigating it to disperse and remove the sediment within the bladder. I then advanced a 5-[place] ureteral access catheter via the scope and targeted the ureteral orifice, which was observ ed to be within the trigone on the patient's right. The orifice was quite stenotic and would not adm it the tip of the 5-[place] ureteral access catheter; so, I utilized the tip of the Sensor wire to gai n access into the right ureteral orifice, and of note, the stenosis was tight even around the tip of the Sensor wire. However, I was able to navigate over the Sensor wire, a 5-[place] ureteral access ca theter into the ureterovesical junction and I performed a retrograde pyelography study. Right retrograde pyelography: Using a 70:30 mixture of Omnipaque and saline, contrast was injected v ia the lumen of the 5-[place] Citizen ureteral access catheter and did propagate up the distal into the mid be fore slight delay and transition up beyond the proximal ureter and into the renal pelvis and calices. While the pelvis showed signs of some [id number] pelviectasis, the calyces were sharp and wit hout caliectasis. As a result, I removed the 5-[place] Citizen ureteral access catheter and observed the time frame for evacuation of contrast. Within less than 5 minutes of the observation period, the overwhe lming majority of the injected contrast did indeed pass out of the collecting system into the bladder with some strong ureteral jets noted cystoscopically. However, given the pain and the stenosis of t he ureteral orifice observed, I then passed a Bentson guidewire via the 5-[place] Citizen ureteral access cath eter into the collecting system, and I passed over the Bentson guidewire, a 7-[place] Citizen by 24 cm double- J ureteral stent with a coil observed fluoroscopically in the renal pelvis and 1 cystoscopically form ed in the bladder. I then turned my attention to the patient's left side. The ureteral stent was emanating from the lef t ureteral orifice, and I grasped the stent using an alligator grasper and delivered the tip to the m eatus leaving the proximal coil within the proximal ureter. I passed the Sensor wire via the stent a nd coiled it within the putative renal pelvis/collecting system on the left. I then passed a dual-lacho men catheter over the wire and entered the mid distal left ureter. I then placed a second Bentson gu idewire via the second lumen of the dual-lumen catheter into the collecting system before removing th e dual-lumen catheter. I then utilized a semi-rigid ureteroscope, navigated over the Bentson guidewire to gain access into t he ureteral orifice and surveying up the distal into the mid ureter. I was not able to survey more p roximally due to ureteral spasm and immobility. So using the semi-rigid ureteroscope over the Bentson guidewire into the distal and into the mid uret er, I was not able to pass further into the proximal ureter; so I placed a Bentson guidewire under di rect vision up the proximal into the renal pelvis and collecting system. I removed the semi-rigid ur eteroscope, leaving the wire in place and passed over it an 11 x 13-[place] Citizen ureteral access sheath. T his was passed into the mid proximal ureter, and I used that to gain access into the collecting syste m with the flexible ureteroscope. I then surveyed each of the calices fluoroscopically delineated us ing contrast and identified some small calculi present within the mid pole posteriorly as well as an upper pole anterior calyx. Each of the stones was grasped using a 1.9-[place] Citizen 0 tip Nitinol basket, a nd I was able to deliver them both out of the collecting system via the ureteral access sheath. The first and larger of the 2 stones did require careful removal while backing out the ureteral access sh eath at the same time. I then again used a dual-lumen catheter to gain access into the collecting system and placed a second [employer]son guidewire again loading the ureteral access sheath, this time all the way into the renal pel vis before I surveyed in the renal pelvis using pressure flow irrigation via the ureteroscope and ens ured all stone debris, spots, or blood clot was all washed out and removed. Once this was done, I th en backed the ureteroscope down into the renal pelvis and into the proximal before getting into the m id and distal ureter before concluding ureteroscopy. I then back-loaded the cystoscope over the indw elling Sensor safety wire and passed a 6-[place] Citizen by 26 cm double-J ureteral stent with a coil observed fluoroscopically in the upper pole and 1 cystoscopically formed in her bladder. The stent, likely o ther side, was left on its tethered. I then decompressed the bladder of fluid and urine, and utilize d benzoin and Steri-Strips to secure the strings associated with the stents for ease of subsequent re moval. The patient was then taken out of the lithotomy position, awakened from general anesthesia, t ransferred to a stretcher, and then transferred to the recovery room in good condition. Complications: None. Discharge Disposition: As she has bilateral tethered ureteral stents, I have sent a prescription for Keflex 250 mg every 8 hours over the course of the next 5 days while she has the stents in place tet hered. I would then like her to follow up on Thursday or Thursday of next week to have the stents remov ed in the office. Subsequent followup should be established based on any prior history of stone form ing event, in which case she would merit a metabolic profile assessment in approximately 1 month afte r the stent is removed. Additionally, should she have significant resolution of her right flank pain associated with the presence of the stent, that should be noted and we will discuss that further and evaluate that further potentially with Mag-3 Lasix renography, on followup after she completes the [facility] metabolic assessment. HEATH/CRISTIAN Voice ID: [id number] Report ID: [id number]
[2023-09-18] MEDS: IPRATROPIUM BROM 0.5MG/2.5ML NEB SCH (00:18)
[2023-09-18] MEDS: HEPARIN 5000 UNIT/ML 1 ML VIAL SQ SCH (01:46)
[2023-09-18 01:48] LABS: Absolute Basophils 0.1 K/uL (0-0.5); Absolute Lymphocytes (CBC) 0.9 K/uL (0.7-4.9); Absolute Neutrophil 13.1 K/uL (1.8-8.0); Basophils % 0.3 % (0-1.3); Hematocrit 31.2 % (36.0-45.0); Hemoglobin 10.2 g/dL (12.0-15.0); Lymphocytes % 5.8 % (15.3-44.8); MCH 28.7 pg (27.0-35.0); MCHC 32.7 g/dL (32.0-36.0); MCV 87.8 fL (80-100); MPV 7.2 fL (7.6-11.3); Monocytes % 6.8 % (3.3-12.3); Neutrophils % 87.1 % (41.7-73.7); Platelets 181 thou/uL (152-406); RBC Red Blood Cell Count 3.55 M/uL (3.86-4.86); Red Cell Distribution Width 14.5 % (12.1-15.2)
[2023-09-18] MEDS: ACETAMINOPHEN 325 MG TABLET PO PRN (01:52)
[2023-09-18 02:01] LABS: Anion Gap 8.4 mEq/L (5.0-15.0); Magnesium 1.6 mg/dL (1.6-2.4); Phosphorus 2.9 mg/dL (2.5-4.9); Potassium 3.4 mEq/L (3.5-5.1)
[2023-09-18] MEDS: NA CHLORIDE 0.9% 500 ML IV ONE (05:41)
[2023-09-18] MEDS: DULERA 100/5 (MOMETASONE/FORMOTEROL) INHALER IH SCH ×2 (07:00→22:11)
--- NOTE | 2023-09-18 07:12 | P.PN ---
Date of Service: 09/18/23 Subjective: no acute events overnight febrile last night headache dry cough no new/worsening symptoms feels weak ROS: 10 point ROS as noted above, otherwise negative Physical Exam: GEN: Alert, oriented, NAD HEENT: Normal conjunctiva, sclera anicteric CV: Regular rate and rhythm, no edema Pulm: Nonlabored respirations on 2L NC, clear bilaterally, dry cough ABD: Soft, nontender, nondistended Neuro: Normal speech, normal affect vitals reviewed Problem List: Sepsis secondary to suspected Acute pyelonephritis Left Nephrolithiasis s/p ureteroscopy with pyeloscopy, right ureteral stent placement and left ureteral stent exchange (09/16) Acute hypoxic respiratory failure secondary to acute COPD exacerbation Hypertension hx TIA Sepsis secondary to suspected Acute pyelonephritis Left Nephrolithiasis s/p ureteroscopy with pyeloscopy, right ureteral stent placement and left ureteral stent exchange (09/16) Patient underwent cystoscopy, ureteroscopy with pyeloscopy, right ureteral stent placement and left ureteral stent exchange (09/16) post operatively patient became febrile / briefly hypotensive immediately after procedure in PACU. +reported vomiting / tachycardia / intermittent bladder spasms BP responded well to NS fluid bolus and patient started on IV cefepime Stents are tentatively to be removed next week in office per urology Continue IV cefepime (09/16-) Follow blood and urine cultures lactate 2.5 -> 3.3 -> 1.3 component secondary to hypoxia continue IV fluids with d5w 75ml/hr PRN analgesics / antiemetics / antispasmodics Acute hypoxic respiratory failure secondary to acute COPD exacerbation CXR (09/16): negative for acute findings. Stable chronic interstitial changes/hyperlucency suggesting COPD. Continue bronchodilators oxygen supplementation as needed PRN tessalon perles Hypertension hold antihypertensives for now given hypotension Monitor BP closely VTE: heparin sq Code: Full Dispo: Home, ~2+ days Pending culture results / afebrile > 24 hours / wbc improves
[2023-09-18] MEDS: SIMETHICONE 125 MG TAB PO SCH (10:05)
[2023-09-18] MEDS: OXYBUTYNIN ER 5 MG TAB PO SCH (10:05)
[2023-09-18] MEDS: BENZONATATE 100 MG CAP PO PRN ×2 (10:22→23:01)
[2023-09-18] MEDS: CEFEPIME 1 GM in NA CHLORIDE 0.9% 100 ML IV SCH (17:07)
--- NOTE | 2023-09-18 20:59 | CON ---
Date of Consultation: 09/18/2023 Reason For Consultation: Melena, GI bleed. History Of Present Illness: Patient is an 83-year-old white female DICTATION ENDS HERE. ROD Voice ID: [id number] Report ID: [id number]
[2023-09-18] MEDS ORDERED: TEMAZEPAM 15 MG CAP PO PRN (22:09)
[2023-09-18] MEDS: PHENAZOPYRIDINE 100MG TAB PO PRN (22:12)
[2023-09-18] MEDS: TEMAZEPAM 15 MG CAP PO ONE (23:01)
[2023-09-19 03:41] LABS: Absolute Basophils 0.1 K/uL (0-0.5); Absolute Eosinophils 0.3 K/uL (0-0.5); Absolute Lymphocytes (CBC) 1.2 K/uL (0.7-4.9); Absolute Monocytes 0.8 K/uL (0.1-1.3); Absolute Neutrophil 7.1 K/uL (1.8-8.0); Basophils % 0.6 % (0-1.3); Eosinophils % 3.4 % (0-4.4); Hematocrit 30.4 % (36.0-45.0); Hemoglobin 9.8 g/dL (12.0-15.0); Lymphocytes % 12.2 % (15.3-44.8); MCH 28.5 pg (27.0-35.0); MCHC 32.3 g/dL (32.0-36.0); MCV 88.3 fL (80-100); MPV 8.2 fL (7.6-11.3); Monocytes % 8.4 % (3.3-12.3); Neutrophils % 75.4 % (41.7-73.7); Platelets 171 thou/uL (152-406); RBC Red Blood Cell Count 3.44 M/uL (3.86-4.86); Red Cell Distribution Width 14.7 % (12.1-15.2)
[2023-09-19 03:59] LABS: Magnesium 1.7 mg/dL (1.6-2.4)
[2023-09-19] MEDS: MAGNESIUM SULFATE 1 gm IVPB 1 GM/100 ML BAG IV ONE (05:09)
[2023-09-19] MEDS: POTASSIUM 25 MEQ EFFERV TAB PO ONE (06:36)
[2023-09-19] MEDS ORDERED: [UNRECOGNIZED DRUG - OTHER] IH PRN (11:24)
[2023-09-19] MEDS ORDERED: ALBUTEROL IH PRN (11:24)
--- NOTE | 2023-09-19 12:25 | P.PN ---
Date of Service: 09/19/23 Subjective: feels a little better. Feels breathing is a little more comfortable on 2L NC. Thinks tessalon perles are helping no issues overnight. Doesn't feel like anything is getting worse denies pain with urination. urine orange/yellow in color likely d/t to pyridium minimal appetite. Family giving patient ensure. Asking for soft foods. ROS: 10 point ROS as noted above, otherwise negative Physical Exam: GEN: Alert, oriented, NAD HEENT: Normal conjunctiva, sclera anicteric CV: Regular rate and rhythm, no edema Pulm: Nonlabored respirations on 2L NC, clear bilaterally, dry cough ABD: Soft, nontender, nondistended Neuro: Normal speech, normal affect vitals reviewed Problem List: Sepsis secondary to suspected Acute pyelonephritis Left Nephrolithiasis s/p ureteroscopy with pyeloscopy, right ureteral stent placement and left ureteral stent exchange (09/16) Acute hypoxic respiratory failure secondary to acute COPD exacerbation Hypertension hx TIA Sepsis secondary to suspected Acute pyelonephritis Left Nephrolithiasis s/p ureteroscopy with pyeloscopy, right ureteral stent placement and left ureteral stent exchange (09/16) Patient underwent cystoscopy, ureteroscopy with pyeloscopy, right ureteral stent placement and left ureteral stent exchange (09/16) post operatively patient became febrile / briefly hypotensive immediately after procedure in PACU. +reported vomiting / tachycardia / intermittent bladder spasms BP responded well to NS fluid bolus and patient started on IV cefepime Stents are tentatively to be removed next week in office per urology Blood and urine cx (09/16): prelim no growth Given IV ancef 1 gm prior to procedure prophylactically Continue IV cefepime (09/16-) continue with intermittent low grade temps, leukocytosis resolved. (09/18) if continued improvement can consider deescalating IV cefepime to PO keflex tomorrow lactate improved - component secondary to hypoxia dc IVF PRN analgesics / antiemetics / antispasmodics Acute hypoxic respiratory failure secondary to acute COPD exacerbation CXR (09/16): negative for acute findings. Stable chronic interstitial changes/hyperlucency suggesting COPD. Continue bronchodilators oxygen supplementation as needed PRN tessalon perles Hypertension confirm home meds Monitor BP closely, BP improving VTE: heparin sq Code: Full Dispo: Home, ~2+ days Pending culture results / afebrile > 24 hours
[2023-09-19] MEDS: POTASSIUM CL SA 10 MEQ TAB PO ONE (20:24)
[2023-09-19] MEDS: METOPROLOL XL 25 MG TAB PO SCH (20:24)
[2023-09-19] MEDS: ENSURE HIGH PROTEIN 237 ML CAN PO SCH (20:30)
[2023-09-19] MEDS: AMLODIPINE 2.5 MG TAB PO ONE (20:39)
[2023-09-19] MEDS: ALBUTEROL 2.5 MG/3 ML NEB SOL NEB PRN (21:04)
[2023-09-19] MEDS: MELATONIN 3 MG TABLET PO ONE (21:50)
[2023-09-19] MEDS: TRAMADOL HCL 50 MG TAB PO PRN (21:53)
[2023-09-19] MEDS: ONDANSETRON 4 MG/2 ML VIAL IV PRN (23:06)
[2023-09-20 03:25] LABS: Absolute Basophils 0.1 K/uL (0-0.5); Absolute Eosinophils 0.2 K/uL (0-0.5); Absolute Lymphocytes (CBC) 1.4 K/uL (0.7-4.9); Absolute Monocytes 0.9 K/uL (0.1-1.3); Absolute Neutrophil 6.9 K/uL (1.8-8.0); Basophils % 0.8 % (0-1.3); Eosinophils % 2.2 % (0-4.4); Hematocrit 31.7 % (36.0-45.0); Hemoglobin 10.4 g/dL (12.0-15.0); Lymphocytes % 14.5 % (15.3-44.8); MCH 28.6 pg (27.0-35.0); MCHC 32.7 g/dL (32.0-36.0); MCV 87.5 fL (80-100); Neutrophils % 72.5 % (41.7-73.7); Platelets 188 thou/uL (152-406); RBC Red Blood Cell Count 3.62 M/uL (3.86-4.86); Red Cell Distribution Width 14.9 % (12.1-15.2)
[2023-09-20 03:39] LABS: Anion Gap 5.9 mEq/L (5.0-15.0); Magnesium 1.8 mg/dL (1.6-2.4); Potassium 3.9 mEq/L (3.5-5.1)
[2023-09-20] MEDS: MAGNESIUM SULFATE 1 gm IVPB 1 GM/100 ML BAG IV ONE (06:08)
[2023-09-20] MEDS ORDERED: IPRATROPIUM BROM 0.5MG/2.5ML NEB PRN (07:52)
[2023-09-20] MEDS: POTASSIUM CL SA 10 MEQ TAB PO ONE (09:40)
--- NOTE | 2023-09-20 10:47 | RAD REPORT ---
EXAM DESCRIPTION: [facility] Single View09/20/2023 10:15 am CLINICAL HISTORY: Cough COMPARISON: September 17, 2023 FINDINGS: Lungs remain hyperaerated. The lungs appear clear of acute infiltrate. The heart is normal size. monitor worker overlies chest IMPRESSION: No acute abnormalities displayed
[2023-09-20] MEDS ORDERED: TEMAZEPAM 30 MG PO PRN (11:58)
[2023-09-20] MEDS ORDERED: SODIUM CHLORIDE 0.9% 10ML INJ IV PRN (12:02)
--- NOTE | 2023-09-20 12:18 | P.PN ---
Date of Service: 09/20/23 Subjective: nausea/vomiting yesterday & today around the same time in morning. Reported coughing bout prior to vomiting. Breathing okay on room air, off oxygen since yesterday persistent cough continues ~same, +throat discomfort/irritation afebrile ROS: 10 point ROS as noted above, otherwise negative Physical Exam: GEN: Alert, oriented, NAD HEENT: Normal conjunctiva, sclera anicteric CV: Regular rate and rhythm, no edema Pulm: Nonlabored respirations on room air, clear bilaterally, dry cough ABD: Soft, nontender, nondistended Neuro: Normal speech, normal affect vitals reviewed Problem List: Sepsis secondary to suspected Acute pyelonephritis Left Nephrolithiasis s/p ureteroscopy with pyeloscopy, right ureteral stent placement and left ureteral stent exchange (09/16) Intractable nausea / vomiting post-operatively Acute hypoxic respiratory failure secondary to acute COPD exacerbation Hypertension hx TIA Sepsis secondary to suspected Acute pyelonephritis Left Nephrolithiasis s/p ureteroscopy with pyeloscopy, right ureteral stent placement and left ureteral stent exchange (09/16) Patient underwent cystoscopy, ureteroscopy with pyeloscopy, right ureteral stent placement and left ureteral stent exchange (09/16) post operatively patient became febrile / briefly hypotensive immediately after procedure in PACU. +reported vomiting / tachycardia / intermittent bladder spasms BP responded well to NS fluid bolus and patient started on IV cefepime empirically Stents are tentatively to be removed next week in office per urology Blood cx (09/16): NGTD urine cx (09/16): No growth Given IV ancef 1 gm prior to procedure prophylactically Continue IV cefepime (09/16-) afebrile, leukocytosis resolved. (09/18) likely transition IV cefepime to PO keflex later today/tomorrow if continued improvement lactate improved - component secondary to hypoxia PRN analgesics / antiemetics / antispasmodics Intractable nausea / vomiting post-operatively nausea/vomiting yesterday & today around the same time in morning. Reported coughing bout prior to vomiting. +[address] some difficulty swallowing yesterday possibly secondary to cough/indigestion vs medication side effect Start protonix and stop simethicone carafate added 09/19 Speech consult to eval - seems to be coughing more when eating/drinking no white plaques seen on exam. unlikely thrush. pain began immediately after all the vomiting she had post-op Acute hypoxic respiratory failure secondary to acute COPD exacerbation CXR (09/16): negative for acute findings. Stable chronic interstitial changes/hyperlucency suggesting COPD. CXR (09/19): no acute findings. Continue bronchodilators breathing more comfortably on room air. PRN tessalon perles for cough Hypertension confirm home meds Monitor BP closely VTE: heparin sq Code: Full Dispo: Home, ~1-2 days Pending culture results / afebrile > 24 hours
[2023-09-20] MEDS: PANTOPRAZOLE 40 MG INJ IVP SCH (13:18)
[2023-09-20] MEDS: SUCRALFATE 1 GM TABLET PO SCH (16:39)
[2023-09-20] MEDS: FLUTICASONE 50MCG NASAL SPRAY NAS SCH (21:00)
[2023-09-20] MEDS: CEPHALEXIN 250 MG CAP PO SCH (21:31)
[2023-09-20] MEDS: AMLODIPINE 5 MG TAB PO SCH (21:32)
[2023-09-21 07:39] LABS: Anion Gap 8.9 mEq/L (5.0-15.0); Potassium 3.9 mEq/L (3.5-5.1)
[2023-09-21] MEDS: levoFLOXacin 750 MG TAB PO SCH (08:44)
[2023-09-21 09:29] VITALS: BP 137/58; TEMP 97.6
[2023-09-21 10:12] VITALS: O2SAT 92
== END 2023-09-21 11:06 | disposition home or self-care (01) | DRG 853 ==
LOC: OR 08:35 → 2ND 19:55
PROVIDERS: ADMIT Internal Medicine; ATTEND Hospitalist
PROC: 0T778DZ Dilation of Left Ureter with Intraluminal Device, Via Natural or Artificial Opening Endoscopic (ICD-10-PCS; 2023-09-17)
PROC: BT1D1ZZ Fluoroscopy of Right Kidney, Ureter and Bladder using Low Osmolar Contrast (ICD-10-PCS; 2023-09-17)
PROC: 0TP98DZ Removal of Intraluminal Device from Ureter, Via Natural or Artificial Opening Endoscopic (ICD-10-PCS; 2023-09-17)
PROC: 0TC78ZZ Extirpation of Matter from Left Ureter, Via Natural or Artificial Opening Endoscopic (ICD-10-PCS; 2023-09-17)
PROC: 0T768DZ Dilation of Right Ureter with Intraluminal Device, Via Natural or Artificial Opening Endoscopic (ICD-10-PCS; principal; 2023-09-17 10:45)
DX: A41.9 Sepsis, unspecified organism (principal); J96.01 Acute respiratory failure with hypoxia; N10 Acute pyelonephritis; J44.1 Chronic obstructive pulmonary disease with (acute) exacerbation; Q62.10 Congenital occlusion of ureter, unspecified; K92.1 Melena; I12.9 Hypertensive chronic kidney disease with stage 1 through stage 4 chronic kidney disease, or unspecified chronic kidney disease; N18.2 Chronic kidney disease, stage 2 (mild); N20.0 Calculus of kidney; Z88.5 Allergy status to narcotic agent; Z88.8 Allergy status to other drugs, medicaments and biological substances; Z90.49 Acquired absence of other specified parts of digestive tract; Z86.73 Personal history of transient ischemic attack (TIA), and cerebral infarction without residual deficits; Z87.891 Personal history of nicotine dependence; Z90.710 Acquired absence of both cervix and uterus; Z79.899 Other long term (current) drug therapy
CPT/HCPCS: 36415; 51610; 71045; 74450; 80048; 82360; 83605; 83735; 84100; 84132; 85025; 85610; 87040; 87086; 87088; 88300; 94010; 94640; 94760; 97116; 97161; 97530; C9113; J0690; J0692; J1644; J2001; J2405; J2550; J2704; J3010; J3475; J3535; J7040; J7042; J7120; J7613; J7644

== ENCOUNTER 2024-07-16 14:58 | Observation (INO) | payer OTHER ==
[2024-07-16] MEDS ORDERED: NA CHLORIDE 0.9% 1,000 ML ONE (15:35)
--- NOTE | 2024-07-16 16:01 | RAD REPORT ---
EXAM: US Carotid Artery Bilateral CLINICAL INDICATION: DIZZINESS TECHNIQUE: Real-time grayscale, color flow, and spectral Doppler sonographic images were obtained of the extracranial carotid system using a linear transducer. Arterial peak systolic velocities are recorded as follows. COMPARISON: No prior exam. FINDINGS: RIGHT: Common carotid artery: 52 cm/s Internal carotid artery: 65 cm/s Right ICA/CCA ratio: 1.2 Plaque : mild to moderate smooth calcified plaque External carotid artery: 94 cm/s Vertebral artery: Antegrade LEFT: Common carotid artery: 46 cm/s Internal carotid artery: 68 cm/s Left ICA/CCA ratio: 1.46 Plaque Moderate irregular calcified plaque External carotid artery: 81 cm/s Vertebral artery: Antegrade IMPRESSION: No hemodynamically significant stenosis (greater than 50%) within the extracranial internal carotid a rteries. The degrees of stenosis, if any, are quantified according to the consensus statement of the Society o f Radiologists in Ultrasound (SRUS). Please refer to Heraclio E, Vidal C, Audrey G et al. Carotid Artery Stenosis: Zamorano-Scale and Doppler US Diagnosis--Society of Radiologists in Ultrasound Consensus Conference. Radiology. 2003;229(2):340-6. doi:10.1148/[id number]
[2024-07-16 16:16] LABS: Absolute Eosinophils 0.1 K/uL (0-0.5); Absolute Lymphocytes (CBC) 1.2 K/uL (0.7-4.9); Absolute Monocytes 0.9 K/uL (0.1-1.3); Absolute Neutrophil 7.1 K/uL (1.8-8.0); Basophils % 0.5 % (0-1.3); Eosinophils % 1.2 % (0-4.4); Hematocrit 40.1 % (36.0-45.0); Hemoglobin 13.2 g/dL (12.0-15.0); Lymphocytes % 12.6 % (15.3-44.8); MCH 30.6 pg (27.0-35.0); MCV 92.8 fL (80-100); MPV 7.3 fL (7.6-11.3); Monocytes % 10.1 % (3.3-12.3); Neutrophils % 75.6 % (41.7-73.7); Nucleated Red Blood Cells % 0.1 % (0-0); Platelets 214 thou/uL (152-406); RBC Red Blood Cell Count 4.32 M/uL (3.86-4.86); Red Cell Distribution Width 13.3 % (12.1-15.2)
[2024-07-16 16:24] LABS: PT Prothrombin Time 10.9 SECONDS (10.0-13.0); Protime INR 0.95
--- NOTE | 2024-07-16 16:24 | RAD REPORT ---
EXAMINATION: ONE VIEW CHEST XR CLINICAL INDICATION: Female, 84 years old.,COPD TECHNIQUE: Frontal chest projection is submitted. Examination is limited by patient positioning and t echnique. COMPARISON: 09/12/2023 FINDINGS: The lungs are diffusely emphysematous but grossly clear. No pneumothorax or sizable effusion. The he art is normal in size. Mediastinal contours are unremarkable. Multiple healing or healed right mid to lower rib fractures. IMPRESSION: No acute intrathoracic abnormalities.
[2024-07-16 16:44] LABS: ALT/SGPT 23 U/L (13-56); AST/SGOT 16 U/L (15-37); Albumin 3.2 g/dL (3.4-5.0); Albumin/Globulin Ratio 0.9 (1.1-1.8); Alkaline Phosphatase 77 U/L (45-117); Anion Gap 9.8 mEq/L (5.0-15.0); BUN Blood Urea Nitrogen 17 mg/dL (7-18); Bicarbonate 28 mEq/L (21-32); Bilirubin Total 0.3 mg/dL (0.2-1.0); Globulin 3.6 g/dL (2.3-3.5); Glomerular Filtration Rate 72 ml/min (=/>90); Glucose Level 105 mg/dL (74-106); Lipase 42 U/L (13-75); NT PRO-BNP 348 pg/mL (<450); Potassium 3.8 mEq/L (3.5-5.1); Protein, Total 6.8 g/dL (6.4-8.2); Sodium Level 139 mEq/L (136-145); Troponin High Sensitivity 10.5 pg/mL (<58.9)
--- NOTE | 2024-07-16 17:16 | RAD REPORT ---
EXAM: CT Head Brain Wo Cont HISTORY: DIZZINESS COMPARISON: 07/11/2023 TECHNIQUE: Multiple contiguous axial images were obtained for a CT of the brain without contrast. Sag ittal and coronal reformats were performed. One or more of the following dose reduction techniques were used: Automated exposure control, adjus tment of the mA and kV according to patient size, and iterative reconstruction. Unless otherwise specified, incidental findings do not require dedicated imaging follow-up. FINDINGS: No evidence of hydrocephalus, intracranial hemorrhage, or extra-axial fluid collection. Moderate brain atrophy with moderate periventricular and deep white matter chronic microvascular isc hemic changes present. The calvarium is intact. The visualized paranasal sinuses and mastoid air cells are essentially clear . IMPRESSION: No evidence of acute intracranial abnormality.
--- NOTE | 2024-07-16 17:19 | ER ---
Nurse's Notes [facility] Name: Rena Schuler Age: 84 yrs Sex: Female : 1940 Arrival Date: 07/16/2024 Time: 14:58 Bed 13 Private MD: Diagnosis: Nausea with vomiting, unspecified;Weakness;Dizziness and giddiness Presentation: 07/16 15:07 Chief complaint: EMS states: Pt went to lunch w/ family, came home and laid down for a ph nap, when she woke up she had N/V and dizziness, 20 G to RAC, 12.5 Phenergan given by EMS, pt states that dizziness and nausea have improved, denies pain. Coronavirus screen: Vaccine status: Patient reports receiving the 2nd dose of the covid vaccine. Ebola Screen: No symptoms or risks identified at this time. Initial Sepsis Screen: Does the patient meet any 2 criteria? No. Patient's initial sepsis screen is negative. Does the patient have a suspected source of infection? No. Patient's initial sepsis screen is negative. Risk Assessment: Do you want to hurt yourself or someone else? Patient reports no desire to harm self or others. Onset of symptoms was July 16, 2024. 15:07 Method Of Arrival: EMS: [facility] ph 15:07 Acuity: THIEN 3 ph Triage Assessment: 15:09 General: Appears in no apparent distress. comfortable, well groomed, Behavior is calm, ph cooperative, appropriate for age. Pain: Denies pain. Neuro: Level of Consciousness is awake, alert, obeys commands, Oriented to person, place, time, situation, Geneticist are equal bilaterally Speech is normal, Reports dizziness, that has currently resolved. Cardiovascular: Capillary refill < 3 seconds in bilateral fingers Patient's skin is warm and dry. Respiratory: Airway is patent Respiratory effort is even, unlabored, Respiratory pattern is regular, symmetrical. GI: Abdomen is round non-distended, Reports nausea, vomiting, Patient currently denies abdominal pain, diarrhea. : No signs and/or symptoms were reported regarding the genitourinary system. Derm: Skin is pink, warm \T\ dry. Historical: - Allergies: 15:09 all pain medications; ph 15:09 Codeine; ph 15:09 Morphine; ph - Home Meds: 16:44 amlodipine 5 mg oral tablet 1 tab 2 times per day [Active]; metoprolol succinate 25 mg ph oral Tablet, Extended Release 24 hr 1 tab daily [Active]; temazepam 30 mg Oral capsule 1 cap every day at bedtime [Active]; Breztri Aerosphere 160-9-4.8 mcg/actuation inhalation HFA Aerosol Inhaler 2 inhalations daily [Active]; albuterol sulfate 90 mcg/actuation Inhl HFA Aerosol Inhaler 2 inhalations as needed [Active]; - PMHx: 15:09 COPD; Diverticulitis; Hypertension; TIA; ph - PSHx: 15:09 Appendectomy; bilateral cataract; Cholecystectomy; Left wrist; thyroid; Total abdominal ph hysterectomy; - Immunization history:: Adult Immunizations unknown. - Infectious Disease History:: Denies. - Social history:: Smoking status: Patient denies any tobacco usage or history of. Screenin:13 [facility] ED Fall Risk Assessment (Adult) History of falling in the last 3 months, ph including since admission No falls in past 3 months (0 pts) Confusion or Disorientation No (0 pts) Intoxicated or Sedated No (0 pts) Impaired Gait No (0 pts) Mobility Assist Device Used No (0 pt) Altered Elimination No (0 pt) Score/Fall Risk Level 0 - 2 = Low Risk Oriented to surroundings, Maintained a safe environment, Hourly rounding (assess needs \T\ fall precautionary measures) done. Abuse screen: Denies threats or abuse. Denies injuries from another. Nutritional screening: No deficits noted. Tuberculosis screening: No symptoms or risk factors identified. Assessment: 15:11 General: SEE TRIAGE ASSESSMENT. ph 16:44 Reassessment: Patient appears in no apparent distress at this time. Patient and/or ph family updated on plan of care and expected duration. Pain level reassessed. Patient is alert, oriented x 3, equal unlabored respirations, skin warm/dry/pink. 18:37 Reassessment: Patient appears in no apparent distress at this time. Patient and/or ph family updated on plan of care and expected duration. Pain level reassessed. Patient is alert, oriented x 3, equal unlabored respirations, skin warm/dry/pink. 19:11 Reassessment: Report faxed to second floor, notified charge nurse Anna. ph 19:36 Reassessment: No changes from previously documented assessment. Neuro: Reports rg5 dizziness. Respiratory: Airway is patent Trachea midline Respiratory effort is even, unlabored, Respiratory pattern is regular, symmetrical. GI: Reports nausea. Musculoskeletal: Circulation, motion, and sensation intact. Range of motion: intact in all extremities. Vital Signs: 15:07 BP 151 / 68; Pulse 67; Resp 18; Temp 97.4; Pulse Ox 96% on R/A; Weight 64.41 kg; Height ph 5 ft. 8 in. ; 16:43 BP 147 / 62; Pulse 68; Resp 18; Pulse Ox 97% on R/A; ph 18:00 BP 149 / 70; Pulse 71; Resp 18; Pulse Ox 98% on R/A; ph 19:12 BP 155 / 70; Pulse 72; Resp 18; Pulse Ox 98% on R/A; ph 15:07 Body Mass Index 21.59 (64.41 kg, 172.72 cm) ph Vitals: 16:43 Cardiac Rhythm Assessment Sinus rhythm W/PAC's. ph NIH Stroke Scale Scores: 16:26 NIHSS Score: 0 carson ED Course: 15:06 Patient arrived in ED. ph 15:09 Triage completed. ph 15:10 Karan Pruitt MD is Attending Physician. carson 15:11 Arm band placed on Patient placed in an exam room, on a stretcher, on pulse oximetry. ph 15:14 Patient has correct armband on for positive identification. Bed in low position. Call ph light in reach. Side rails up X 1. Pulse ox on. NIBP on. Door closed. Noise minimized. Warm blanket given. Pillow given. 15:15 Sarah Leon, RN is Primary Nurse. ph 15:52 US Carotid Artery Bilateral In Process Unspecified. EDMS 16:08 XRAY Chest (1 view) In Process Unspecified. EDMS 16:17 Lipase Sent. ph 16:17 Troponin HS Sent. ph 16:17 PT-INR Sent. ph 16:17 NT PRO-BNP Sent. ph 16:17 Magnesium Sent. ph 16:17 LFT's Sent. ph 16:17 CBC with Diff Sent. ph 16:17 Basic Metabolic Panel Sent. ph 16:17 Initial lab(s) drawn, by me, sent to lab. EKG done, by ED staff, reviewed by Karan Pruitt MD. Maintain EMS IV. Dressing intact. Good blood return noted. Site clean \T\ dry. Gauge \T\ site: 20 RAC. Flushed with 10 mL NS. 16:23 CT Head Brain wo Cont In Process Unspecified. EDMS 16:44 No provider procedures requiring assistance completed. Patient admitted, IV remains in ph place. 17:17 Victoriano Emanuel is Hospitalizing Provider. carson 18:22 Urinalysis w/ reflexes Sent. ph 18:22 Urine collected: clean catch specimen, clear. ph 19:36 Provided Education on: needs for admits. rg5 Administered Medications: 16:17 Drug: NS 0.9% IV 1000 ml IV at 1000 ml once; to be given as a bolus over 60 minutes ph Route: IV; Rate: 1000 ml; Site: right antecubital; 17:30 Follow up: Response: No adverse reaction; IV Status: Completed infusion; IV Intake: ph 1000ml 16:21 Not Given (Other Intervention Used): ondansetron 4 mg IVP once; over 2 minutes ph 18:36 Drug: Aspirin PO Chewable Tablet 81 mg PO once Route: PO; ph 18:36 Follow up: Response: No adverse reaction ph 18:36 Drug: Meclizine PO 25 mg PO once Route: PO; ph 18:36 Follow up: Response: No adverse reaction ph Medication: 15:14 VIS not applicable for this client. ph Intake: 17:30 IV: 1000ml; Total: 1000ml. ph Outcome: 17:18 Decision to Hospitalize by Provider. carson 19:35 Admitted to Med/surg accompanied by [facility], via wheelchair, [facility] 19:35 Condition: stable 19:35 Instructed on the need for admit, 19:58 Patient left the ED. rg5 NIH Stroke Scale - NIH Stroke Score Date: 07/16/2024 Time: 16:26 Total Score = 0 10. Dysarthria (speech clarity - read or repeat words) - 0(Normal) 11. Extinction and Inattention (visual/tactile/auditory/spatial/personal) - 0(No abnormality) 1a. Level of Consciousness (LOC) - 0(Alert) 1b. Level of Consciousness (LOC) (Month \T\ Age) - 0(Both) 1c. LOC Commands (Open \T\ Closes Eyes/Park Landscape Architect) - 0(Both) 2. Best Gaze (Lateral Gaze Paresis) - 0(Normal) 3. Visual Field Loss - 0(No visual loss) 4. Facial Palsy - 0(Normal) 5a. Left Arm: Motor (10-second hold) - 0(No drift) 5b. Right Arm: Motor (10-second hold) - 0(No drift) 6a. Left Leg: Motor (5-second hold - always test supine) - 0(No drift) 6b. Right Leg: Motor (5-second hold - always test supine) - 0(No drift) 7. Limb Ataxia (finger/nose \T\ heel/moore - test with eyes open) - 0(Absent) 8. Sensory Loss (pinprick arms/legs/face) - 0(Normal) 9. Best Language: Aphasia (description/naming/reading) - 0(No aphasia) Initials: carson Signatures: Dispatcher [employer] Karan Powell MD MD cha Hall, Patricia, RN RN Zechariah Long RN RN rg5
--- NOTE | 2024-07-16 17:19 | EDPHYS ---
Physician Documentation [facility] Name: Rena Schuler Age: 84 yrs Sex: Female : 1940 Arrival Date: 07/16/2024 Time: 14:58 Bed 13 Private MD: ED Physician Karan Pruitt HPI: 07/16 16:18 This 84 yrs old Female presents to ER via EMS with complaints of carson Nausea/Vomiting, Dizziness. 16:18 The patient presents to the emergency department with nausea, vomiting, that is carson continuous, 10 times since the onset of symptoms. Onset: The symptoms/episode began/occurred just prior to arrival. Possible causes: unknown. The symptoms are aggravated by nothing. The symptoms are alleviated by nothing. Associated signs and symptoms: Pertinent positives: nausea, vomiting, WEAK ALL OVER. Severity of symptoms: At their worst the symptoms were moderate in the emergency department the symptoms have improved moderately. The patient has not experienced similar symptoms in the past. Historical: - Allergies: 15:09 all pain medications; ph 15:09 Codeine; ph 15:09 Morphine; ph - Home Meds: 16:44 amlodipine 5 mg oral tablet 1 tab 2 times per day [Active]; metoprolol succinate 25 mg ph oral Tablet, Extended Release 24 hr 1 tab daily [Active]; temazepam 30 mg Oral capsule 1 cap every day at bedtime [Active]; Breztri Aerosphere 160-9-4.8 mcg/actuation inhalation HFA Aerosol Inhaler 2 inhalations daily [Active]; albuterol sulfate 90 mcg/actuation Inhl HFA Aerosol Inhaler 2 inhalations as needed [Active]; - PMHx: 15:09 COPD; Diverticulitis; Hypertension; TIA; ph - PSHx: 15:09 Appendectomy; bilateral cataract; Cholecystectomy; Left wrist; thyroid; Total abdominal ph hysterectomy; - Immunization history:: Adult Immunizations unknown. - Infectious Disease History:: Denies. - Social history:: Smoking status: Patient denies any tobacco usage or history of. ROS: 16:20 Constitutional: Negative for fever, chills, and weight loss, Eyes: Negative for injury, carson pain, redness, and discharge, ENT: Negative for injury, pain, and discharge, Neck: Negative for injury, pain, and swelling, Cardiovascular: Negative for chest pain, palpitations, and edema, Respiratory: Negative for shortness of breath, cough, wheezing, and pleuritic chest pain, Back: Negative for injury and pain, : Negative for injury, bleeding, discharge, and swelling, MS/Extremity: Negative for injury and deformity, Skin: Negative for injury, rash, and discoloration, Psych: Negative for depression, anxiety, suicide ideation, homicidal ideation, and hallucinations, Allergy/Immunology: Negative for hives, rash, and allergies, Endocrine: Negative for neck swelling, polydipsia, polyuria, polyphagia, and marked weight changes, Hematologic/Lymphatic: Negative for swollen nodes, abnormal bleeding, and unusual bruising, 16:20 Abdomen/GI: Positive for abdominal pain, nausea and vomiting, 16:20 Neuro: Positive for dizziness, weakness, Exam: 16:20 Constitutional: This is a well developed, well nourished patient who is awake, alert, carson and in no acute distress. Head/Face: Normocephalic, atraumatic. Eyes: Pupils equal round and reactive to light, extra-ocular motions intact. Lids and lashes normal. Conjunctiva and sclera are non-icteric and not injected. Cornea within normal limits. Periorbital areas with no swelling, redness, or edema. ENT: Nares patent. No nasal discharge, no septal abnormalities noted. Tympanic membranes are normal and external auditory canals are clear. Oropharynx with no redness, swelling, or masses, exudates, or evidence of obstruction, uvula midline. Mucous membranes moist. Neck: Trachea midline, no thyromegaly or masses palpated, and no cervical lymphadenopathy. Supple, full range of motion without nuchal rigidity, or vertebral point tenderness. No Meningismus. Chest/axilla: Normal chest wall appearance and motion. Nontender with no deformity. No lesions are appreciated. Cardiovascular: Regular rate and rhythm with a normal S1 and S2. No gallops, murmurs, or rubs. Normal PMI, no JVD. No pulse deficits. Respiratory: Lungs have equal breath sounds bilaterally, clear to auscultation and percussion. No rales, rhonchi or wheezes noted. No increased work of breathing, no retractions or nasal flaring. Abdomen/GI: Soft, non-tender, with normal bowel sounds. No distension or tympany. No guarding or rebound. No evidence of tenderness throughout. Back: No spinal tenderness. No costovertebral tenderness. Full range of motion. Skin: Warm, dry with normal turgor. Normal color with no rashes, no lesions, and no evidence of cellulitis. MS/ Extremity: Pulses equal, no cyanosis. Neurovascular intact. Full, normal range of motion., bilateral aka Neuro: Awake and alert, GCS 15, oriented to person, place, time, and situation. Cranial nerves II-XII grossly intact. Motor strength 5/5 in all extremities. Sensory grossly intact. Cerebellar exam normal. Normal gait. Psych: Awake, alert, with orientation to person, place and time. Behavior, mood, and affect are within normal limits. 16:20 ECG was reviewed by the Attending Physician. Vital Signs: 15:07 BP 151 / 68; Pulse 67; Resp 18; Temp 97.4; Pulse Ox 96% on R/A; Weight 64.41 kg; Height ph 5 ft. 8 in. ; 16:43 BP 147 / 62; Pulse 68; Resp 18; Pulse Ox 97% on R/A; ph 18:00 BP 149 / 70; Pulse 71; Resp 18; Pulse Ox 98% on R/A; ph 19:12 BP 155 / 70; Pulse 72; Resp 18; Pulse Ox 98% on R/A; ph 15:07 Body Mass Index 21.59 (64.41 kg, 172.72 cm) ph NIH Stroke Scale Scores: 16:26 NIHSS Score: 0 carson MDM: 15:10 Medical Screening Exam initiated carson 16:24 Differential diagnosis: Nonspecific abd pain, gastritis, cholecystitis, pancreatitis, carson appendicitis, diverticulitis, viral gastroenteritis, gastroenteritis. Differential Diagnosis: cardiac arrhythmia, cerebrovascular accident, GI bleed, idiopathic syncope, seizure, sepsis, transient ischemic attack, vasovagal episode. Data reviewed: vital signs, nurses notes, EMS record, lab test result(s), EKG, radiologic studies, CT scan, plain films. Consideration of Admission/Observation Patient was admitted/placed on observation. Escalation of care including admission/observation considered. I considered the following discharge prescriptions or medication management in the emergency department Medications were administered in the Emergency Department. See MAR. Independent interpretation of the following test(s) in the Emergency Department EKG: See my EKG interpretation above. Test considered but Not performed: MRI: NO MRI BRAIN. CT: NO CTA HEAD AND NECK. Care significantly affected by the following chronic conditions: Hypertension, Chronic Obstructive Pulmonary Disease, TIA, DIVERTICULITIS. Counseling: I had a detailed discussion with the patient and/or guardian regarding the historical points, exam findings, and any diagnostic results supporting the discharge/admit diagnosis, lab results, radiology results, the need for further work-up and treatment in the hospital. 07/16 15:12 Order name: Basic Metabolic Panel; Complete Time: 18:13 [facility] 07/16 15:12 Order name: CBC with Diff; Complete Time: 17:10 07/16 15:12 Order name: LFT's; Complete Time: 18:13 carson 07/16 15:12 Order name: Magnesium; Complete Time: 18:13 [facility] 07/16 15:12 Order name: NT PRO-BNP; Complete Time: 18:13 [facility] 07/16 15:12 Order name: PT-INR; Complete Time: 17:10 [facility] 07/16 15:12 Order name: Troponin HS; Complete Time: 18:13 [facility] 07/16 15:12 Order name: Lipase; Complete Time: 18:13 [facility] 07/16 15:12 Order name: Urinalysis w/ reflexes carson 07/16 18:07 Order name: CBC with Automated Diff [facility] 07/16 18:07 Order name: CBC with Automated Diff [facility] 07/16 18:07 Order name: Comprehensive Metabolic Panel [facility] 07/16 18:07 Order name: Comprehensive Metabolic Panel [facility] 07/16 18:07 Order name: Troponin High Sensitivity [facility] 07/16 18:07 Order name: Troponin High Sensitivity [facility] 07/16 18:07 Order name: Troponin High Sensitivity [facility] 07/16 18:07 Order name: Troponin High Sensitivity [facility] 07/16 15:12 Order name: XRAY Chest (1 view); Complete Time: 17:10 [facility] 07/16 15:12 Order name: CT Head Brain wo Cont; Complete Time: 17:18 carson 07/16 15:12 Order name: US Carotid Artery Bilateral; Complete Time: 16:04 07/16 15:12 Order name: Cardiac monitoring; Complete Time: 15:31 07/16 15:12 Order name: EKG - Nurse/Tech; Complete Time: 16:17 07/16 15:12 Order name: IV Saline Lock; Complete Time: 15:31 [facility] 07/16 15:12 Order name: Labs collected and sent; Complete Time: 16:17 [facility] 07/16 15:12 Order name: O2 Per Protocol; Complete Time: 15: [facility] 07/16 15:12 Order name: O2 Sat Monitoring; Complete Time: 15: [facility] EC:20 Rate is 76 beats/min. Rhythm is regular. QRS [place] is Normal. [place] interval is normal. QRS carson interval is normal. QT interval is normal. No Q waves. T waves are Normal. No ST changes noted. Clinical impression: Normal ECG and No evidence of ischemia. Interpreted by me. Reviewed by me. Administered Medications: 16:17 Drug: NS 0.9% IV 1000 ml IV at 1000 ml once; to be given as a bolus over 60 minutes ph Route: IV; Rate: 1000 ml; Site: right antecubital; 17:30 Follow up: Response: No adverse reaction; IV Status: Completed infusion; IV Intake: ph 1000ml 16:21 Not Given (Other Intervention Used): ondansetron 4 mg IVP once; over 2 minutes ph 18:36 Drug: Aspirin PO Chewable Tablet 81 mg PO once Route: PO; ph 18:36 Follow up: Response: No adverse reaction ph 18:36 Drug: Meclizine PO 25 mg PO once Route: PO; ph 18:36 Follow up: Response: No adverse reaction ph Disposition Summary: 07/16/24 17:18 Hospitalization Ordered Notes: Hospitalization Status: Observation carson Provider: Victoriano Emanuel cha Location: Telemetry/MedSurg (Inpatient) carson Condition: Stable carson Problem: new carson Symptoms: have improved carson Bed/Room Type: Standard [facility] Room Assignment: 225(07/16/24 18:49) kmf Diagnosis - Nausea with vomiting, unspecified carson - Weakness carson - Dizziness and giddiness carson Forms: - Medication Reconciliation Form carson - SBAR form carson - Leadership Thank You Letter [facility] NIH Stroke Scale - NIH Stroke Score Date: 07/16/2024 Time: 16:26 Total Score = 0 10. Dysarthria (speech clarity - read or repeat words) - 0(Normal) 11. Extinction and Inattention (visual/tactile/auditory/spatial/personal) - 0(No abnormality) 1a. Level of Consciousness (LOC) - 0(Alert) 1b. Level of Consciousness (LOC) (Month \T\ Age) - 0(Both) 1c. LOC Commands (Open \T\ Closes Eyes/Quality Analyst/Technical Writer) - 0(Both) 2. Best Gaze (Lateral Gaze Paresis) - 0(Normal) 3. Visual Field Loss - 0(No visual loss) 4. Facial Palsy - 0(Normal) 5a. Left Arm: Motor (10-second hold) - 0(No drift) 5b. Right Arm: Motor (10-second hold) - 0(No drift) 6a. Left Leg: Motor (5-second hold - always test supine) - 0(No drift) 6b. Right Leg: Motor (5-second hold - always test supine) - 0(No drift) 7. Limb Ataxia (finger/nose \T\ heel/moore - test with eyes open) - 0(Absent) 8. Sensory Loss (pinprick arms/legs/face) - 0(Normal) 9. Best Language: Aphasia (description/naming/reading) - 0(No aphasia) Initials: carson Signatures: Dispatcher [employer] EDMS Karan Pruitt MD MD cha Hall, Patricia, RN RN Joy Da Silva km Corrections: (The following items were deleted from the chart) 15:12 15:12 BASIC METABOLIC PANEL+C.LAB.BRZ ordered. EDMS EDMS 15:12 15:12 CBC+H.LAB.BRZ ordered. EDMS EDMS 15:12 15:12 HEPATIC FUNCTION+C.LAB.BRZ ordered. EDMS EDMS 15:12 15:12 MAGNESIUM+C.LAB.BRZ ordered. EDMS EDMS 15:12 15:12 PROBNP+C.LAB.BRZ ordered. EDMS EDMS 15:12 15:12 PROTIME (+INR)+COAG.LAB.BRZ ordered. EDMS EDMS 15:12 15:12 Troponin High Sensitivity+C.LAB.BRZ ordered. EDMS EDMS 15:12 15:12 LIPASE+C.LAB.BRZ ordered. EDMS EDMS 15:12 15:12 Urinalysis+U.LAB.BRZ ordered. EDMS EDMS 15:12 15:12 Chest Single View+RAD.RAD.BRZ ordered. EDMS EDMS 15:12 15:12 Head Brain Wo Cont+CT.RAD.BRZ ordered. EDMS EDMS 15:12 15:12 Carotid Artery Bilateral+US.RAD.BRZ ordered. EDMS EDMS 18:49 17:18 carson kmf
[2024-07-16 17:40] LABS: Bilirubin Direct < 0.2 mg/dL (0-0.2); Bilirubin Indirect, Calculated 0.1 mg/dL (0.2-0.8)
[2024-07-16] MEDS ORDERED: ONDANSETRON 4 MG/2 ML VIAL IV PRN (18:04)
[2024-07-16] MEDS ORDERED: MECLIZINE HCL 12.5 MG TAB ONE (18:25)
[2024-07-16] MEDS ORDERED: ASPIRIN 81 MG CHEWABLE TABLET ONE (18:25)
[2024-07-16 18:42] LABS: Specific Gravity 1.013 (1.005-1.030); Sqamous Epithelial <5 /HPF (None Seen); Urine Bacteria <20 /HPF (<20); Urine Bilirubin NEGATIVE (Negative); Urine Blood Negative (Negative); Urine Clarity Clear (Clear); Urine Color Light-Yellow (Yellow); Urine Culture Reflex Order NOT NEEDED; Urine Glucose NEGATIVE (Negative); Urine Ketones NEGATIVE (Negative); Urine Microscopic Reflex YN ORDER UMIC; Urine Mucus Slight /HPF (None Seen); Urine Nitrite NEGATIVE (Negative); Urine Protein NEGATIVE (Negative); Urine RBC <5 /HPF (None Seen); Urine Urobilinogen Normal (Normal); Urine WBC <5 /HPF (<5)
[2024-07-16] MEDS: NA CHLORIDE 0.9% 1,000 ML IV SCH (19:00)
[2024-07-16 20:28] VITALS: O2SAT 98
[2024-07-16] MEDS ORDERED: PROMETHAZINE INJ 25 MG/ML AMP IV PRN (21:04)
[2024-07-16] MEDS: METOPROLOL XL 25 MG TAB PO ONE (21:16)
[2024-07-16] MEDS: AMLODIPINE 5 MG TAB ONE (21:17)
[2024-07-16] MEDS: METOPROLOL XL 25 MG TAB PO SCH (21:30)
[2024-07-16] MEDS: TEMAZEPAM 15 MG CAP PO PRN (21:30)
[2024-07-16] MEDS: AMLODIPINE 5 MG TAB PO SCH (21:31)
[2024-07-17 00:15] VITALS: BMI 21.6
[2024-07-17 05:25] LABS: Absolute Eosinophils 0.2 K/uL (0-0.5); Absolute Lymphocytes (CBC) 1.4 K/uL (0.7-4.9); Absolute Monocytes 0.8 K/uL (0.1-1.3); Absolute Neutrophil 4.5 K/uL (1.8-8.0); Basophils % 0.6 % (0-1.3); Eosinophils % 2.6 % (0-4.4); Hematocrit 35.2 % (36.0-45.0); Hemoglobin 11.8 g/dL (12.0-15.0); Lymphocytes % 20.4 % (15.3-44.8); MCH 30.9 pg (27.0-35.0); MCHC 33.5 g/dL (32.0-36.0); MCV 92.3 fL (80-100); MPV 7.3 fL (7.6-11.3); Monocytes % 12.2 % (3.3-12.3); Neutrophils % 64.2 % (41.7-73.7); Platelets 209 thou/uL (152-406); RBC Red Blood Cell Count 3.82 M/uL (3.86-4.86); Red Cell Distribution Width 13.2 % (12.1-15.2)
[2024-07-17 05:41] LABS: Albumin 2.6 g/dL (3.4-5.0); Albumin/Globulin Ratio 0.9 (1.1-1.8); Anion Gap 7.6 mEq/L (5.0-15.0); Bilirubin Total 0.4 mg/dL (0.2-1.0); Potassium 3.6 mEq/L (3.5-5.1); Protein, Total 5.6 g/dL (6.4-8.2); Troponin High Sensitivity 13.1 pg/mL (<58.9)
[2024-07-17] MEDS: ACETAMINOPHEN 500 MG TAB PO PRN (06:59)
[2024-07-17 12:46] VITALS: BP 152/71; TEMP 97.8
--- NOTE | 2024-07-17 15:43 | P.HP ---
Certification for Inpatient Patient admitted to: Observation With expected LOS: <2 Midnights Patient will require the following post-hospital care: None Practitioner: I am a practitioner with admitting privileges, knowledge of patient current condition, hospital course, and medical plan of care. Services: Services provided to patient in accordance with Admission requirements found in Title 42 Section 412.3 of the Code of Federal Regulations Patient History Date of Service: 07/16/24 Reason for admission: Intractable nausea and vomiting History of Present Illness: Patient is a 84-year-old female who lives at [facility] who came to the hospital with intractable nausea and vomiting. Patient was having a hard time keeping her food down so she came into the emergency room. Patient was given IV fluids and antiemetics and her clinical symptoms have improved. Patient got some liquids tonight and then will advance her in the morning. At this time, patient will be admitted to the hospital for observation. Patient has a history of hypertension and she is working with her exercise equipment specialist to get her blood pressure controlled. Patient is currently on amlodipine and metoprolol. We will continue patient's medications. Allergies codeine Allergy (Verified 09/17/23 22:20) Nausea/Vomiting hydrocodone [From Lortab] Allergy (Verified 09/17/23 09:22) Nausea/Vomiting meloxicam Allergy (Verified 09/17/23 09:22) Nausea/Vomiting morphine Allergy (Verified 09/17/23 09:22) Anaphylaxis oxycodone [From Percodan] Allergy (Verified 09/17/23 22:20) Anaphylaxis propoxyphene [From Darvocet-N] Allergy (Verified 09/17/23 09:22) Nausea/Vomiting pseudoephedrine [From Seldane-D] Allergy (Verified 09/17/23 09:22) Anaphylaxis terfenadine [From Seldane-D] Allergy (Verified 09/17/23 09:22) Anaphylaxis zolpidem [From Ambien] Allergy (Verified 09/17/23 09:22) Nausea/Vomiting/Change in mental status pentazocine [From Talwin] Adverse Reaction (Verified 09/17/23 09:22) Nausea/Vomiting Home Medications: Amlodipine [Norvasc*] 2.5 mg PO BID 07/16/23 Metoprolol Succinate [Toprol Xl*] 25 mg PO BEDTIME 02/22/24 Temazepam 30 mg PO BEDTIME PRN 07/16/23 Budesonide/Glycopyr/Formoterol [Breztri Aerosphere Inhaler] 4.8 mcg IN DAILY 07/16/24 Ondansetron [Zofran] 4 mg PO Q6H PRN #20 tab 07/17/24 - Past Medical/Surgical History Has patient received pneumonia vaccine in the past: Yes Diabetic: No -: Hypertension -: COPD -: abd aneurysm -: "colon issues" -: Diverticulitis -: TIA -: lift device in lt chest wall -: back surgery -: hysterectomy -: cholecystectomy -: thryroidectomy -: cataract surgery -: AA repair -: Bleeding gastric and duodenal ulcer management Psychosocial/ Personal History: Patient lives at [facility] - Family History Father Medical History: Heart disease, Hypertension Notes: aneurysm Mother Medical History: Heart disease, Hypertension, Other (see notes) Notes: aneurysm Brother Medical History: Cancer - Social History Smoking Status: Former smoker Alcohol use: No Caffeine use: Yes Place of Residence: [place] Review of Systems 10-point ROS is otherwise unremarkable Physical Examination - Vital Signs Temperature: 97.8 F Blood Pressure: 152/71 Pulse: 63 Respirations: 16 Pulse Ox (%): 96 - Physical Exam General: Alert, In no apparent distress, Oriented x3 HEENT: Atraumatic, PERRLA, Mucous membr. moist/pink, EOMI, Sclerae nonicteric Neck: Supple, 2+ carotid pulse no bruit, No LAD, Without JVD or thyroid abnormality Respiratory: Clear to auscultation bilaterally, Normal air movement Cardiovascular: Regular rate/rhythm, Normal S1 S2, No murmurs Gastrointestinal: Normal bowel sounds, Soft and benign, Non-distended, No tenderness Musculoskeletal: No clubbing, No swelling, No tenderness Integumentary: No rashes Neurological: Normal gait, Normal speech, Normal strength at 5/5 x4 extr, Normal tone, Sensation intact, Cranial nerves 3-12 intact, Normal affect Lymphatics: No axilla or inguinal lymphadenopathy - Studies Laboratory Data (last 24 hrs) 07/16/24 07/16/24 07/16/24 16:00 16:00 16:00 WBC 9.40 Hgb 13.2 Hct 40.1 Plt Count 214 PT 10.9 INR 0.95 Sodium 139 Potassium 3.8 BUN 17 Creatinine 0.80 Glucose 105 Magnesium 2.0 Total Bilirubin 0.3 AST 16 ALT 23 Alkaline Phosphatase 77 Lipase 42 Assessment & Plan - Problems (Diagnosis) (1) Intractable nausea and vomiting Status: Acute (2) Fatty liver Onset Date: 05/05/16 Status: Chronic (3) Hypertension Onset Date: 05/05/16 Status: Chronic - Plan Plan: 1. Continue with antiemetics and IV fluids. Continue monitoring renal function. Will hold BP medications at this time until blood pressure improves with hydration. Patient will be admitted for observation. Discharge Plan: Home Plan to discharge in: 24 Hours - Advance Directives Does patient have a Living Will: Yes Does patient have a Durable POA for Healthcare: Yes - Code Status/Comfort Care Code Status Assessed: Yes Code Status: Full Code Critical Care: No Time Spent Managing PTS Care (In Minutes): 40
--- NOTE | 2024-07-17 15:44 | P.DS ---
Discharge Date: 07/17/24 Disposition: ROUTINE DISCHARGE Discharge Condition: GOOD Reason for Admission: Intractable nausea and vomiting - Problems (1) Intractable nausea and vomiting Status: Acute (2) Fatty liver Onset Date: 05/05/16 Status: Chronic (3) Hypertension Onset Date: 05/05/16 Status: Chronic Brief History of Present Illness: Patient is a 84-year-old female who lives at [facility] who came to the hospital with intractable nausea and vomiting. Patient was having a hard time keeping her food down so she came into the emergency room. Patient was given IV fluids and antiemetics and her clinical symptoms have improved. Patient got some liquids tonight and then will advance her in the morning. At this time, patient will be admitted to the hospital for observation. Patient has a history of hypertension and she is working with her ceramist to get her blood pressure controlled. Patient is currently on amlodipine and metoprolol. We will continue patient's medications. Hospital Course: Patient has done well during hospitalization. Patient is tolerating diet. Patient is stable for discharge. Patient will resume antihypertensives. At this time, patient is stable for discharge home. Vital Signs/Physical Exam: Temp Pulse Resp BP Pulse Ox 97.8 F 63 16 152/71 H 96 07/17/24 15:43 07/17/24 15:43 07/17/24 15:43 07/17/24 15:43 07/17/24 15:43 General: Alert, In no apparent distress, Oriented x3 Laboratory Data at Discharge: WBC 7.00 thou/uL (4.3-10.9) 07/17/24 05:12 Hgb 11.8 g/dL (12.0-15.0) L D 07/17/24 05:12 Hct 35.2 % (36.0-45.0) L 07/17/24 05:12 Plt Count 209 thou/uL (152-406) 07/17/24 05:12 PT 10.9 SECONDS (10.0-13.0) 07/16/24 16:00 INR 0.95 07/16/24 16:00 Sodium 140 mEq/L (136-145) 07/17/24 05:12 Potassium 3.6 mEq/L (3.5-5.1) 07/17/24 05:12 BUN 13 mg/dL (7-18) 07/17/24 05:12 Creatinine 0.76 mg/dL (0.55-1.02) 07/17/24 05:12 Glucose 105 mg/dL (74-106) 07/17/24 05:12 Magnesium 2.0 mg/dL (1.6-2.4) 07/16/24 16:00 Total Bilirubin 0.4 mg/dL (0.2-1.0) 07/17/24 05:12 AST 14 U/L (15-37) L 07/17/24 05:12 ALT 18 U/L (13-56) 07/17/24 05:12 Alkaline Phosphatase 69 U/L (45-117) 07/17/24 05:12 Lipase 42 U/L (13-75) 07/16/24 16:00 Home Medications: Amlodipine [Norvasc*] 2.5 mg PO BID 07/16/23 Metoprolol Succinate [Toprol Xl*] 25 mg PO BEDTIME 07/16/23 Temazepam 30 mg PO BEDTIME PRN 07/16/23 Budesonide/Glycopyr/Formoterol [Breztri Aerosphere Inhaler] 4.8 mcg IN DAILY 07/16/24 Ondansetron [Zofran] 4 mg PO Q6H PRN #20 tab 07/17/24 New Medications: Ondansetron [Zofran] 4 mg PO Q6H PRN #20 tab PRN Reason: Nausea / Vomiting Physician Discharge Instructions: -DC IV and DC home -Follow-up with PCP in 1 to 2 weeks -Please call Dr. Rincon at [phone] if any questions regarding hospital stay -Please call nursing station at [phone] if any nursing or medication questions -Return to the emergency room if symptoms worsen Diet: Regular Activity: Fall precautions Followup: Dago Worrell MD [Primary Care Provider] - Time spent managing pt's care (in minutes): 35
[2024-07-17] MEDS ORDERED: AMLODIPINE 5 MG TAB PO SCH (21:00)
[2024-07-17] MEDS ORDERED: METOPROLOL XL 25 MG TAB PO SCH (21:00)
--- NOTE | 2024-07-18 12:02 | EKG ---
Test Date: 2024-07-16 Test Time: 15:58:32 Devulcanizer Tender: PH MEASUREMENT RESULTS: Intervals: Rate: 76 MI: 176 QRSD: 70 QT: 392 QTc: 441 Wilber: P: 79 MI: 176 QRS: 77 T: 85 INTERPRETIVE STATEMENTS: Sinus rhythm with premature atrial complexes Otherwise normal ECG Compared to ECG 07/27/2023 21:00:53 No significant changes Electronically Signed On 07-18-24 11:59:14 YARD SPECIALIST by Liborio Smith
== END 2024-07-17 15:10 | disposition home or self-care (01) ==
LOC: ER 14:58 → ERHOLD 18:03 → 2ND 19:49
PROVIDERS: ADMIT Hospitalist; ATTEND Hospitalist
DX: R11.2 Nausea with vomiting, unspecified (principal); I10 Essential (primary) hypertension; K76.0 Fatty (change of) liver, not elsewhere classified; Z88.5 Allergy status to narcotic agent; Z88.8 Allergy status to other drugs, medicaments and biological substances
CPT/HCPCS: 85025 ×2; 81001; 80048; 36415; 83735; 85610; 80076; 84484 ×2; 83690; 80053; 83880; 70450; 71045; 93880; 96360; 99285; J8597; J7030 ×2; 93005; G0378